=== PATIENT | male | born 1950 | race Caucasian/White ===

== ENCOUNTER → 2016-04-04 | Outpatient (REF) | payer MEDICARE ==
[~2016-04-04] MED LIST: ACTO15TA; GLUC1000; GLYB2.5T6; SIMV40TA2; TOPR50TA; VICO5TAB
[2016-04-04 17:15] LABS: ALBUMIN 3.9 GM/DL (3.2-5.2); ALBUMIN/GLOBULIN RATIO 1.34 (1.00-1.93); ALKALINE PHOSPHATASE 102 U/L (45-117); ALT/SGPT 28 U/L (12-78); ANION GAP 9 MEQ/L (8-16); AST/SGOT 16 U/L (15-37); BILIRUBIN,TOTAL 0.5 MG/DL (0.2-1.0); BLOOD UREA NITROGEN 23 MG/DL (7-18); CARBON DIOXIDE LEVEL 30 MEQ/L (21-32); CHLORIDE LEVEL 102 MEQ/L (98-107); CHOLESTEROL LEVEL 143 MG/DL (<200); GLOMERULAR FILTRATION RATE > 60.0 (>49); GLUCOSE, FASTING 141 MG/DL (80-110); POTASSIUM SERUM 4.4 MEQ/L (3.5-5.1); SODIUM LEVEL 141 MEQ/L (136-145); TOTAL PROTEIN 6.8 GM/DL (6.4-8.2); TRIGLYCERIDES LEVEL 109 MG/DL (<150)
== END ==
LOC: M SFHCCLAY 09:37
PROVIDERS: ATTEND Family Medicine
DX: I10 Essential (primary) hypertension (principal); E11.9 Type 2 diabetes mellitus without complications; E78.00 Pure hypercholesterolemia, unspecified

== ENCOUNTER → 2016-08-01 | Outpatient (REF) | payer MEDICARE ==
[2016-08-01 17:18] LABS: ALBUMIN 3.7 GM/DL (3.2-5.2); ALBUMIN/GLOBULIN RATIO 1.28 (1.00-1.93); ALKALINE PHOSPHATASE 86 U/L (45-117); ALT/SGPT 30 U/L (12-78); ANION GAP 7 MEQ/L (8-16); AST/SGOT 16 U/L (15-37); BILIRUBIN,TOTAL 0.7 MG/DL (0.2-1.0); BLOOD UREA NITROGEN 20 MG/DL (7-18); CARBON DIOXIDE LEVEL 30 MEQ/L (21-32); CHLORIDE LEVEL 100 MEQ/L (98-107); CHOLESTEROL LEVEL 145 MG/DL (<200); GLOMERULAR FILTRATION RATE > 60.0 (>49); GLUCOSE, FASTING 160 MG/DL (80-110); POTASSIUM SERUM 4.6 MEQ/L (3.5-5.1); SODIUM LEVEL 137 MEQ/L (136-145); TOTAL PROTEIN 6.6 GM/DL (6.4-8.2); TRIGLYCERIDES LEVEL 107 MG/DL (<150)
== END ==
LOC: M SFHCCLAY 10:07
PROVIDERS: ATTEND Family Medicine
DX: E78.00 Pure hypercholesterolemia, unspecified (principal); E11.9 Type 2 diabetes mellitus without complications

== ENCOUNTER → 2016-11-01 | Outpatient (REF) | payer MEDICARE ==
[2016-11-01 12:55] LABS: ANION GAP 10 MEQ/L (8-16); BLOOD UREA NITROGEN 21 MG/DL (7-18); CALCIUM LEVEL 9.2 MG/DL (8.8-10.2); CARBON DIOXIDE LEVEL 26 MEQ/L (21-32); CHLORIDE LEVEL 106 MEQ/L (98-107); CREATININE FOR GFR 0.95 MG/DL (0.70-1.30); GLOMERULAR FILTRATION RATE > 60.0 (>49); GLUCOSE, FASTING 152 MG/DL (80-110); POTASSIUM SERUM 4.7 MEQ/L (3.5-5.1); SODIUM LEVEL 142 MEQ/L (136-145)
== END ==
LOC: M SFHCCLAY 09:29
PROVIDERS: ATTEND Family Medicine
DX: E11.9 Type 2 diabetes mellitus without complications (principal)

== ENCOUNTER 2017-01-10 08:59 | Day surgery (SDC) | payer MEDICARE ==
[~2017-01-10] VITALS: Ht 175.3 cm; Wt 107.0 kg
[~2017-01-10 08:59] MED LIST changes: +ASPI1TAB PO; +ATOR40TA75 PO; +GLIP5TAB8 PO; +LISI-542 PO; +METF10004 PO; +METO100T5 PO; +MULTTAB23 PO; +PIOG30TA4 PO
[2017-01-10] MEDS ORDERED: NS 1,000 ML IV ONE (10:15)
[2017-01-10] MEDS ORDERED: PROPOFOL 200 MG/20 ML VIAL As Ordered ONE (10:57)
--- NOTE | 2017-01-10 11:04 | ROOR ---
Patient Name: Tae Gilbert Procedure Date: 01/10/2017 10:43 AM Date of : 1950 Age: 66 Room: [facility] Gender: Male Note Status: Finalized Procedure: Colonoscopy Indications: Screening for colorectal malignant neoplasm Providers: Juan Miguel Thomas Jr, MD Referring MD: Reyna Amador DO Requesting Provider: Medicines: Propofol per Anesthesia Complications: No immediate complications. Procedure: Pre-Anesthesia Assessment: - Prior to the procedure, a History and Physical was performed, and patient medications and allergies were reviewed. The patient is competent. The risks and benefits of the procedure and the sedation options and risks were discussed with the patient. All questions were answered and informed consent was obtained. Patient identification and proposed procedure were verified by the physician and the nurse in the pre-procedure area and in the procedure room. Mental Status Examination: alert and oriented. Airway Examination: normal oropharyngeal airway and neck mobility. Respiratory Examination: clear to auscultation. CV Examination: normal. ASA Grade Assessment: II - A patient with mild systemic disease. After reviewing the risks and benefits, the patient was deemed in satisfactory condition to undergo the procedure. The anesthesia plan was to use moderate sedation / analgesia (conscious sedation). Immediately prior to administration of medications, the patient was re-assessed for adequacy to receive sedatives. The heart rate, respiratory rate, oxygen saturations, blood pressure, adequacy of pulmonary ventilation, and response to care were monitored throughout the procedure. The physical status of the patient was re-assessed after the procedure. The Colonoscope was introduced through the anus and advanced to the cecum, identified by appendiceal orifice and ileocecal valve. The colonoscopy was performed without difficulty. The patient tolerated the procedure well. The quality of the bowel preparation was adequate and good. Findings: A few small and large-mouthed diverticula were found in the sigmoid colon. Two semi-pedunculated polyps were found in the recto-sigmoid colon and ascending colon. The polyps were medium in size. These polyps were removed with a hot snare. Resection and retrieval were complete. The rectum, descending colon, transverse colon, cecum, appendiceal orifice and ileocecal valve appeared normal. Impression: - Diverticulosis in the sigmoid colon. - Two medium polyps at the recto-sigmoid colon and in the ascending colon, removed with a hot snare. Resected and retrieved. - The rectum, descending colon, transverse colon, cecum, appendiceal orifice and ileocecal valve are normal. Recommendation: - Discharge patient to home (ambulatory). - Repeat colonoscopy in 5 years for surveillance. Juan Miguel Thomas MD Juan Miguel Thomas Jr, MD 01/10/2017 11:04:14 AM This report has been signed electronically. Number of Addenda: 0 Note Initiated On: 01/10/2017 10:43 AM Estimated Blood Loss: Estimated blood loss: none.
[2017-01-10 11:30] VITALS: BP 192/99
== END 2017-01-10 11:39 | disposition home or self-care (01) ==
LOC: M OPP 08:59
PROVIDERS: ATTEND Surgery
DX: Z12.11 Encounter for screening for malignant neoplasm of colon (principal); D12.7 Benign neoplasm of rectosigmoid junction; D12.2 Benign neoplasm of ascending colon; K57.30 Diverticulosis of large intestine without perforation or abscess without bleeding; I10 Essential (primary) hypertension; E78.00 Pure hypercholesterolemia, unspecified; E11.9 Type 2 diabetes mellitus without complications; K21.9 Gastro-esophageal reflux disease without esophagitis; Z79.82 Long term (current) use of aspirin; Z79.84 Long term (current) use of oral hypoglycemic drugs; Z79.899 Other long term (current) drug therapy; Z87.891 Personal history of nicotine dependence

== ENCOUNTER → 2017-02-27 | Outpatient (REF) | payer MEDICARE ==
[2017-02-27 18:43] LABS: ANION GAP 7 MEQ/L (8-16); BLOOD UREA NITROGEN 26 MG/DL (7-18); CALCIUM LEVEL 9.2 MG/DL (8.8-10.2); CARBON DIOXIDE LEVEL 29 MEQ/L (21-32); CHLORIDE LEVEL 101 MEQ/L (98-107); CREATININE FOR GFR 0.99 MG/DL (0.70-1.30); GLOMERULAR FILTRATION RATE > 60.0 (>49); GLUCOSE, FASTING 204 MG/DL (80-110); POTASSIUM SERUM 4.8 MEQ/L (3.5-5.1); SODIUM LEVEL 137 MEQ/L (136-145)
[2017-02-27 18:56] LABS: ESTIMATED AVERAGE GLUCOSE 163 MG/DL (60-110); HEMOGLOBIN A1c 7.3 %
== END ==
LOC: M SFHCCLAY 09:44
DX: E11.9 Type 2 diabetes mellitus without complications (principal)
CPT/HCPCS: 83036

== ENCOUNTER → 2017-06-27 | Outpatient (REF) | payer MEDICARE ==
[2017-06-27 11:30] LABS: ESTIMATED AVERAGE GLUCOSE 174 MG/DL (60-110); HEMOGLOBIN A1c 7.7 %
[2017-06-27 11:35] LABS: ALBUMIN 3.9 GM/DL (3.2-5.2); ALBUMIN/GLOBULIN RATIO 1.34 (1.00-1.93); ALKALINE PHOSPHATASE 94 U/L (45-117); ALT/SGPT 28 U/L (12-78); ANION GAP 8 MEQ/L (8-16); AST/SGOT 19 U/L (7-37); BILIRUBIN,TOTAL 0.5 MG/DL (0.2-1.0); BLOOD UREA NITROGEN 29 MG/DL (7-18); CALCIUM LEVEL 8.7 MG/DL (8.8-10.2); CARBON DIOXIDE LEVEL 25 MEQ/L (21-32); CHLORIDE LEVEL 106 MEQ/L (98-107); CHOLESTEROL LEVEL 127 MG/DL (<200); CHOLESTEROL RISK RATIO 3.432 (<5); CREATININE FOR GFR 1.04 MG/DL (0.70-1.30); GLOMERULAR FILTRATION RATE > 60.0 (>49); GLUCOSE, FASTING 187 MG/DL (70-100); HDL CHOLESTEROL 37 MG/DL (>40); LDL CHOLESTEROL 69.4 MG/DL (<100); NON-HDL-C 90 MG/DL; POTASSIUM SERUM 4.4 MEQ/L (3.5-5.1); SODIUM LEVEL 139 MEQ/L (136-145); TOTAL PROTEIN 6.8 GM/DL (6.4-8.2); TRIGLYCERIDES LEVEL 103 MG/DL (<150)
[2017-06-27 11:50] LABS: MALB URINE SIEMENS 52.2 MG/L; MAU/CREAT RATIO 17.6 MCG/MG (0.0-30.0)
== END ==
LOC: M SFHCCLAY 09:39
DX: E78.00 Pure hypercholesterolemia, unspecified (principal); E11.9 Type 2 diabetes mellitus without complications
CPT/HCPCS: 80053

== ENCOUNTER → 2017-10-29 | Outpatient (REF) | payer MEDICARE ==
[2017-10-29 18:02] LABS: ALBUMIN 3.9 GM/DL (3.2-5.2); ALKALINE PHOSPHATASE 93 U/L (45-117); ALT/SGPT 27 U/L (12-78); ANION GAP 10 MEQ/L (8-16); AST/SGOT 16 U/L (7-37); BILIRUBIN,TOTAL 0.4 MG/DL (0.2-1.0); BLOOD UREA NITROGEN 35 MG/DL (7-18); CALCIUM LEVEL 9.5 MG/DL (8.8-10.2); CARBON DIOXIDE LEVEL 26 MEQ/L (21-32); CHLORIDE LEVEL 103 MEQ/L (98-107); CREATININE FOR GFR 1.01 MG/DL (0.70-1.30); GLOMERULAR FILTRATION RATE > 60.0 (>49); GLUCOSE, FASTING 127 MG/DL (70-100); POTASSIUM SERUM 4.7 MEQ/L (3.5-5.1); SODIUM LEVEL 139 MEQ/L (136-145); TOTAL PROTEIN 6.9 GM/DL (6.4-8.2)
[2017-10-29 18:26] LABS: ESTIMATED AVERAGE GLUCOSE 154 MG/DL (60-110)
== END ==
LOC: M SFHCCLAY 09:53
DX: E11.9 Type 2 diabetes mellitus without complications (principal); I10 Essential (primary) hypertension
CPT/HCPCS: 80053

== ENCOUNTER → 2018-03-17 | Outpatient (REF) | payer MEDICARE ==
[~2018-03-17] MED LIST changes: +PIOG1TAB37 PO; -PIOG30TA4 PO
== END ==
LOC: M SFHCCLAY 09:48
PROVIDERS: ATTEND Family Medicine
DX: E11.9 Type 2 diabetes mellitus without complications (principal); E78.00 Pure hypercholesterolemia, unspecified; I10 Essential (primary) hypertension

== ENCOUNTER → 2018-03-18 | Outpatient (REF) | payer MEDICARE ==
[2018-03-18 12:05] LABS: ALT/SGPT 31 U/L (12-78); BILIRUBIN,TOTAL 0.7 MG/DL (0.2-1.0); BLOOD UREA NITROGEN 24 MG/DL (7-18); CALCIUM LEVEL 9.1 MG/DL (8.8-10.2); CARBON DIOXIDE LEVEL 28 MEQ/L (21-32); CHLORIDE LEVEL 100 MEQ/L (98-107); CHOLESTEROL LEVEL 138 MG/DL (<200); CHOLESTEROL RISK RATIO 3.285 (<5); CREATININE FOR GFR 1.08 MG/DL (0.70-1.30); GLOMERULAR FILTRATION RATE > 60.0 (>49); GLUCOSE, FASTING 175 MG/DL (70-100); HDL CHOLESTEROL 42 MG/DL (>40); LDL CHOLESTEROL 71 MG/DL (<100); NON-HDL-C 96 MG/DL; POTASSIUM SERUM 4.6 MEQ/L (3.5-5.1); SODIUM LEVEL 136 MEQ/L (136-145); TOTAL PROTEIN 6.8 GM/DL (6.4-8.2); TRIGLYCERIDES LEVEL 125 MG/DL (<150)
[2018-03-18 12:20] LABS: HEMOGLOBIN A1c 8.6 %
== END ==
LOC: M SFHCCLAY 09:06
PROVIDERS: ATTEND Family Medicine
DX: E11.9 Type 2 diabetes mellitus without complications (principal); E78.00 Pure hypercholesterolemia, unspecified

== ENCOUNTER 2018-04-01 17:32 | Inpatient (IN) | payer MEDICARE ==
[~2018-04-01] VITALS: Ht 177.8 cm; Wt 110.8 kg
[2018-04-01] MEDS: NS 1,000 ML IV SCH ×2 (18:07→22:40)
--- NOTE | 2018-04-01 18:08 | REP ---
CT of the brain without IV contrast: There are no comparisons. There is a large focal zone of edema posteriorly in the right upper lobe measuring 5.4 x 3.2 cm compatible with either ischemic stroke or tumor. Followup MRI is recommended. There is no hemorrhage. There is mild enlargement of the ventricles and sulci compatible with mild diffuse atrophy. The visualized paranasal sinuses and mastoid air cells are clear. Impression: Focal zone of low density in the low O stair right upper lobe compatible with congestive of edema. This could represent an ischemic stroke or a tumor. Followup MRI is recommended. Electronically Signed by Alejandro Hadley MD 04/01/2018 06:00 P
[2018-04-01 18:10] LABS: BASO % 0.3 % (0.0-1.0); EOS % 0.4 % (0.0-3.0); HEMATOCRIT 42.1 % (42.0-52.0); HEMOGLOBIN 14.1 g/dl (13.5-17.5); LYMPH # 1.3 10^3/uL (1.5-4.5); LYMPH % 18.6 % (24.0-44.0); MEAN CORPUSCULAR HEMOGLOBIN 30.8 pg (27.0-33.0); MEAN CORPUSCULAR HGB CONC 33.5 g/dl (32.0-36.5); MEAN CORPUSCULAR VOLUME 91.9 fl (80.0-96.0); MONO # 0.4 10^3/uL (0.0-0.8); NEUTROPHILS # 5.2 10^3/uL (1.8-7.7); NEUTROPHILS % 74.6 % (36.0-66.0); PLATELET COUNT, AUTOMATED 286 10^3/uL (150-450); RED BLOOD COUNT 4.58 10^6/uL (4.30-6.10)
--- NOTE | 2018-04-01 18:15 | REP ---
Portable chest, 05:54 p.m., single AP view, the patient upright: Comparison is 07/07/2008. The left costophrenic angle is mildly effaced suggestive of a left pleural effusion. The lung mondragon otherwise clear. There is a right lung azygos lobe, unchanged. Cardiac size appears enlarged, unchanged. Impression: Possible small left pleural effusion. Electronically Signed by Alejandro Hadley MD 04/01/2018 06:07 P
[2018-04-01 18:48] LABS: ACETAMINOPHEN LEVEL < 2.0 UG/ML (10.0-30.0); ALBUMIN 3.7 GM/DL (3.2-5.2); ALT/SGPT 24 U/L (12-78); BILIRUBIN,DIRECT 0.2 MG/DL (0.0-0.2); BILIRUBIN,TOTAL 0.5 MG/DL (0.2-1.0); BLOOD UREA NITROGEN 22 MG/DL (7-18); CALCIUM LEVEL 8.7 MG/DL (8.8-10.2); CARBON DIOXIDE LEVEL 26 MEQ/L (21-32); CHLORIDE LEVEL 103 MEQ/L (98-107); CPK CREATINE PHOSPHOKINASE 79 U/L (39-308); CREATININE FOR GFR 1.22 MG/DL (0.70-1.30); ETHYL ALCOHOL (ETHANOL) < 0.003 % (0.000-0.010); GLOMERULAR FILTRATION RATE > 60.0 (>49); GLUCOSE, FASTING 235 MG/DL (70-100); MB/CK RELATIVE INDEX 1.65 (< OR =4); POTASSIUM SERUM 4.2 MEQ/L (3.5-5.1); SALICYLATE LEVEL < 1.7 MG/DL (5.0-30.0); SODIUM LEVEL 137 MEQ/L (136-145); TOTAL PROTEIN 6.7 GM/DL (6.4-8.2); TROPONIN I < 0.02 NG/ML (< 0.10)
[2018-04-01] MEDS ORDERED: ISOVUE-370 76% 100ML VIAL (Q9967) As Ordered ONE (18:52)
--- NOTE | 2018-04-01 20:37 | REPVR ---
EXAM: CT Angiography Head With Contrast EXAM DATE/TIME: 04/01/2018 7:20 PM CLINICAL HISTORY: 67 years old, male; Abnormal findings; Abnormal CT of the head; Additional info: CVA vs mass TECHNIQUE: Axial computed tomographic angiography images of the head with intravenous contrast using CT angiography protocol. All CT scans at this facility use at least one of these dose optimization techniques: automated exposure control; mA and/or kV adjustment per patient size (includes targeted exams where dose is matched to clinical indication); or iterative reconstruction. Coronal and sagittal reformatted images were created and reviewed. MIP and 3D reconstructed images were created and reviewed. Technologist notes: Facility exam id and description: CT. [facility]io[facility] CT angio head CONTRAST: Contrast Material: 100 ml of ISOVUE 370; Contrast Route: IV COMPARISON: CT Head without contrast 04/01/2018 5:35 PM FINDINGS: Right internal carotid artery: Atherosclerotic changes demonstrated in the right intracranial carotid artery. There is a moderate to high-grade stenosis in the distal intracavernous segment. Right anterior cerebral artery: Unremarkable. No occlusion or significant stenosis. No aneurysm. Right middle cerebral artery: Reduced caliber and decreased flow in the M1 and M2 branches of the right middle cerebral artery. No tumor vascularity demonstrated. Right posterior cerebral artery: Unremarkable. No occlusion or significant stenosis. No aneurysm. Right vertebral artery: Right dominant vertebral artery. Atherosclerotic changes in the right V4 segment of the vertebral artery without significant stenosis. Left internal carotid artery: Atherosclerotic changes demonstrated in the left intracranial carotid artery. No high-grade stenoses. Left anterior cerebral artery: Unremarkable. No occlusion or significant stenosis. No aneurysm. Left middle cerebral artery: Unremarkable. No occlusion or significant stenosis. No aneurysm. Left posterior cerebral artery: Unremarkable. No occlusion or significant stenosis. No aneurysm. Left vertebral artery: Unremarkable. No occlusion or significant stenosis. No aneurysm. Basilar artery: Tortuous basilar artery. IMPRESSION: 1. Right dominant vertebral artery. Atherosclerotic changes in the right V4 segment of the vertebral artery without significant stenosis. 2. Atherosclerotic changes demonstrated in the right intracranial carotid artery. There is a moderate to high-grade stenosis in the distal intracavernous segment. 3. Atherosclerotic changes demonstrated in the left intracranial carotid artery. No high-grade stenoses. 4. Reduced caliber and decreased flow in the M1 and M2 branches of the right middle cerebral artery. Electronically signed by: Gabriel Chaney On 04/01/2018 20:36:55 PM
--- NOTE | 2018-04-01 20:43 | REPVR ---
EXAM: CT Angiography Neck With Contrast EXAM DATE/TIME: 04/01/2018 7:20 PM CLINICAL HISTORY: 67 years old, male; Abnormal findings; Abnormal CT of the head; Additional info: CVA TECHNIQUE: Axial computed tomographic angiography images of the neck with intravenous contrast using CT angiography protocol. All CT scans at this facility use at least one of these dose optimization techniques: automated exposure control; mA and/or kV adjustment per patient size (includes targeted exams where dose is matched to clinical indication); or iterative reconstruction. Coronal and sagittal reformatted images were created and reviewed. MIP and 3D reconstructed images were created and reviewed. Technologist notes: Facility exam id and description: CT. [employer] CT angio neck CONTRAST: Contrast Material: 100 ml of ISOVUE 370; Contrast Route: IV COMPARISON: No relevant prior studies available. FINDINGS: VASCULATURE: Right common carotid artery: Normal. No significant stenosis. No dissection or occlusion. Right internal carotid artery: There is an occlusion of the right internal carotid artery at its origin. Right external carotid artery: Normal. No occlusion or significant stenosis. Right vertebral artery: Mild atherosclerotic changes in V1 through V4 segments of the right vertebral artery without significant stenosis. Dominant right vertebral artery. Left common carotid artery: Atherosclerotic changes at the origin of the left common carotid artery without significant stenosis. Left internal carotid artery: There is moderate atherosclerotic changes in the proximal left ICA estimated at 50-60 % narrowing which is consistent with a moderate stenosis using NASCET criteria. Left external carotid artery: Normal. No occlusion or significant stenosis. Left vertebral artery: Hypoplastic left vertebral artery. Subclavian arteries: Atherosclerotic changes at the origin of the left subclavian artery without significant stenosis. Brachiocephalic artery: Atherosclerotic changes in the proximal brachiocephalic artery without significant stenosis. Aorta: The aorta demonstrates moderate atherosclerotic calcification. NECK: Bones/joints: No acute fracture. Soft tissues: Normal. No significant soft tissue swelling. Lungs: Prominent azygous arch right lung. IMPRESSION: 1. There is moderate atherosclerotic changes in the proximal left ICA estimated at 50-60 % narrowing which is consistent with a moderate stenosis using NASCET criteria. 2. 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 3. Right dominant vertebral artery with mild atherosclerotic changes demonstrated. COMMENT: Reference per NASCET criteria for degree of stenosis: Mild: <50% stenosis. Moderate: 50-69% stenosis. Severe: 70-94% stenosis. Near occlusion: 95-99% stenosis. Electronically signed by: Gabriel Chaney On 04/01/2018 20:43:21 PM
[2018-04-01] MEDS ORDERED: HumaLOG INSULIN (NovoLOG) PER UNIT SC SCH (21:00)
[2018-04-01] MEDS ORDERED: LISINOPRIL 5 MG TAB PO SCH (21:00)
[2018-04-01] MEDS ORDERED: ASPIRIN 325 MG TAB PO ONE (21:15)
[2018-04-01] MEDS ORDERED: ASPI81TAEC PO (21:25)
[2018-04-01] MEDS ORDERED: LISI-542 PO (21:25)
[2018-04-01] MEDS ORDERED: GLIP10TA6 PO (21:25)
[2018-04-01] MEDS ORDERED: VITMTA PO (21:25)
[2018-04-01] MEDS ORDERED: DEXTROSE 50% 50 ML SYRINGE IV PRN (23:00)
[2018-04-01] MEDS ORDERED: GLUCAGON FOR INJ 1 MG VIAL (J1610) SC PRN (23:00)
[2018-04-01] MEDS ORDERED: GLUCOSE 4 GM CHEW TABLET PO PRN (23:00)
--- NOTE | 2018-04-01 23:53 | HPE ---
DATE OF ADMISSION: 04/01/2018 PRIMARY CARE PROVIDER AND ATTENDING PHYSICIAN: Dr. Cuellar VOLLEYBALL REFEREE: Dr. Sosa, Neurologist CHIEF COMPLAINT: Fall twice at home with possible left-sided weakness. HISTORY OF THE PRESENT ILLNESS: The patient is a 67-year-old white male with several chronic medical conditions listed below, came to the emergency room (ER) for evaluation of above complaints. History is provided by himself, as well as by his son who is with him in the ER. The patient states in the last week he was sick, he got the flu. He had coughing runny nose, poor appetite, and with general weakness. Yesterday, he fell in the bathroom and got a contusion on his left arm. Today, he fell again at home, and the called 911 and brought him to the ER for further evaluation. Per the son, when emergency medical services (EMS) went to see him, his left side was very weak. In the ER, he had a CT of his brain done, which demonstrated possible stroke, so medicine called for admission. Dr. Sosa, who is radiosonde operator for neurology service, was also contacted by the ER, and he will come to see the patient tomorrow. REVIEW OF SYSTEMS: Denies fever. No chills. No headache. No blurred vision. No shortness of breath. No chest pain. No abdominal pain. No dysuria. No tingling, numbness in the arms or lower extremities. All other systems were reviewed but negative. PAST MEDICAL HISTORY: 1. Type 2 diabetes. 2. Hypertension. 3. Dyslipidemia. PAST SURGICAL HISTORY: Hiatal hernia repair. ALLERGIES: No known drug allergies. MEDICATIONS: Reviewed. SOCIAL HISTORY: Remote tobacco use but quit many years. No alcohol abuse. No illicit drug abuse. He is a [employer]. FAMILY HISTORY: Father had a history of diabetes and from a heart problem. Mother from old age. PHYSICAL EXAMINATION: VITAL SIGNS: Temperature 98, heart rate is 85, respiratory rate 18, blood pressure 148/65, oxygen saturation 97% on room air. GENERAL: He is awake, alert, oriented times three. He is not in acute distress. HEENT: Atraumatic. Pupils are equal, round, reactive to light. No jaundice. Extraocular muscles intact. Ears, nose and throat: Normal. Mouth: Mucosa a little dry. NECK: No jugular venous distention (JVD). No bruits. LUNGS: Clear. HEART; S1, S2, regular. No murmur. ABDOMEN: Soft. Bowel sounds positive, nontender. LOWER EXTREMITIES: No edema in bilateral lower extremities. NEUROLOGIC: Cranial nerves II-XII intact and sensation normal, and reflexes normal. The only positive finding is left lower extremity muscle tone seems a little bit weak; it is about 4 over 5. The arms as well as the right lower extremity strength is normal. SKIN: No rash. PSYCHOLOGIC: No acute psychosis. DIAGNOSTIC AND LAB STUDIES: CBC and differential showed WBC 7, hemoglobin and hematocrit 14 over 42 and platelets 286. Sodium 137, potassium 4.2, chloride 103, bicarbonate 26, BUN 22, creatinine 1.2, glucose 235. Head CT demonstrated large focal zone of edema posteriorly in the right upper lobe measuring 5.4 x 3.2 cm, compatible with either ischemic stroke or tumor. Neck CTA as well as brain CT reviewed. IMPRESSION: 1. Possible acute ischemic stroke in the right upper lobe. 2. Type 2 diabetes. 3. Hypertension. 4. Dyslipidemia. PLAN: The patient will be admitted to the progressive care unit (PCU) for close monitoring. Will continue his home medications. Will keep his blood pressure around 150/80, try to avoid lower blood pressure significantly since this is acute stroke. Will schedule brain MRI tomorrow morning. Will get physical therapy (PT) to come to evaluate him. It seems like he does not have any swallowing problem. Neurology, Dr. Sosa, will come and consult tomorrow. He is not in the thrombolytic treatment window because this could have happened yesterday since he fell the first time at home. [facility] HOSPITALJocelynn
[2018-04-02] VITALS (8 sets, daily range): BP systolic 131–173; BP diastolic 62–70
[2018-04-02] MEDS: ACETAMINOPHEN TAB 650MG DOSE (2X325MG) PO PRN ×2 (01:30→11:32)
--- NOTE | 2018-04-02 06:41 | ECGEPIP ---
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
[2018-04-02 08:19] LABS: HEMOGLOBIN 13.3 g/dl (13.5-17.5); MEAN CORPUSCULAR HEMOGLOBIN 30.6 pg (27.0-33.0); MEAN CORPUSCULAR HGB CONC 34.1 g/dl (32.0-36.5); MEAN CORPUSCULAR VOLUME 89.9 fl (80.0-96.0); PLATELET COUNT, AUTOMATED 275 10^3/uL (150-450); RED BLOOD COUNT 4.34 10^6/uL (4.30-6.10); WHITE BLOOD COUNT 6.8 10^3/uL (4.0-10.0)
[2018-04-02 08:33] LABS: BLOOD UREA NITROGEN 19 MG/DL (7-18); CALCIUM LEVEL 8.7 MG/DL (8.8-10.2); CARBON DIOXIDE LEVEL 25 MEQ/L (21-32); CHLORIDE LEVEL 103 MEQ/L (98-107); CREATININE FOR GFR 0.89 MG/DL (0.70-1.30); GLOMERULAR FILTRATION RATE > 60.0 (>49); GLUCOSE, FASTING 189 MG/DL (70-100); POTASSIUM SERUM 3.9 MEQ/L (3.5-5.1); SODIUM LEVEL 135 MEQ/L (136-145)
[2018-04-02] MEDS: HumaLOG INSULIN (NovoLOG) PER UNIT SC SCH ×2 (08:39→11:54)
[2018-04-02] MEDS ORDERED: ATORVASTATIN 20 MG TAB PO SCH (09:00)
[2018-04-02] MEDS ORDERED: METOPROLOL TARTRATE 100 MG TAB PO SCH (09:00)
[2018-04-02] MEDS ORDERED: MULTIVITAMINS/MINERALS THERAP 1 TAB PO SCH (09:00)
[2018-04-02] MEDS ORDERED: PANTOPRAZOLE 40MG TAB (PROTONIX) PO SCH (09:00)
[2018-04-02] MEDS ORDERED: ASPIRIN 81 MG ENTERIC TAB PO SCH (09:00)
[2018-04-02] MEDS ORDERED: ENOXAPARIN 40 MG/0.4 ML SYRINGE (J1650) SC SCH (09:00)
[2018-04-02] MEDS ORDERED: CLOPIDOGREL 75 MG TAB PO ONE (09:00)
[2018-04-02] MEDS ORDERED: DOCUSATE SODIUM 100 MG CAP PO SCH (09:00)
--- NOTE | 2018-04-02 10:27 | REP ---
MR BRAIN WITHOUT CONTRAST: HISTORY: Infarction. COMPARISON: CT 04/01/2018. Increased signal intensity on diffusion and T2-weighted images is present in the right temporal lobe, basal ganglia, posterior right frontal lobe, and anterior right parietal lobe. This is decreased in signal intensity on ADC images and is consistent with an acute infarction. A small hemorrhagic component is present. There is mass effect with effacement of the overlying cortical sulci and partial effacement of the body of the right lateral ventricle. There is no midline shift. Areas of increased signal intensity on T2-weighted images are present in the periventricular and subcortical white matter. This represents small vessel ischemic disease. The ventricular system and cortical sulci are dilated consistent with minimal volume loss. There is no extracerebral collection. There is loss of the normal hyperintense signal in the cavernous right internal carotid artery. This is secondary to severe stenosis of the proximal right internal carotid artery. The visualized sinuses are clear. IMPRESSION: 1. Acute infarction and distribution of the right middle cerebral artery. A small hemorrhagic component is present. There is mass effect without midline shift. 2. Small vessel ischemic disease. 3. Minimal volume loss. Electronically Signed by Tae Garcia MD 04/02/2018 10:30 A
[2018-04-02] MEDS ORDERED: PILL CRUSHER/CUTTER 1 EACH XX PRN (11:30)
--- NOTE | 2018-04-02 13:25 | IPNPDOC ---
Subjective Date Seen The patient was seen on 04/02/18. Subjective Chief Complaint/HPI Patient lying in bed as I entered the room. Patient is alert and oriented x 3. He reports left sided weakness. Started yesterday afternoon. Per nursing, symptoms have progressed since admission. Constitutional: Denies: Chills, Fever Eyes: Denies: Vision change ENT: Denies: Head Aches Pulmonary: Denies: Dyspnea, Cough Cardiovascular: Denies: Chest Pain, Orthopnea, Edema Gastrointestinal: Denies: Nausea, Vomiting, Abdominal Pain Neurological: Reports: Weakness, Other Symptoms (left side facial droop ); Denies: Change in speech, Confusion Objective Physical Examination General Exam: Positive: Alert, Cooperative, No Acute Distress Neck Exam: Negative: JVD Chest Exam: Positive: Clear to auscultation, Normal air movement; Negative: Rales, Rhonchi, Wheezing Heart Exam: Positive: Rate Normal Abdomen Exam: Positive: Normal bowel sounds, Soft; Negative: Tenderness Extremity Exam: Negative: Edema Skin Exam: Negative: Nl turgor and temperature Neuro Exam: Positive: Other (left sided lower extremity weakness); Negative: Normal Speech (speech with periods of aphasia ), Cranial Nerves 3- 12 NL (Patient somewhat un-cooperative when assessing EOM, stating he is tired. No loss in vision, Pupuillary constriction and eye lid movement appropriate. Left sided facial droop noted. ) Assessment /Plan Problems (1) Acute ischemic stroke Status: Acute Response to Treatment: Worse Problem Specific Plan: Consult Specialist Problem Text: 04/02/18: Patient with progressive left sided weakness. Dr. Sosa was consulted. He recommended starting Plavix and he will be in to see patient later this morning. Due to worsening of symptoms MRI order was changed to STAT. Per nursing, patient was coughing and gagging with medication administration this morning. Swallow eval ordered and patient was changed to NPO for now. PT/OT ordered as well. CT scan performed, Impression: Focal zone of low density in the low O stair right upper lobe compatible with congestive of edema. This could represent an ischemic stroke or a tumor. Followup MRI is recommended. Plan/VTE VTE Prophylaxis Ordered?: Yes (Lovenox ) VS, I&O, 24H, Fishbone Vital Signs/I&O Vital Signs Date Time Temp Pulse Resp B/P (MAP) Pulse Ox O2 Delivery O2 Flow Rate FiO2 04/02/18 04:00 98.6 93 20 152/70 (97) 95 04/01/18 23:30 Room Air I&O- Last 24 Hours up to 6 AM 04/02/18 05:59 Intake Total 60 ml Output Total 350 ml Balance -290 ml Laboratory Data 24H LABS Laboratory Tests 2 04/01/18 18:03: Immature Granulocyte % (Auto) 0.1, White Blood Count 7.0, Red Blood Count 4.58, Hemoglobin 14.1, Hematocrit 42.1, Mean Corpuscular Volume 91.9, Mean Corpuscular Hemoglobin 30.8, Mean Corpuscular Hemoglobin Concent 33.5, Red Cell Distribution Width 12.5, Platelet Count 286, Neutrophils (%) (Auto) 74.6H, Lymphocytes (%) (Auto) 18.6L, Monocytes (%) (Auto) 6.0H, Eosinophils (%) (Auto) 0.4, Basophils (%) (Auto) 0.3, Neutrophils # (Auto) 5.2, Lymphocytes # (Auto) 1.3L, Monocytes # (Auto) 0.4, Eosinophils # (Auto) 0.0, Basophils # (Auto) 0.0, Nucleated Red Blood Cells % (auto) 0.0, Anion Gap 8, Glomerular Filtration Rate > 60.0, Calcium Level 8.7L, Aspartate Amino Transf (AST/SGOT) 14, Alanine Aminotransferase (ALT/SGPT) 24, Alkaline Phosphatase 88, Total Bilirubin 0.5, Direct Bilirubin 0.2, Total Creatine Kinase 79, Creatine Kinase MB 1.0, Creatine Kinase MB Relative Index 1.65, Troponin I < 0.02, Total Protein 6.7, Albumin 3.7, Albumin/Globulin Ratio 1.23, Thyroid Stimulating Hormone (TSH) 1.380, Salicylates Level < 1.7L, Acetaminophen Level < 2.0L, Ethyl Alcohol Level < 0.003 04/01/18 23:22: Bedside Glucose (Misc Panel) 147H 04/02/18 07:52: CBC/BMP Laboratory Tests 04/01/18 18:03 Red Blood Count 4.58, Mean Corpuscular Volume 91.9, Mean Corpuscular Hemoglobin 30.8, Mean Corpuscular Hemoglobin Concent 33.5, Red Cell Distribution Width 12.5, Neutrophils (%) (Auto) 74.6 H, Lymphocytes (%) (Auto) 18.6 L, Monocytes (%) (Auto) 6.0 H, Eosinophils (%) (Auto) 0.4, Basophils (%) (Auto) 0.3, Neutrophils # (Auto) 5.2, Lymphocytes # (Auto) 1.3 L, Monocytes # (Auto) 0.4, Eosinophils # (Auto) 0.0, Basophils # (Auto) [address] [facility] Apr 02, 2018 09:05
[2018-04-02] MEDS ORDERED: NS 1,000 ML IV SCH (13:30)
--- NOTE | 2018-04-02 13:51 | NUR ---
Pt seen for bedside swallow evaluation d/t coughing and gagging with med administration. Pt provided nectar, honey and puree consistencies. Exceptionally poor bolus manipulation with nectar and honey. Reduced manipulation with puree. Improved manipulation if presented with slight tongue press. Decrease oral sensation and little to no manipulation of balancing machine set up worker consistencies. Pt delusional/delirious intermittently throughout the evaluation. Recommend: NPO. Necessary PO Meds crushed in cold applesauce. Provide repeat directives to swallow. Full upright positioning when passing meds. Keep bed elevated. Re-evaluate in am. Addendum: 04/02/18 at 1356 by ZAINAB NEGRETE [facility] Amended: Links added.
[2018-04-02] MEDS ORDERED: HumaLOG INSULIN (NovoLOG) PER UNIT SC SCH (18:00)
--- NOTE | 2018-04-02 18:26 | REPVR ---
EXAM: CT Head Without Contrast EXAM DATE/TIME: 04/02/2018 6:03 PM CLINICAL HISTORY: 67 years old, male; Condition or disease; Cerebrovascular disease; Cerebral infarction; Additional info: Right mca CVA, R/O ich TECHNIQUE: Axial computed tomography images of the head/brain without contrast. All CT scans at this facility use at least one of these dose optimization techniques: automated exposure control; mA and/or kV adjustment per patient size (includes targeted exams where dose is matched to clinical indication); or iterative reconstruction. COMPARISON: CT Head without contrast 04/01/2018 5:35 PM FINDINGS: Brain: Increased hypodensity in the right frontal, and anterior mid parietal lobes extending to the vertex and with mass effect on the right lateral ventricle in the region of previously demonstrated chronic infarction. The findings suggest extension of the previously demonstrated chronic infarct. Edema with mass effect is producing 5 mm of [id number] midline shift. Remaining parenchyma demonstrate senescent changes. Ventricles: Mass effect on the right lateral ventricle as described above. Moderate ventricular dilatation related atrophy. Bones/joints: Unremarkable. No acute fracture. Sinuses: Visualized sinuses are unremarkable. No acute sinusitis. Mastoid air cells: Visualized mastoid air cells are unremarkable. No mastoid effusion. Soft tissues: Unremarkable. IMPRESSION: Increased hypodensity in the right frontal, and anterior mid parietal lobes extending to the vertex and with mass effect on the right lateral ventricle in the region of previously demonstrated chronic infarction. The findings suggest extension of the previously demonstrated chronic infarct. Edema with mass effect is producing 5 mm of [id number] midline shift. Electronically signed by: Gabriel Chaney On 04/02/2018 18:26:31 PM
--- NOTE | 2018-04-03 00:42 | DS.PDOC ---
Discharge Summary General Date of Admission Apr 01, 2018 at 22:59 Date of Discharge Apr 02, 2018 Primary Care Physician: Archie Cuellar M.D. Attending Physician: KATINA MEI DO Specialist/Consultants Involve: MATTEO SOSA MD Discharge Summary PROCEDURES PERFORMED DURING STAY: [None]. ADMITTING DIAGNOSES: 1. Possible acute ischemic stroke in the right upper lobe. 2. Type 2 diabetes. 3. Hypertension. 4. Dyslipidemia. DISCHARGE DIAGNOSES: 1. Ischemic CVA with edema and midline shift 2. Type 2 diabetes. 3. Hypertension. 4. Dyslipidemia. COMPLICATIONS/CHIEF COMPLAINT: Acute Ischemic Stroke. HISTORY OF PRESENT ILLNESS: This is a 67 year old gentleman who came to the ED after falling twice at home. The patient states in the last week he was sick, he got the flu. He had coughing runny nose, poor appetite, and with general weakness. Yesterday, he fell in the bathroom and got a contusion on his left arm. Today, he fell again at home, and the called 911 and brought him to the ER for further evaluation. Per the son, when emergency medical services (EMS) went to see him, his left side was very weak. In the ER, he had a CT of his brain done, which demonstrated possible stroke, so medicine called for admission. Dr. Sosa, who is monotype operator for neurology service, was also contacted by the ER, and he will come to see the patient tomorrow. HOSPITAL COURSE: Patient was admitted to the ICU and monitored. He failed a swallow eval and was made NPO status. Worsening functional capacity and paralysis led to follow up MRI, and ultimately a follow up head CT. At that p oint, Dr. Sosa decided that the patient should be transferred to [place], and arrangements were made. DISCHARGE MEDICATIONS: Please see below. ALLERGIES: Please see below. PHYSICAL EXAMINATION ON DISCHARGE: VITAL SIGNS: Please see below. GENERAL: anxious; obese HEENT: mucous membranes moist NECK: supple CARDIOVASCULAR EXAMINATION: regular rate and rhythm RESPIRATORY EXAMINATION: clear to auscultation bilat ABDOMINAL EXAMINATION: bowel sounds positive; soft, nontender, nondistended SKIN: clean dry and intact NEUROLOGICAL EXAMINATION: flaccid paralysis L arm and leg PSYCHIATRIC EXAMINATION: alert and cooperative LABORATORY DATA: Please see below. IMAGING: head CT, brain MRI, and final head CT as follows: Increased hypodensity in the right frontal, and anterior mid parietal lobes extending to the vertex and with mass effect on the right lateral ventricle in the region of previously demonstrated chronic infarction. The findings suggest extension of the previously demonstrated chronic infarct. Edema with mass effect is producing 5 mm of [id number] midline shift. PROGNOSIS: fair ACTIVITY: [As tolerated]. DIET: NPO DISCHARGE PLAN: transfer to [place] under the care of Dr. Belle DISPOSITION: 14 Dcf. TIME SPENT ON DISCHARGE: Greater than 15 minutes. Vital Signs/I&Os Vital Signs Date Time Temp Pulse Resp B/P (MAP) Pulse Ox O2 Delivery O2 Flow Rate FiO2 04/02/18 20:00 98.5 66 24 161/70 (100) 96 04/01/18 23:30 Room Air I&O- Last 24 Hours up to 6 AM 04/03/18 06:00 Intake Total 520 ml Output Total 835 ml Balance -315 ml Laboratory Data Labs 24H Laboratory Tests 2 04/02/18 07:52: Nucleated Red Blood Cells % (auto) 0.0, Anion Gap 7L, Glomerular Filtration Rate > 60.0, Blood Urea Nitrogen 19H, Creatinine 0.89, Sodium Level 135L, Potassium Level 3.9, Chloride Level 103, Carbon Dioxide Level 25, Calcium Level 8.7L 04/02/18 11:36: Bedside Glucose (Misc Panel) 220H 04/02/18 17:48: Bedside Glucose (Misc Panel) 170H CBC/BMP Laboratory Tests 04/02/18 07:52 Red Blood Count 4.34, Mean Corpuscular Volume 89.9, Mean Corpuscular Hemoglobin 30.6, Mean Corpuscular Hemoglobin Concent 34.1, Red Cell Distribution Width 12.5, Calcium Level 8.7 L FSBS Laboratory Tests Test 04/02/18 11:36 04/02/18 17:48 Range/Units Bedside Glucose (Misc Panel) 220 170 80-115 MG/DL Discharge Medications Scheduled Aspirin (Aspirin EC) 81 Mg Tabec, 81 MG PO DAILY, (Reported) Atorvastatin Calcium (Atorvastatin Calcium) 40 Mg Tab, 40 MG PO DAILY, (Reported) Glipizide (Glipizide) 10 Mg Tab, 10 MG PO BID, (Reported) Lisinopril (Lisinopril) 5 Mg Tab, 5 MG PO QHS, (Reported) Metformin Hydrochloride (Metformin HCl) 1,000 Mg Tab, 1,000 MG PO BID, (Reported) Metoprolol Tartrate (Metoprolol Tartrate) 100 Mg Tab, 100 MG PO DAILY, (Reported) Multivitamins *[facility] STOCKED* (Thera M Plus *[facility] STOCKED*) 1 Tab Tab, 1 TAB PO DAILY, (Reported) Pioglitazone Hydrochloride (Pioglitazone HCl) 30 Mg Tab, 30 MG PO DAILY, (Reported) Allergies Coded Allergies: No Known Drug Allergy (Verified Allergy, Unknown, 04/01/18) KATINA MEI DO Apr 03, 2018 00:41
--- NOTE | 2018-04-03 06:34 | CR ---
DATE OF CONSULTATION: 04/02/2018 REFERRING PHYSICIAN: Dr. Mable Louie REFERRING PHYSICIAN Dr. Doc weinstein REASON FOR CONSULTATION: Left-sided weakness. HISTORY OF PRESENT ILLNESS: Tae Dunn is a 67-year-old man with history of type 2 diabetes, hypertension and dyslipidemia who presented to [facility] with his son after he fell several times at home. The patient had the flu and headaches last week. The day before yesterday he fell in the bathroom when he slipped in the bathroom. He had a contusion on his left arm at that time. In the morning of day of admission his noted that he was bouncing back and forth on the goncalves when he was coming downstairs. He could not go back upstairs as his legs felt too weak. His son brought him to [facility] and his left side was noted to be very weak. CT scan of the head at the time of arrival showed a large right middle cerebral artery stroke affecting the entire anterior division. CT angiography of the head and neck in the emergency department showed complete occlusion of his right internal carotid artery with severe stenosis of right internal carotid artery in cavernous portion with attenuation of right middle cerebral artery branches. He had 50 - 60% left internal carotid artery stenosis. This morning the patient had MRI scan of his brain. The patient had received as dose of aspirin yesterday and a dose of Plavix this morning before his MRI scan of brain. MRI scan of the brain showed a large right middle cerebral artery ischemic stroke with small petechial hemorrhage. When I saw the patient the patient appears to keep his eyes closed. He opens his eyes to oral commands and answers questions appropriately. He seems to have left hemiplegia and left rose neglect. He complains of chronic neck and back pain. He denies any seizures, diplopia, urinary incontinence or loss of consciousness. PAST MEDICAL HISTORY: 1. Diabetes. 2. Hypertension. 3. Dyslipidemia. 4. Hiatal hernia repair. ALLERGIES: No known drug allergies. SOCIAL HISTORY: He has a remote history of tobacco use but quit many years ago. He denies alcohol or illicit drugs. He is a [employer]. FAMILY HISTORY: Father with history of diabetes and had heart disease. REVIEW OF SYSTEMS: All systems were reviewed and found to be noncontributory except as mentioned in the history present illness. CURRENT MEDICATIONS: - aspirin 81 mg by mouth daily - Lipitor 40 mg by mouth daily - Plavix 75 mg by mouth daily, the patient did receive a dose earlier this morning - Lisinopril 5 mg by mouth daily - metoprolol 100 mg by mouth twice a day - Protonix PHYSICAL EXAMINATION: VITAL SIGNS: Blood pressure ranged between 133/60 - 158/97, temperature 98.4, pulse 65, respiratory 16. HEART: Regular rate and rhythm. LUNGS: Clear to auscultation. ABDOMEN: Soft, nontender, nondistended. EXTREMITIES: No pedal edema. MUSCULOSKELETAL: No musculoskeletal abnormalities. SKIN: No rash. NEUROLOGIC EXAM: No signs of meningeal irritation. No tremor. No nystagmus. The patient is drowsy but fully arousable and is able to follow commands. He is able to answer questions. He has left-sided rose neglect. He keeps his head turned towards the right side. His speech is normal with normal comprehension and repetition. Recent and distant memory is intact. Extraocular muscles are intact. He has left-sided upper motor neuron type facial weakness. Strength in his left arm and leg are 0/5. Left plantar is upgoing. Strength on right sided 05/05. He has decreased touch: Vibration sensation on left side of his body. He has left-sided cortical sensory loss. Gait could not be tested due to dense left hemiplegia. He has no dysmetria on right side. DIAGNOSTIC STUDIES: I have ordered a STAT CT scan of head which showed a large right middle cerebral artery stroke with a 5 mm midline shift with petechial hemorrhage. ASSESSMENT: 1. Large right middle cerebral artery ischemic stroke with petechial hemorrhage and 5 mm midline shift. 2. Hypertension. 3. Dyslipidemia. 4. 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 PLAN: 1. I have spoken to Dr. Belle at the [facility] [place] and he has accepted this patient for transfer to the [facility] and Neurological Intensive Care Unit. This patient may need an external ventricular drain (EVD) and hypertonic saline infusion to decrease the cerebral edema and prevent herniation. This can be life threatening if it occurs. 2. Continue aspirin 81 mg by mouth daily and Lipitor 40 mg by mouth daily. 3. Echocardiogram and other coagulopathy studies will be done at [facility] as the patient will be transferred to [facility] if they have a bed available. The station thank you very much
== END 2018-04-02 20:42 | disposition short-term general hospital (02) | DRG 64 ==
LOC: M ED 17:32 → EDBD 17:32 → M ED INP 22:59 → M ICU 04-02 00:10
PROVIDERS: ADMIT Hospitalist; ATTEND Family Medicine
DX: I63.511 Cerebral infarction due to unspecified occlusion or stenosis of right middle cerebral artery (principal); G93.6 Cerebral edema; G81.94 Hemiplegia, unspecified affecting left nondominant side; I62.9 Nontraumatic intracranial hemorrhage, unspecified; E11.9 Type 2 diabetes mellitus without complications; R29.810 Facial weakness; I10 Essential (primary) hypertension; I65.21 Occlusion and stenosis of right carotid artery; E78.5 Hyperlipidemia, unspecified; Z87.891 Personal history of nicotine dependence; Z79.82 Long term (current) use of aspirin; Z79.84 Long term (current) use of oral hypoglycemic drugs; Z79.899 Other long term (current) drug therapy

== ENCOUNTER 2018-04-08 11:53 | Inpatient (IN) | payer MEDICARE ==
[~2018-04-08] VITALS: Ht 177.8 cm; Wt 98.4 kg
[~2018-04-08 11:53] MED LIST changes: -ASPI1TAB PO; +ASPI81TA26 PO; +ASPI81TAEC PO; +GLIP10TA6 PO; +METO-743; -TOPR50TA; +VITMTA PO
[2018-04-08] MEDS ORDERED: GLUCOSE 4 GM CHEW TABLET PO PRN (17:00)
[2018-04-08] MEDS ORDERED: GLUCAGON FOR INJ 1 MG VIAL (J1610) SC PRN (17:00)
[2018-04-08] MEDS ORDERED: MOM 30ML SUSPENSION UDC PO PRN (17:00)
[2018-04-08] MEDS ORDERED: BISACODYL 10 MG SUPP PR PRN (17:00)
[2018-04-08] MEDS ORDERED: DEXTROSE 50% 50 ML SYRINGE IV PRN (17:00)
[2018-04-08] MEDS ORDERED: MAALOX 30 ML SUSP *UDC PO PRN (17:00)
[2018-04-08 17:25] VITALS: BP 139/67
[2018-04-08] MEDS: HumaLOG INSULIN (NovoLOG) PER UNIT SC SCH (17:30)
[2018-04-08] MEDS ORDERED: ASPI-1 PO (17:55)
[2018-04-08] MEDS ORDERED: DOCQ100C5 PO (17:55)
[2018-04-08] MEDS ORDERED: DOCU5LIQ PO (17:55)
[2018-04-08] MEDS ORDERED: BISA10SU4 PR (17:55)
[2018-04-08] MEDS ORDERED: ACET1TAB55 PO (17:55)
[2018-04-08] MEDS ORDERED: ENOX40IN3 SC (17:55)
[2018-04-08] MEDS ORDERED: GLUC1KIT IM (17:55)
[2018-04-08] MEDS ORDERED: INSUHUMDS SC (17:55)
[2018-04-08] MEDS ORDERED: MILKSUS5 PO (17:55)
[2018-04-08] MEDS ORDERED: FLUO20SO PO (17:55)
[2018-04-08] MEDS ORDERED: CLOP75TA2 PO (17:55)
[2018-04-08] MEDS ORDERED: SENN18TA PO (17:55)
[2018-04-08] MEDS: glipiZIDE (GLUCOTROL) 5 MG TAB PO SCH (18:18)
[2018-04-08] MEDS: metFORMIN (GLUCOPHAGE) 1000 MG TABLET PO SCH (18:18)
[2018-04-08 20:00] VITALS: BP 155/73
[2018-04-08] MEDS: DOCUSATE SODIUM 100 MG CAP PO SCH (20:15)
[2018-04-08] MEDS: SENNA 8.6 MG TAB (SENOKOT) PO SCH (20:15)
[2018-04-09] MEDS: ACETAMINOPHEN TAB 650MG DOSE (2X325MG) PO PRN ×2 (05:21→18:01)
[2018-04-09 06:00] VITALS: BP 154/72
[2018-04-09 06:34] LABS: BASO % 0.2 % (0.0-1.0); EOS # 0.2 10^3/uL (0.0-0.50); HEMATOCRIT 40.8 % (42.0-52.0); LYMPH # 1.5 10^3/uL (1.5-4.5); LYMPH % 18.5 % (24.0-44.0); MEAN CORPUSCULAR HEMOGLOBIN 30.8 pg (27.0-33.0); MEAN CORPUSCULAR HGB CONC 34.3 g/dl (32.0-36.5); MEAN CORPUSCULAR VOLUME 89.9 fl (80.0-96.0); MONO # 0.6 10^3/uL (0.0-0.8); MONO % 6.9 % (0.0-5.0); NEUTROPHILS # 5.9 10^3/uL (1.8-7.7); NEUTROPHILS % 71.8 % (36.0-66.0); PLATELET COUNT, AUTOMATED 307 10^3/uL (150-450); RED BLOOD COUNT 4.54 10^6/uL (4.30-6.10); WHITE BLOOD COUNT 8.2 10^3/uL (4.0-10.0)
[2018-04-09 06:58] LABS: ALBUMIN 3.5 GM/DL (3.2-5.2); ALT/SGPT 67 U/L (12-78); BILIRUBIN,TOTAL 0.7 MG/DL (0.2-1.0); BLOOD UREA NITROGEN 34 MG/DL (7-18); CALCIUM LEVEL 9.3 MG/DL (8.8-10.2); CARBON DIOXIDE LEVEL 28 MEQ/L (21-32); CHLORIDE LEVEL 101 MEQ/L (98-107); CREATININE FOR GFR 0.95 MG/DL (0.70-1.30); GLOMERULAR FILTRATION RATE > 60.0 (>49); GLUCOSE, FASTING 214 MG/DL (70-100); SODIUM LEVEL 135 MEQ/L (136-145); TOTAL PROTEIN 6.9 GM/DL (6.4-8.2)
[2018-04-09] MEDS: IPRATROPIUM 0.5MG/ALBUTEROL 2.5MG INH SOL UD 3ML (DUONEB)(J7620) NEB SCH ×2 (08:00→19:47)
[2018-04-09] MEDS: ENOXAPARIN 40 MG/0.4 ML SYRINGE (J1650) SC SCH (08:38)
[2018-04-09] MEDS: CLOPIDOGREL 75 MG TAB PO SCH (08:39)
[2018-04-09] MEDS: DOCUSATE SODIUM 100 MG CAP PO SCH ×2 (08:39→21:40)
[2018-04-09] MEDS: PANTOPRAZOLE 40MG TAB (PROTONIX) PO SCH (08:39)
[2018-04-09] MEDS: METOPROLOL SUCC *XL* 25MG TAB (TopROL *XL*) PO SCH (08:39)
[2018-04-09] MEDS: metFORMIN (GLUCOPHAGE) 1000 MG TABLET PO SCH ×2 (08:39→18:01)
[2018-04-09] MEDS: ATORVASTATIN 20 MG TAB PO SCH (08:39)
[2018-04-09] MEDS: FLUoxetine 20 MG CAP PO SCH (08:39)
[2018-04-09] MEDS: glipiZIDE (GLUCOTROL) 5 MG TAB PO SCH ×2 (08:39→18:01)
[2018-04-09] MEDS: ASPIRIN 81 MG CHEW TABLET PEG SCH (08:40)
[2018-04-09] MEDS: HumaLOG INSULIN (NovoLOG) PER UNIT SC SCH ×3 (08:40→18:02)
[2018-04-09] MEDS ORDERED: LISINOPRIL 5 MG TAB PO SCH (09:00)
--- NOTE | 2018-04-09 11:01 | NUR ---
Pt w/ moderate oropharyngeal phase dysphagia. Recommend continue level 2 mechanically altered (NDD) solids and honey thick liquids. Administer med's whole in applesauce & check for clear oral cavity. Assist w/ meal set-up w/ foods cut small for pt. OOB as tolerated. Addendum: 04/09/[address] [facility] SP Amended: Links added.
[2018-04-09] MEDS: FLUTICASONE PROP 0.05% NASAL SPRAY 16 GM (FLONASE) NARES SCH ×2 (12:01→21:43)
[2018-04-09] MEDS: SODIUM CHLORIDE NASAL 0.65% SPRAY BTL (OCEAN) SCH ×3 (12:01→21:43)
[2018-04-09] MEDS: guaiFENesin 200 MG TAB PO SCH ×2 (12:01→21:42)
--- NOTE | 2018-04-09 13:02 | HPEPDOC ---
Envelope Patternmaker Note DATE OF ADMISSION: Apr 08, 2018 at 17:15 SOURCE OF ADMISSION INFORMATION: [facility] and [facility] records, patient CHIEF COMPLAINT: stroke HISTORY OF PRESENT ILLNESS: 67M pmh DM2 and HTN who fell at home onto his left side and arrived to [facility] ED complaining of left arm and leg weakness on 04/01/18. CTH was performed which did not show acute hemorrhage, but MRI on 04/02/18 did show, Acute infarction and distribution of the right middle cerebral artery. A small hemorrhagic component is present. There is mass effect without midlineshift. Dual antiplatelet t herapy was held. CTA showed, Atherosclerotic changes demonstrated in the right intracranial carotid artery. There is a moderate to high-grade stenosis in the distal intracavernous segmentReduced caliber and decreased flow in the M1 and M2 branches of the right middle cerebral artery. On 04/02/18 patient neurological status declined and repeat CT revealed, Increased hypodensity in the right frontal, and anterior mid parietal lobes extending to the vertex and with mass effect on the right lateral ventricle in the region of previously demonstrated chronic infarction. The findings suggest extension of the previously demonstrated chronic infarct. Edema with mass effect is producing 5 mm of [id number]-[id number] midline shift. He was urgently transferred to [facility] where he was monitored on the neuro ICU and found to have 100% occlusion of his right ICA. He was seen by cardiology who placed a loop recorder on 04/08/17 out of concern for cardio embolic source of his right MCA territory stroke. He was placed on Asa and Plavix and placed on a dysphagia diet. He was noted to have significant gait and ADL impairments and deemed medically appropriate for discharge to ARU on 04/08/18. REVIEW OF SYSTEMS: The following is a completed review of systems and has been reviewed. Review of systems otherwise unremarkable. PAIN: Patient self reports no pain EYES: denies recent vision loss EARS, NOSE, & THROAT: +dysphagia, +sinus congestion CARDIOVASCULAR: denies chest pain or palpitations PULMONARY: Negative. Denies shortness of breath, +cough GASTROINTESTINAL: Negative for diarrhea or constipation GENITOURINARY: +incontinence NEUROLOGICAL: left hemiparesis and neglect SKIN: chest wall loop recorder incision PSYCHIATRIC: Unremarkable All other review of systems found to be negative. PAST MEDICAL HISTORY: DM2, HLD, HTN PAST SURGICAL HISTORY: hiatal hernia repair ALLERGIES: Please see below. MEDICATIONS: Please see below. 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 GENERAL: Pleasant and cooperative. No acute distress. HEENT: PERRL. Extraocular movements intact. Clear conjunctiva, left eye-brow sparing facial droop, visual mondragon intact, +glasses CARDIOVASCULAR: Regular rate and rhythm. No murmurs, rubs, or gallops LUNGS: Clear to auscultation bilaterally. No wheezes. No rhonchi ABDOMEN: Soft, nontender, mildly-distended. Positive bowel sounds. Normal active bowel sounds NEUROLOGICAL: Alert and oriented times three. Cranial nerves II through XII grossly intact. Sensation diminished left upper extremity througout and left lower extremity +moderate neglect of the left arm>leg EXTREMITIES: 5\5 strength upper extremities. flaccid paralysis LUE, 5\5 strength right lower extremity. 3+/5 strength in left ankle DF, 2/5 knee extensors, 2/5 hip flexors SKIN: chest wall LOOP recorder incision healing well IMAGING: Imaging documentation personally reviewed by record FUNCTIONAL STATUS: Premorbid: Independent with all activities of daily life as well as mobility On Admission: GOALS: Modified independent with Anjel-Walker/quad cane for ambulation, stairs, dressing, bathing, toileting, medical optimization, family training, assess for DME needs. ASSESSMENT:67-year-old M with past medical history of HTN, HLD, DM who presents status post right MCA stroke PLAN: 1. 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 Neuro: s/p right MCA territory stroke with neglect and dysphagia on ASA and Plavix to continue for 21 days, then just continue ASA -monitor BPs, avoid hypoperfusion given severe right ICA stenosis, continue statin therapy -Loop recorder placed -[facility] for motor recovery 3. Cardio: Pmh HTN, continue Metoprolol and lisinopril, Loop recorder in place for cryptogenic Afib- Family medicine consulted 4. Resp: pmh smoker-encourage incentive spirometry, will start Duonebs, Flonase, Guaifenesin and nasal saline for congestion 5. GI ppx: Protonix 6. Endo: pmh DM continue metformin and sliding scale coverage 7. DVT ppx: lovenox 8. Dispo: TBD POST ADMISSION PHYSICIAN EVALUATION: Medical and functional status: Description of medical status, medical assessment: As above. Rehabilitation diagnosis and current and prior cold morbid medical conditions as above. Risk of complications and plans to mitigate them as above. Description of functional status current status is as above. Prior status as above. Status compared to preadmission: There are no clinically significant differences between the patient's current status and the information described on the preadmission screening document. Treatment plan anticipated: Treatment plan is as described above. Required disciplines including physical therapy, occupational therapy, others as noted above Intensity of services: 3 hours a day,6 days a week. Special considerations: There are no specific special or safety considerations that would likely preclude immediate implementation of an intensive rehabilitation program or subsequently influence the plan of care ATTESTATION: Considering all the information above, it is my best judgment that this patient requires intensive rehabilitation therapy as described above and an inpatient hospital environment due to the complexity of nursing, medical, and rehabilitation needs required by the patient. Furthermore, this patient can reasonably be expected to participate in an benefit from an inpatient rehabilitation stay with an interdisciplinary team approach to the delivery of rehabilitation care under the direction and supervision of rehabilitation physician PROGNOSIS: Good ESTIMATED LENGTH OF STAY:21-28 days. PROJECTED DISCHARGE DESTINATION: Home with family support and any durable medical equipment required to increase functional safety and mobility TIME SPENT COUNSELING AND COORDINATING INITIAL CARE: Greater than 70 minutes. Vital Signs Vital Sign - Last 24 Hours 04/08/18 04/08/18 04/09/18 04/09/18 17:25 20:00 06:00 08:39 Temp 96.9 97.9 98.8 Pulse 59 68 68 72 Resp 20 18 18 B/P (MAP) 139/67 (91) 155/73 (100) 154/72 (99) 154/72 Pulse Ox 95 96 94 04/09/18 08:39 B/P (MAP) 154/72 Laboratory Data CBC/BMP Laboratory Tests 04/09/18 06:17 Red Blood Count 4.54, Mean Corpuscular Volume 89.9, Mean Corpuscular Hemoglobin 30.8, Mean Corpuscular Hemoglobin Concent 34.3, Red Cell Distribution Width 12.6, Neutrophils (%) (Auto) 71.8 H, Lymphocytes (%) (Auto) 18.5 L, Monocytes (%) (Auto) 6.9 H, Eosinophils (%) (Auto) 2.0, Basophils (%) (Auto) 0.2, Neutrophils # (Auto) 5.9, Lymphocytes # (Auto) 1.5, Monocytes # (Auto) 0.6, Eosinophils # (Auto) 0.2, Basophils # (Auto) 0.0, Calcium Level 9.3, Aspartate Amino Transf (AST/SGOT) 36, Alanine Aminotransferase (ALT/SGPT) 67, Alkaline Phosphatase 92, Total Bilirubin 0.7, Total Protein 6.9, Albumin 3.5 Labs 24H Laboratory Tests 2 04/08/18 19:44: Bedside Glucose (Misc Panel) 204H 04/09/18 06:17: Immature Granulocyte % (Auto) 0.6, White Blood Count 8.2, Red Blood Count 4.54, Hemoglobin 14.0, Hematocrit 40.8L, Mean Corpuscular Volume 89.9, Mean Corpuscular Hemoglobin 30.8, Mean Corpuscular Hemoglobin Concent 34.3, Red Cell Distribution Width 12.6, Platelet Count 307, Neutrophils (%) (Auto) 71.8H, Lymphocytes (%) (Auto) 18.5L, Monocytes (%) (Auto) 6.9H, Eosinophils (%) (Auto) 2.0, Basophils (%) (Auto) 0.2, Neutrophils # (Auto) 5.9, Lymphocytes # (Auto) 1.5, Monocytes # (Auto) 0.6, Eosinophils # (Auto) 0.2, Basophils # (Auto) 0.0, Nucleated Red Blood Cells % (auto) 0.0, Anion Gap 6L, Glomerular Filtration Rate > 60.0, Blood Urea Nitrogen 34H, Creatinine 0.95, Sodium Level 135L, Potassium Level 4.0, Chloride Level 101, Carbon Dioxide Level 28, Calcium Level 9.3, Aspartate Amino Transf (AST/SGOT) 36, Alanine Aminotransferase (ALT/SGPT) 67, Alkaline Phosphatase 92, Total Bilirubin 0.7, Total Protein 6.9, Albumin 3.5, Albumin/Globulin Ratio 1.03 04/09/18 06:22: Bedside Glucose (Misc Panel) 222H 04/09/18 11:50: Bedside Glucose (Misc Panel) 207H FSBS Laboratory Tests Test 04/08/18 19:44 04/09/18 06:22 04/09/18 11:50 Range/Units Bedside Glucose (Misc Panel) 204 222 207 80-115 MG/DL Home Medications Scheduled (Docqlace) 100 Mg Cap, 100 MG PO BID, (Reported) Aspirin (Aspirin) 325 Mg Tab, 325 MG PO DAILY, (Reported) Atorvastatin Calcium (Atorvastatin Calcium) 40 Mg Tab, 40 MG PO QHS, (Reported) Clopidogrel Bisulfate (Clopidogrel) 75 Mg Tab, 75 MG PO DAILY, (Reported) Enoxaparin Sodium (Enoxaparin Sodium) 40 Mg/0.4 Ml Inj, 40 MG SC DAILY, (Reported) Fluoxetine HCl (Fluoxetine HCl) 20 Mg/5 Ml Liqd, 20 MG PO DAILY, (Reported) Glipizide (Glipizide) 10 Mg Tab, 10 MG PO BID, (Reported) Insulin Human Lispro (Humalog) 1 Units/0.01 Ml Inj, 1 DOSE SC WM, (Reported) PER SLIDING SCALE Lisinopril (Lisinopril) 5 Mg Tab, 5 MG PO DAILY, (Reported) Magnesium Hydroxide (Milk of Magnesia 400 mg/5Ml) 1 Marilynn Marilynn, 45 ML PO QHS, (Reported) Metformin Hydrochloride (Metformin HCl) 1,000 Mg Tab, 1,000 MG PO BID, (Report ed) Metoprolol Tartrate (Metoprolol Tartrate) 100 Mg Tab, 100 MG PO DAILY, (Reported) Multivitamins *[facility] STOCKED* (Thera M Plus *[facility] STOCKED*) 1 Tab Tab, 1 TAB PO DAILY, (Reported) Pioglitazone Hydrochloride (Pioglitazone HCl) 30 Mg Tab, 30 MG PO DAILY, (Reported) Scheduled PRN Acetaminophen (Acetaminophen) 325 Mg Tab, 650 MG PO Q6H PRN for PAIN, (Reported) Bisacodyl (Bisacodyl) 10 Mg Sup, 10 MG IA for CONSTIPATION, (Reported) Glucagon Rdna (Glucagon Emergency Kit) 1 Mg Kit, 1 MG IM for LOW BLOOD SUGAR, (Reported) Senna (Senna-Lax) 8.6 Mg Tab, 2 TAB PO QHS PRN for CONSTIPATION, (Reported) Allergies Coded Allergies: No Known Drug Allergy (Verified Allergy, Unknown, 04/01/18) ALEXA PAUL MD Apr 09, 2018 13:02
[2018-04-09 14:00] VITALS: BP_SYST 118; BP_SYST 127; BP_DIAS 62; BP_DIAS 69
--- NOTE | 2018-04-09 14:41 | NUR ---
Pt w/ mild-moderate cognitive impairment. CLEANING ASSOCIATE tx targeting attention, memory, safety awareness, and visuospatial awareness. Addendum: 04/09/18 at [address] [facility] SP Amended: Links added.
[2018-04-09 20:00] VITALS: BP 152/72
[2018-04-09] MEDS: SENNA 8.6 MG TAB (SENOKOT) PO SCH (21:42)
[2018-04-09] MEDS: LEVEMIR (INSULIN DETEMIR) 1 UNITS/0.01ML SC SCH (21:42)
[2018-04-10 06:00] VITALS: BP 136/71
[2018-04-10] MEDS: HumaLOG INSULIN (NovoLOG) PER UNIT SC SCH ×3 (07:32→17:21)
[2018-04-10] MEDS: guaiFENesin 200 MG TAB PO SCH ×2 (07:33→20:56)
[2018-04-10] MEDS: METOPROLOL SUCC *XL* 25MG TAB (TopROL *XL*) PO SCH ×2 (07:33→07:37)
[2018-04-10] MEDS: metFORMIN (GLUCOPHAGE) 1000 MG TABLET PO SCH ×2 (07:33→17:21)
[2018-04-10] MEDS: ASPIRIN 81 MG CHEW TABLET PEG SCH (07:34)
[2018-04-10] MEDS: FLUoxetine 20 MG CAP PO SCH (07:34)
[2018-04-10] MEDS: glipiZIDE (GLUCOTROL) 5 MG TAB PO SCH ×2 (07:34→17:21)
[2018-04-10] MEDS: PANTOPRAZOLE 40MG TAB (PROTONIX) PO SCH (07:34)
[2018-04-10] MEDS: LISINOPRIL 10 MG TAB PO SCH (07:35)
[2018-04-10] MEDS: ATORVASTATIN 20 MG TAB PO SCH (07:35)
[2018-04-10] MEDS: DOCUSATE SODIUM 100 MG CAP PO SCH ×2 (07:35→20:56)
[2018-04-10] MEDS: CLOPIDOGREL 75 MG TAB PO SCH (07:35)
[2018-04-10] MEDS: ENOXAPARIN 40 MG/0.4 ML SYRINGE (J1650) SC SCH (07:36)
[2018-04-10] MEDS: FLUTICASONE PROP 0.05% NASAL SPRAY 16 GM (FLONASE) NARES SCH ×2 (07:37→20:57)
[2018-04-10] MEDS: SODIUM CHLORIDE NASAL 0.65% SPRAY BTL (OCEAN) SCH ×3 (07:37→20:57)
[2018-04-10] MEDS: IPRATROPIUM 0.5MG/ALBUTEROL 2.5MG INH SOL UD 3ML (DUONEB)(J7620) NEB SCH ×2 (08:12→19:41)
[2018-04-10 14:00] VITALS: BP 108/63
--- NOTE | 2018-04-10 16:09 | NUR ---
Recommend pt please be OOB and supervised for meals w/ cues to swallow 1 small bite at a time. Recommend upgrade to nectar thick liquids. Straw use OK. Addendum: 04/10/18 at [address] [facility] SP Amended: Links added.
[2018-04-10 20:00] VITALS: BP 142/63
[2018-04-10] MEDS: SENNA 8.6 MG TAB (SENOKOT) PO SCH (20:56)
[2018-04-10] MEDS: LEVEMIR (INSULIN DETEMIR) 1 UNITS/0.01ML SC SCH (20:57)
[2018-04-11 04:00] VITALS: BP 131/61
[2018-04-11 07:22] LABS: BASO % 0.2 % (0.0-1.0); EOS # 0.1 10^3/uL (0.0-0.50); EOS % 0.7 % (0.0-3.0); HEMATOCRIT 42.8 % (42.0-52.0); HEMOGLOBIN 14.3 g/dl (13.5-17.5); LYMPH # 1.4 10^3/uL (1.5-4.5); LYMPH % 16.1 % (24.0-44.0); MEAN CORPUSCULAR HEMOGLOBIN 30.4 pg (27.0-33.0); MEAN CORPUSCULAR HGB CONC 33.4 g/dl (32.0-36.5); MEAN CORPUSCULAR VOLUME 91.1 fl (80.0-96.0); MONO # 0.6 10^3/uL (0.0-0.8); MONO % 7.4 % (0.0-5.0); NEUTROPHILS # 6.4 10^3/uL (1.8-7.7); PLATELET COUNT, AUTOMATED 363 10^3/uL (150-450); WHITE BLOOD COUNT 8.6 10^3/uL (4.0-10.0)
[2018-04-11 07:46] LABS: CALCIUM LEVEL 9.3 MG/DL (8.8-10.2); CREATININE FOR GFR 1.44 MG/DL (0.70-1.30); GLOMERULAR FILTRATION RATE 51.8 (>49); POTASSIUM SERUM 4.3 MEQ/L (3.5-5.1)
[2018-04-11 08:14] VITALS: BP 141/78
[2018-04-11] MEDS: HumaLOG INSULIN (NovoLOG) PER UNIT SC SCH ×5 (08:16→17:56)
[2018-04-11] MEDS: ENOXAPARIN 40 MG/0.4 ML SYRINGE (J1650) SC SCH (08:16)
[2018-04-11] MEDS: guaiFENesin 200 MG TAB PO SCH ×2 (08:16→22:31)
[2018-04-11] MEDS: ATORVASTATIN 20 MG TAB PO SCH (08:17)
[2018-04-11] MEDS: glipiZIDE (GLUCOTROL) 5 MG TAB PO SCH ×2 (08:17→17:55)
[2018-04-11] MEDS: FLUoxetine 20 MG CAP PO SCH (08:17)
[2018-04-11] MEDS: ASPIRIN 81 MG CHEW TABLET PEG SCH (08:17)
[2018-04-11] MEDS: METOPROLOL SUCC *XL* 25MG TAB (TopROL *XL*) PO SCH (08:17)
[2018-04-11] MEDS: PANTOPRAZOLE 40MG TAB (PROTONIX) PO SCH (08:17)
[2018-04-11] MEDS: DOCUSATE SODIUM 100 MG CAP PO SCH ×2 (08:18→22:31)
[2018-04-11] MEDS: CLOPIDOGREL 75 MG TAB PO SCH (08:18)
[2018-04-11] MEDS: metFORMIN (GLUCOPHAGE) 1000 MG TABLET PO SCH (08:18)
[2018-04-11] MEDS: LISINOPRIL 10 MG TAB PO SCH (08:18)
[2018-04-11] MEDS: FLUTICASONE PROP 0.05% NASAL SPRAY 16 GM (FLONASE) NARES SCH ×2 (08:19→22:34)
[2018-04-11] MEDS: SODIUM CHLORIDE NASAL 0.65% SPRAY BTL (OCEAN) SCH ×3 (08:19→22:33)
[2018-04-11] MEDS ORDERED: NS 500 ML IV ONE (10:30)
[2018-04-11] MEDS: IPRATROPIUM 0.5MG/ALBUTEROL 2.5MG INH SOL UD 3ML (DUONEB)(J7620) NEB SCH ×2 (11:24→20:05)
--- NOTE | 2018-04-11 12:20 | IPNPDOC ---
PM&R Progress Note DATE OF SERVICE: Apr 10, 2018 Sat Instructor Progress Note Subjective: Patient reports no pain, states he is eager to begin playing [employer] again. REVIEW OF SYSTEMS: The following is a completed review of systems and has been r eviewed. Review of systems otherwise unremarkable. PAIN: Patient self reports no pain EYES: denies recent vision loss EARS, NOSE, & THROAT: +dysphagia, +sinus congestion CARDIOVASCULAR: denies chest pain or palpitations PULMONARY: Negative. Denies shortness of breath, +cough GASTROINTESTINAL: Negative for diarrhea or constipation GENITOURINARY: +incontinence NEUROLOGICAL: left hemiparesis and neglect SKIN: chest wall loop recorder incision PSYCHIATRIC: Unremarkable All other review of systems found to be negative. PHYSICAL EXAMINATION: VITAL SIGNS: Please see below. GENERAL: Pleasant and cooperative. No acute distress. HEENT: PERRL. Extraocular movements intact. Clear conjunctiva, left eye-brow sparing facial droop, visual mondragon intact, +glasses CARDIOVASCULAR: Regular rate and rhythm. No murmurs, rubs, or gallops LUNGS: Clear to auscultation bilaterally. No wheezes. No rhonchi ABDOMEN: Soft, nontender, mildly-distended. Positive bowel sounds. Normal active bowel sounds NEUROLOGICAL: Alert and oriented times three. Cranial nerves II through XII grossly intact. Sensation diminished left upper extremity througout and left lower extremity +moderate neglect of the left arm>leg EXTREMITIES: 5\5 strength upper extremities. flaccid paralysis LUE, 5\5 strength right lower extremity. 3+/5 strength in left ankle DF, 2/5 knee extensors, 2/5 hip flexors SKIN: chest wall LOOP recorder incision healing well ASSESSMENT:67-year-old M with past medical history of HTN, HLD, DM who presents status post right MCA stroke PLAN: 1. Rehab: PT/OT, [employer], assess for DME, upgraded to nectar thickened liquids 2. Neuro: s/p right MCA territory stroke with neglect and dysphagia on ASA and Plavix to continue for 21 days (start day for Plavix 04/07/18), then just continue ASA -monitor BPs, avoid hypoperfusion given severe right ICA stenosis, continue statin therapy -Loop recorder placed -Prozac for motor recovery 3. Cardio: Pmh HTN, continue Metoprolol and lisinopril, Loop recorder in place for cryptogenic Afib- Family medicine consulted 4. Resp: pmh smoker-encourage incentive spirometry, continue Duonebs, Flonase, Guaifenesin and nasal saline for congestion 5. GI ppx: Protonix 6. Endo: pmh DM continue metformin and sliding scale coverage 7. DVT ppx: lovenox 8. Dispo: TBD Allergies Coded Allergies: No Known Drug Allergy (Verified Allergy, Unknown, 04/01/18) Vital Signs Vital Signs Date Time Temp Pulse Resp B/P (MAP) Pulse Ox O2 Delivery O2 Flow Rate FiO2 04/11/18 08:18 141/78 04/11/18 08:17 100 04/11/18 04:00 97.5 20 93 Laboratory Data CBC/BMP Laboratory Tests 04/11/18 06:50 Red Blood Count 4.70, Mean Corpuscular Volume 91.1, Mean Corpuscular Hemoglobin 30.4, Mean Corpuscular Hemoglobin Concent 33.4, Red Cell Distribution Width 12.7, Neutrophils (%) (Auto) 75.0 H, Lymphocytes (%) (Auto) 16.1 L, Monocytes (%) (Auto) 7.4 H, Eosinophils (%) (Auto) 0.7, Basophils (%) (Auto) 0.2, Neutrophils # (Auto) 6.4, Lymphocytes # (Auto) 1.4 L, Monocytes # (Auto) 0.6, Eosinophils # (Auto) 0.1, Basophils # (Auto) 0.0, Calcium Level 9.3 Labs 24H Laboratory Tests 2 04/10/18 16:43: Bedside Glucose (Misc Panel) 102 04/10/18 20:02: Bedside Glucose (Misc Panel) 180H 04/11/18 03:07: Urine Color DONA, Urine Appearance HAZY, Urine pH 5.0, Urine Specific [place] 1.027, Urine Protein NEGATIVE, Urine Glucose (UA) NEGATIVE, Urine Ketones NEGATIVE, Urine Blood NEGATIVE, Urine Nitrite NEGATIVE, Urine Bilirubin NEGATIVE, Urine Urobilinogen 0.2, Urine Leukocyte Esterase NEGATIVE, Urine WBC (Auto) 3, Urine RBC (Auto) 1, Urine Hyaline Casts (Auto) 9, Urine Bacteria (Auto) NEGATIVE, Urine Squamous Epithelial Cells 0, Urine Mucus (Auto) LARGE, Urine Sperm (Auto) 04/11/18 06:50: Immature Granulocyte % (Auto) 0.6, White Blood Count 8.6, Red Blood Count 4.70, Hemoglobin 14.3, Hematocrit 42.8, Mean Corpuscular Volume 91.1, Mean Corpuscular Hemoglobin 30.4, Mean Corpuscular Hemoglobin Concent 33.4, Red Cell Distribution Width 12.7, Platelet Count 363, Neutrophils (%) (Auto) 75.0H, Lymphocytes (%) (Auto) 16.1L, Monocytes (%) (Auto) 7.4H, Eosinophils (%) (Auto) 0.7, Basophils (%) (Auto) 0.2, Neutrophils # (Auto) 6.4, Lymphocytes # (Auto) 1.4L, Monocytes # (Auto) 0.6, Eosinophils # (Auto) 0.1, Basophils # (Auto) 0.0, Nucleated Red Blood Cells % (auto) 0.0, Anion Gap 9, Glomerular Filtration Rate 51.8, Blood Urea Nitrogen 52#H, Creatinine 1.44#H, Sodium Level 137, Potassium Level 4.3, Chloride Level 101, Carbon Dioxide Level 27, Calcium Level 9.3 04/11/18 11:44: Bedside Glucose (Misc Panel) 247H Current Medications Current Medications Current Medications Acetaminophen (Tylenol Tab) 650 mg Q4HP PRN PO fever/MILD PAIN (PS 1-4) Last administered on 04/09/18at 18:01; Start 04/08/18 at 17:00 Al Hydrox/Mg Hydrox/Simethicone (Mylanta) 30 ml Q4HP PRN PO DYSPEPSIA; Start 04/08/18 at 17:00 Albuterol/ Ipratropium (Duoneb (Ipr 0.5mg/Alb 2.5mg)) 3 ml RBID NEB Last administered on 04/11/18at 11:24; Start 04/09/18 at 08:00 Artificial Tears ([place] Tears) 2 drop TID OU ; Start 04/11/18 at 09:00 Aspirin (Aspirin Chewable) 81 mg DAILY PEG Last administered on 04/11/18at 08:17; Start 04/09/18 at 09:00 Atorvastatin Calcium (Lipitor) 40 mg DAILY PO Last administered on 04/11/18at 0 8:17; Start 04/09/18 at 09:00 Bisacodyl (Dulcolax Suppository) 10 mg DAILYPRN PRN [place] CONSTIPATION; Start 04/08/18 at 17:00 Clopidogrel Bisulfate (PLAVix) 75 mg DAILY PO Last administered on 04/11/18at 08:18; Start 04/09/18 at 09:00 Dextrose (Dextrose 50%) 25 ml ASDIRECTED PRN IV SEE LABEL COMMENTS; Start 04/08/18 at 17:00 Docusate Sodium (Colace) 100 mg BID PO Last administered on 04/11/18at 08:18; Start 04/08/18 at 21:00 Enoxaparin Sodium (Lovenox) 40 mg DAILY SC Last administered on 04/11/18at 08:16; Start 04/09/18 at 09:00 Fluoxetine HCl (PROzac) 20 mg DAILY PO Last administered on 04/11/18at 08:17; Start 04/09/18 at 09:00 Fluticasone Propionate (Flonase 0.05% Nasal [place]) 1 spray BID NARES Last administered on 04/11/18at 08:19; Start 04/09/18 at 09:00 Glipizide (Glucotrol) 10 mg BID@0730,1730 PO Last administered on 04/11/18at 08:17; Start 04/08/18 at 17:30 Glucagon (Glucagon) 1 mg ASDIRECTED PRN SC SEE LABEL COMMENTS; Start 04/08/18 at 17:00 Glucose (Glucose) 16 GM ASDIRECTED PRN PO SEE LABEL COMMENTS; Start 04/08/18 at 17:00 Guaifenesin (Robitussin Tab) 400 mg BID PO Last administered on 04/11/18at 08:16; Start 04/09/18 at 09:00 Home Med (Med Rec Complete!) ASDIRECTED XX ; Start 04/08/18 at 18:00; Stop 04/08/18 at 18:00; Status DC Insulin Detemir (Levemir Insulin) 5 units QHS SC Last administered on 04/10/18at 20:57; Start 04/09/18 at 21:00 Insulin Detemir (Levemir Insulin) 5 units QHS SC ; Start 04/11/18 at 21:00 Insulin Human Lispro (HumaLOG INSULIN) SEE PROTOCOL TABLE AC SC Last administered on 04/11/18at 08:16; Start 04/08/18 at 17:30 Insulin Human Lispro (HumaLOG INSULIN) SEE PROTOCOL TABLE AC SC ; Start 04/11/18 at 12:00 Lisinopril (Prinivil) 5 mg DAILY PO Last administered on 04/09/18at 08:39; Start 04/09/18 at 09:00; Stop 04/09/18 at 09:13; Status DC Lisinopril (Prinivil) 10 mg DAILY PO Last administered on 04/11/18 08:18; Start 04/10/18 at 09:00; Stop 04/11/18 at 10:26; Status DC Magnesium Hydroxide (Milk Of Magnesia) 30 ml DAILYPRN PRN PO CONSTIPATION Last administered on 04/10/18 23:14; Start 04/08/18 at 17:00 Metformin HCl (Glucophage) 1,000 mg BID@,18 PO Last administered on 04/11/18 08:18; Start 04/08/18 at 18:00; Stop 04/11/18 at 10:26; Status DC Metoprolol Succinate (TopROL XL) 75 mg DAILY PO Last administered on 04/11/18 08:17; Start 04/09/18 at 09:00; Stop 04/11/18 at 10:26; Status DC Metoprolol Succinate (TopROL XL) 100 mg DAILY PO ; Start 04/12/18 at 09:00 Pantoprazole Sodium (Protonix) 40 mg DAILY PO Last administered on 04/11/18 08:17; Start 04/09/18 at 09:00 Senna (Senokot) 1 tab QHS PO Last administered on 04/10/18at 20:56; Start 04/08/18 at 21:00 Sodium Chloride ([place] Nasal [place]) 2 spray TID NA Last administered on 04/11/18 08:19; Start 04/09/18 at 09:00 ALEXA PAUL MD Apr 11, 2018 12:20
--- NOTE | 2018-04-11 12:34 | IPNPDOC ---
PM&R Progress Note DATE OF SERVICE: Apr 11, 2018 Invasive Cardiologist Progress Note Subjective: Patient's sister asking for a neurology consult and oncerned about his right ICA occlusion. He reports his right eye is itchy. REVIEW OF SYSTEMS: The following is a completed review of systems and has been reviewed. Review of systems otherwise unremarkable. PAIN: Patient self reports no pain EYES: denies recent vision loss EARS, NOSE, & THROAT: +dysphagia, +sinus congestion CARDIOVASCULAR: denies chest pain or palpitations PULMONARY: Negative. Denies shortness of breath, +cough GASTROINTESTINAL: Negative for diarrhea or constipation GENITOURINARY: +incontinence NEUROLOGICAL: left hemiparesis and neglect SKIN: chest wall loop recorder incision PSYCHIATRIC: Unremarkable All other review of systems found to be negative. PHYSICAL EXAMINATION: VITAL SIGNS: Please see below. GENERAL: Pleasant and cooperative. No acute distress. HEENT: PERRL. Extraocular movements intact. Clear conjunctiva, left eye-brow sparing facial droop, visual mondragon intact, +glasses CARDIOVASCULAR: Regular rate and rhythm. No murmurs, rubs, or gallops LUNGS: Clear to auscultation bilaterally. No wheezes. No rhonchi ABDOMEN: Soft, nontender, mildly-distended. Positive bowel sounds. Normal active bowel sounds NEUROLOGICAL: Alert and oriented times three. Cranial nerves II through XII grossly intact. Sensation diminished left upper extremity througout and left low er extremity +moderate neglect of the left arm>leg EXTREMITIES: 5\5 strength upper extremities. flaccid paralysis LUE, 5\5 strength right lower extremity. 3+/5 strength in left ankle DF, 2/5 knee extensors, 2/5 hip flexors SKIN: chest wall LOOP recorder incision healing well ASSESSMENT:67-year-old M with past medical history of HTN, HLD, DM who presents status post right MCA stroke PLAN: 1. Rehab: PT/OT, [employer], assess for DME, upgraded to nectar thickened liquids 2. Neuro: s/p right MCA territory stroke with neglect and dysphagia on ASA and Plavix to continue for 21 days (start day for Plavix 04/07/18), then just continue ASA -monitor BPs, avoid hypoperfusion given severe right ICA stenosis, continue statin therapy -Loop recorder placed -Prozac for motor recovery 3. Cardio: Pmh HTN, will icnrease Metoprolol and hold lisinopril, Loop recorder in place for cryptogenic Afib- Family medicine consulted 4. Resp: pmh smoker-encourage incentive spirometry, continue Duonebs, Flonase, Guaifenesin and nasal saline for congestion-stable 5. GI ppx: Protonix 6. Endo: pmh DM will hold metformin given HAZEL likely due to dehydration and start insulin coverage 7. 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 DVT ppx: lovenox 8. Dispo: TBD Allergies Coded Allergies: No Known Drug Allergy (Verified Allergy, Unknown, 04/01/18) Vital Signs Vital Signs Date Time Temp Pulse Resp B/P (MAP) Pulse Ox O2 Delivery O2 Flow Rate FiO2 04/11/18 08:18 141/78 04/11/18 08:17 100 04/11/18 04:00 97.5 20 93 Laboratory Data CBC/BMP Laboratory Tests 04/11/18 06:50 Red Blood Count 4.70, Mean Corpuscular Volume 91.1, Mean Corpuscular Hemoglobin 30.4, Mean Corpuscular Hemoglobin Concent 33.4, Red Cell Distribution Width 12.7, Neutrophils (%) (Auto) 75.0 H, Lymphocytes (%) (Auto) 16.1 L, Monocytes (%) (Auto) 7.4 H, Eosinophils (%) (Auto) 0.7, Basophils (%) (Auto) 0.2, Neutrophils # (Auto) 6.4, Lymphocytes # (Auto) 1.4 L, Monocytes # (Auto) 0.6, Eosinophils # (Auto) 0.1, Basophils # (Auto) 0.0, Calcium Level 9.3 Labs 24H Laboratory Tests 2 04/10/18 16:43: Bedside Glucose (Misc Panel) 102 04/10/18 20:02: Bedside Glucose (Misc Panel) 180H 04/11/18 03:07: Urine Color DONA, Urine Appearance HAZY, Urine pH 5.0, Urine Specific [place] 1.027, Urine Protein NEGATIVE, Urine Glucose (UA) NEGATIVE, Urine Ketones NEGATIVE, Urine Blood NEGATIVE, Urine Nitrite NEGATIVE, Urine Bilirubin NEG ATIVE, Urine Urobilinogen 0.2, Urine Leukocyte Esterase NEGATIVE, Urine WBC (Auto) 3, Urine RBC (Auto) 1, Urine Hyaline Casts (Auto) 9, Urine Bacteria (Auto) NEGATIVE, Urine Squamous Epithelial Cells 0, Urine Mucus (Auto) LARGE, Urine Sperm (Auto) 04/11/18 06:50: Immature Granulocyte % (Auto) 0.6, White Blood Count 8.6, Red Blood Count 4.70, Hemoglobin 14.3, Hematocrit 42.8, Mean Corpuscular Volume 91.1, Mean Corpuscular Hemoglobin 30.4, Mean Corpuscular Hemoglobin Concent 33.4, Red Cell Distribution Width 12.7, Platelet Count 363, Neutrophils (%) (Auto) 75.0H, Lymphocytes (%) (Auto) 16.1L, Monocytes (%) (Auto) 7.4H, Eosinophils (%) (Auto) 0.7, Basophils (%) (Auto) 0.2, Neutrophils # (Auto) 6.4, Lymphocytes # (Auto) 1.4L, Monocytes # (Auto) 0.6, Eosinophils # (Auto) 0.1, Basophils # (Auto) 0.0, Nucleated Red Blood Cells % (auto) 0.0, Anion Gap 9, Glomerular Filtration Rate 51.8, Blood Urea Nitrogen 52#H, Creatinine 1.44#H, Sodium Level 137, Potassium Level 4.3, Chloride Level 101, Carbon Dioxide Level 27, Calcium Level 9.3 04/11/18 11:44: Bedside Glucose (Misc Panel) 247H Current Medications Current Medications Current Medications Acetaminophen (Tylenol Tab) 650 mg Q4HP PRN PO fever/MILD PAIN (PS 1-4) Last administered on 04/09/18at 18:01; Start 04/08/18 at 17:00 Al Hydrox/Mg Hydrox/Simethicone (Mylanta) 30 ml Q4HP PRN PO DYSPEPSIA; Start 04/08/18 at 17:00 Albuterol/ Ipratropium (Duoneb (Ipr 0.5mg/Alb 2.5mg)) 3 ml RBID NEB Last administered on 04/11/18at 11:24; Start 04/09/18 at 08:00 Artificial Tears ([place] Tears) 2 drop TID OU ; Start 04/11/18 at 09:00 Aspirin (Aspirin Chewable) 81 mg DAILY PEG Last administered on 04/11/18at 08:17; Start 04/09/18 at 09:00 Atorvastatin Calcium (Lipitor) 40 mg DAILY PO Last administered on 04/11/18at 08:17; Start 04/09/18 at 09:00 Bisacodyl (Dulcolax Suppository) 10 mg DAILYPRN PRN [place] CONSTIPATION; Start 04/08/18 at 17:00 Clopidogrel Bisulfate (PLAVix) 75 mg DAILY PO Last administered on 04/11/18at 08:18; Start 04/09/18 at 09:00 Dextrose (Dextrose 50%) 25 ml ASDIRECTED PRN IV SEE LABEL COMMENTS; Start 04/08/18 at 17:00 Docusate Sodium (Colace) 100 mg BID PO Last administered on 04/11/18at 08:18; Start 04/08/18 at 21:00 Enoxaparin Sodium (Lovenox) 40 mg DAILY SC Last administered on 04/11/18at 08:16; Start 04/09/18 at 09:00 Fluoxetine HCl (PROzac) 20 mg DAILY PO Last administered on 04/11/18at 08:17; Start 04/09/18 at 09:00 Fluticasone Propionate (Flonase 0.05% Nasal [place]) 1 spray BID NARES Last administered on 04/11/18 08:19; Start 04/09/18 at 09:00 Glipizide (Glucotrol) 10 mg BID@0730,1730 PO Last administered on 04/11/18at 08:1 7; Start 04/08/18 at 17:30 Glucagon (Glucagon) 1 mg ASDIRECTED PRN SC SEE LABEL COMMENTS; Start 04/08/18 at 17:00 Glucose (Glucose) 16 GM ASDIRECTED PRN PO SEE LABEL COMMENTS; Start 04/08/18 at 17:00 Guaifenesin (Robitussin Tab) 400 mg BID PO Last administered on 04/11/18at 08:16; Start 04/09/18 at 09:00 Home Med (Med Rec Complete!) ASDIRECTED XX ; Start 04/08/18 at 18:00; Stop 04/08/18 at 18:00; Status DC Insulin Detemir (Levemir Insulin) 5 units QHS SC Last administered on 04/10/18at 20:57; Start 04/09/18 at 21:00 Insulin Detemir (Levemir Insulin) 5 units QHS SC ; Start 04/11/18 at 21:00; Stop 04/11/18 at 21:00; Status DC Insulin Human Lispro (HumaLOG INSULIN) SEE PROTOCOL TABLE AC SC Last administered on 04/11/18at 08:16; Start 04/08/18 at 17:30 Insulin Human Lispro (HumaLOG INSULIN) SEE PROTOCOL TABLE AC SC ; Start 04/11/18 at 12:00 Lisinopril (Prinivil) 5 mg DAILY PO Last administered on 04/09/18at 08:39; Start 04/09/18 at 09:00; Stop 04/09/18 at 09:13; Status DC Lisinopril (Prinivil) 10 mg DAILY PO Last administered on 04/11/18at 08:18; Start 04/10/18 at 09:00; Stop 04/11/18 at 10:26; Status DC Magnesium Hydroxide (Milk Of Magnesia) 30 ml DAILYPRN PRN PO CONSTIPATION Last administered on 04/10/18at 23:14; Start 04/08/18 at 17:00 Metformin HCl (Glucophage) 1,000 mg BID@,18 PO Last administered on 04/11/18 08:18; Start 04/08/18 at 18:00; Stop 04/11/18 at 10:26; Status DC Metoprolol Succinate (TopROL XL) 75 mg DAILY PO Last administered on 04/11/18 08:17; Start 04/09/18 at 09:00; Stop 04/11/18 at 10:26; Status DC Metoprolol Succinate (TopROL XL) 100 mg DAILY PO ; Start 04/12/18 at 09:00 Pantoprazole Sodium (Protonix) 40 mg DAILY PO Last administered on 04/11/18at 08: 17; Start 04/09/18 at 09:00 Senna (Senokot) 1 tab QHS PO Last administered on 04/10/18at 20:56; Start 04/08/18 at 21:00 Sodium Chloride ([place] Nasal [place]) 2 spray TID NA Last administered on 04/11/18 t 08:19; Start 04/09/18 at 09:00 ALEXA PAUL MD Apr 11, 2018 12:34
[2018-04-11] MEDS: POLYVINYL ALCOHOL OPHTH SOLN 15 ML(LIQUITEARS) OU SCH ×3 (13:13→22:32)
[2018-04-11 14:00] VITALS: BP 138/67
[2018-04-11 20:00] VITALS: BP 145/70
[2018-04-11] MEDS ORDERED: LEVEMIR (INSULIN DETEMIR) 1 UNITS/0.01ML SC SCH (21:00)
[2018-04-11] MEDS: LEVEMIR (INSULIN DETEMIR) 1 UNITS/0.01ML SC SCH (22:30)
[2018-04-11] MEDS: SENNA 8.6 MG TAB (SENOKOT) PO SCH (22:31)
[2018-04-12 06:00] VITALS: BP 148/78
[2018-04-12] MEDS: HumaLOG INSULIN (NovoLOG) PER UNIT SC SCH ×6 (07:30→17:23)
[2018-04-12 08:04] LABS: BLOOD UREA NITROGEN 48 MG/DL (7-18); CALCIUM LEVEL 9.5 MG/DL (8.8-10.2); CARBON DIOXIDE LEVEL 28 MEQ/L (21-32); CHLORIDE LEVEL 102 MEQ/L (98-107); CREATININE FOR GFR 0.97 MG/DL (0.70-1.30); GLOMERULAR FILTRATION RATE > 60.0 (>49); GLUCOSE, FASTING 167 MG/DL (70-100); POTASSIUM SERUM 4.1 MEQ/L (3.5-5.1); SODIUM LEVEL 139 MEQ/L (136-145)
[2018-04-12] MEDS: guaiFENesin 200 MG TAB PO SCH ×2 (08:11→19:59)
[2018-04-12] MEDS: ENOXAPARIN 40 MG/0.4 ML SYRINGE (J1650) SC SCH (08:11)
[2018-04-12] MEDS: METOPROLOL SUCC (TopROL XL) 100MG *XL* TAB PO SCH (08:11)
[2018-04-12] MEDS: glipiZIDE (GLUCOTROL) 5 MG TAB PO SCH ×2 (08:11→17:23)
[2018-04-12] MEDS: CLOPIDOGREL 75 MG TAB PO SCH (08:12)
[2018-04-12] MEDS: DOCUSATE SODIUM 100 MG CAP PO SCH ×2 (08:12→19:59)
[2018-04-12] MEDS: SODIUM CHLORIDE NASAL 0.65% SPRAY BTL (OCEAN) SCH ×3 (08:12→20:00)
[2018-04-12] MEDS: FLUTICASONE PROP 0.05% NASAL SPRAY 16 GM (FLONASE) NARES SCH ×2 (08:12→20:00)
[2018-04-12] MEDS: POLYVINYL ALCOHOL OPHTH SOLN 15 ML(LIQUITEARS) OU SCH ×3 (08:12→20:00)
[2018-04-12] MEDS: ASPIRIN 81 MG CHEW TABLET PEG SCH (08:12)
[2018-04-12] MEDS: FLUoxetine 20 MG CAP PO SCH (08:12)
[2018-04-12] MEDS: PANTOPRAZOLE 40MG TAB (PROTONIX) PO SCH (08:12)
[2018-04-12] MEDS: ATORVASTATIN 20 MG TAB PO SCH (08:12)
[2018-04-12] MEDS: IPRATROPIUM 0.5MG/ALBUTEROL 2.5MG INH SOL UD 3ML (DUONEB)(J7620) NEB SCH ×2 (09:46→19:56)
--- NOTE | 2018-04-12 10:16 | NOCOX ---
DATE OF PROCEDURE: 04/12/2018 Nocturnal oximetry testing was started on 04/11/2018, testing was on room air during the entire study. Oxygen saturation was 94% at the start of the study with a heart rate of 74. There was no significant desaturations. The longest continuous time with an oxygen saturation less than 88% was 18 seconds. Although there was not significant hypoxia. There was variable desaturation. RECOMMENDATION: Variable desaturation without significantly prolonged hypoxia. Recommend consideration of formal polysomnogram if there is concern for obstructive sleep apnea. MTDD
[2018-04-12 14:00] VITALS: BP 140/80
[2018-04-12] MEDS: LEVEMIR (INSULIN DETEMIR) 1 UNITS/0.01ML SC SCH (19:59)
[2018-04-12] MEDS: SENNA 8.6 MG TAB (SENOKOT) PO SCH (19:59)
[2018-04-12] MEDS: ACETAMINOPHEN TAB 650MG DOSE (2X325MG) PO PRN (19:59)
[2018-04-12 20:00] VITALS: BP 133/63
[2018-04-13 06:00] VITALS: BP 164/88
[2018-04-13] MEDS: HumaLOG INSULIN (NovoLOG) PER UNIT SC SCH ×6 (07:30→16:45)
[2018-04-13] MEDS: POLYVINYL ALCOHOL OPHTH SOLN 15 ML(LIQUITEARS) OU SCH ×3 (08:18→20:47)
[2018-04-13] MEDS: SODIUM CHLORIDE NASAL 0.65% SPRAY BTL (OCEAN) SCH ×3 (08:18→20:47)
[2018-04-13] MEDS: FLUTICASONE PROP 0.05% NASAL SPRAY 16 GM (FLONASE) NARES SCH ×2 (08:18→20:48)
[2018-04-13] MEDS: ENOXAPARIN 40 MG/0.4 ML SYRINGE (J1650) SC SCH (08:18)
[2018-04-13] MEDS: ATORVASTATIN 20 MG TAB PO SCH (08:19)
[2018-04-13] MEDS: METOPROLOL SUCC (TopROL XL) 100MG *XL* TAB PO SCH (08:19)
[2018-04-13] MEDS: glipiZIDE (GLUCOTROL) 5 MG TAB PO SCH ×2 (08:19→16:41)
[2018-04-13] MEDS: guaiFENesin 200 MG TAB PO SCH ×2 (08:19→20:47)
[2018-04-13] MEDS: CLOPIDOGREL 75 MG TAB PO SCH (08:19)
[2018-04-13] MEDS: ASPIRIN 81 MG CHEW TABLET PEG SCH (08:20)
[2018-04-13] MEDS: PANTOPRAZOLE 40MG TAB (PROTONIX) PO SCH (08:20)
[2018-04-13] MEDS: FLUoxetine 20 MG CAP PO SCH (08:20)
[2018-04-13] MEDS: DOCUSATE SODIUM 100 MG CAP PO SCH ×2 (08:20→20:48)
[2018-04-13] MEDS: IPRATROPIUM 0.5MG/ALBUTEROL 2.5MG INH SOL UD 3ML (DUONEB)(J7620) NEB SCH ×2 (12:23→20:09)
[2018-04-13 14:00] VITALS: BP 129/75
[2018-04-13] MEDS: ACETAMINOPHEN TAB 650MG DOSE (2X325MG) PO PRN (16:42)
[2018-04-13 20:00] VITALS: BP 161/86
[2018-04-13] MEDS: SENNA 8.6 MG TAB (SENOKOT) PO SCH (20:48)
[2018-04-13] MEDS: LEVEMIR (INSULIN DETEMIR) 1 UNITS/0.01ML SC SCH (20:50)
[2018-04-14 06:00] VITALS: BP 125/94
[2018-04-14] MEDS: IPRATROPIUM 0.5MG/ALBUTEROL 2.5MG INH SOL UD 3ML (DUONEB)(J7620) NEB SCH ×2 (07:09→19:37)
[2018-04-14] MEDS: HumaLOG INSULIN (NovoLOG) PER UNIT SC SCH ×6 (07:30→17:38)
[2018-04-14] MEDS: CLOPIDOGREL 75 MG TAB PO SCH (08:50)
[2018-04-14] MEDS: guaiFENesin 200 MG TAB PO SCH ×2 (08:50→20:36)
[2018-04-14] MEDS: ATORVASTATIN 20 MG TAB PO SCH (08:50)
[2018-04-14] MEDS: FLUoxetine 20 MG CAP PO SCH (08:50)
[2018-04-14] MEDS: ASPIRIN 81 MG CHEW TABLET PEG SCH (08:50)
[2018-04-14] MEDS: DOCUSATE SODIUM 100 MG CAP PO SCH ×2 (08:50→20:36)
[2018-04-14] MEDS: glipiZIDE (GLUCOTROL) 5 MG TAB PO SCH ×2 (08:51→17:39)
[2018-04-14] MEDS: PANTOPRAZOLE 40MG TAB (PROTONIX) PO SCH (08:52)
[2018-04-14] MEDS: SODIUM CHLORIDE NASAL 0.65% SPRAY BTL (OCEAN) SCH ×3 (08:52→20:37)
[2018-04-14] MEDS: FLUTICASONE PROP 0.05% NASAL SPRAY 16 GM (FLONASE) NARES SCH ×2 (08:52→20:37)
[2018-04-14] MEDS: ENOXAPARIN 40 MG/0.4 ML SYRINGE (J1650) SC SCH (08:52)
[2018-04-14] MEDS: METOPROLOL SUCC (TopROL XL) 100MG *XL* TAB PO SCH (08:52)
[2018-04-14] MEDS: POLYVINYL ALCOHOL OPHTH SOLN 15 ML(LIQUITEARS) OU SCH ×3 (08:53→20:37)
--- NOTE | 2018-04-14 11:44 | NUR ---
Recommending please upgrade to thin liquids Addendum: 04/14/[address] [facility] Amended: Links added.
[2018-04-14 14:00] VITALS: BP 130/82
[2018-04-14] MEDS: ACETAMINOPHEN TAB 650MG DOSE (2X325MG) PO PRN (16:37)
[2018-04-14 20:00] VITALS: BP 149/73
[2018-04-14] MEDS: SENNA 8.6 MG TAB (SENOKOT) PO SCH (20:36)
[2018-04-14] MEDS: LEVEMIR (INSULIN DETEMIR) 1 UNITS/0.01ML SC SCH (20:36)
[2018-04-15 05:30] VITALS: BP 143/88
[2018-04-15] MEDS: IPRATROPIUM 0.5MG/ALBUTEROL 2.5MG INH SOL UD 3ML (DUONEB)(J7620) NEB SCH ×2 (08:00→21:38)
[2018-04-15] MEDS: ATORVASTATIN 20 MG TAB PO SCH (08:36)
[2018-04-15] MEDS: DOCUSATE SODIUM 100 MG CAP PO SCH ×2 (08:36→20:35)
[2018-04-15] MEDS: CLOPIDOGREL 75 MG TAB PO SCH (08:36)
[2018-04-15] MEDS: METOPROLOL SUCC (TopROL XL) 100MG *XL* TAB PO SCH (08:36)
[2018-04-15] MEDS: guaiFENesin 200 MG TAB PO SCH ×2 (08:36→20:35)
[2018-04-15] MEDS: FLUoxetine 20 MG CAP PO SCH (08:36)
[2018-04-15] MEDS: glipiZIDE (GLUCOTROL) 5 MG TAB PO SCH ×2 (08:37→17:19)
[2018-04-15] MEDS: ASPIRIN 81 MG CHEW TABLET PEG SCH (08:37)
[2018-04-15] MEDS: HumaLOG INSULIN (NovoLOG) PER UNIT SC SCH ×3 (08:37→17:20)
[2018-04-15] MEDS: PANTOPRAZOLE 40MG TAB (PROTONIX) PO SCH (08:37)
[2018-04-15] MEDS: SODIUM CHLORIDE NASAL 0.65% SPRAY BTL (OCEAN) SCH ×3 (08:38→20:37)
[2018-04-15] MEDS: FLUTICASONE PROP 0.05% NASAL SPRAY 16 GM (FLONASE) NARES SCH ×2 (08:38→20:36)
[2018-04-15] MEDS: POLYVINYL ALCOHOL OPHTH SOLN 15 ML(LIQUITEARS) OU SCH ×3 (08:38→20:37)
[2018-04-15] MEDS: ENOXAPARIN 40 MG/0.4 ML SYRINGE (J1650) SC SCH (08:38)
[2018-04-15 12:14] LABS: BASO % 0.3 % (0.0-1.0); EOS # 0.1 10^3/uL (0.0-0.50); EOS % 0.3 % (0.0-3.0); HEMATOCRIT 44.5 % (42.0-52.0); HEMOGLOBIN 15.5 g/dl (13.5-17.5); LYMPH # 1.1 10^3/uL (1.5-4.5); LYMPH % 7.6 % (24.0-44.0); MEAN CORPUSCULAR HEMOGLOBIN 31.1 pg (27.0-33.0); MEAN CORPUSCULAR HGB CONC 34.8 g/dl (32.0-36.5); MEAN CORPUSCULAR VOLUME 89.4 fl (80.0-96.0); MONO % 6.6 % (0.0-5.0); NEUTROPHILS # 12.4 10^3/uL (1.8-7.7); NEUTROPHILS % 84.8 % (36.0-66.0); PLATELET COUNT, AUTOMATED 438 10^3/uL (150-450); RED BLOOD COUNT 4.98 10^6/uL (4.30-6.10); WHITE BLOOD COUNT 14.6 10^3/uL (4.0-10.0)
[2018-04-15 12:59] LABS: BLOOD UREA NITROGEN 42 MG/DL (7-18); CALCIUM LEVEL 9.7 MG/DL (8.8-10.2); CARBON DIOXIDE LEVEL 26 MEQ/L (21-32); CHLORIDE LEVEL 100 MEQ/L (98-107); CREATININE FOR GFR 1.26 MG/DL (0.70-1.30); GLOMERULAR FILTRATION RATE > 60.0 (>49); GLUCOSE, FASTING 257 MG/DL (70-100); POTASSIUM SERUM 4.6 MEQ/L (3.5-5.1); SODIUM LEVEL 136 MEQ/L (136-145)
[2018-04-15 14:00] VITALS: BP 128/86
[2018-04-15 20:00] VITALS: BP 149/72
[2018-04-15] MEDS: SENNA 8.6 MG TAB (SENOKOT) PO SCH (20:35)
[2018-04-15] MEDS: LEVEMIR (INSULIN DETEMIR) 1 UNITS/0.01ML SC SCH (20:36)
[2018-04-16 06:00] VITALS: BP 158/80
[2018-04-16] MEDS: IPRATROPIUM 0.5MG/ALBUTEROL 2.5MG INH SOL UD 3ML (DUONEB)(J7620) NEB SCH ×2 (07:59→22:13)
[2018-04-16] MEDS: HumaLOG INSULIN (NovoLOG) PER UNIT SC SCH ×3 (08:44→17:47)
[2018-04-16] MEDS: METOPROLOL SUCC (TopROL XL) 100MG *XL* TAB PO SCH (08:44)
[2018-04-16] MEDS: CLOPIDOGREL 75 MG TAB PO SCH (08:44)
[2018-04-16] MEDS: guaiFENesin 200 MG TAB PO SCH ×2 (08:44→20:19)
[2018-04-16] MEDS: PANTOPRAZOLE 40MG TAB (PROTONIX) PO SCH (08:45)
[2018-04-16] MEDS: FLUTICASONE PROP 0.05% NASAL SPRAY 16 GM (FLONASE) NARES SCH ×2 (08:45→20:20)
[2018-04-16] MEDS: ACETAMINOPHEN TAB 650MG DOSE (2X325MG) PO PRN ×2 (08:45→20:20)
[2018-04-16] MEDS: SODIUM CHLORIDE NASAL 0.65% SPRAY BTL (OCEAN) SCH ×3 (08:45→20:20)
[2018-04-16] MEDS: glipiZIDE (GLUCOTROL) 5 MG TAB PO SCH ×2 (08:46→17:46)
[2018-04-16] MEDS: FLUoxetine 20 MG CAP PO SCH (08:46)
[2018-04-16] MEDS: POLYVINYL ALCOHOL OPHTH SOLN 15 ML(LIQUITEARS) OU SCH ×3 (08:46→20:20)
[2018-04-16] MEDS: ATORVASTATIN 20 MG TAB PO SCH (08:47)
[2018-04-16] MEDS: DOCUSATE SODIUM 100 MG CAP PO SCH ×2 (08:47→20:19)
[2018-04-16] MEDS: ASPIRIN 81 MG CHEW TABLET PEG SCH (08:47)
[2018-04-16] MEDS: ENOXAPARIN 40 MG/0.4 ML SYRINGE (J1650) SC SCH (08:47)
--- NOTE | 2018-04-16 09:21 | NUR ---
D/c recommendations for supervision during meals. Pt passed self-feeding assessment and is able to eat alone. Please continue level 2 solids, thin liquids, and please have pt out of bed for all meals. Addendum: 04/16/18 at [address] [facility] Amended: Links added.
[2018-04-16 14:00] VITALS: BP 144/88
[2018-04-16] MEDS: MAGIC MOUTHWASH SUSPENSION BTL SSP SCH ×2 (15:23→17:47)
--- NOTE | 2018-04-16 19:47 | IPNPDOC ---
PM&R Progress Note DATE OF SERVICE: Apr 15, 2018 [employer] Progress Note Subjective: Patient seen in his room reporting he is very tired form therapy, but feels he is getting stronger. He moon chest pain or palpitations. REVIEW OF SYSTEMS: The following is a completed review of systems and has been reviewed. Review of systems otherwise unremarkable. PAIN: Patient self reports no pain EYES: denies recent vision loss EARS, NOSE, & THROAT: +dysphagia, +sinus congestion CARDIOVASCULAR: denies chest pain or palpitations PULMONARY: Negative. Denies shortness of breath, +cough GASTROINTESTINAL: Negative for diarrhea or constipation GENITOURINARY: +incontinence NEUROLOGICAL: left hemiparesis and neglect SKIN: chest wall loop recorder incision PSYCHIATRIC: Unremarkable All other review of systems found to be negative. PHYSICAL EXAMINATION: VITAL SIGNS: Please see below. GENERAL: Pleasant and cooperative. No acute distress. HEENT: PERRL. Extraocular movements intact. Clear conjunctiva, left eye-brow sparing facial droop, visual mondragon intact, +glasses CARDIOVASCULAR: Regular rate and rhythm. No murmurs, rubs, or gallops LUNGS: Clear to auscultation bilaterally. No wheezes. No rhonchi ABDOMEN: Soft, nontender, mildly-distended. Positive bowel sounds. Normal active bowel sounds NEUROLOGICAL: Alert and oriented times three. Cranial nerves II through XII grossly intact. Sensation diminished left upper extremity througout and left lower extremity +moderate neglect of the left arm>leg EXTREMITIES: 5\5 strength upper extremities. flaccid paralysis LUE, 5\5 strength right lower extremity. 3+/5 strength in left ankle DF, 2/5 knee extensors, 2/5 hip flexors SKIN: chest wall LOOP recorder incision healing well ASSESSMENT:67-year-old M with past medical history of HTN, HLD, DM who presents status post right MCA stroke PLAN: 1. 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 Neuro: s/p right MCA territory stroke with neglect and dysphagia on ASA and Plavix to continue for 21 days (start day for Plavix 04/07/18), then just continue ASA -monitor BPs, avoid hypoperfusion given severe right ICA stenosis, continue statin therapy -Loop recorder placed -continue Prozac for motor recovery -neurology consulted to discuss surgical intervention for stenosis in the future 3. Cardio: Pmh HTN, continue increased Metoprolol and hold lisinopril, Loop recorder in place for cryptogenic Afib- Family medicine consulted 4. Resp: pmh smoker-encourage incentive spirometry, continue Duonebs, Flonase, Guaifenesin and nasal saline for congestion-stable 5. GI ppx: Protonix 6. Endo: pmh DM holding metformin given HAZEL likely due to dehydration-improving, continue insulin coverage and home glipizide 7. renal:: improving pre-renal azotemia s/p gentle hydration, d/c'd metformin and lisinopril and encourage po liquid intake-likely due to poor po intake 7. DVT ppx: lovenox 8. Dispo: 05/07/18, progressing towards goals Allergies Coded Allergies: No Known Drug Allergy (Verified Allergy, Unknown, 04/01/18) Vital Signs Vital Signs Date Time Temp Pulse Resp B/P (MAP) Pulse Ox O2 Delivery O2 Flow Rate FiO2 04/16/18 14:00 96.9 73 20 144/88 (106) 96 Laboratory Data Labs 24H Laboratory Tests 2 04/15/18 20:20: Bedside Glucose (Misc Panel) 231H 04/16/18 06:28: Bedside Glucose (Misc Panel) 202H 04/16/18 11:09: Bedside Glucose (Misc Panel) 275H 04/16/18 16:49: Bedside Glucose (Misc Panel) 179H Current Medications Current Medications Current Medications Acetaminophen (Tylenol Tab) 650 mg Q4HP PRN PO fever/MILD PAIN (PS 1-4) Last administered on 04/16/18at 08:45; Start 04/08/18 at 17:00 Al Hydrox/Mg Hydrox/Simethicone (Mylanta) 30 ml Q4HP PRN PO DYSPEPSIA; Start 04/08/18 at 17:00 Albuterol/ Ipratropium (Duoneb (Ipr 0.5mg/Alb 2.5mg)) 3 ml RBID NEB Last admin istered on 04/16/18at 07:59; Start 04/09/18 at 08:00 Artificial Tears ([place] Tears) 2 drop TID OU Last administered on 04/16/18at 15 :23; Start 04/11/18 at 09:00 Aspirin (Aspirin Chewable) 81 mg DAILY PEG Last administered on 04/16/18 08:47; Start 04/09/18 at 09:00 Atorvastatin Calcium (Lipitor) 40 mg DAILY PO Last administered on 04/16/18 08:47; Start 04/09/18 at 09:00 Bisacodyl (Dulcolax Suppository) 10 mg DAILYPRN PRN [place] CONSTIPATION Last administered on 04/15/18 05:31; Start 04/08/18 at 17:00 Clopidogrel Bisulfate (PLAVix) 75 mg DAILY PO Last administered on 04/16/18 08:44; Start 04/09/18 at 09:00 Dextrose (Dextrose 50%) 25 ml ASDIRECTED PRN IV SEE LABEL COMMENTS; Start 04/08/18 at 17:00 Docusate Sodium (Colace) 100 mg BID PO Last administered on 04/16/18 08:47; Start 04/08/18 at 21:00 Enoxaparin Sodium (Lovenox) 40 mg DAILY SC Last administered on 04/16/18 08:47; Start 04/09/18 at 09:00 Fluoxetine HCl (PROzac) 20 mg DAILY PO Last administered on 04/16/18 08:46; Start 04/09/18 at 09:00 Fluticasone Propionate (Flonase 0.05% Nasal [place]) 1 spray BID NARES Last administered on 04/16/18 08:45; Start 04/09/18 at 09:00 Glipizide (Glucotrol) 10 mg BID@0730,1730 PO Last administered on 04/16/18 17:46; Start 04/08/18 at 17:30 Glucagon (Glucagon) 1 mg ASDIRECTED PRN SC SEE LABEL COMMENTS; Start 04/08/18 at 17:00 Glucose (Glucose) 16 GM ASDIRECTED PRN PO SEE LABEL COMMENTS; Start 04/08/18 at 17:00 Guaifenesin (Robitussin Tab) 400 mg BID PO Last administered on 04/16/18 08:44; Start 04/09/18 at 09:00 Home Med (Med Rec Complete!) ASDIRECTED XX ; Start 04/08/18 at 18:00; Stop 04/08/18 at 18:00; Status DC Insulin Detemir (Levemir Insulin) 5 units QHS SC Last administered on 3/5/19at 20:36; Start 04/09/18 at 21:00 Insulin Detemir (Levemir Insulin) 5 units QHS SC ; Start 04/11/18 at 21:00; Stop 04/11/18 at 21:00; Status DC Insulin Human Lispro (HumaLOG INSULIN) SEE PROTOCOL TABLE AC SC Last administered on 04/16/18at 17:47; Start 04/08/18 at 17:30 Insulin Human Lispro (HumaLOG INSULIN) SEE PROTOCOL TABLE AC SC ; Start 04/11/18 at 12:00; Stop 04/14/18 at 20:08; Status DC Lidocaine/ Diphenhydr/Alum/ Mg/Simeth (Magic Mouthwash) 5ml AC SSP Last ad ministered on 04/16/18at 17:47; Start 04/16/18 at 12:00 Lisinopril (Prinivil) 5 mg DAILY PO Last administered on 04/09/18at 08:39; Start 04/09/18 at 09:00; Stop 04/09/18 at 09:13; Status DC Lisinopril (Prinivil) 10 mg DAILY PO Last administered on 04/11/18at 08:18; Start 04/10/18 at 09:00; Stop 04/11/18 at 10:26; Status DC Magnesium Hydroxide (Milk Of Magnesia) 30 ml DAILYPRN PRN PO CONSTIPATION Last administered on 04/10/18at 23:14; Start 04/08/18 at 17:00 Metformin HCl (Glucophage) 1,000 mg BID@,18 PO Last administered on 04/11/18at 08:18; Start 04/08/18 at 18:00; Stop 04/11/18 at 10:26; Status DC Metoprolol Succinate (TopROL XL) 75 mg DAILY PO Last administered on 04/11/18at 08:17; Start 04/09/18 at 09:00; Stop 04/11/18 at 10:26; Status DC Metoprolol Succinate (TopROL XL) 100 mg DAILY PO Last administered on 04/16/18at 08:44; Start 04/12/18 at 09:00 Pantoprazole Sodium (Protonix) 40 mg DAILY PO Last administered on 04/16/18at 08:45; Start 04/09/18 at 09:00 Senna (Senokot) 1 tab QHS PO Last administered on 04/15/18at 20:35; Start 04/08/18 at 21:00 Sodium Chloride ([place] Nasal [place]) 2 spray TID NA Last administered on 04/16/18at 15:23; Start 04/09/18 at 09:00 ALEXA PAUL MD Apr 16, 2018 19:47
--- NOTE | 2018-04-16 19:56 | IPNPDOC ---
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 Patient denies any palpitations or chest pain. REVIEW OF SYSTEMS: The following is a completed review of systems and has been reviewed. Review of systems otherwise unremarkable. PAIN: Patient self reports no pain EYES: denies recent vision loss EARS, NOSE, & THROAT: +dysphagia, +sinus congestion CARDIOVASCULAR: denies chest pain or palpitations PULMONARY: Negative. Denies shortness of breath, +cough GASTROINTESTINAL: Negative for diarrhea or constipation GENITOURINARY: +incontinence NEUROLOGICAL: left hemiparesis and neglect SKIN: chest wall loop recorder incision PSYCHIATRIC: Unremarkable All other review of systems found to be negative. PHYSICAL EXAMINATION: VITAL SIGNS: Please see below. GENERAL: Pleasant and cooperative. No acute distress. HEENT: PERRL. Extraocular movements intact. Clear conjunctiva, left eye-brow sparing facial droop, visual mondragon intact, +glasses CARDIOVASCULAR: Regular rate and rhythm. No murmurs, rubs, or gallops LUNGS: Clear to auscultation bilaterally. No wheezes. No rhonchi ABDOMEN: Soft, nontender, mildly-distended. Positive bowel sounds. Normal active bowel sounds NEUROLOGICAL: Alert and oriented times three. Cranial nerves II through XII grossly intact. Sensation diminished left upper extremity througout and left low er extremity +moderate neglect of the left arm>leg EXTREMITIES: 5\5 strength upper extremities. flaccid paralysis LUE, 5\5 strength right lower extremity. 3+/5 strength in left ankle DF, 2/5 knee extensors, 2/5 hip flexors SKIN: chest wall LOOP recorder incision healing well ASSESSMENT:67-year-old M with past medical history of HTN, HLD, DM who presents status post right MCA stroke PLAN: 1. 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 Neuro: s/p right MCA territory stroke with neglect and dysphagia on ASA and Plavix to continue for 21 days (start day for Plavix 04/07/18), then just continue ASA -monitor BPs, avoid hypoperfusion given severe right ICA stenosis, continue statin therapy -Loop recorder placed-will keep diary during periods of e-stim, confirmed with [employer] not a contraindication, and alerted boatswains mate Dr. Patino's SENIOR QUALITY TECHNICIAN that he will be getting e-stim and to be aware of artifact, it appears recorded event on 04/15/18 likely did not coincide with e-stim, did not appear to be afib, and no change in treatment recommended to date -continue Prozac for motor recovery -neurology consulted to discuss surgical intervention for stenosis in the future 3. Cardio: Pmh HTN, continue increased Metoprolol and hold lisinopril, Loop recorder in place for cryptogenic Afib- Family medicine consulted 4. Resp: pmh smoker-encourage incentive spirometry, continue Duonebs, Flonase, Guaifenesin and nasal saline for congestion-stable -will start antifungal mouth rinse for thrush 5. GI ppx: Protonix 6. Endo: pmh DM holding metformin given HAZEL likely due to dehydration-improving, continue insulin coverage and home glipizide 7. renal:: improving pre-renal azotemia s/p gentle hydration, d/c'd metformin and lisinopril and encourage po liquid intake-likely due to poor po intake 7. DVT ppx: lovenox 8. Dispo: 05/07/18, progressing towards goals Allergies Coded Allergies: No Known Drug Allergy (Verified Allergy, Unknown, 04/01/18) Vital Signs Vital Signs Date Time Temp Pulse Resp B/P (MAP) Pulse Ox O2 Delivery O2 Flow Rate FiO2 04/16/18 14:00 96.9 73 20 144/88 (106) 96 Laboratory Data Labs 24H Laboratory Tests 2 04/15/18 20:20: Bedside Glucose (Misc Panel) 231H 04/16/18 06:28: Bedside Glucose (Misc Panel) 202H 04/16/18 11:09: Bedside Glucose (Misc Panel) 275H 04/16/18 16:49: Bedside Glucose (Misc Panel) 179H Current Medications Current Medications Current Medications Acetaminophen (Tylenol Tab) 650 mg Q4HP PRN PO fever/MILD PAIN (PS 1-4) Last administered on 04/16/18at 08:45; Start 04/08/18 at 17:00 Al Hydrox/Mg Hydrox/Simethicone (Mylanta) 30 ml Q4HP PRN PO DYSPEPSIA; Start 04/08/18 at 17:00 Albuterol/ Ipratropium (Duoneb (Ipr 0.5mg/Alb 2.5mg)) 3 ml RBID NEB Last administered on 04/16/18 07:59; Start 04/09/18 at 08:00 Artificial Tears ([place] Tears) 2 drop TID OU Last administered on 04/16/18 15:23; Start 04/11/18 at 09:00 Aspirin (Aspirin Chewable) 81 mg DAILY PEG Last administered on 04/16/18 08:47; Start 04/09/18 at 09:00 Atorvastatin Calcium (Lipitor) 40 mg DAILY PO Last administered on 04/16/18 08:47; Start 04/09/18 at 09:00 Bisacodyl (Dulcolax Suppository) 10 mg DAILYPRN PRN [place] CONSTIPATION Last administered on 04/15/18 05:31; Start 04/08/18 at 17:00 Clopidogrel Bisulfate (PLAVix) 75 mg DAILY PO Last administered on 04/16/18 08:44; Start 04/09/18 at 09:00 Dextrose (Dextrose 50%) 25 ml ASDIRECTED PRN IV SEE LABEL COMMENTS; Start 04/08/18 at 17:00 Docusate Sodium (Colace) 100 mg BID PO Last administered on 04/16/18 08:47; Start 04/08/18 at 21:00 Enoxaparin Sodium (Lovenox) 40 mg DAILY SC Last administered on 04/16/18 08:47; Start 04/09/18 at 09:00 Fluoxetine HCl (PROzac) 20 mg DAILY PO Last administered on 04/16/18 08:46; Start 04/09/18 at 09:00 Fluticasone Propionate (Flonase 0.05% Nasal [place]) 1 spray BID NARES Last administered on 04/16/18 08:45; Start 04/09/18 at 09:00 Glipizide (Glucotrol) 10 mg BID@0730,1730 PO Last administered on 04/16/18 17:46; Start 04/08/18 at 17:30 Glucagon (Glucagon) 1 mg ASDIRECTED PRN SC SEE LABEL COMMENTS; Start 04/08/18 at 17:00 Glucose (Glucose) 16 GM ASDIRECTED PRN PO SEE LABEL COMMENTS; Start 04/08/18 at 17:00 Guaifenesin (Robitussin Tab) 400 mg BID PO Last administered on 04/16/18at 08:44; Start 04/09/18 at 09:00 Home Med (Med Rec Complete!) ASDIRECTED XX ; Start 04/08/18 at 18:00; Stop 04/08/18 at 18:00; Status DC Insulin Detemir (Levemir Insulin) 5 units QHS SC Last administered on 04/15/18at 20:36; Start 04/09/18 at 21:00 Insulin Detemir (Levemir Insulin) 5 units QHS SC ; Start 04/11/18 at 21:00; Stop 04/11/18 at 21:00; Status DC Insulin Human Lispro (HumaLOG INSULIN) SEE PROTOCOL TABLE AC SC Last administered on 04/16/18at 17:47; Start 04/08/18 at 17:30 Insulin Human Lispro (HumaLOG INSULIN) SEE PROTOCOL TABLE AC SC ; Start 04/11/18 at 12:00; Stop 04/14/18 at 20:08; Status DC Lidocaine/ Diphenhydr/Alum/ Mg/Simeth (Magic Mouthwash) 5ml AC SSP Last administered on 04/16/18at 17:47; Start 04/16/18 at 12:00 Lisinopril (Prinivil) 5 mg DAILY PO Last administered on 04/09/18at 08:39; Start 04/09/18 at 09:00; Stop 04/09/18 at 09:13; Status DC Lisinopril (Prinivil) 10 mg DAILY PO Last administered on 04/11/18at 08:18; Start 04/10/18 at 09:00; Stop 04/11/18 at 10:26; Status DC Magnesium Hydroxide (Milk Of Magnesia) 30 ml DAILYPRN PRN PO CONSTIPATION Last administered on 04/10/18at 23:14; Start 04/08/18 at 17:00 Metformin HCl (Glucophage) 1,000 mg BID@08,18 PO Last administered on 04/11/18at 08:18; Start 04/08/18 at 18:00; Stop 04/11/18 at 10:26; Status DC Metoprolol Succinate (TopROL XL) 75 mg DAILY PO Last administered on 04/11/18at 08:17; Start 04/09/18 at 09:00; Stop 04/11/18 at 10:26; Status DC Metoprolol Succinate (TopROL XL) 100 mg DAILY PO Last administered on 04/16/18at 08:44; Start 04/12/18 at 09:00 Pantoprazole Sodium (Protonix) 40 mg DAILY PO Last administered on 04/16/18at 08:45; Start 04/09/18 at 09:00 Senna (Senokot) 1 tab QHS PO Last administered on 04/15/18at 20:35; Start 04/08/18 at 21:00 Sodium Chloride ([place] Nasal [place]) 2 spray TID NA Last administered on 04/16/18at 15:23; Start 04/09/18 at 09:00 ALEXA PAUL MD Apr 16, 2018 19:56
[2018-04-16 20:00] VITALS: BP 150/82
[2018-04-16] MEDS: SENNA 8.6 MG TAB (SENOKOT) PO SCH (20:19)
[2018-04-16] MEDS: LEVEMIR (INSULIN DETEMIR) 1 UNITS/0.01ML SC SCH (20:20)
[2018-04-17 06:00] VITALS: BP 169/81
[2018-04-17] MEDS: IPRATROPIUM 0.5MG/ALBUTEROL 2.5MG INH SOL UD 3ML (DUONEB)(J7620) NEB SCH ×2 (07:30→20:00)
[2018-04-17 08:14] LABS: BASO % 0.5 % (0.0-1.0); EOS # 0.1 10^3/uL (0.0-0.50); EOS % 2.1 % (0.0-3.0); HEMATOCRIT 41.4 % (42.0-52.0); LYMPH # 1.2 10^3/uL (1.5-4.5); LYMPH % 18.2 % (24.0-44.0); MEAN CORPUSCULAR HEMOGLOBIN 30.3 pg (27.0-33.0); MEAN CORPUSCULAR HGB CONC 33.8 g/dl (32.0-36.5); MEAN CORPUSCULAR VOLUME 89.6 fl (80.0-96.0); MONO # 0.5 10^3/uL (0.0-0.8); MONO % 7.7 % (0.0-5.0); NEUTROPHILS # 4.7 10^3/uL (1.8-7.7); NEUTROPHILS % 71.2 % (36.0-66.0); PLATELET COUNT, AUTOMATED 312 10^3/uL (150-450); RED BLOOD COUNT 4.62 10^6/uL (4.30-6.10); WHITE BLOOD COUNT 6.6 10^3/uL (4.0-10.0)
[2018-04-17 08:30] LABS: BLOOD UREA NITROGEN 34 MG/DL (7-18); CALCIUM LEVEL 9.3 MG/DL (8.8-10.2); CARBON DIOXIDE LEVEL 27 MEQ/L (21-32); CHLORIDE LEVEL 101 MEQ/L (98-107); CREATININE FOR GFR 0.88 MG/DL (0.70-1.30); GLOMERULAR FILTRATION RATE > 60.0 (>49); GLUCOSE, FASTING 206 MG/DL (70-100); POTASSIUM SERUM 3.8 MEQ/L (3.5-5.1); SODIUM LEVEL 136 MEQ/L (136-145)
[2018-04-17] MEDS: guaiFENesin 200 MG TAB PO SCH ×2 (10:16→22:25)
[2018-04-17] MEDS: ASPIRIN 81 MG CHEW TABLET PEG SCH (10:16)
[2018-04-17] MEDS: glipiZIDE (GLUCOTROL) 5 MG TAB PO SCH ×2 (10:17→18:27)
[2018-04-17] MEDS: DOCUSATE SODIUM 100 MG CAP PO SCH ×2 (10:17→22:24)
[2018-04-17] MEDS: ATORVASTATIN 20 MG TAB PO SCH (10:17)
[2018-04-17] MEDS: MAGIC MOUTHWASH SUSPENSION BTL SSP SCH ×3 (10:18→18:27)
[2018-04-17] MEDS: PANTOPRAZOLE 40MG TAB (PROTONIX) PO SCH (10:19)
[2018-04-17] MEDS: FLUoxetine 20 MG CAP PO SCH (10:19)
[2018-04-17] MEDS: CLOPIDOGREL 75 MG TAB PO SCH (10:19)
[2018-04-17] MEDS: METOPROLOL SUCC (TopROL XL) 100MG *XL* TAB PO SCH (10:19)
[2018-04-17] MEDS: SODIUM CHLORIDE NASAL 0.65% SPRAY BTL (OCEAN) SCH ×3 (10:20→22:26)
[2018-04-17] MEDS: ENOXAPARIN 40 MG/0.4 ML SYRINGE (J1650) SC SCH (10:20)
[2018-04-17] MEDS: POLYVINYL ALCOHOL OPHTH SOLN 15 ML(LIQUITEARS) OU SCH ×3 (10:21→22:26)
[2018-04-17] MEDS: FLUTICASONE PROP 0.05% NASAL SPRAY 16 GM (FLONASE) NARES SCH ×2 (10:21→22:26)
[2018-04-17] MEDS: HumaLOG INSULIN (NovoLOG) PER UNIT SC SCH ×3 (10:22→18:25)
--- NOTE | 2018-04-17 12:44 | NUR ---
Per RN, pt pocketing during breakfast this AM and was unaware. Recommend return to meals w/ supervision & continue OOB only. Addendum: 04/17/18 at 1245 by ANISH CHRISTENSEN [facility] Amended: Links added.
[2018-04-17] MEDS ORDERED: E-Z-PAQUE 96% w/w SUSP 176GM BTL As Ordered ONE (13:23)
[2018-04-17] MEDS ORDERED: VARIBAR PUDDING 40% w/v 230ML TUBE As Ordered ONE (13:23)
[2018-04-17] MEDS ORDERED: VARIBAR NECTAR 40% w/v 240ML SUSP BTL As Ordered ONE (13:23)
[2018-04-17 14:00] VITALS: BP 160/74
--- NOTE | 2018-04-17 15:02 | NUR ---
Pt seen for Modified Barium Swallow Study to r/o aspiration with thin liquids. Thin liquids, puree solids, soft mix solids and crunchy cookie barium sandwich were trialed. Thin liquids were presented with a straw and at cup side. Flash penetration noted when using a straw. Overall, swallow is adequate. Recommend: continue dysphagia therapy for compensatory strategies to clear the oral cavity and to continue with working toward resuming prior level. Level 2 solids and regular thin liquids via cup side using small sips. OOB and supervision during meals. Addendum: 04/17/18 at 1503 by ZAINAB SMITH STACEY Amended: Links added.
[2018-04-17] MEDS: LISINOPRIL 10 MG TAB PO SCH (16:03)
--- NOTE | 2018-04-17 17:05 | REP ---
COOKIE SWALLOW The procedure was performed under the direct supervision of Dr. reynoso. The procedure was performed with Kendra Busch from speech pathology present. 5 ml aliquots of pudding, thin, mixed fruit and solid consistency barium was administered. With thin consistency barium there is laryngeal penetration. The detailed report of this examination will be provided by speech pathology. 1.3 minutes of fluoroscopy time was utilized for this procedure. Reviewed by DEXTER Sorenson 04/17/2018 03:52 P Electronically Signed by Alejandro Reynoso MD 04/17/2018 04:57 P
[2018-04-17 20:00] VITALS: BP 126/63
[2018-04-17] MEDS: SENNA 8.6 MG TAB (SENOKOT) PO SCH (22:24)
[2018-04-17] MEDS: LEVEMIR (INSULIN DETEMIR) 1 UNITS/0.01ML SC SCH (22:25)
[2018-04-18] MEDS: ACETAMINOPHEN TAB 650MG DOSE (2X325MG) PO PRN (04:37)
[2018-04-18 06:00] VITALS: BP 128/59
[2018-04-18 07:15] LABS: BASO % 0.3 % (0.0-1.0); EOS # 0.2 10^3/uL (0.0-0.50); EOS % 2.7 % (0.0-3.0); HEMATOCRIT 40.4 % (42.0-52.0); LYMPH # 1.3 10^3/uL (1.5-4.5); LYMPH % 18.1 % (24.0-44.0); MEAN CORPUSCULAR HEMOGLOBIN 31.6 pg (27.0-33.0); MEAN CORPUSCULAR HGB CONC 34.7 g/dl (32.0-36.5); MEAN CORPUSCULAR VOLUME 91.2 fl (80.0-96.0); MONO # 0.6 10^3/uL (0.0-0.8); MONO % 8.4 % (0.0-5.0); NEUTROPHILS % 69.9 % (36.0-66.0); PLATELET COUNT, AUTOMATED 299 10^3/uL (150-450); RED BLOOD COUNT 4.43 10^6/uL (4.30-6.10); WHITE BLOOD COUNT 7.1 10^3/uL (4.0-10.0)
[2018-04-18] MEDS: IPRATROPIUM 0.5MG/ALBUTEROL 2.5MG INH SOL UD 3ML (DUONEB)(J7620) NEB SCH (07:28)
[2018-04-18 07:43] LABS: BLOOD UREA NITROGEN 38 MG/DL (7-18); CARBON DIOXIDE LEVEL 29 MEQ/L (21-32); CHLORIDE LEVEL 101 MEQ/L (98-107); CREATININE FOR GFR 1.15 MG/DL (0.70-1.30); GLOMERULAR FILTRATION RATE > 60.0 (>49); GLUCOSE, FASTING 191 MG/DL (70-100); POTASSIUM SERUM 3.7 MEQ/L (3.5-5.1); SODIUM LEVEL 136 MEQ/L (136-145)
[2018-04-18] MEDS: CLOPIDOGREL 75 MG TAB PO SCH (08:05)
[2018-04-18] MEDS: PANTOPRAZOLE 40MG TAB (PROTONIX) PO SCH (08:05)
[2018-04-18] MEDS: METOPROLOL SUCC (TopROL XL) 100MG *XL* TAB PO SCH (08:06)
[2018-04-18] MEDS: ATORVASTATIN 20 MG TAB PO SCH (08:06)
[2018-04-18] MEDS: LISINOPRIL 10 MG TAB PO SCH (08:06)
[2018-04-18] MEDS: glipiZIDE (GLUCOTROL) 5 MG TAB PO SCH ×2 (08:06→17:02)
[2018-04-18] MEDS: ASPIRIN 81 MG CHEW TABLET PEG SCH (08:06)
[2018-04-18] MEDS: guaiFENesin 200 MG TAB PO SCH ×2 (08:06→21:32)
[2018-04-18] MEDS: FLUoxetine 20 MG CAP PO SCH (08:06)
[2018-04-18] MEDS: HumaLOG INSULIN (NovoLOG) PER UNIT SC SCH ×3 (08:07→17:03)
[2018-04-18] MEDS: SODIUM CHLORIDE NASAL 0.65% SPRAY BTL (OCEAN) SCH ×3 (08:07→21:33)
[2018-04-18] MEDS: POLYVINYL ALCOHOL OPHTH SOLN 15 ML(LIQUITEARS) OU SCH ×3 (08:07→21:33)
[2018-04-18] MEDS: ENOXAPARIN 40 MG/0.4 ML SYRINGE (J1650) SC SCH (08:07)
[2018-04-18] MEDS: FLUTICASONE PROP 0.05% NASAL SPRAY 16 GM (FLONASE) NARES SCH ×2 (08:07→21:33)
[2018-04-18] MEDS: MAGIC MOUTHWASH SUSPENSION BTL SSP SCH ×3 (08:08→17:03)
[2018-04-18] MEDS: DOCUSATE SODIUM 100 MG CAP PO SCH ×2 (08:08→21:32)
[2018-04-18 14:00] VITALS: BP 99/58
--- NOTE | 2018-04-18 14:21 | IPNPDOC ---
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 REVIEW OF SYSTEMS: The following is a completed review of systems and has been reviewed. Review of systems otherwise unremarkable. PAIN: Patient self reports no pain EYES: denies recent vision loss EARS, NOSE, & THROAT: +dysphagia, +sinus congestion CARDIOVASCULAR: denies chest pain or palpitations PULMONARY: Negative. Denies shortness of breath, +cough GASTROINTESTINAL: Negative for diarrhea or constipation GENITOURINARY: +incontinence NEUROLOGICAL: left hemiparesis and neglect SKIN: chest wall loop recorder incision PSYCHIATRIC: Unremarkable All other review of systems found to be negative. PHYSICAL EXAMINATION: VITAL SIGNS: Please see below. GENERAL: Pleasant and cooperative. No acute distress. HEENT: PERRL. Extraocular movements intact. Clear conjunctiva, left eye-brow sparing facial droop, visual mondragon intact, +glasses CARDIOVASCULAR: Regular rate and rhythm. No murmurs, rubs, or gallops LUNGS: Clear to auscultation bilaterally. No wheezes. No rhonchi ABDOMEN: Soft, nontender, mildly-distended. Positive bowel sounds. Normal active bowel sounds NEUROLOGICAL: Alert and oriented times three. Cranial nerves II through XII g rossly intact. Sensation diminished left upper extremity througout and left lower extremity +moderate neglect of the left arm>leg EXTREMITIES: 5\5 strength upper extremities. flaccid paralysis LUE, 5\5 strength right lower extremity. 3+/5 strength in left ankle DF, 2/5 knee extensors, 2/5 hip flexors SKIN: chest wall LOOP recorder incision healing well ASSESSMENT:67-year-old M with past medical history of HTN, HLD, DM who presents status post right MCA stroke PLAN: 1. Rehab: PT/OT, RINK RAT, assess for DME, upgraded to thin liquids, modified barium swallow today- c/u level 2 with thins and supervision at all times with meals 2. Neuro: s/p right MCA territory stroke with neglect and dysphagia on ASA and Plavix to continue for 21 days (start day for Plavix 04/07/18), then just continue ASA -monitor BPs, avoid hypoperfusion given severe right ICA stenosis, continue statin therapy -Loop recorder placed-will keep diary during periods of e-stim, confirmed with [employer] not a contraindication, and alerted [facility] Dr. Patino's INDUSTRIAL X RAY OPERATOR that he will be getting e-stim and to be aware of artifact, it appears recorded event on 04/15/18 likely did not coincide with e-stim, did not appear to be afib, and no change in treatment recommended to date- will hold e-stim at this time as not making significant functional gains -continue Prozac for motor recovery -neurology consulted to discuss surgical intervention for stenosis in the future 3. Cardio: Pmh HTN, continue increased Metoprolol and hold lisinopril, Loop recorder in place for cryptogenic Afib- Family medicine consulted 4. Resp: pmh smoker-encourage incentive spirometry, continue Duonebs, Flonase, Guaifenesin and nasal saline for congestion-stable -will start antifungal mouth rinse for thrush 5. GI ppx: Protonix 6. Endo: pmh DM holding metformin given HAZEL likely due to dehydration-improving, continue insulin coverage and home glipizide 7. renal:: improving pre-renal azotemia s/p gentle hydration, d/c'd metformin and lisinopril and encourage po liquid intake-improving 7. DVT ppx: lovenox 8. Dispo: 05/07/18, progressing towards goals Allergies Coded Allergies: No Known Drug Allergy (Verified Allergy, Unknown, 04/01/18) Vital Signs Vital Signs Date Time Temp Pulse Resp B/P (MAP) Pulse Ox O2 Delivery O2 Flow Rate FiO2 04/18/18 08:06 72 128/59 04/18/18 06:00 98.2 20 93 Laboratory Data CBC/BMP Laboratory Tests 04/18/18 06:42 Red Blood Count 4.43, Mean Corpuscular Volume 91.2, Mean Corpuscular Hemoglobin 31.6, Mean Corpuscular Hemoglobin Concent 34.7, Red Cell Distribution Width 12.4, Neutrophils (%) (Auto) 69.9 H, Lymphocytes (%) (Auto) 18.1 L, Monocytes (%) (Auto) 8.4 H, Eosinophils (%) (Auto) 2.7, Basophils (%) (Auto) 0.3, Neutrophils # (Auto) 5.0, Lymphocytes # (Auto) 1.3 L, Monocytes # (Auto) 0.6, Eosinophils # (Auto) 0.2, Basophils # (Auto) 0.0, Calcium Level 9.0 Labs 24H Laboratory Tests 2 04/17/18 16:49: Bedside Glucose (Misc Panel) 136H 04/17/18 19:48: Bedside Glucose (Misc Panel) 200H 04/18/18 06:42: Immature Granulocyte % (Auto) 0.6, White Blood Count 7.1, Red Blood Count 4.43, Hemoglobin 14.0, Hematocrit 40.4L, Mean Corpuscular Volume 91.2, Mean Corpuscular Hemoglobin 31.6, Mean Corpuscular Hemoglobin Concent 34.7, Red Cell Distribution Width 12.4, Platelet Count 299, Neutrophils (%) (Auto) 69.9H, Lymphocytes (%) (Auto) 18.1L, Monocytes (%) (Auto) 8.4H, Eosinophils (%) (Auto) 2.7, Basophils (%) (Auto) 0.3, Neutrophils # (Auto) 5.0, Lymphocytes # (Auto) 1.3L, Monocytes # (Auto) 0.6, Eosinophils # (Auto) 0.2, Basophils # (Auto) 0.0, Nucleated Red Blood Cells % (auto) 0.0, Anion Gap 6L, Glomerular Filtration Rate > 60.0, Blood Urea Nitrogen 38H, Creatinine 1.15, Sodium Level 136, Potassium Level 3.7, Chloride Level 101, Carbon Dioxide Level 29, Calcium Level 9.0 04/18/18 11:36: Bedside Glucose (Misc Panel) 191H Current Medications Current Medications Current Medications Acetaminophen (Tylenol Tab) 650 mg Q4HP PRN PO fever/MILD PAIN (PS 1-4) Last administered on 04/18/18at 04:37; Start 04/08/18 at 17:00 Al Hydrox/Mg Hydrox/Simethicone (Mylanta) 30 ml Q4HP PRN PO DYSPEPSIA; Start 04/08/18 at 17:00 Albuterol/ Ipratropium (Duoneb (Ipr 0.5mg/Alb 2.5mg)) 3 ml RBID NEB Last administered on 04/16/18at 07:59; Start 04/09/18 at 08:00 Artificial Tears (Akwa Tears) 2 drop TID OU Last administered on 04/18/18at 0 8:07; Start 04/11/18 at 09:00 Aspirin (Aspirin Chewable) 81 mg DAILY PEG Last administered on 04/18/18 08:06; Start 04/09/18 at 09:00 Atorvastatin Calcium (Lipitor) 40 mg DAILY PO Last administered on 04/18/18 08:06; Start 04/09/18 at 09:00 Bisacodyl (Dulcolax Suppository) 10 mg DAILYPRN PRN [place] CONSTIPATION Last administered on 04/15/18at 05:31; Start 04/08/18 at 17:00 Clopidogrel Bisulfate (PLAVix) 75 mg DAILY PO Last administered on 04/18/18 08:05; Start 04/09/18 at 09:00 Dextrose (Dextrose 50%) 25 ml ASDIRECTED PRN IV SEE LABEL COMMENTS; Start 04/08/18 at 17:00 Docusate Sodium (Colace) 100 mg BID PO Last administered on 04/17/18 22:24; Start 04/08/18 at 21:00 Enoxaparin Sodium (Lovenox) 40 mg DAILY SC Last administered on 04/18/18 08:07; Start 04/09/18 at 09:00 Fluoxetine HCl (PROzac) 20 mg DAILY PO Last administered on 04/18/18 08:06; Start 04/09/18 at 09:00 Fluticasone Propionate (Flonase 0.05% Nasal [place]) 1 spray BID NARES Last administered on 04/18/18 08:07; Start 04/09/18 at 09:00 Glipizide (Glucotrol) 10 mg BID@0730,1730 PO Last administered on 04/18/18 08:06; Start 04/08/18 at 17:30 Glucagon (Glucagon) 1 mg ASDIRECTED PRN SC SEE LABEL COMMENTS; Start 04/08/18 at 17:00 Glucose (Glucose) 16 GM ASDIRECTED PRN PO SEE LABEL COMMENTS; Start 04/08/18 at 17:00 Guaifenesin (Robitussin Tab) 400 mg BID PO Last administered on 04/18/18 08:06; Start 04/09/18 at 09:00 Home Med (Med Rec Complete!) ASDIRECTED XX ; Start 04/08/18 at 18:00; Stop 04/08/18 at 18:00; Status DC Insulin Detemir (Levemir Insulin) 5 units QHS SC Last administered on 04/16/18at 20:20; Start 04/09/18 at 21:00; Stop 04/17/18 at 12:53; Status DC Insulin Detemir (Levemir Insulin) 5 units QHS SC ; Start 04/11/18 at 21:00; Stop 04/11/18 at 21:00; Status DC Insulin Detemir (Levemir Insulin) 10 units QHS SC Last administered on 04/17/18at 22:25; Start 04/17/18 at 21:00 Insulin Human Lispro (HumaLOG INSULIN) SEE PROTOCOL TABLE AC SC Last administered on 04/18/18at 12:26; Start 04/08/18 at 17:30 Insulin Human Lispro (HumaLOG INSULIN) SEE PROTOCOL TABLE AC SC ; Start 04/11/18 at 12:00; Stop 04/14/18 at 20:08; Status DC Lidocaine/ Diphenhydr/Alum/ Mg/Simeth (Magic Mouthwash) 5ml AC SSP Last adminis tered on 04/18/18at 12:26; Start 04/16/18 at 12:00 Lisinopril (Prinivil) 5 mg DAILY PO Last administered on 04/09/18at 08:39; Start 04/09/18 at 09:00; Stop 04/09/18 at 09:13; Status DC Lisinopril (Prinivil) 10 mg DAILY PO Last administered on 04/11/18 08:18; Start 04/10/18 at 09:00; Stop 04/11/18 at 10:26; Status DC Lisinopril (Prinivil) 10 mg DAILY PO Last administered on 04/18/18at 08:06; Start 04/17/18 at 09:00 Magnesium Hydroxide (Milk Of Magnesia) 30 ml DAILYPRN PRN PO CONSTIPATION Last administered on 04/10/18at 23:14; Start 04/08/18 at 17:00 Metformin HCl (Glucophage) 1,000 mg BID@08,18 PO Last administered on 04/11/18 08:18; Start 04/08/18 at 18:00; Stop 04/11/18 at 10:26; Status DC Metoprolol Succinate (TopROL XL) 75 mg DAILY PO Last administered on 04/11/18 08:17; Start 04/09/18 at 09:00; Stop 04/11/18 at 10:26; Status DC Metoprolol Succinate (TopROL XL) 100 mg DAILY PO Last administered on 04/18/18 08:06; Start 04/12/18 at 09:00 Pantoprazole Sodium (Protonix) 40 mg DAILY PO Last administered on 04/18/18 08:05; Start 04/09/18 at 09:00 Senna (Senokot) 1 tab QHS PO Last administered on 04/17/18 22:24; Start 04/08/18 at 21:00 Sodium Chloride ([place] Nasal [place]) 2 spray TID NA Last administered on 04/18/18 08:07; Start 04/09/18 at 09:00 ALEXA PAUL MD Apr 18, 2018 14:21
--- NOTE | 2018-04-18 14:24 | IPNPDOC ---
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 REVIEW OF SYSTEMS: The following is a completed review of systems and has been reviewed. Review of systems otherwise unremarkable. PAIN: Patient self reports no pain EYES: denies recent vision loss EARS, NOSE, & THROAT: +dysphagia, +sinus congestion CARDIOVASCULAR: denies chest pain or palpitations PULMONARY: Negative. Denies shortness of breath, +cough GASTROINTESTINAL: Negative for diarrhea or constipation GENITOURINARY: +incontinence NEUROLOGICAL: left hemiparesis and neglect SKIN: chest wall loop recorder incision PSYCHIATRIC: Unremarkable All other review of systems found to be negative. PHYSICAL EXAMINATION: VITAL SIGNS: Please see below. GENERAL: Pleasant and cooperative. No acute distress. HEENT: PERRL. Extraocular movements intact. Clear conjunctiva, left eye-brow sparing facial droop, visual mondragon intact, +glasses CARDIOVASCULAR: Regular rate and rhythm. No murmurs, rubs, or gallops LUNGS: Clear to auscultation bilaterally. No wheezes. No rhonchi ABDOMEN: Soft, nontender, mildly-distended. Positive bowel sounds. Normal active bowel sounds NEUROLOGICAL: Alert and oriented times three. Cranial nerves II through XII grossly intact. Sensation diminished left upper extremity througout and left lower extremity +moderate neglect of the left arm>leg EXTREMITIES: 5\5 strength upper extremities. flaccid paralysis LUE, 5\5 strength right lower extremity. 3+/5 strength in left ankle DF, 2/5 knee extensors, 2/5 hip flexors SKIN: chest wall LOOP recorder incision healing well ASSESSMENT:67-year-old M with past medical history of HTN, HLD, DM who presents status post right MCA stroke PLAN: 1. Rehab: PT/OT, COMPUGRAPH OPERATOR, assess for DME, upgraded to thin liquids, modified barium swallow today- c/u level 2 with thins and supervision at all times with meals 2. Neuro: s/p right MCA territory stroke with neglect and dysphagia on ASA and Plavix to continue for 21 days (start day for Plavix 04/07/18), then just continue ASA -monitor BPs, avoid hypoperfusion given severe right ICA stenosis, continue statin therapy -Loop recorder placed-will keep diary during periods of e-stim, confirmed with [employer] not a contraindication, and alerted sole scraper Dr. Patino's DIRECTOR INSTRUMENTATION that he will be getting e-stim and to be aware of artifact, it appears recorded event on 04/15/18 likely did not coincide with e-stim, did not appear to be afib, and no change in treatment recommended to date- will hold e-stim at this time as not making significant functional gains -continue Prozac for motor recovery -neurology consulted to discuss surgical intervention for stenosis in the future 3. Cardio: Pmh HTN, continue increased Metoprolol and hold lisinopril, Loop recorder in place for cryptogenic Afib- Family medicine consulted 4. Resp: pmh smoker-encourage incentive spirometry, continue Duonebs, Flonase, Guaifenesin and nasal saline for congestion-stable -will start antifungal mouth rinse for thrush 5. GI ppx: Protonix 6. Endo: pmh DM holding metformin given HAZEL likely due to dehydration-improving, continue insulin coverage and home glipizide 7. renal:: improving pre-renal azotemia s/p gentle hydration, d/c'd metformin and lisinopril and encourage po liquid intake-improving 8. DVT ppx: lovenox 9. ID: oral thrush improved with mouth rinse 10. Dispo: 05/07/18, progressing towards goals Allergies Coded Allergies: No Known Drug Allergy (Verified Allergy, Unknown, 04/01/18) Vital Signs Vital Signs Date Time Temp Pulse Resp B/P (MAP) Pulse Ox O2 Delivery O2 Flow Rate FiO2 04/18/18 08:06 72 128/59 04/18/18 06:00 98.2 20 93 Laboratory Data CBC/BMP Laboratory Tests 04/18/18 06:42 Red Blood Count 4.43, Mean Corpuscular Volume 91.2, Mean Corpuscular Hemoglobin 31.6, Mean Corpuscular Hemoglobin Concent 34.7, Red Cell Distribution Width 12.4, Neutrophils (%) (Auto) 69.9 H, Lymphocytes (%) (Auto) 18.1 L, Monocytes (%) (Auto) 8.4 H, Eosinophils (%) (Auto) 2.7, Basophils (%) (Auto) 0.3, Neutrophils # (Auto) 5.0, Lymphocytes # (Auto) 1.3 L, Monocytes # (Auto) 0.6, Eosinophils # (Auto) 0.2, Basophils # (Auto) 0.0, Calcium Level 9.0 Labs 24H Laboratory Tests 2 04/17/18 16:49: Bedside Glucose (Misc Panel) 136H 04/17/18 19:48: Bedside Glucose (Misc Panel) 200H 04/18/18 06:42: Immature Granulocyte % (Auto) 0.6, White Blood Count 7.1, Red Blood Count 4.43, Hemoglobin 14.0, Hematocrit 40.4L, Mean Corpuscular Volume 91.2, Mean Cor puscular Hemoglobin 31.6, Mean Corpuscular Hemoglobin Concent 34.7, Red Cell Distribution Width 12.4, Platelet Count 299, Neutrophils (%) (Auto) 69.9H, Lymphocytes (%) (Auto) 18.1L, Monocytes (%) (Auto) 8.4H, Eosinophils (%) (Auto) 2.7, Basophils (%) (Auto) 0.3, Neutrophils # (Auto) 5.0, Lymphocytes # (Auto) 1.3L, Monocytes # (Auto) 0.6, Eosinophils # (Auto) 0.2, Basophils # (Auto) 0.0, Nucleated Red Blood Cells % (auto) 0.0, Anion Gap 6L, Glomerular Filtration Rate > 60.0, Blood Urea Nitrogen 38H, Creatinine 1.15, Sodium Level 136, Potassium Level 3.7, Chloride Level 101, Carbon Dioxide Level 29, Calcium Level 9.0 04/18/18 11:36: Bedside Glucose (Misc Panel) 191H Current Medications Current Medications Current Medications Acetaminophen (Tylenol Tab) 650 mg Q4HP PRN PO fever/MILD PAIN (PS 1-4) Last administered on 04/18/18at 04:37; Start 04/08/18 at 17:00 Al Hydrox/Mg Hydrox/Simethicone (Mylanta) 30 ml Q4HP PRN PO DYSPEPSIA; Start 04/08/18 at 17:00 Albuterol/ Ipratropium (Duoneb (Ipr 0.5mg/Alb 2.5mg)) 3 ml RBID NEB Last administered on 04/16/18at 07:59; Start 04/09/18 at 08:00 Artificial Tears ([place]wa Tears) 2 drop TID OU Last administered on 04/18/18at 08:07; Start 04/11/18 at 09:00 Aspirin (Aspirin Chewable) 81 mg DAILY PEG Last administered on 04/18/18 08:06; Start 04/09/18 at 09:00 Atorvastatin Calcium (Lipitor) 40 mg DAILY PO Last administered on 04/18/18 08:06; Start 04/09/18 at 09:00 Bisacodyl (Dulcolax Suppository) 10 mg DAILYPRN PRN [place] CONSTIPATION Last administered on 04/15/18at 05:31; Start 04/08/18 at 17:00 Clopidogrel Bisulfate (PLAVix) 75 mg DAILY PO Last administered on 04/18/18 08:05; Start 04/09/18 at 09:00 Dextrose (Dextrose 50%) 25 ml ASDIRECTED PRN IV SEE LABEL COMMENTS; Start at 17:00 Docusate Sodium (Colace) 100 mg BID PO Last administered on 04/17/18 22:24; Start 04/08/18 at 21:00 Enoxaparin Sodium (Lovenox) 40 mg DAILY SC Last administered on 04/18/18 08:07; Start 04/09/18 at 09:00 Fluoxetine HCl (PROzac) 20 mg DAILY PO Last administered on 04/18/18 08:06; Start 04/09/18 at 09:00 Fluticasone Propionate (Flonase 0.05% Nasal [place]) 1 spray BID NARES Last ad ministered on 04/18/18 08:07; Start 04/09/18 at 09:00 Glipizide (Glucotrol) 10 mg BID@0730,1730 PO Last administered on 04/18/18 08:06; Start 04/08/18 at 17:30 Glucagon (Glucagon) 1 mg ASDIRECTED PRN SC SEE LABEL COMMENTS; Start 04/08/18 at 17:00 Glucose (Glucose) 16 GM ASDIRECTED PRN PO SEE LABEL COMMENTS; Start 04/08/18 at 17:00 Guaifenesin (Robitussin Tab) 400 mg BID PO Last administered on 04/18/18 08:06; Start 04/09/18 at 09:00 Home Med (Med Rec Complete!) ASDIRECTED XX ; Start 04/08/18 at 18:00; Stop 04/08/18 at 18:00; Status DC Insulin Detemir (Levemir Insulin) 5 units QHS SC Last administered on 04/16/18at 20:20; Start 04/09/18 at 21:00; Stop 04/17/18 at 12:53; Status DC Insulin Detemir (Levemir Insulin) 5 units QHS SC ; Start 04/11/18 at 21:00; Stop 04/11/18 at 21:00; Status DC Insulin Detemir (Levemir Insulin) 10 units QHS SC Last administered on 04/17/18at 22:25; Start 04/17/18 at 21:00 Insulin Human Lispro (HumaLOG INSULIN) SEE PROTOCOL TABLE AC SC Last administered on 04/18/18at 12:26; Start 04/08/18 at 17:30 Insulin Human Lispro (HumaLOG INSULIN) SEE PROTOCOL TABLE AC SC ; Start 04/11/18 at 12:00; Stop 04/14/18 at 20:08; Status DC Lidocaine/ Diphenhydr/Alum/ Mg/Simeth (Magic Mouthwash) 5ml AC SSP Last administered on 04/18/18at 12:26; Start 04/16/18 at 12:00 Lisinopril (Prinivil) 5 mg DAILY PO Last administered on 04/09/18at 08:39; Start 04/09/18 at 09:00; Stop 04/09/18 at 09:13; Status DC Lisinopril (Prinivil) 10 mg DAILY PO Last administered on 04/11/18 08:18; Start 04/10/18 at 09:00; Stop 04/11/18 at 10:26; Status DC Lisinopril (Prinivil) 10 mg DAILY PO Last administered on 04/18/18 08:06; Start 04/17/18 at 09:00 Magnesium Hydroxide (Milk Of Magnesia) 30 ml DAILYPRN PRN PO CONSTIPATION Last administered on 04/10/18at 23:14; Start 04/08/18 at 17:00 Metformin HCl (Glucophage) 1,000 mg BID@,18 PO Last administered on 04/11/18 08:18; Start 04/08/18 at 18:00; Stop 04/11/18 at 10:26; Status DC Metoprolol Succinate (TopROL XL) 75 mg DAILY PO Last administered on 04/11/18 08:17; Start 04/09/18 at 09:00; Stop 04/11/18 at 10:26; Status DC Metoprolol Succinate (TopROL XL) 100 mg DAILY PO Last administered on 04/18/18 08:06; Start 04/12/18 at 09:00 Pantoprazole Sodium (Protonix) 40 mg DAILY PO Last administered on 04/18/18 08:05; Start 04/09/18 at 09:00 Senna (Senokot) 1 tab QHS PO Last administered on 04/17/18 22:24; Start 04/08/18 at 21:00 Sodium Chloride ([place] Nasal [place]) 2 spray TID NA Last administered on 04/18/18 08:07; Start 04/09/18 at 09:00 ALEXA PAUL MD Apr 18, 2018 14:24
[2018-04-18 20:39] VITALS: BP 122/54
[2018-04-18] MEDS: LEVEMIR (INSULIN DETEMIR) 1 UNITS/0.01ML SC SCH (21:32)
[2018-04-18] MEDS: SENNA 8.6 MG TAB (SENOKOT) PO SCH (21:32)
[2018-04-19 07:00] VITALS: BP 149/69
[2018-04-19] MEDS: METOPROLOL SUCC *XL* 25MG TAB (TopROL *XL*) PO SCH (08:52)
[2018-04-19] MEDS: FLUTICASONE PROP 0.05% NASAL SPRAY 16 GM (FLONASE) NARES SCH ×2 (09:00→21:03)
[2018-04-19] MEDS: SODIUM CHLORIDE NASAL 0.65% SPRAY BTL (OCEAN) SCH ×3 (09:00→21:03)
[2018-04-19] MEDS: POLYVINYL ALCOHOL OPHTH SOLN 15 ML(LIQUITEARS) OU SCH ×3 (09:00→21:03)
[2018-04-19] MEDS: ATORVASTATIN 20 MG TAB PO SCH (09:14)
[2018-04-19] MEDS: guaiFENesin 200 MG TAB PO SCH ×2 (09:14→21:03)
[2018-04-19] MEDS: APIXABAN 5 MG TAB (ELIQUIS) PO SCH ×2 (09:14→21:02)
[2018-04-19] MEDS: DOCUSATE SODIUM 100 MG CAP PO SCH ×2 (09:14→21:02)
[2018-04-19] MEDS: PANTOPRAZOLE 40MG TAB (PROTONIX) PO SCH (09:15)
[2018-04-19] MEDS: FLUoxetine 20 MG CAP PO SCH (09:15)
[2018-04-19] MEDS: glipiZIDE (GLUCOTROL) 5 MG TAB PO SCH ×2 (09:15→17:46)
[2018-04-19] MEDS: MAGIC MOUTHWASH SUSPENSION BTL SSP SCH ×3 (09:16→17:47)
[2018-04-19] MEDS: LISINOPRIL 10 MG TAB PO SCH (09:16)
[2018-04-19] MEDS: HumaLOG INSULIN (NovoLOG) PER UNIT SC SCH ×3 (09:16→17:27)
[2018-04-19 14:00] VITALS: BP 142/69
[2018-04-19 20:00] VITALS: BP 144/76
[2018-04-19] MEDS: LEVEMIR (INSULIN DETEMIR) 1 UNITS/0.01ML SC SCH (21:03)
[2018-04-19] MEDS: SENNA 8.6 MG TAB (SENOKOT) PO SCH (21:03)
[2018-04-20 06:00] VITALS: BP 141/62
[2018-04-20] MEDS: FLUTICASONE PROP 0.05% NASAL SPRAY 16 GM (FLONASE) NARES SCH ×2 (09:00→21:00)
[2018-04-20] MEDS: SODIUM CHLORIDE NASAL 0.65% SPRAY BTL (OCEAN) SCH ×3 (09:00→21:00)
[2018-04-20] MEDS: LISINOPRIL 10 MG TAB PO SCH (09:58)
[2018-04-20] MEDS: HumaLOG INSULIN (NovoLOG) PER UNIT SC SCH ×3 (09:59→17:43)
[2018-04-20] MEDS: METOPROLOL SUCC *XL* 25MG TAB (TopROL *XL*) PO SCH (09:59)
[2018-04-20] MEDS: FLUoxetine 20 MG CAP PO SCH (09:59)
[2018-04-20] MEDS: PANTOPRAZOLE 40MG TAB (PROTONIX) PO SCH (09:59)
[2018-04-20] MEDS: APIXABAN 5 MG TAB (ELIQUIS) PO SCH ×2 (09:59→21:25)
[2018-04-20] MEDS: guaiFENesin 200 MG TAB PO SCH ×2 (10:00→21:25)
[2018-04-20] MEDS: glipiZIDE (GLUCOTROL) 5 MG TAB PO SCH ×2 (10:00→17:42)
[2018-04-20] MEDS: ATORVASTATIN 20 MG TAB PO SCH (10:00)
[2018-04-20] MEDS: DOCUSATE SODIUM 100 MG CAP PO SCH ×2 (10:00→21:25)
[2018-04-20] MEDS: POLYVINYL ALCOHOL OPHTH SOLN 15 ML(LIQUITEARS) OU SCH ×3 (10:01→21:00)
[2018-04-20] MEDS: MAGIC MOUTHWASH SUSPENSION BTL SSP SCH ×3 (10:01→17:43)
[2018-04-20 14:00] VITALS: BP 129/69
[2018-04-20 20:00] VITALS: BP 170/84
[2018-04-20] MEDS: SENNA 8.6 MG TAB (SENOKOT) PO SCH (21:25)
[2018-04-20] MEDS: LEVEMIR (INSULIN DETEMIR) 1 UNITS/0.01ML SC SCH (21:25)
[2018-04-20] MEDS: ACETAMINOPHEN TAB 650MG DOSE (2X325MG) PO PRN (21:25)
[2018-04-21 06:26] VITALS: BP 140/80
[2018-04-21] MEDS: MAGIC MOUTHWASH SUSPENSION BTL SSP SCH ×3 (07:30→17:32)
[2018-04-21] MEDS: DOCUSATE SODIUM 100 MG CAP PO SCH ×2 (08:56→20:41)
[2018-04-21] MEDS: FLUoxetine 20 MG CAP PO SCH (08:57)
[2018-04-21] MEDS: ATORVASTATIN 20 MG TAB PO SCH (08:57)
[2018-04-21] MEDS: APIXABAN 5 MG TAB (ELIQUIS) PO SCH ×2 (08:57→20:41)
[2018-04-21] MEDS: PANTOPRAZOLE 40MG TAB (PROTONIX) PO SCH (08:57)
[2018-04-21] MEDS: guaiFENesin 200 MG TAB PO SCH ×2 (08:57→20:41)
[2018-04-21] MEDS: glipiZIDE (GLUCOTROL) 5 MG TAB PO SCH ×2 (08:57→17:31)
[2018-04-21] MEDS: METOPROLOL SUCC *XL* 25MG TAB (TopROL *XL*) PO SCH (08:59)
[2018-04-21] MEDS: LISINOPRIL 10 MG TAB PO SCH (08:59)
[2018-04-21] MEDS: SODIUM CHLORIDE NASAL 0.65% SPRAY BTL (OCEAN) SCH ×3 (09:00→20:42)
[2018-04-21] MEDS: POLYVINYL ALCOHOL OPHTH SOLN 15 ML(LIQUITEARS) OU SCH ×3 (09:00→20:41)
[2018-04-21] MEDS: FLUTICASONE PROP 0.05% NASAL SPRAY 16 GM (FLONASE) NARES SCH ×2 (09:00→20:42)
[2018-04-21] MEDS: HumaLOG INSULIN (NovoLOG) PER UNIT SC SCH ×3 (09:05→17:31)
--- NOTE | 2018-04-21 12:04 | IPN ---
DATE OF VISIT: 04/20/2018 Patient is seen today on the physical medicine rehabilitation unit where he has been undergoing acute rehabilitation after an occlusion of the right internal carotid artery resulting in left hemiparesis. He has had a little bit of runny nose and his eyes run, although he attributes this more to the stroke than the dry air. He does not think he has a cold. He did have a swallowing evaluation earlier in the week that did evidence some mild penetration with thin liquids. He is permitted thin liquids at this time however, but it is not permitted to use straws. Appetite is fair. Denies any shortness of breath. He has occasional cough. No chest pains or palpitations. No nausea, vomiting or abdominal pain. He denies any paresthesias on his left side. He feels his sensation is normal on the left side even if his strength is not. Current medications include Toprol XL 75 mg daily, Eliquis 5 mg twice a day, Levemir 10 units at bedtime, lisinopril 10 mg daily, Protonix 40 mg daily, Aqua Tears 2 drops both eyes three times a day, Lipitor 40 mg daily, Prozac 20 mg daily, Flonase 1 spray twice a day in both nares. He also has saline nasal spray. He is getting guaifenesin elixir twice a day, Colace 100 mg twice a day, Senna 8.6 mg at bedtime, glipizide 10 mg twice a day. He is getting Humalog coverage. He has as-needed medications for indigestion, for bowel care, for pain, for hypoglycemia. On examination, temperature is 97.4, blood pressure 129/69, pulse 73 and regular, respirations 18. He is alert, oriented, cooperative, not in any distress. He has left facial weakness and dysarthria. Tongue seems midline. There are no neck masses, tenderness or adenopathy. No carotid bruits. Lungs are clear. Heart has a regular rhythm without any murmur, click or gallop. Abdomen is soft and nontender without any masses or organomegaly. Bowel sounds are active. There is no edema. Pedal pulses are good. Babinski sign is positive on the left. He is pretty much 0/5 on the left side. His blood sugars during the last 24 hours have been ranging from 131-247, was 175 this evening. 2 days ago, his BUN was 38, creatinine 1.15 which is better than earlier in the week. Potassium was 3.7. Blood sugar was 191. 2 days ago, his hemoglobin was 14.0, WBC 7100, platelet count 299. ASSESSMENT: 1. 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 2. Type 2 diabetes. 3. Hypertension. 4. hyperlipidemia. 5. Dysphagia secondary to stroke. 6. Paroxysmal atrial fibrillation, on anticoagulant therapy. PLAN: Patient will continue on above medications. We are going to bump up his insulin just a little bit to improve his diabetic control. He is not on insulin at home. He took triple therapy with pioglitazone, glipizide, and metformin. He remains a candidate for acute rehabilitation. I should note that he had a loop recorder inserted when he was in [place] and apparently, there was an episode of atrial fibrillation noted on 04/15/2018 and he was started on Eliquis. There are some notes in the chart about him seeing vascular surgeon about having carotid endarterectomy. It does not appear that it would benefit his current symptoms and I do not recall seeing a carotid ultrasound indicating that he had issues with the opposite carotid. DARYL
[2018-04-21 14:00] VITALS: BP 136/69
[2018-04-21 14:16] LABS: BASO % 0.3 % (0.0-1.0); EOS # 0.1 10^3/uL (0.0-0.50); EOS % 1.6 % (0.0-3.0); HEMATOCRIT 43.6 % (42.0-52.0); HEMOGLOBIN 14.9 g/dl (13.5-17.5); LYMPH # 1.4 10^3/uL (1.5-4.5); MEAN CORPUSCULAR HEMOGLOBIN 31.2 pg (27.0-33.0); MEAN CORPUSCULAR HGB CONC 34.2 g/dl (32.0-36.5); MEAN CORPUSCULAR VOLUME 91.4 fl (80.0-96.0); MONO # 0.5 10^3/uL (0.0-0.8); MONO % 7.9 % (0.0-5.0); NEUTROPHILS # 4.6 10^3/uL (1.8-7.7); NEUTROPHILS % 68.8 % (36.0-66.0); PLATELET COUNT, AUTOMATED 359 10^3/uL (150-450); RED BLOOD COUNT 4.77 10^6/uL (4.30-6.10); WHITE BLOOD COUNT 6.7 10^3/uL (4.0-10.0)
[2018-04-21 14:39] LABS: BLOOD UREA NITROGEN 32 MG/DL (7-18); CALCIUM LEVEL 9.6 MG/DL (8.8-10.2); CARBON DIOXIDE LEVEL 27 MEQ/L (21-32); CHLORIDE LEVEL 99 MEQ/L (98-107); CREATININE FOR GFR 1.09 MG/DL (0.70-1.30); GLOMERULAR FILTRATION RATE > 60.0 (>49); GLUCOSE, FASTING 269 MG/DL (70-100); SODIUM LEVEL 134 MEQ/L (136-145)
[2018-04-21] MEDS: metFORMIN (GLUCOPHAGE) 1000 MG TABLET PO SCH (17:31)
[2018-04-21] MEDS: ACETAMINOPHEN TAB 650MG DOSE (2X325MG) PO PRN (18:08)
[2018-04-21 20:00] VITALS: BP 153/66
[2018-04-21] MEDS: SENNA 8.6 MG TAB (SENOKOT) PO SCH (20:41)
[2018-04-21] MEDS: LEVEMIR (INSULIN DETEMIR) 1 UNITS/0.01ML SC SCH (20:41)
[2018-04-22 06:00] VITALS: BP 120/59
[2018-04-22] MEDS: APIXABAN 5 MG TAB (ELIQUIS) PO SCH ×2 (08:12→21:44)
[2018-04-22] MEDS: ATORVASTATIN 20 MG TAB PO SCH (08:12)
[2018-04-22] MEDS: FLUoxetine 20 MG CAP PO SCH (08:12)
[2018-04-22] MEDS: glipiZIDE (GLUCOTROL) 5 MG TAB PO SCH ×2 (08:12→17:28)
[2018-04-22] MEDS: guaiFENesin 200 MG TAB PO SCH ×2 (08:12→21:44)
[2018-04-22] MEDS: DOCUSATE SODIUM 100 MG CAP PO SCH ×2 (08:13→21:44)
[2018-04-22] MEDS: HumaLOG INSULIN (NovoLOG) PER UNIT SC SCH ×3 (08:13→16:29)
[2018-04-22] MEDS: METOPROLOL SUCC *XL* 25MG TAB (TopROL *XL*) PO SCH (08:13)
[2018-04-22] MEDS: LISINOPRIL 10 MG TAB PO SCH (08:13)
[2018-04-22] MEDS: metFORMIN (GLUCOPHAGE) 1000 MG TABLET PO SCH ×2 (08:13→17:28)
[2018-04-22] MEDS: PANTOPRAZOLE 40MG TAB (PROTONIX) PO SCH (08:13)
[2018-04-22] MEDS: MAGIC MOUTHWASH SUSPENSION BTL SSP SCH ×3 (08:14→16:33)
[2018-04-22] MEDS: SODIUM CHLORIDE NASAL 0.65% SPRAY BTL (OCEAN) SCH ×3 (08:14→21:45)
[2018-04-22] MEDS: FLUTICASONE PROP 0.05% NASAL SPRAY 16 GM (FLONASE) NARES SCH ×2 (08:14→21:44)
[2018-04-22] MEDS: POLYVINYL ALCOHOL OPHTH SOLN 15 ML(LIQUITEARS) OU SCH ×3 (08:14→21:45)
[2018-04-22 14:00] VITALS: BP 143/67
[2018-04-22 20:00] VITALS: BP 121/58
--- NOTE | 2018-04-22 21:22 | IPNPDOC ---
PM&R Progress Note DATE OF SERVICE: Apr 21, 2018 Director [employer] Progress Note Subjective: Patient seen sitting up in chair, states he slid out of his chair over the weekend and did not hurt himself, but was wearing slipper pants. 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 REVIEW OF SYSTEMS: The following is a completed review of systems and has been reviewed. Review of systems otherwise unremarkable. PAIN: Patient self reports no pain EYES: denies recent vision loss EARS, NOSE, & THROAT: +dysphagia, +sinus congestion CARDIOVASCULAR: denies chest pain or palpitations PULMONARY: Negative. Denies shortness of breath, +cough GASTROINTESTINAL: Negative for diarrhea or constipation GENITOURINARY: +incontinence NEUROLOGICAL: left hemiparesis and neglect SKIN: chest wall loop recorder incision PSYCHIATRIC: Unremarkable All other review of systems found to be negative. PHYSICAL EXAMINATION: VITAL SIGNS: Please see below. GENERAL: Pleasant and cooperative. No acute distress. HEENT: PERRL. Extraocular movements intact. Clear conjunctiva, left eye-brow sparing facial droop, visual mondragon intact, +glasses CARDIOVASCULAR: Regular rate and rhythm. No murmurs, rubs, or gallops LUNGS: Clear to auscultation bilaterally. No wheezes. No rhonchi ABDOMEN: Soft, nontender, mildly-distended. Positive bowel sounds. Normal active bowel sounds NEUROLOGICAL: Alert and oriented times three. Cranial nerves II through XII grossly intact. Sensation diminished left upper extremity througout and left lower extremity +moderate neglect of the left arm>leg EXTREMITIES: 5\5 strength upper extremities. 1/5 left bicep and tricep, 5\5 strength right lower extremity. 3+/5 strength in left ankle DF, 2/5 knee extensors, 2/5 hip flexors SKIN: chest wall LOOP recorder incision healing well ASSESSMENT:67-year-old M with past medical history of HTN, HLD, DM who presents status post right MCA stroke PLAN: 1. 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 Neuro: s/p right MCA territory stroke with neglect and dysphagia was on ASA and Plavix however now found to have Afib will d/c all antiplatelet and start Eliquis -monitor BPs, avoid hypoperfusion given severe right ICA stenosis, continue statin therapy -Loop recorder placed -was getting E-stim to LUE and confirmed with [employer] not a contraindication- alerted manager demand Dr. Patino's RN CLINICAL RESOURCE to this on 04/16/18 after mentioned she had been called by manager demand for tracing on 04/15 which at the time did not appear to be Afib, however was called back by cardiology office on 04/18/18 and told he did in fact have Afib on 04/15/18 and to start Eliquis -will hold e-stim at this time as not making significant functional gains -continue Prozac for motor recovery 3. Cardio: Pmh HTN, continue increased Metoprolol and hold lisinopril, Loop recorder in place for cryptogenic Afib- Family medicine consulted -patient noted to Afib on 04/15/[address] Patino's recs start Eliquis 5mg BID and hold antiplatelet therapy -will schedule o/p f/u with [facility] neurosurgeon Dr. Sales to discuss right ICA stenosis management 4. Resp: pmh smoker-encourage incentive spirometry, continue Duonebs, Flonase, Guaifenesin and nasal saline for congestion-stable -will d/c antifungal mouth rinse for thrush as improved 5. GI ppx: Protonix 6. Endo: pmh DM holding metformin given HAZEL likely due to dehydration-improving, continue insulin coverage and home glipizide 7. renal:: improving pre-renal azotemia s/p gentle hydration, d/c'd metformin and lisinopril and encourage po liquid intake-improving 8. DVT ppx: lovenox 10. Dispo: 05/07/18, progressing towards goals Allergies Coded Allergies: No Known Drug Allergy (Verified Allergy, Unknown, 04/01/18) Vital Signs Vital Signs Date Time Temp Pulse Resp B/P (MAP) Pulse Ox O2 Delivery O2 Flow Rate FiO2 04/22/18 14:00 97.5 72 16 143/67 (92) 95 Laboratory Data Labs 24H Laboratory Tests 2 04/22/18 06:22: Bedside Glucose (Misc Panel) 165H 04/22/18 11:26: Bedside Glucose (Misc Panel) 185H 04/22/18 16:19: Bedside Glucose (Misc Panel) 79L 04/22/18 20:43: Bedside Glucose (Misc Panel) 153H Current Medications Current Medications Current Medications Acetaminophen (Tylenol Tab) 650 mg Q4HP PRN PO fever/MILD PAIN (PS 1-4) Last administered on 04/21/18at 18:08; Start 04/08/18 at 17:00 Al Hydrox/Mg Hydrox/Simethicone (Mylanta) 30 ml Q4HP PRN PO DYSPEPSIA; Start 04/08/18 at 17:00 Albuterol/ Ipratropium (Duoneb (Ipr 0.5mg/Alb 2.5mg)) 3 ml RBID NEB Last administered on 04/16/18at 07:59; Start 04/09/18 at 08:00; Stop 04/18/18 at 14:25; Status DC Apixaban (Eliquis) 5 mg BID PO Last administered on 04/22/18at 08:12; Start 04/19/18 at 09:00 Artificial Tears ([place] Tears) 2 drop TID OU Last administered on 04/22/18 16:31; Start 04/11/18 at 09:00 Aspirin (Aspirin Chewable) 81 mg DAILY PEG Last administered on 04/18/18 08:06; Start 04/09/18 at 09:00; Stop 04/18/18 at 16:30; Status DC Atorvastatin Calcium (Lipitor) 40 mg DAILY PO Last administered on 04/22/18at 08:12; Start 04/09/18 at 09:00 Bisacodyl (Dulcolax Suppository) 10 mg DAILYPRN PRN [place] CONSTIPATION Last administered on 04/15/18at 05:31; Start 04/08/18 at 17:00 Clopidogrel Bisulfate (PLAVix) 75 mg DAILY PO Last administered on 04/18/18at 08:05; Start 04/09/18 at 09:00; Stop 04/18/18 at 16:30; Status DC Dextrose (Dextrose 50%) 25 ml ASDIRECTED PRN IV SEE LABEL COMMENTS; Start 04/08/18 at 17:00 Docusate Sodium (Colace) 100 mg BID PO Last administered on 04/22/18at 08:13; Start 04/08/18 at 21:00 Enoxaparin Sodium (Lovenox) 40 mg DAILY SC Last administered on 04/18/18 08:07; Start 04/09/18 at 09:00; Stop 04/18/18 at 16:32; Status DC Fluoxetine HCl (PROzac) 20 mg DAILY PO Last administered on 04/22/18 08:12; Start 04/09/18 at 09:00 Fluticasone Propionate (Flonase 0.05% Nasal [place]) 1 spray BID NARES Last administered on 04/22/18at 08:14; Start 04/09/18 at 09:00 Glipizide (Glucotrol) 10 mg BID@8730,9480 PO Last administered on 04/22/18 17:28; Start 04/08/18 at 17:30 Glucagon (Glucagon) 1 mg ASDIRECTED PRN SC SEE LABEL COMMENTS; Start 04/08/18 at 17:00 Glucose (Glucose) 16 GM ASDIRECTED PRN PO SEE LABEL COMMENTS; Start 04/08/18 at 17:00 Guaifenesin (Robitussin Tab) 400 mg BID PO Last administered on 04/22/18at 08:12; Start 04/09/18 at 09:00 Home Med (Med Rec Complete!) ASDIRECTED XX ; Start 04/08/18 at 18:00; Stop 04/08/18 at 18:00; Status DC Insulin Detemir (Levemir Insulin) 5 units QHS SC Last administered on 04/16/18 20:20; Start 04/09/18 at 21:00; Stop 04/17/18 at 12:53; Status DC Insulin Detemir (Levemir Insulin) 5 units QHS SC ; Start 04/11/18 at 21:00; Stop 04/11/18 at 21:00; Status DC Insulin Detemir (Levemir Insulin) 10 units QHS SC Last administered on 04/20/18at 21:25; Start 04/17/18 at 21:00; Stop 04/21/18 at 13:50; Status DC Insulin Detemir (Levemir Insulin) 14 units QHS SC Last administered on 04/21/18at 20:41; Start 04/21/18 at 21:00 Insulin Human Lispro (HumaLOG INSULIN) SEE PROTOCOL TABLE AC SC Last administered on 04/22/18at 11:52; Start 04/08/18 at 17:30 Insulin Human Lispro (HumaLOG INSULIN) SEE PROTOCOL TABLE AC SC ; Start 04/11/18 at 12:00; Stop 04/14/18 at 20:08; Status DC Lidocaine/ Diphenhydr/Alum/ Mg/Simeth (Magic Mouthwash) 5ml AC SSP Last administered on 04/22/18at 16:33; Start 04/16/18 at 12:00 Lisinopril (Prinivil) 5 mg DAILY PO Last administered on 04/09/18at 08:39; Start 04/09/18 at 09:00; Stop 04/09/18 at 09:13; Status DC Lisinopril (Prinivil) 10 mg DAILY PO Last administered on 04/11/18at 08:18; Start 04/10/18 at 09:00; Stop 04/11/18 at 10:26; Status DC Lisinopril (Prinivil) 10 mg DAILY PO Last administered on 04/22/18at 08:13; Start 04/17/18 at 09:00 Magnesium Hydroxide (Milk Of Magnesia) 30 ml DAILYPRN PRN PO CONSTIPATION Last administered on 04/10/18at 23:14; Start 04/08/18 at 17:00 Metformin HCl (Glucophage) 1,000 mg BID@08,18 PO Last administered on 04/11/18at 08:18; Start 04/08/18 at 18:00; Stop 04/11/18 at 10:26; Status DC Metformin HCl (Glucophage) 1,000 mg BID@0800,1800 PO Last administered on 04/22/18at 17:28; Start 04/21/18 at 18:00 Metoprolol Succinate (TopROL XL) 75 mg DAILY PO Last administered on 04/11/18 08:17; Start 04/09/18 at 09:00; Stop 04/11/18 at 10:26; Status DC Metoprolol Succinate (TopROL XL) 75 mg DAILY PO Last administered on 04/22/18 08:13; Start 04/19/18 at 09:00 Metoprolol Succinate (TopROL XL) 100 mg DAILY PO Last administered on 04/18/18at 08:06; Start 04/12/18 at 09:00; Stop 04/18/18 at 16:30; Status DC Pantoprazole Sodium (Protonix) 40 mg DAILY PO Last administered on 04/22/18 08:13; Start 04/09/18 at 09:00 Senna (Senokot) 1 tab QHS PO Last administered on 04/21/18at 20:41; Start 04/08/18 at 21:00 Sodium Chloride ([place] Nasal [place]) 2 spray TID NA Last administered on 04/22/18 16:31; Start 04/09/18 at 09:00 ALEXA PALU MD Apr 22, 2018 21:22
--- NOTE | 2018-04-22 21:25 | IPNPDOC ---
PM&R Progress Note DATE OF SERVICE: Apr 22, 2018 Tool Lathe Operator Progress Note Subjective: Patient seen in bed states he feels ok, still coughs with water intake, but says he is able to clear his throat. Denies fever or chills and sinus congestion slightly better. REVIEW OF SYSTEMS: The following is a completed review of systems and has been reviewed. Review of systems otherwise unremarkable. PAIN: Patient self reports no pain EYES: denies recent vision loss EARS, NOSE, & THROAT: +dysphagia, +sinus congestion CARDIOVASCULAR: denies chest pain or palpitations PULMONARY: Negative. Denies shortness of breath, +cough GASTROINTESTINAL: Negative for diarrhea or constipation GENITOURINARY: +incontinence NEUROLOGICAL: left hemiparesis and neglect SKIN: chest wall loop recorder incision PSYCHIATRIC: Unremarkable All other review of systems found to be negative. PHYSICAL EXAMINATION: VITAL SIGNS: Please see below. GENERAL: Pleasant and cooperative. No acute distress. HEENT: PERRL. Extraocular movements intact. Clear conjunctiva, left eye-brow sparing facial droop, visual mondragon intact, +glasses CARDIOVASCULAR: Regular rate and rhythm. No murmurs, rubs, or gallops LUNGS: Clear to auscultation bilaterally. No wheezes. No rhonchi ABDOMEN: Soft, nontender, mildly-distended. Positive bowel sounds. Normal active bowel sounds NEUROLOGICAL: Alert and oriented times three. Cranial nerves II through XII grossly intact. Sensation diminished left upper extremity througout and left lower extremity +moderate neglect of the left arm>leg EXTREMITIES: 5\5 strength upper extremities. 1/5 left bicep and tricep, 5\5 strength right lower extremity. 3+/5 strength in left ankle DF, 2/5 knee extensors, 2/5 hip flexors SKIN: chest wall LOOP recorder incision healing well ASSESSMENT:67-year-old M with past medical history of HTN, HLD, DM who presents status post right MCA stroke PLAN: 1. 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 Neuro: s/p right MCA territory stroke with neglect and dysphagia was on ASA and Plavix however now found to have Afib will d/c all antiplatelet and start Eliquis -monitor BPs, avoid hypoperfusion given severe right ICA stenosis, continue statin therapy -Loop recorder placed -was getting E-stim to LUE and confirmed with [employer] not a contraindication- alerted automatic glove turner and former Dr. Patino's TRAY SERVICE WORKER to this on 04/16/18 after mentioned she had been called by automatic glove turner and former for tracing on 04/15 which at the time did not appear to be Afib, however was called back by cardiology office on 04/18/18 and told he did in fact have Afib on 04/15/18 and to start Eliquis -will hold e-stim at this time as not making significant functional gains -continue Prozac for motor recovery 3. Cardio: Pmh HTN, continue increased Metoprolol and hold lisinopril, Loop recorder in place for cryptogenic Afib- Family medicine consulted -patient noted to Afib on 04/15/[address] Patino's recs start Eliquis 5mg BID and hold antiplatelet therapy -will schedule o/p f/u with [facility] neurosurgeon Dr. Sales to discuss right ICA st enosis management 4. Resp: pmh smoker-encourage incentive spirometry, continue Duonebs, Flonase, Guaifenesin and nasal saline for congestion-stable -s/p antifungal mouth rinse for thrush-improved -will order CXR for possible aspiration on thins, however no leukocytosis, will monitor 5. GI ppx: Protonix 6. Endo: pmh DM holding metformin given HAZEL likely due to dehydration-improving, continue insulin coverage and home glipizide 7. renal:: improving pre-renal azotemia s/p gentle hydration, d/c'd metformin an d lisinopril and encourage po liquid intake-improving 8. DVT ppx: lovenox 10. Dispo: 05/07/18, progressing towards goals Allergies Coded Allergies: No Known Drug Allergy (Verified Allergy, Unknown, 04/01/18) Vital Signs Vital Signs Date Time Temp Pulse Resp B/P (MAP) Pulse Ox O2 Delivery O2 Flow Rate FiO2 04/22/18 14:00 97.5 72 16 143/67 (92) 95 Laboratory Data Labs 24H Laboratory Tests 2 04/22/18 06:22: Bedside Glucose (Misc Panel) 165H 04/22/18 11:26: Bedside Glucose (Misc Panel) 185H 04/22/18 16:19: Bedside Glucose (Misc Panel) 79L 04/22/18 20:43: Bedside Glucose (Misc Panel) 153H Current Medications Current Medications Current Medications Acetaminophen (Tylenol Tab) 650 mg Q4HP PRN PO fever/MILD PAIN (PS 1-4) Last administered on 04/21/18 18:08; Start 04/08/18 at 17:00 Al Hydrox/Mg Hydrox/Simethicone (Mylanta) 30 ml Q4HP PRN PO DYSPEPSIA; Start 04/08/18 at 17:00 Albuterol/ Ipratropium (Duoneb (Ipr 0.5mg/Alb 2.5mg)) 3 ml RBID NEB Last administered on 04/16/18at 07:59; Start 04/09/18 at 08:00; Stop 04/18/18 at 14:25; Status DC Apixaban (Eliquis) 5 mg BID PO Last administered on 04/22/18at 08:12; Start 04/19/18 at 09:00 Artificial Tears ([place] Tears) 2 drop TID OU Last administered on 04/22/18 16:31; Start 04/11/18 at 09:00 Aspirin (Aspirin Chewable) 81 mg DAILY PEG Last administered on 04/18/18 08:06; Start 04/09/18 at 09:00; Stop 04/18/18 at 16:30; Status DC Atorvastatin Calcium (Lipitor) 40 mg DAILY PO Last administered on 04/22/18 08:12; Start 04/09/18 at 09:00 Bisacodyl (Dulcolax Suppository) 10 mg DAILYPRN PRN [place] CONSTIPATION Last administered on 04/15/18at 05:31; Start 04/08/18 at 17:00 Clopidogrel Bisulfate (PLAVix) 75 mg DAILY PO Last administered on 04/18/18at 08:05; Start 04/09/18 at 09:00; Stop 04/18/18 at 16:30; Status DC Dextrose (Dextrose 50%) 25 ml ASDIRECTED PRN IV SEE LABEL COMMENTS; Start 04/08/18 at 17:00 Docusate Sodium (Colace) 100 mg BID PO Last administered on 04/22/18at 08:13; Start 04/08/18 at 21:00 Enoxaparin Sodium (Lovenox) 40 mg DAILY SC Last administered on 04/18/18 08:07; Start 04/09/18 at 09:00; Stop 04/18/18 at 16:32; Status DC Fluoxetine HCl (PROzac) 20 mg DAILY PO Last administered on 04/22/18at 08:12; Start 04/09/18 at 09:00 Fluticasone Propionate (Flonase 0.05% Nasal [place]) 1 spray BID NARES Last administered on 04/22/18at 08:14; Start 04/09/18 at 09:00 Glipizide (Glucotrol) 10 mg BID@0730,1730 PO Last administered on 04/22/18at 17:28; Start 04/08/18 at 17:30 Glucagon (Glucagon) 1 mg ASDIRECTED PRN SC SEE LABEL COMMENTS; Start 04/08/18 at 17:00 Glucose (Glucose) 16 GM ASDIRECTED PRN PO SEE LABEL COMMENTS; Start 04/08/18 at 17:00 Guaifenesin (Robitussin Tab) 400 mg BID PO Last administered on 04/22/18at 08:12; Start 04/09/18 at 09:00 Home Med (Med Rec Complete!) ASDIRECTED XX ; Start 04/08/18 at 18:00; Stop 04/08/18 at 18:00; Status DC Insulin Detemir (Levemir Insulin) 5 units QHS SC Last administered on 04/16/18 20:20; Start 04/09/18 at 21:00; Stop 04/17/18 at 12:53; Status DC Insulin Detemir (Levemir Insulin) 5 units QHS SC ; Start 04/11/18 at 21:00; Stop 04/11/18 at 21:00; Status DC Insulin Detemir (Levemir Insulin) 10 units QHS SC Last administered on 04/20/18 21:25; Start 04/17/18 at 21:00; Stop 04/21/18 at 13:50; Status DC Insulin Detemir (Levemir Insulin) 14 units QHS SC Last administered on 04/21/18at 20:41; Start 04/21/18 at 21:00 Insulin Human Lispro (HumaLOG INSULIN) SEE PROTOCOL TABLE AC SC Last administered on 04/22/18at 11:52; Start 04/08/18 at 17:30 Insulin Human Lispro (HumaLOG INSULIN) SEE PROTOCOL TABLE AC SC ; Start 04/11/18 at 12:00; Stop 04/14/18 at 20:08; Status DC Lidocaine/ Diphenhydr/Alum/ Mg/Simeth (Magic Mouthwash) 5ml AC SSP Last administered on 04/22/18at 16:33; Start 04/16/18 at 12:00 Lisinopril (Prinivil) 5 mg DAILY PO Last administered on 04/09/18at 08:39; Start 04/09/18 at 09:00; Stop 04/09/18 at 09:13; Status DC Lisinopril (Prinivil) 10 mg DAILY PO Last administered on 04/11/18at 08:18; Start 04/10/18 at 09:00; Stop 04/11/18 at 10:26; Status DC Lisinopril (Prinivil) 10 mg DAILY PO Last administered on 04/22/18at 08:13; Start 04/17/18 at 09:00 Magnesium Hydroxide (Milk Of Magnesia) 30 ml DAILYPRN PRN PO CONSTIPATION Last administered on 04/10/18at 23:14; Start 04/08/18 at 17:00 Metformin HCl (Glucophage) 1,000 mg BID@08,18 PO Last administered on 04/11/18at 08:18; Start 04/08/18 at 18:00; Stop 04/11/18 at 10:26; Status DC Metformin HCl (Glucophage) 1,000 mg BID@0800,1800 PO Last administered on 04/22/18at 17:28; Start 04/21/18 at 18:00 Metoprolol Succinate (TopROL XL) 75 mg DAILY PO Last administered on 04/11/18at 08:17; Start 04/09/18 at 09:00; Stop 04/11/18 at 10:26; Status DC Metoprolol Succinate (TopROL XL) 75 mg DAILY PO Last administered on 04/22/18at 08:13; Start 04/19/18 at 09:00 Metoprolol Succinate (TopROL XL) 100 mg DAILY PO Last administered on 04/18/18at 08:06; Start 04/12/18 at 09:00; Stop 04/18/18 at 16:30; Status DC Pantoprazole Sodium (Protonix) 40 mg DAILY PO Last administered on 04/22/18 08:13; Start 04/09/18 at 09:00 Senna (Senokot) 1 tab QHS PO Last administered on 04/21/18at 20:41; Start 04/08/18 at 21:00 Sodium Chloride ([place] Nasal [place]) 2 spray TID NA Last administered on 04/22/18at 16:31; Start 04/09/18 at 09:00 ALEXA PAUL MD Apr 22, 2018 21:25
[2018-04-22] MEDS: LEVEMIR (INSULIN DETEMIR) 1 UNITS/0.01ML SC SCH (21:44)
[2018-04-22] MEDS: SENNA 8.6 MG TAB (SENOKOT) PO SCH (21:44)
[2018-04-23 06:00] VITALS: BP 137/63
[2018-04-23] MEDS: HumaLOG INSULIN (NovoLOG) PER UNIT SC SCH ×3 (07:30→17:39)
[2018-04-23 07:47] LABS: BASO % 0.3 % (0.0-1.0); EOS # 0.1 10^3/uL (0.0-0.50); EOS % 1.7 % (0.0-3.0); HEMATOCRIT 42.7 % (42.0-52.0); LYMPH # 1.7 10^3/uL (1.5-4.5); LYMPH % 24.3 % (24.0-44.0); MEAN CORPUSCULAR HEMOGLOBIN 30.2 pg (27.0-33.0); MEAN CORPUSCULAR HGB CONC 32.8 g/dl (32.0-36.5); MEAN CORPUSCULAR VOLUME 92.2 fl (80.0-96.0); MONO # 0.6 10^3/uL (0.0-0.8); MONO % 7.7 % (0.0-5.0); NEUTROPHILS # 4.7 10^3/uL (1.8-7.7); NEUTROPHILS % 65.7 % (36.0-66.0); PLATELET COUNT, AUTOMATED 353 10^3/uL (150-450); RED BLOOD COUNT 4.63 10^6/uL (4.30-6.10); WHITE BLOOD COUNT 7.1 10^3/uL (4.0-10.0)
[2018-04-23 08:10] LABS: BLOOD UREA NITROGEN 37 MG/DL (7-18); CALCIUM LEVEL 9.1 MG/DL (8.8-10.2); CARBON DIOXIDE LEVEL 27 MEQ/L (21-32); CHLORIDE LEVEL 102 MEQ/L (98-107); CREATININE FOR GFR 1.12 MG/DL (0.70-1.30); GLOMERULAR FILTRATION RATE > 60.0 (>49); GLUCOSE, FASTING 99 MG/DL (70-100); POTASSIUM SERUM 3.9 MEQ/L (3.5-5.1); SODIUM LEVEL 136 MEQ/L (136-145)
[2018-04-23] MEDS: METOPROLOL SUCC *XL* 25MG TAB (TopROL *XL*) PO SCH (08:47)
[2018-04-23] MEDS: guaiFENesin 200 MG TAB PO SCH ×2 (08:48→22:16)
[2018-04-23] MEDS: FLUoxetine 20 MG CAP PO SCH (08:48)
[2018-04-23] MEDS: glipiZIDE (GLUCOTROL) 5 MG TAB PO SCH ×2 (08:48→17:39)
[2018-04-23] MEDS: ATORVASTATIN 20 MG TAB PO SCH (08:48)
[2018-04-23] MEDS: APIXABAN 5 MG TAB (ELIQUIS) PO SCH ×2 (08:48→22:16)
[2018-04-23] MEDS: PANTOPRAZOLE 40MG TAB (PROTONIX) PO SCH (08:48)
[2018-04-23] MEDS: SODIUM CHLORIDE NASAL 0.65% SPRAY BTL (OCEAN) SCH ×3 (08:49→22:17)
[2018-04-23] MEDS: FLUTICASONE PROP 0.05% NASAL SPRAY 16 GM (FLONASE) NARES SCH ×2 (08:49→22:18)
[2018-04-23] MEDS: POLYVINYL ALCOHOL OPHTH SOLN 15 ML(LIQUITEARS) OU SCH ×3 (08:49→22:18)
[2018-04-23] MEDS: DOCUSATE SODIUM 100 MG CAP PO SCH (08:49)
[2018-04-23] MEDS: LISINOPRIL 10 MG TAB PO SCH (08:49)
[2018-04-23] MEDS: metFORMIN (GLUCOPHAGE) 1000 MG TABLET PO SCH ×2 (08:49→17:39)
--- NOTE | 2018-04-23 09:20 | REP ---
Chest two views HISTORY: Cough Comparison: 04/01/2018 The lungs are clear. There is blunting of the left costophrenic angle due to pleural thickening or small pleural effusion unchanged compared to the previous study. The cardiac silhouette is enlarged. The pulmonary vasculature is normal in appearance. The bony structure is intact. IMPRESSION: 1. There is blunting of the left costophrenic angle due to pleural thickening or a small pleural effusion unchanged compared to the previous study. 2. Cardiomegaly. Electronically Signed by Tae Garcia MD 04/23/2018 09:11 A
--- NOTE | 2018-04-23 11:58 | IPNPDOC ---
PM&R Progress Note DATE OF SERVICE: Apr 23, 2018 Drug Abuse Resistance Education Officer Progress Note Subjective: Patient seen in gym working on sliding side to side in preparation for slide- board transfers, reports he feels well overall. REVIEW OF SYSTEMS: The following is a completed review of systems and has been reviewed. Review of systems otherwise unremarkable. PAIN: Patient self reports no pain EYES: denies recent vision loss EARS, NOSE, & THROAT: +dysphagia, +sinus congestion (improving) CARDIOVASCULAR: denies chest pain or palpitations PULMONARY: Negative. Denies shortness of breath, cough improving GASTROINTESTINAL: Negative for diarrhea or constipation GENITOURINARY: +incontinence NEUROLOGICAL: left hemiparesis and neglect SKIN: chest wall loop recorder incision PSYCHIATRIC: Unremarkable All other review of systems found to be negative. PHYSICAL EXAMINATION: VITAL SIGNS: Please see below. GENERAL: Pleasant and cooperative. No acute distress. HEENT: PERRL. Extraocular movements intact. Clear conjunctiva, left eye-brow sparing facial droop, visual mondragon intact, +glasses CARDIOVASCULAR: Regular rate and rhythm. No murmurs, rubs, or gallops LUNGS: Clear to auscultation bilaterally. No wheezes. No rhonchi ABDOMEN: Soft, nontender, mildly-distended. Positive bowel sounds. Normal active bowel sounds NEUROLOGICAL: Alert and oriented times three. Cranial nerves II through XII grossly intact. Sensation diminished left upper extremity througout and left lower extremity +moderate neglect of the left arm>leg EXTREMITIES: 5\\5 strength upper extremities. 1/5 left bicep and tricep, 5\\5 strength right lower extremity. 3+/5 strength in left ankle DF, 2/5 knee extensors, 2/5 hip flexors SKIN: chest wall LOOP recorder incision healing well ASSESSMENT:67-year-old M with past medical history of HTN, HLD, DM who presents status post right MCA stroke PLAN: 1. Rehab: PT/OT, METAL FURNITURE PANEL COVERER, assess for DME, upgraded to thin liquids, modified barium swallow 04/18/18- c/u level 2 with thins and supervision at all times with meals 2. Neuro: s/p right MCA territory stroke with neglect and dysphagia was on ASA and Plavix however now found to have Afib will d/c all antiplatelet and start Eliquis -monitor BPs, avoid hypoperfusion given severe right ICA stenosis, continue statin therapy -Loop recorder placed -was getting E-stim to LUE and confirmed with [employer] not a contraindication- alerted microsystems engineer Dr. Patino's PHOTO OPTICS TECHNICIAN to this on 04/16/18 after mentioned she had been called by microsystems engineer for tracing on 04/15 which at the time did not appear to be Afib, however was called back by cardiology office on 04/18/18 and told he did in fact have Afib on 04/15/18 and to start Eliquis -will hold e-stim at this time as not making significant functional gains -continue Prozac for motor recovery 3. Cardio: Pmh HTN, continue increased Metoprolol and hold lisinopril, Loop recorder in place for cryptogenic Afib- Family medicine consulted -patient noted to Afib on 04/15/[address] Patino's recs start Eliquis 5mg BID and hold antiplatelet therapy -will schedule o/p f/u with [facility] neurosurgeon Dr. Sales to discuss right ICA stenosis management 4. Resp: pmh smoker-encourage incentive spirometry, continue Duonebs, Flonase, Guaifenesin and nasal saline for congestion-stable -s/p antifungal mouth rinse for thrush-improved -CXR 04/22/18, There is blunting of the left costophrenic angle due to pleural thickening or a small pleural effusion unchanged compared to the previous study...Cardiomegaly."f -not concerned at this time for aspiration on thins, no leukocytosis, will monitor 5. GI ppx: Protonix 6. Endo: pmh DM holding metformin given HAZEL likely due to dehydration-improving, continue insulin coverage and home glipizide 7. renal:: improving pre-renal azotemia s/p gentle hydration, d/c'd metformin and lisinopril and encourage po liquid intake-improving 8. DVT ppx: lovenox 10. Dispo: 05/07/18, progressing towards goals Allergies Coded Allergies: No Known Drug Allergy (Verified Allergy, Unknown, 04/01/18) Vital Signs Vital Signs Date Time Temp Pulse Resp B/P (MAP) Pulse Ox O2 Delivery O2 Flow Rate FiO2 04/23/18 08:49 137/63 04/23/18 08:47 71 04/23/18 06:00 97.1 18 92 Laboratory Data CBC/BMP Laboratory Tests 04/23/18 07:13 Red Blood Count 4.63, Mean Corpuscular Volume 92.2, Mean Corpuscular Hemoglobin 30.2, Mean Corpuscular Hemoglobin Concent 32.8, Red Cell Distribution Width 12.7, Neutrophils (%) (Auto) 65.7, Lymphocytes (%) (Auto) 24.3, Monocytes (%) (Auto) 7.7 H, Eosinophils (%) (Auto) 1.7, Basophils (%) (Auto) 0.3, Neutrophils # (Auto) 4.7, Lymphocytes # (Auto) 1.7, Monocytes # (Auto) 0.6, Eosinophils # (Auto) 0.1, Basophils # (Auto) 0.0, Calcium Level 9.1 Labs 24H Laboratory Tests 2 04/22/18 16:19: Bedside Glucose (Misc Panel) 79L 04/22/18 20:43: Bedside Glucose (Misc Panel) 153H 04/23/18 07:13: Immature Granulocyte % (Auto) 0.3, White Blood Count 7.1, Red Blood Count 4.63, Hemoglobin 14.0, Hematocrit 42.7, Mean Corpuscular Volume 92.2, Mean Corpuscular Hemoglobin 30.2, Mean Corpuscular Hemoglobin Concent 32.8, Red Cell Distribution Width 12.7, Platelet Count 353, Neutrophils (%) (Auto) 65.7, Lymphocytes (%) (Auto) 24.3, Monocytes (%) (Auto) 7.7H, Eosinophils (%) (Auto) 1.7, Basophils (%) (Auto) 0.3, Neutrophils # (Auto) 4.7, Lymphocytes # (Auto) 1.7, Monocytes # (Auto) 0.6, Eosinophils # (Auto) 0.1, Basophils # (Auto) 0.0, Nucleated Red Blood Cells % (auto) 0.0, Anion Gap 7L, Glomerular Filtration Rate > 60.0, Blood Urea Nitrogen 37H, Creatinine 1.12, Sodium Level 136, Potassium Level 3.9, Chloride Level 102, Carbon Dioxide Level 27, Calcium Level 9.1 Microbiology Microbiology 04/23/18 Stool Occult Blood (JOSEPH) - Final, Complete Current Medications Current Medications Current Medications Acetaminophen (Tylenol Tab) 650 mg Q4HP PRN PO fever/MILD PAIN (PS 1-4) Last administered on 04/21/18 18:08; Start 04/08/18 at 17:00 Al Hydrox/Mg Hydrox/Simethicone (Mylanta) 30 ml Q4HP PRN PO DYSPEPSIA; Start 04/08/18 at 17:00 Albuterol/ Ipratropium (Duoneb (Ipr 0.5mg/Alb 2.5mg)) 3 ml RBID NEB Last administered on 04/16/18 07:59; Start 04/09/18 at 08:00; Stop 04/18/18 at 14:25; Status DC Apixaban (Eliquis) 5 mg BID PO Last administered on 04/23/18 08:48; Start 04/19/18 at 09:00 Artificial Tears ([place] Tears) 2 drop TID OU Last administered on 04/23/18 08:49; Start 04/11/18 at 09:00 Aspirin (Aspirin Chewable) 81 mg DAILY PEG Last administered on 04/18/18 08:06; Start 04/09/18 at 09:00; Stop 04/18/18 at 16:30; Status DC Atorvastatin Calcium (Lipitor) 40 mg DAILY PO Last administered on 04/23/18 08:48; Start 04/09/18 at 09:00 Bisacodyl (Dulcolax Suppository) 10 mg DAILYPRN PRN [place] CONSTIPATION Last administered on 04/15/18 05:31; Start 04/08/18 at 17:00 Clopidogrel Bisulfate (PLAVix) 75 mg DAILY PO Last administered on 04/18/18 08:05; Start 04/09/18 at 09:00; Stop 04/18/18 at 16:30; Status DC Dextrose (Dextrose 50%) 25 ml ASDIRECTED PRN IV SEE LABEL COMMENTS; Start 04/08/18 at 17:00 Docusate Sodium (Colace) 100 mg BID PO Last administered on 04/22/18 21:44; Start 04/08/18 at 21:00 Enoxaparin Sodium (Lovenox) 40 mg DAILY SC Last administered on 04/18/18 08:07; Start 04/09/18 at 09:00; Stop 04/18/18 at 16:32; Status DC Fluoxetine HCl (PROzac) 20 mg DAILY PO Last administered on 3/13/19at 08:48; Start 04/09/18 at 09:00 Fluticasone Propionate (Flonase 0.05% Nasal [place]) 1 spray BID NARES Last administered on 04/23/18at 08:49; Start 04/09/18 at 09:00 Glipizide (Glucotrol) 10 mg BID@1130,2320 PO Last administered on 04/23/18at 08:48; Start 04/08/18 at 17:30 Glucagon (Glucagon) 1 mg ASDIRECTED PRN SC SEE LABEL COMMENTS; Start 04/08/18 at 17:00 Glucose (Glucose) 16 GM ASDIRECTED PRN PO SEE LABEL COMMENTS; Start 04/08/18 at 17:00 Guaifenesin (Robitussin Tab) 400 mg BID PO Last administered on 04/23/18at 08:48; Start 04/09/18 at 09:00 Home Med (Med Rec Complete!) ASDIRECTED XX ; Start 04/08/18 at 18:00; Stop 04/08/18 at 18:00; Status DC Insulin Detemir (Levemir Insulin) 5 units QHS SC Last administered on 04/16/18at 20:20; Start 04/09/18 at 21:00; Stop 04/17/18 at 12:53; Status DC Insulin Detemir (Levemir Insulin) 5 units QHS SC ; Start 04/11/18 at 21:00; Stop 04/11/18 at 21:00; Status DC Insulin Detemir (Levemir Insulin) 10 units QHS SC Last administered on 04/20/18at 21:25; Start 04/17/18 at 21:00; Stop 04/21/18 at 13:50; Status DC Insulin Detemir (Levemir Insulin) 14 units QHS SC Last administered on 01/29at 21:44; Start 04/21/18 at 21:00 Insulin Human Lispro (HumaLOG INSULIN) SEE PROTOCOL TABLE AC SC Last administered on 04/22/18at 11:52; Start 04/08/18 at 17:30 Insulin Human Lispro (HumaLOG INSULIN) SEE PROTOCOL TABLE AC SC ; Start 04/11/18 at 12:00; Stop 04/14/18 at 20:08; Status DC Lidocaine/ Diphenhydr/Alum/ Mg/Simeth (Magic Mouthwash) 5ml AC SSP Last administered on 04/22/18at 16:33; Start 04/16/18 at 12:00; Stop 04/22/18 at 21:27; Status DC Lisinopril (Prinivil) 5 mg DAILY PO Last administered on 04/09/18at 08:39; Start 04/09/18 at 09:00; Stop 04/09/18 at 09:13; Status DC Lisinopril (Prinivil) 10 mg DAILY PO Last administered on 04/11/18at 08:18; Start 04/10/18 at 09:00; Stop 04/11/18 at 10:26; Status DC Lisinopril (Prinivil) 10 mg DAILY PO Last administered on 04/23/18 08:49; Start 04/17/18 at 09:00 Magnesium Hydroxide (Milk Of Magnesia) 30 ml DAILYPRN PRN [place] CONSTIPATION Last administered on 04/10/18at 23:14; Start 04/08/18 at 17:00 Metformin HCl (Glucophage) 1,000 mg BID@08,18 PO Last administered on 04/11/18 08:18; Start 04/08/18 at 18:00; Stop 04/11/18 at 10:26; Status DC Metformin HCl (Glucophage) 1,000 mg BID@0800,1800 PO Last administered on 04/23/18 08:49; Start 04/21/18 at 18:00 Metoprolol Succinate (TopROL XL) 75 mg DAILY PO Last administered on 04/11/18at 08:17; Start 04/09/18 at 09:00; Stop 04/11/18 at 10:26; Status DC Metoprolol Succinate (TopROL XL) 75 mg DAILY PO Last administered on 04/23/18at 08:47; Start 04/19/18 at 09:00 Metoprolol Succinate (TopROL XL) 100 mg DAILY PO Last administered on 04/18/18at 08:06; Start 04/12/18 at 09:00; Stop 04/18/18 at 16:30; Status DC Pantoprazole Sodium (Protonix) 40 mg DAILY PO Last administered on 04/23/18at 08:48; Start 04/09/18 at 09:00 Senna (Senokot) 1 tab QHS PO Last administered on 04/22/18at 21:44; Start 04/08/18 at 21:00 Sodium Chloride ([place] Nasal [place]) 2 spray TID NA Last administered on 04/23at 08:49; Start 04/09/18 at 09:00 ALEXA PAUL MD Apr 23, 2018 11:58
[2018-04-23 14:00] VITALS: BP 114/62
[2018-04-23 20:00] VITALS: BP 131/60
[2018-04-23 20:26] LABS: CLOSTRIDIUM DIFFICILE PCR NEGATIVE (NEGATIVE)
[2018-04-23] MEDS: LEVEMIR (INSULIN DETEMIR) 1 UNITS/0.01ML SC SCH (22:17)
[2018-04-24] MEDS: ACETAMINOPHEN TAB 650MG DOSE (2X325MG) PO PRN (02:37)
[2018-04-24 06:00] VITALS: BP 129/60
[2018-04-24] MEDS: HumaLOG INSULIN (NovoLOG) PER UNIT SC SCH ×3 (07:30→17:04)
[2018-04-24] MEDS: metFORMIN (GLUCOPHAGE) 1000 MG TABLET PO SCH ×2 (09:39→17:51)
[2018-04-24] MEDS: ATORVASTATIN 20 MG TAB PO SCH (09:39)
[2018-04-24] MEDS: FLUoxetine 20 MG CAP PO SCH (09:40)
[2018-04-24] MEDS: PANTOPRAZOLE 40MG TAB (PROTONIX) PO SCH (09:41)
[2018-04-24] MEDS: METOPROLOL SUCC *XL* 25MG TAB (TopROL *XL*) PO SCH (09:41)
[2018-04-24] MEDS: LISINOPRIL 10 MG TAB PO SCH (09:41)
[2018-04-24] MEDS: APIXABAN 5 MG TAB (ELIQUIS) PO SCH ×2 (09:41→22:08)
[2018-04-24] MEDS: guaiFENesin 200 MG TAB PO SCH ×2 (09:42→22:09)
[2018-04-24] MEDS: glipiZIDE (GLUCOTROL) 5 MG TAB PO SCH ×2 (09:43→17:51)
[2018-04-24] MEDS: SODIUM CHLORIDE NASAL 0.65% SPRAY BTL (OCEAN) SCH ×3 (09:44→22:09)
[2018-04-24] MEDS: FLUTICASONE PROP 0.05% NASAL SPRAY 16 GM (FLONASE) NARES SCH ×2 (09:44→22:09)
[2018-04-24] MEDS: POLYVINYL ALCOHOL OPHTH SOLN 15 ML(LIQUITEARS) OU SCH ×3 (09:44→22:10)
[2018-04-24 14:00] VITALS: BP 113/64
[2018-04-24 20:00] VITALS: BP 134/93
[2018-04-24] MEDS: LEVEMIR (INSULIN DETEMIR) 1 UNITS/0.01ML SC SCH (22:08)
[2018-04-25 05:17] VITALS: BP 141/67
[2018-04-25 07:18] LABS: HEMATOCRIT 38.9 % (42.0-52.0); HEMOGLOBIN 13.1 g/dl (13.5-17.5); MEAN CORPUSCULAR HEMOGLOBIN 30.3 pg (27.0-33.0); MEAN CORPUSCULAR HGB CONC 33.7 g/dl (32.0-36.5); MEAN CORPUSCULAR VOLUME 89.8 fl (80.0-96.0); PLATELET COUNT, AUTOMATED 309 10^3/uL (150-450); RED BLOOD COUNT 4.33 10^6/uL (4.30-6.10); WHITE BLOOD COUNT 7.7 10^3/uL (4.0-10.0)
[2018-04-25] MEDS: HumaLOG INSULIN (NovoLOG) PER UNIT SC SCH ×3 (07:30→16:58)
[2018-04-25 07:41] LABS: CALCIUM LEVEL 8.8 MG/DL (8.8-10.2); CREATININE FOR GFR 1.29 MG/DL (0.70-1.30); GLOMERULAR FILTRATION RATE 58.8 (>49); MAGNESIUM LEVEL 1.5 MG/DL (1.8-2.4); POTASSIUM SERUM 3.9 MEQ/L (3.5-5.1)
[2018-04-25] MEDS: LIDOCAINE 5% (LIDODERM) PATCH TD SCH (09:00)
[2018-04-25] MEDS: guaiFENesin 200 MG TAB PO SCH ×2 (09:40→20:20)
[2018-04-25] MEDS: PANTOPRAZOLE 40MG TAB (PROTONIX) PO SCH (09:41)
[2018-04-25] MEDS: glipiZIDE (GLUCOTROL) 5 MG TAB PO SCH ×2 (09:41→17:52)
[2018-04-25] MEDS: metFORMIN (GLUCOPHAGE) 1000 MG TABLET PO SCH ×2 (09:41→17:52)
[2018-04-25] MEDS: LISINOPRIL 10 MG TAB PO SCH (09:41)
[2018-04-25] MEDS: ATORVASTATIN 20 MG TAB PO SCH (09:41)
[2018-04-25] MEDS: APIXABAN 5 MG TAB (ELIQUIS) PO SCH ×2 (09:41→20:20)
[2018-04-25] MEDS: FLUoxetine 20 MG CAP PO SCH (09:41)
[2018-04-25] MEDS: METOPROLOL SUCC *XL* 25MG TAB (TopROL *XL*) PO SCH (09:41)
[2018-04-25] MEDS: SODIUM CHLORIDE NASAL 0.65% SPRAY BTL (OCEAN) SCH ×3 (09:43→20:24)
[2018-04-25] MEDS: POLYVINYL ALCOHOL OPHTH SOLN 15 ML(LIQUITEARS) OU SCH ×3 (09:43→20:23)
[2018-04-25] MEDS: FLUTICASONE PROP 0.05% NASAL SPRAY 16 GM (FLONASE) NARES SCH ×2 (09:43→20:24)
[2018-04-25 14:00] VITALS: BP 138/66
[2018-04-25 20:00] VITALS: BP 139/65
[2018-04-25] MEDS: MAGNESIUM OXIDE 400 MG TAB (MAG-OX) PO SCH (20:20)
[2018-04-25] MEDS: ACETAMINOPHEN TAB 650MG DOSE (2X325MG) PO PRN (20:21)
[2018-04-25] MEDS: LEVEMIR (INSULIN DETEMIR) 1 UNITS/0.01ML SC SCH (20:29)
[2018-04-25] MEDS: **NOTE PATIENT COMMENT** MISC XX SCH (21:00)
[2018-04-26 06:00] VITALS: BP 136/66
[2018-04-26] MEDS: HumaLOG INSULIN (NovoLOG) PER UNIT SC SCH ×3 (07:30→17:30)
[2018-04-26] MEDS: POLYVINYL ALCOHOL OPHTH SOLN 15 ML(LIQUITEARS) OU SCH ×3 (09:00→21:25)
[2018-04-26] MEDS: SODIUM CHLORIDE NASAL 0.65% SPRAY BTL (OCEAN) SCH ×3 (09:00→21:25)
[2018-04-26] MEDS: FLUTICASONE PROP 0.05% NASAL SPRAY 16 GM (FLONASE) NARES SCH ×2 (09:00→21:25)
[2018-04-26] MEDS: LIDOCAINE 5% (LIDODERM) PATCH TD SCH (10:05)
[2018-04-26] MEDS: MAGNESIUM OXIDE 400 MG TAB (MAG-OX) PO SCH ×2 (10:06→21:24)
[2018-04-26] MEDS: FLUoxetine 20 MG CAP PO SCH (10:06)
[2018-04-26] MEDS: METOPROLOL SUCC *XL* 25MG TAB (TopROL *XL*) PO SCH (10:06)
[2018-04-26] MEDS: APIXABAN 5 MG TAB (ELIQUIS) PO SCH ×2 (10:07→21:24)
[2018-04-26] MEDS: glipiZIDE (GLUCOTROL) 5 MG TAB PO SCH ×2 (10:07→18:22)
[2018-04-26] MEDS: guaiFENesin 200 MG TAB PO SCH ×2 (10:07→21:24)
[2018-04-26] MEDS: PANTOPRAZOLE 40MG TAB (PROTONIX) PO SCH (10:08)
[2018-04-26] MEDS: metFORMIN (GLUCOPHAGE) 1000 MG TABLET PO SCH ×2 (10:08→18:21)
[2018-04-26] MEDS: LISINOPRIL 10 MG TAB PO SCH (10:08)
[2018-04-26] MEDS: ATORVASTATIN 20 MG TAB PO SCH (10:08)
[2018-04-26 14:00] VITALS: BP 141/74
[2018-04-26 20:00] VITALS: BP 125/58
[2018-04-26] MEDS: LEVEMIR (INSULIN DETEMIR) 1 UNITS/0.01ML SC SCH (21:00)
[2018-04-26] MEDS: **NOTE PATIENT COMMENT** MISC XX SCH (21:00)
[2018-04-27 06:00] VITALS: BP 127/64
[2018-04-27] MEDS: HumaLOG INSULIN (NovoLOG) PER UNIT SC SCH ×3 (07:30→17:07)
[2018-04-27] MEDS: SODIUM CHLORIDE NASAL 0.65% SPRAY BTL (OCEAN) SCH ×3 (09:00→21:19)
[2018-04-27] MEDS: guaiFENesin 200 MG TAB PO SCH ×2 (09:19→21:17)
[2018-04-27] MEDS: APIXABAN 5 MG TAB (ELIQUIS) PO SCH ×2 (09:19→21:17)
[2018-04-27] MEDS: LIDOCAINE 5% (LIDODERM) PATCH TD SCH (09:20)
[2018-04-27] MEDS: glipiZIDE (GLUCOTROL) 5 MG TAB PO SCH ×2 (09:20→17:08)
[2018-04-27] MEDS: metFORMIN (GLUCOPHAGE) 1000 MG TABLET PO SCH ×2 (09:20→17:08)
[2018-04-27] MEDS: ATORVASTATIN 20 MG TAB PO SCH (09:20)
[2018-04-27] MEDS: FLUoxetine 20 MG CAP PO SCH (09:20)
[2018-04-27] MEDS: MAGNESIUM OXIDE 400 MG TAB (MAG-OX) PO SCH ×2 (09:21→21:17)
[2018-04-27] MEDS: PANTOPRAZOLE 40MG TAB (PROTONIX) PO SCH (09:21)
[2018-04-27] MEDS: LISINOPRIL 10 MG TAB PO SCH (09:24)
[2018-04-27] MEDS: POLYVINYL ALCOHOL OPHTH SOLN 15 ML(LIQUITEARS) OU SCH ×3 (09:27→21:20)
[2018-04-27] MEDS: FLUTICASONE PROP 0.05% NASAL SPRAY 16 GM (FLONASE) NARES SCH ×2 (09:27→21:19)
[2018-04-27] MEDS: METOPROLOL SUCC *XL* 25MG TAB (TopROL *XL*) PO SCH (09:29)
[2018-04-27 14:00] VITALS: BP 136/68
--- NOTE | 2018-04-27 19:10 | IPNPDOC ---
PM&R Progress Note DATE OF SERVICE: Apr 24, 2018 Color Maker Progress Note Subjective: Patient reporting loose stools today, denies fevers or chills. REVIEW OF SYSTEMS: The following is a completed review of systems and has been reviewed. Review of systems otherwise unremarkable. PAIN: Patient self reports no pain EYES: denies recent vision loss EARS, NOSE, & THROAT: +dysphagia, +sinus congestion (improving) CARDIOVASCULAR: denies chest pain or palpitations PULMONARY: Negative. Denies shortness of breath, cough improving GASTROINTESTINAL: Negative for diarrhea or constipation GENITOURINARY: +incontinence (improving) NEUROLOGICAL: left hemiparesis and neglect SKIN: chest wall loop recorder incision PSYCHIATRIC: Unremarkable All other review of systems found to be negative. PHYSICAL EXAMINATION: VITAL SIGNS: Please see below. GENERAL: Pleasant and cooperative. No acute distress. HEENT: PERRL. Extraocular movements intact. Clear conjunctiva, left eye-brow sparing facial droop, visual mondragon intact, +glasses CARDIOVASCULAR: Regular rate and rhythm. No murmurs, rubs, or gallops LUNGS: Clear to auscultation bilaterally. No wheezes. No rhonchi ABDOMEN: Soft, nontender, mildly-distended. Positive bowel sounds. Normal active bowel sounds NEUROLOGICAL: Alert and oriented times three. Cranial nerves II through XII grossly intact. Sensation diminished left upper extremity througout and left lower extremity +moderate neglect of the left arm>leg EXTREMITIES: 5\\5 strength upper extremities. 1/5 left bicep and tricep, 5\\5 strength right lower extremity. 3+/5 strength in left ankle DF, 2/5 knee extensors, 2/5 hip flexors SKIN: chest wall LOOP recorder incision healing well ASSESSMENT:67-year-old M with past medical history of HTN, HLD, DM who presents status post right MCA stroke PLAN: 1. Rehab: PT/OT, DIGITAL STRATEGIST, assess for DME, upgraded to thin liquids, modified barium swallow 04/18/18- c/u level 2 with thins and supervision at all times with meals 2. Neuro: s/p right MCA territory stroke with neglect and dysphagia was on ASA and Plavix however now found to have Afib will d/c all antiplatelet and start Eliquis -monitor BPs, avoid hypoperfusion given severe right ICA stenosis, continue statin therapy -Loop recorder placed -was getting E-stim to LUE and confirmed with [employer] not a contraindication- alerted slip laster Dr. Patino's COMMERCIAL MORTGAGE BROKER to this on 04/16/18 after mentioned she had been called by slip laster for tracing on 04/15 which at the time did not appear to be Afib, however was called back by cardiology office on 04/18/18 and told he did in fact have Afib on 04/15/18 and to start Eliquis -will hold e-stim at this time as not making significant functional gains -continue Prozac for motor recovery 3. Cardio: Pmh HTN, continue increased Metoprolol and hold lisinopril, Loop recorder in place for cryptogenic Afib- Family medicine consulted -patient noted to Afib on 04/15/[address] Patino's recs start Eliquis 5mg BID and hold antiplatelet therapy -will schedule o/p f/u with [facility] neurosurgeon Dr. Sales to discuss right ICA stenosis management 4. Resp: pmh smoker-encourage incentive spirometry, continue Duonebs, Flonase, Guaifenesin and nasal saline for congestion-stable -s/p antifungal mouth rinse for thrush-improved -CXR 04/22/18, There is blunting of the left costophrenic angle due to pleural thickening or a small pleural effusion unchanged compared to the previous study...Cardiomegaly." -not concerned at this time for aspiration on thins, no leukocytosis, will continue monitor 5. GI ppx: Protonix- will order c diff assay for loose stools and d/c bowel meds 6. Endo: pmh DM holding metformin- continue insulin coverage and home glipizide 7. renal:: pre-renal azotemia, encourage po liquid intake 8. DVT ppx: lovenox 10. Dispo: 05/07/18, progressing towards goals Allergies Coded Allergies: No Known Drug Allergy (Verified Allergy, Unknown, 04/01/18) Vital Signs Vital Signs Date Time Temp Pulse Resp B/P (MAP) Pulse Ox O2 Delivery O2 Flow Rate FiO2 04/27/18 14:00 97.4 78 16 136/68 (90) 96 Laboratory Data Labs 24H Laboratory Tests 2 04/26/18 20:20: Bedside Glucose (Misc Panel) 109 04/27/18 06:00: Bedside Glucose (Misc Panel) 95 04/27/18 11:23: Bedside Glucose (Misc Panel) 180H 04/27/18 17:01: Bedside Glucose (Misc Panel) 108 Microbiology Microbiology 04/23/18 Stool Occult Blood (JOSEPH) - Final, Complete 04/25/18 Respiratory Virus Panel (PCR) (JOSEPH) - Final, Complete Current Medications Current Medications Current Medications Acetaminophen (Tylenol Tab) 650 mg Q4HP PRN PO fever/MILD PAIN (PS 1-4) Last administered on 04/25/18at 20:21; Start 04/08/18 at 17:00 Al Hydrox/Mg Hydrox/Simethicone (Mylanta) 30 ml Q4HP PRN PO DYSPEPSIA; Start 04/08/18 at 17:00 Albuterol/ Ipratropium (Duoneb (Ipr 0.5mg/Alb 2.5mg)) 3 ml RBID NEB Last administered on 04/16/18at 07:59; Start 04/09/18 at 08:00; Stop 04/18/18 at 14:25; Status DC Apixaban (Eliquis) 5 mg BID PO Last administered on 04/27/18 09:19; Start 04/19/18 at 09:00 Artificial Tears ([place] Tears) 2 drop TID OU Last administered on 04/27/18at 15:13; Start 04/11/18 at 09:00 Aspirin (Aspirin Chewable) 81 mg DAILY PEG Last administered on 04/18/18at 08:06; Start 04/09/18 at 09:00; Stop 04/18/18 at 16:30; Status DC Atorvastatin Calcium (Lipitor) 40 mg DAILY PO Last administered on 04/27/18at 09:20; Start 04/09/18 at 09:00 Bisacodyl (Dulcolax Suppository) 10 mg DAILYPRN PRN [place] CONSTIPATION Last administered on 04/15/18at 05:31; Start 04/08/18 at 17:00 Clopidogrel Bisulfate (PLAVix) 75 mg DAILY PO Last administered on 04/18/18at 08:05; Start 04/09/18 at 09:00; Stop 04/18/18 at 16:30; Status DC Dextrose (Dextrose 50%) 25 ml ASDIRECTED PRN IV SEE LABEL COMMENTS; Start 04/08/18 at 17:00 Docusate Sodium (Colace) 100 mg BID PO Last administered on 04/22/18at 21:44; Start 04/08/18 at 21:00; Stop 04/23/18 at 13:39; Status DC Enoxaparin Sodium (Lovenox) 40 mg DAILY SC Last administered on 04/18/18at 08:07; Start 04/09/18 at 09:00; Stop 04/18/18 at 16:32; Status DC Fluoxetine HCl (PROzac) 20 mg DAILY PO Last administered on 04/27/18at 09:20; Start 04/09/18 at 09:00 Fluticasone Propionate (Flonase 0.05% Nasal [place]) 1 spray BID NARES Last administered on 04/27/18at 09:27; Start 04/09/18 at 09:00 Glipizide (Glucotrol) 10 mg BID@1230,6470 PO Last administered on 04/27/18at 17:08; Start 04/08/18 at 17:30 Glucagon (Glucagon) 1 mg ASDIRECTED PRN SC SEE LABEL COMMENTS; Start 04/08/18 at 17:00 Glucose (Glucose) 16 GM ASDIRECTED PRN PO SEE LABEL COMMENTS; Start 04/08/18 at 17:00 Guaifenesin (Robitussin Tab) 400 mg BID PO Last administered on 04/27/18at 09:19; Start 04/09/18 at 09:00 Home Med (Med Rec Complete!) ASDIRECTED XX ; Start 04/08/18 at 18:00; Stop 04/08/18 at 18:00; Status DC Insulin Detemir (Levemir Insulin) 5 units QHS SC Last administered on 04/16/18at 20:20; Start 04/09/18 at 21:00; Stop 04/17/18 at 12:53; Status DC Insulin Detemir (Levemir Insulin) 5 units QHS SC ; Start 04/11/18 at 21:00; Stop 04/11/18 at 21:00; Status DC Insulin Detemir (Levemir Insulin) 10 units QHS SC Last administered on 04/20/18 at 21:25; Start 04/17/18 at 21:00; Stop 04/21/18 at 13:50; Status DC Insulin Detemir (Levemir Insulin) 14 units QHS SC Last administered on 04/24/18at 22:08; Start 04/21/18 at 21:00 Insulin Human Lispro (HumaLOG INSULIN) SEE PROTOCOL TABLE AC SC Last admi nistered on 04/27/18at 17:07; Start 04/08/18 at 17:30 Insulin Human Lispro (HumaLOG INSULIN) SEE PROTOCOL TABLE AC SC ; Start 04/11/18 at 12:00; Stop 04/14/18 at 20:08; Status DC Lidocaine (Lidoderm Patch) 1 patch DAILY TD Last administered on 04/27/18at 09: 20; Start 04/25/18 at 09:00 Lidocaine/ Diphenhydr/Alum/ Mg/Simeth (Magic Mouthwash) 5ml AC SSP Last administered on 04/22/18at 16:33; Start 04/16/18 at 12:00; Stop 04/22/18 at 21:27; Status DC Lisinopril (Prinivil) 5 mg DAILY PO Last administered on 04/09/18at 08:39; Start 04/09/18 at 09:00; Stop 04/09/18 at 09:13; Status DC Lisinopril (Prinivil) 10 mg DAILY PO Last administered on 04/11/18 08:18; Start 04/10/18 at 09:00; Stop 04/11/18 at 10:26; Status DC Lisinopril (Prinivil) 10 mg DAILY PO Last administered on 04/27/18at 09:24; Start 04/17/18 at 09:00 Magnesium Hydroxide (Milk Of Magnesia) 30 ml DAILYPRN PRN [place] CONSTIPATION Last administered on 04/10/18at 23:14; Start 04/08/18 at 17:00 Magnesium Oxide (Mag-Ox) 400 mg BID PO Last administered on 04/27/18at 09:21; Start 04/25/18 at 21:00 Metformin HCl (Glucophage) 1,000 mg BID@08,18 PO Last administered on 04/11/18at 08:18; Start 04/08/18 at 18:00; Stop 04/11/18 at 10:26; Status DC Metformin HCl (Glucophage) 1,000 mg BID@0800,1800 PO Last administered on 04/11 08/29at 17:08; Start 04/21/18 at 18:00 Metoprolol Succinate (TopROL XL) 75 mg DAILY PO Last administered on 04/11/18 08:17; Start 04/09/18 at 09:00; Stop 04/11/18 at 10:26; Status DC Metoprolol Succinate (TopROL XL) 75 mg DAILY PO Last administered on 04/27/18at 09:29; Start 04/19/18 at 09:00 Metoprolol Succinate (TopROL XL) 100 mg DAILY PO Last administered on 04/18/18at 08:06; Start 04/12/18 at 09:00; Stop 04/18/18 at 16:30; Status DC Miscellaneous (Unresolved Clarification Entry) SEE LABEL COMMENTS DAILY XX ; Start 04/25/18 at 09:00; Stop 04/25/18 at 14:50; Status DC Non-Formulary Medication ( See Comment Field Below ) REMOVE LIDODERM PATCH DAILY@21 XX Last administered on 04/26/18 21:00; Start 04/25/18 at 21:00 Pantoprazole Sodium (Protonix) 40 mg DAILY PO Last administered on 04/27/18at 09:21; Start 04/09/18 at 09:00 Senna (Senokot) 1 tab QHS PO Last administered on 04/22/18at 21:44; Start 04/08/18 at 21:00; Stop 04/23/18 at 13:39; Status DC Sodium Chloride ([place] Nasal [place]) 2 spray TID NA Last administered on 04/27/18at 15:13; Start 04/09/18 at 09:00 ALEXA PAUL MD Apr 27, 2018 19:10
--- NOTE | 2018-04-27 19:13 | IPNPDOC ---
PM&R Progress Note DATE OF SERVICE: Apr 25, 2018 Pharmacy General Manager Progress Note Subjective: Patient and seen, both in agreement to go to [facility] in order to get patient to a contact guard/supervision level. He reports low grade headache that responds to Tylenol. REVIEW OF SYSTEMS: The following is a completed review of systems and has been reviewed. Review of systems otherwise unremarkable. PAIN: Patient self reports no pain EYES: denies recent vision loss EARS, NOSE, & THROAT: +dysphagia, +sinus congestion (improving) CARDIOVASCULAR: denies chest pain or palpitations PULMONARY: Negative. Denies shortness of breath, cough improving GASTROINTESTINAL: Negative for diarrhea or constipation GENITOURINARY: +incontinence (improving) NEUROLOGICAL: left hemiparesis and neglect SKIN: chest wall loop recorder incision PSYCHIATRIC: Unremarkable All other review of systems found to be negative. PHYSICAL EXAMINATION: VITAL SIGNS: Please see below. GENERAL: Pleasant and cooperative. No acute distress. HEENT: PERRL. Extraocular movements intact. Clear conjunctiva, left eye-brow sparing facial droop, visual mondragon intact, +glasses CARDIOVASCULAR: Regular rate and rhythm. No murmurs, rubs, or gallops LUNGS: Clear to auscultation bilaterally. No wheezes. No rhonchi ABDOMEN: Soft, nontender, mildly-distended. Positive bowel sounds. Normal active bowel sounds NEUROLOGICAL: Alert and oriented times three. Cranial nerves II through XII grossly intact. Sensation diminished left upper extremity througout and left lower extremity +moderate neglect of the left arm>leg EXTREMITIES: 5\\5 strength upper extremities. 1/5 left bicep and tricep, 5\\5 strength right lower extremity. 3+/5 strength in left ankle DF, 2/5 knee extensors, 2/5 hip flexors SKIN: chest wall LOOP recorder incision healing well ASSESSMENT:67-year-old M with past medical history of HTN, HLD, DM who presents status post right MCA stroke PLAN: 1. Rehab: PT/OT, SLEEVE SETTER SAFETY STITCH, assess for DME, upgraded to thin liquids, modified barium swallow 04/18/18- c/u level 2 with thins and supervision at all times with meals 2. Neuro: s/p right MCA territory stroke with neglect and dysphagia was on ASA and Plavix however now found to have Afib will d/c all antiplatelet and start Eliquis -monitor BPs, avoid hypoperfusion given severe right ICA stenosis, continue statin therapy -Loop recorder placed -was getting E-stim to LUE and confirmed with [employer] not a contraindication- alerted mattress specialist Dr. Patino's BENCH PRECISION ASSEMBLER to this on 04/16/18 after mentioned she had been called by mattress specialist for tracing on 04/15 which at the time did not appear to be Afib, however was called back by cardiology office on 04/18/18 and told he did in fact have Afib on 04/15/18 and to start Eliquis -will hold e-stim at this time as not making significant functional gains -continue Prozac for motor recovery 3. Cardio: Pmh HTN, continue increased Metoprolol and hold lisinopril, Loop recorder in place for cryptogenic Afib- Family medicine consulted -patient noted to Afib on 04/15/[address] Patino's recs start Eliquis 5mg BID and hold antiplatelet therapy -will schedule o/p f/u with [facility] neurosurgeon Dr. Sales to discuss right ICA stenosis management 4. Resp: pmh smoker-encourage incentive spirometry, continue Duonebs, Flonase, Guaifenesin and nasal saline for congestion-stable -s/p antifungal mouth rinse for thrush-improved -CXR 04/22/18, There is blunting of the left costophrenic angle due to pleural thickening or a small pleural effusion unchanged compared to the previous study...Cardiomegaly." -not concerned at this time for aspiration on thins, no leukocytosis, will continue monitor 5. GI ppx: Protonix- d/c bowel meds, C diff negative 6. Endo: pmh DM holding metformin- continue insulin coverage and home glipizide 7. renal:: pre-renal azotemia, encourage po liquid intake 8. DVT ppx: lovenox 10. Dispo: 05/07/18, progressing towards goals, patient and family would like to go to [facility] to give more time for therapy and house alterations Allergies Coded Allergies: No Known Drug Allergy (Verified Allergy, Unknown, 04/01/18) Vital Signs Vital Signs Date Time Temp Pulse Resp B/P (MAP) Pulse Ox O2 Delivery O2 Flow Rate FiO2 04/27/18 14:00 97.4 78 16 136/68 (90) 96 Laboratory Data Labs 24H Laboratory Tests 2 04/26/18 20:20: Bedside Glucose (Misc Panel) 109 04/27/18 06:00: Bedside Glucose (Misc Panel) 95 04/27/18 11:23: Bedside Glucose (Misc Panel) 180H 04/27/18 17:01: Bedside Glucose (Misc Panel) 108 Microbiology Microbiology 04/23/18 Stool Occult Blood (JOSEPH) - Final, Complete 04/25/18 Respiratory Virus Panel (PCR) (JOSEPH) - Final, Complete Current Medications Current Medications Current Medications Acetaminophen (Tylenol Tab) 650 mg Q4HP PRN PO fever/MILD PAIN (PS 1-4) Last administered on 04/25/18at 20:21; Start 04/08/18 at 17:00 Al Hydrox/Mg Hydrox/Simethicone (Mylanta) 30 ml Q4HP PRN PO DYSPEPSIA; Start 04/08/18 at 17:00 Albuterol/ Ipratropium (Duoneb (Ipr 0.5mg/Alb 2.5mg)) 3 ml RBID NEB Last administered on 04/16/18at 07:59; Start 04/09/18 at 08:00; Stop 04/18/18 at 14:25; Status DC Apixaban (Eliquis) 5 mg BID PO Last administered on 04/27/18at 09:19; Start 04/19/18 at 09:00 Artificial Tears (Akwa Tears) 2 drop TID OU Last administered on 04/27/18at 15:13; Start 04/11/18 at 09:00 Aspirin (Aspirin Chewable) 81 mg DAILY PEG Last administered on 04/18/18at 08:06; Start 04/09/18 at 09:00; Stop 04/18/18 at 16:30; Status DC Atorvastatin Calcium (Lipitor) 40 mg DAILY PO Last administered on 04/27/18at 09:20; Start 04/09/18 at 09:00 Bisacodyl (Dulcolax Suppository) 10 mg DAILYPRN PRN MD CONSTIPATION Last administered on 04/15/18at 05:31; Start 04/08/18 at 17:00 Clopidogrel Bisulfate (PLAVix) 75 mg DAILY PO Last administered on 04/18/18at 08:05; Start 04/09/18 at 09:00; Stop 04/18/18 at 16:30; Status DC Dextrose (Dextrose 50%) 25 ml ASDIRECTED PRN IV SEE LABEL COMMENTS; Start 04/08/18 at 17:00 Docusate Sodium (Colace) 100 mg BID PO Last administered on 04/22/18at 21:44; Start 04/08/18 at 21:00; Stop 04/23/18 at 13:39; Status DC Enoxaparin Sodium (Lovenox) 40 mg DAILY SC Last administered on 04/18/18at 08:07; Start 04/09/18 at 09:00; Stop 04/18/18 at 16:32; Status DC Fluoxetine HCl (PROzac) 20 mg DAILY PO Last administered on 04/27/18at 09:20; Start 04/09/18 at 09:00 Fluticasone Propionate (Flonase 0.05% Nasal [place]) 1 spray BID NARES Last administered on 04/27/18at 09:27; Start 04/09/18 at 09:00 Glipizide (Glucotrol) 10 mg BID@0730,1730 PO Last administered on 04/27/18at 17:08; Start 04/08/18 at 17:30 Glucagon (Glucagon) 1 mg ASDIRECTED PRN SC SEE LABEL COMMENTS; Start 04/08/18 at 17:00 Glucose (Glucose) 16 GM ASDIRECTED PRN PO SEE LABEL COMMENTS; Start 04/08/18 at 17:00 Guaifenesin (Robitussin Tab) 400 mg BID PO Last administered on 04/27/18at 09:19; Start 04/09/18 at 09:00 Home Med (Med Rec Complete!) ASDIRECTED XX ; Start 04/08/18 at 18:00; Stop 04/08/18 at 18:00; Status DC Insulin Detemir (Levemir Insulin) 5 units QHS SC Last administered on 04/16/18at 20:20; Start 04/09/18 at 21:00; Stop 04/17/18 at 12:53; Status DC Insulin Detemir (Levemir Insulin) 5 units QHS SC ; Start 04/11/18 at 21:00; Stop 04/11/18 at 21:00; Status DC Insulin Detemir (Levemir Insulin) 10 units QHS SC Last administered on 04/20/18at 21:25; Start 04/17/18 at 21:00; Stop 04/21/18 at 13:50; Status DC Insulin Detemir (Levemir Insulin) 14 units QHS SC Last administered on 04/24/18at 22:08; Start 04/21/18 at 21:00 Insulin Human Lispro (HumaLOG INSULIN) SEE PROTOCOL TABLE AC SC Last administered on 04/27/18at 17:07; Start 04/08/18 at 17:30 Insulin Human Lispro (HumaLOG INSULIN) SEE PROTOCOL TABLE AC SC ; Start 04/11/18 at 12:00; Stop 04/14/18 at 20:08; Status DC Lidocaine (Lidoderm Patch) 1 patch DAILY TD Last administered on 04/27/18at 09:20; Start 04/25/18 at 09:00 Lidocaine/ Diphenhydr/Alum/ Mg/Simeth (Magic Mouthwash) 5ml AC SSP Last administered on 04/22/18at 16:33; Start 04/16/18 at 12:00; Stop 04/22/18 at 21:27; Status DC Lisinopril (Prinivil) 5 mg DAILY PO Last administered on 04/09/18at 08:39; Start 04/09/18 at 09:00; Stop 04/09/18 at 09:13; Status DC Lisinopril (Prinivil) 10 mg DAILY PO Last administered on 04/11/18at 08:18; Start 04/10/18 at 09:00; Stop 04/11/18 at 10:26; Status DC Lisinopril (Prinivil) 10 mg DAILY PO Last administered on 04/27/18at 09:24; Start 04/17/18 at 09:00 Magnesium Hydroxide (Milk Of Magnesia) 30 ml DAILYPRN PRN PO CONSTIPATION Last administered on 04/10/18at 23:14; Start 04/08/18 at 17:00 Magnesium Oxide (Mag-Ox) 400 mg BID PO Last administered on 04/27/18at 09:21; Start 04/25/18 at 21:00 Metformin HCl (Glucophage) 1,000 mg BID@,18 PO Last administered on 04/11/18at 08:18; Start 04/08/18 at 18:00; Stop 04/11/18 at 10:26; Status DC Metformin HCl (Glucophage) 1,000 mg BID@0800,1800 PO Last administered on 04/27/18 17:08; Start 04/21/18 at 18:00 Metoprolol Succinate (TopROL XL) 75 mg DAILY PO Last administered on 04/11/18 08:17; Start 04/09/18 at 09:00; Stop 04/11/18 at 10:26; Status DC Metoprolol Succinate (TopROL XL) 75 mg DAILY PO Last administered on 04/27/18at 09:29; Start 04/19/18 at 09:00 Metoprolol Succinate (TopROL XL) 100 mg DAILY PO Last administered on 04/18/18 08:06; Start 04/12/18 at 09:00; Stop 04/18/18 at 16:30; Status DC Miscellaneous (Unresolved Clarification Entry) SEE LABEL COMMENTS DAILY XX ; Start 04/25/18 at 09:00; Stop 04/25/18 at 14:50; Status DC Non-Formulary Medication ( See Comment Field Below ) REMOVE LIDODERM PATCH DAILY@21 XX Last administered on 04/26/18at 21:00; Start 04/25/18 at 21:00 Pantoprazole Sodium (Protonix) 40 mg DAILY PO Last administered on 04/27/18 09:21; Start 04/09/18 at 09:00 Senna (Senokot) 1 tab QHS PO Last administered on 04/22/18at 21:44; Start 04/08/18 at 21:00; Stop 04/23/18 at 13:39; Status DC Sodium Chloride ([place] Nasal [place]) 2 spray TID NA Last administered on 04/27/18 15:13; Start 04/09/18 at 09:00 ALEXA PAUL MD Apr 27, 2018 19:13
[2018-04-27 20:00] VITALS: BP 126/54
[2018-04-27] MEDS: LEVEMIR (INSULIN DETEMIR) 1 UNITS/0.01ML SC SCH (21:00)
[2018-04-27] MEDS: **NOTE PATIENT COMMENT** MISC XX SCH (21:00)
[2018-04-27] MEDS: ACETAMINOPHEN TAB 650MG DOSE (2X325MG) PO PRN (23:10)
[2018-04-28 06:00] VITALS: BP 140/87
[2018-04-28] MEDS: HumaLOG INSULIN (NovoLOG) PER UNIT SC SCH ×3 (09:46→17:30)
[2018-04-28] MEDS: ATORVASTATIN 20 MG TAB PO SCH (09:46)
[2018-04-28] MEDS: guaiFENesin 200 MG TAB PO SCH ×2 (09:46→20:50)
[2018-04-28] MEDS: METOPROLOL SUCC *XL* 25MG TAB (TopROL *XL*) PO SCH (09:53)
[2018-04-28] MEDS: APIXABAN 5 MG TAB (ELIQUIS) PO SCH ×2 (09:54→20:51)
[2018-04-28] MEDS: glipiZIDE (GLUCOTROL) 5 MG TAB PO SCH ×2 (09:54→18:07)
[2018-04-28] MEDS: MAGNESIUM OXIDE 400 MG TAB (MAG-OX) PO SCH ×2 (09:54→20:51)
[2018-04-28] MEDS: LISINOPRIL 10 MG TAB PO SCH (09:54)
[2018-04-28] MEDS: FLUoxetine 20 MG CAP PO SCH (09:54)
[2018-04-28] MEDS: FLUTICASONE PROP 0.05% NASAL SPRAY 16 GM (FLONASE) NARES SCH ×2 (09:55→20:52)
[2018-04-28] MEDS: metFORMIN (GLUCOPHAGE) 1000 MG TABLET PO SCH ×2 (09:55→18:07)
[2018-04-28] MEDS: LIDOCAINE 5% (LIDODERM) PATCH TD SCH (09:55)
[2018-04-28] MEDS: PANTOPRAZOLE 40MG TAB (PROTONIX) PO SCH (09:55)
[2018-04-28] MEDS: SODIUM CHLORIDE NASAL 0.65% SPRAY BTL (OCEAN) SCH ×3 (09:56→20:51)
[2018-04-28] MEDS: POLYVINYL ALCOHOL OPHTH SOLN 15 ML(LIQUITEARS) OU SCH ×3 (09:56→20:52)
[2018-04-28 10:49] LABS: BASO % 0.2 % (0.0-1.0); EOS # 0.1 10^3/uL (0.0-0.50); EOS % 0.8 % (0.0-3.0); HEMATOCRIT 41.9 % (42.0-52.0); HEMOGLOBIN 14.3 g/dl (13.5-17.5); LYMPH # 1.4 10^3/uL (1.5-4.5); LYMPH % 17.2 % (24.0-44.0); MEAN CORPUSCULAR HGB CONC 34.1 g/dl (32.0-36.5); MEAN CORPUSCULAR VOLUME 90.9 fl (80.0-96.0); MONO # 0.6 10^3/uL (0.0-0.8); MONO % 7.1 % (0.0-5.0); NEUTROPHILS # 6.1 10^3/uL (1.8-7.7); NEUTROPHILS % 74.3 % (36.0-66.0); PLATELET COUNT, AUTOMATED 317 10^3/uL (150-450); RED BLOOD COUNT 4.61 10^6/uL (4.30-6.10); WHITE BLOOD COUNT 8.3 10^3/uL (4.0-10.0)
[2018-04-28 11:04] LABS: BLOOD UREA NITROGEN 38 MG/DL (7-18); CALCIUM LEVEL 9.2 MG/DL (8.8-10.2); CARBON DIOXIDE LEVEL 27 MEQ/L (21-32); CHLORIDE LEVEL 99 MEQ/L (98-107); CREATININE FOR GFR 1.13 MG/DL (0.70-1.30); GLOMERULAR FILTRATION RATE > 60.0 (>49); GLUCOSE, FASTING 298 MG/DL (70-100); POTASSIUM SERUM 4.4 MEQ/L (3.5-5.1); SODIUM LEVEL 132 MEQ/L (136-145)
[2018-04-28 14:00] VITALS: BP 118/60
--- NOTE | 2018-04-28 14:28 | IPNPDOC ---
PM&R Progress Note DATE OF SERVICE: Apr 28, 2018 Vp Integration Progress Note Subjective: Patient seen in his room, stating he worked extra hard in therapy on his left shoulder and feels he is getting stronger. He keeps biting on his left lower lip with eating and was instructed to practice facial muscle exercises. REVIEW OF SYSTEMS: The following is a completed review of systems and has been reviewed. Review of systems otherwise unremarkable. PAIN: Patient self reports no pain EYES: denies recent vision loss EARS, NOSE, & THROAT: +dysphagia, +sinus congestion (improving) CARDIOVASCULAR: denies chest pain or palpitations PULMONARY: Negative. Denies shortness of breath, cough improving GASTROINTESTINAL: Negative for diarrhea or constipation GENITOURINARY: +incontinence (improving) NEUROLOGICAL: left hemiparesis and neglect SKIN: chest wall loop recorder incision PSYCHIATRIC: Unremarkable All other review of systems found to be negative. PHYSICAL EXAMINATION: VITAL SIGNS: Please see below. GENERAL: Pleasant and cooperative. No acute distress. HEENT: PERRL. Extraocular movements intact. Clear conjunctiva, left eye-brow sparing facial droop, visual mondragon intact, +glasses CARDIOVASCULAR: Regular rate and rhythm. No murmurs, rubs, or gallops LUNGS: Clear to auscultation bilaterally. No wheezes. No rhonchi ABDOMEN: Soft, nontender, mildly-distended. Positive bowel sounds. Normal active bowel sounds NEUROLOGICAL: Alert and oriented times three. Cranial nerves II through XII grossly intact. Sensation diminished left upper extremity throughout and left lower extremity +moderate neglect of the left arm>leg (improving) EXTREMITIES: 5\\5 strength upper extremities. 1/5 left bicep and tricep, 5\\5 strength right lower extremity. 3+/5 strength in left ankle DF, 2/5 knee extensors, 2/5 hip flexors SKIN: chest wall LOOP recorder incision healing well ASSESSMENT:67-year-old M with past medical history of HTN, HLD, DM who presents status post right MCA stroke PLAN: 1. Rehab: PT/OT, OPERATIONS EXECUTIVE, assess for DME, upgraded to thin liquids, modified barium swallow 04/18/18- c/u level 2 with thins and supervision at all times with meals -able to ambulate 6 feet with platform walker and assistance progressing left leg 2. Neuro: s/p right MCA territory stroke with neglect and dysphagia was on ASA and Plavix however now found to have Afib will d/c all antiplatelet and start Eliquis -monitor BPs, avoid hypoperfusion given severe right ICA stenosis, continue statin therapy -Loop recorder placed -was getting E-stim to LUE and confirmed with [employer] not a contraindication- alerted special education curriculum specialist Dr. Patino's STARTING GATE DRIVER to this on 04/16/18 after mentioned she had been called by special education curriculum specialist for tracing on 04/15 which at the time did not appear to be Afib, however was called back by cardiology office on 04/18/18 and told he did in fact have Afib on 04/15/18 and to start Eliquis -will hold e-stim at this time as not making significant functional gains -continue Prozac for motor recovery 3. Cardio: Pmh HTN, continue increased Metoprolol and hold lisinopril, Loop recorder in place for cryptogenic Afib- Family medicine consulted -patient noted to Afib on 04/15/[address] Patino's recs start Eliquis 5mg BID and hold antiplatelet therapy -will schedule o/p f/u with [facility] neurosurgeon Dr. Sales to discuss right ICA stenosis management 4. Resp: pmh smoker-encourage incentive spirometry, continue Duonebs, Flonase, Guaifenesin and nasal saline for congestion-stable -s/p antifungal mouth rinse for thrush-improved -CXR 04/22/18, There is blunting of the left costophrenic angle due to pleural thickening or a small pleural effusion unchanged compared to the previous study...Cardiomegaly." -not concerned at this time for aspiration on thins, no leukocytosis, will continue monitor 5. GI ppx: Protonix- d/c bowel meds, C diff negative 6. Endo: pmh DM holding metformin- continue insulin coverage and home glipizide 7. renal:: pre-renal azotemia, encourage po liquid intake-improving 8. DVT ppx: lovenox 10. Dispo: 05/02/18 to [facility] Allergies Coded Allergies: No Known Drug Allergy (Verified Allergy, Unknown, 04/01/18) Vital Signs Vital Signs Date Time Temp Pulse Resp B/P (MAP) Pulse Ox O2 Delivery O2 Flow Rate FiO2 04/28/18 14:00 97.6 79 18 118/60 (79) 94 Laboratory Data CBC/BMP Laboratory Tests 04/28/18 10:22 Red Blood Count 4.61, Mean Corpuscular Volume 90.9, Mean Corpuscular Hemoglobin 31.0, Mean Corpuscular Hemoglobin Concent 34.1, Red Cell Distribution Width 12.6, Neutrophils (%) (Auto) 74.3 H, Lymphocytes (%) (Auto) 17.2 L, Monocytes (%) (Auto) 7.1 H, Eosinophils (%) (Auto) 0.8, Basophils (%) (Auto) 0.2, Neutrophils # (Auto) 6.1, Lymphocytes # (Auto) 1.4 L, Monocytes # (Auto) 0.6, Eosinophils # (Auto) 0.1, Basophils # (Auto) 0.0, Calcium Level 9.2 Labs 24H Laboratory Tests 2 04/27/18 17:01: Bedside Glucose (Misc Panel) 108 04/27/18 20:23: Bedside Glucose (Misc Panel) 71L 04/27/18 23:29: Bedside Glucose (Misc Panel) 60L 04/28/18 00:27: Bedside Glucose (Misc Panel) 67L 04/28/18 01:08: Bedside Glucose (Misc Panel) 86 04/28/18 06:33: Bedside Glucose (Misc Panel) 163H 04/28/18 10:22: Immature Granulocyte % (Auto) 0.4, White Blood Count 8.3, Red Blood Count 4.61, Hemoglobin 14.3, Hematocrit 41.9L, Mean Corpuscular Volume 90.9, Mean Corpuscular Hemoglobin 31.0, Mean Corpuscular Hemoglobin Concent 34.1, Red Cell Distribution Width 12.6, Platelet Count 317, Neutrophils (%) (Auto) 74.3H, Lymphocytes (%) (Auto) 17.2L, Monocytes (%) (Auto) 7.1H, Eosinophils (%) (Auto) 0.8, Basophils (%) (Auto) 0.2, Neutrophils # (Auto) 6.1, Lymphocytes # (Auto) 1.4L, Monocytes # (Auto) 0.6, Eosinophils # (Auto) 0.1, Basophils # (Auto) 0.0, Nucleated Red Blood Cells % (auto) 0.0, Anion Gap 6L, Glomerular Filtration Rate > 60.0, Blood Urea Nitrogen 38H, Creatinine 1.13, Sodium Level 132L, Potassium Level 4.4, Chloride Level 99, Carbon Dioxide Level 27, Calcium Level 9.2 04/28/18 11:53: Bedside Glucose (Misc Panel) 234H Microbiology Microbiology 04/23/18 Stool Occult Blood (JOSEPH) - Final, Complete 04/25/18 Respiratory Virus Panel (PCR) (JOSEPH) - Final, Complete Current Medications Current Medications Current Medications Acetaminophen (Tylenol Tab) 650 mg Q4HP PRN PO fever/MILD PAIN (PS 1-4) Last administered on 04/27/18 23:10; Start 04/08/18 at 17:00 Al Hydrox/Mg Hydrox/Simethicone (Mylanta) 30 ml Q4HP PRN PO DYSPEPSIA Last administered on 04/27/18 23:18; Start 04/08/18 at 17:00 Albuterol/ Ipratropium (Duoneb (Ipr 0.5mg/Alb 2.5mg)) 3 ml RBID NEB Last administered on 04/16/18 07:59; Start 04/09/18 at 08:00; Stop 04/18/18 at 14:25; Status DC Apixaban (Eliquis) 5 mg BID PO Last administered on 04/28/18 09:54; Start 04/19/18 at 09:00 Artificial Tears ([place] Tears) 2 drop TID OU Last administered on 04/28/18 09:56; Start 04/11/18 at 09:00 Aspirin (Aspirin Chewable) 81 mg DAILY PEG Last administered on 04/18/18 08:06; Start 04/09/18 at 09:00; Stop 04/18/18 at 16:30; Status DC Atorvastatin Calcium (Lipitor) 40 mg DAILY PO Last administered on 04/28/18 09:46; Start 04/09/18 at 09:00 Bisacodyl (Dulcolax Suppository) 10 mg DAILYPRN PRN SC CONSTIPATION Last administered on 04/15/18 05:31; Start 04/08/18 at 17:00 Clopidogrel Bisulfate (PLAVix) 75 mg DAILY PO Last administered on 04/18/18 08:05; Start 04/09/18 at 09:00; Stop 04/18/18 at 16:30; Status DC Dextrose (Dextrose 50%) 25 ml ASDIRECTED PRN IV SEE LABEL COMMENTS; Start 04/08/18 at 17:00 Docusate Sodium (Colace) 100 mg BID PO Last administered on 04/22/18at 21:44; Start 04/08/18 at 21:00; Stop 04/23/18 at 13:39; Status DC Enoxaparin Sodium (Lovenox) 40 mg DAILY SC Last administered on 04/18/18at 08:07; Start 04/09/18 at 09:00; Stop 04/18/18 at 16:32; Status DC Fluoxetine HCl (PROzac) 20 mg DAILY PO Last administered on 04/28/18at 09:54; Start 04/09/18 at 09:00 Fluticasone Propionate (Flonase 0.05% Nasal [place]) 1 spray BID NARES Last administered on 04/28/18at 09:55; Start 04/09/18 at 09:00 Glipizide (Glucotrol) 10 mg BID@0730,1730 PO Last administered on 04/28/18at 09:54; Start 04/08/18 at 17:30 Glucagon (Glucagon) 1 mg ASDIRECTED PRN SC SEE LABEL COMMENTS; Start 04/08/18 at 17:00 Glucose (Glucose) 16 GM ASDIRECTED PRN PO SEE LABEL COMMENTS; Start 04/08/18 at 17:00 Guaifenesin (Robitussin Tab) 400 mg BID PO Last administered on 04/28/18at 09:46; Start 04/09/18 at 09:00 Home Med (Med Rec Complete!) ASDIRECTED XX ; Start 04/08/18 at 18:00; Stop 04/08/18 at 18:00; Status DC Insulin Detemir (Levemir Insulin) 5 units QHS SC Last administered on 04/16/18at 20:20; Start 04/09/18 at 21:00; Stop 04/17/18 at 12:53; Status DC Insulin Detemir (Levemir Insulin) 5 units QHS SC ; Start 04/11/18 at 21:00; Stop 04/11/18 at 21:00; Status DC Insulin Detemir (Levemir Insulin) 10 units QHS SC Last administered on 04/20/18at 21:25; Start 04/17/18 at 21:00; Stop 04/21/18 at 13:50; Status DC Insulin Detemir (Levemir Insulin) 14 units QHS SC Last administered on 04/24/18at 22:08; Start 04/21/18 at 21:00 Insulin Human Lispro (HumaLOG INSULIN) SEE PROTOCOL TABLE AC SC Last administered on 04/28/18at 12:57; Start 04/08/18 at 17:30 Insulin Human Lispro (HumaLOG INSULIN) SEE PROTOCOL TABLE AC SC ; Start 04/11/18 at 12:00; Stop 04/14/18 at 20:08; Status DC Lidocaine (Lidoderm Patch) 1 patch DAILY TD Last administered on 04/28/18at 09:55; Start 04/25/18 at 09:00 Lidocaine/ Diphenhydr/Alum/ Mg/Simeth (Magic Mouthwash) 5ml AC SSP Last administered on 04/22/18at 16:33; Start 04/16/18 at 12:00; Stop 04/22/18 at 21:27; Status DC Lisinopril (Prinivil) 5 mg DAILY PO Last administered on 04/09/18at 08:39; St art 04/09/18 at 09:00; Stop 04/09/18 at 09:13; Status DC Lisinopril (Prinivil) 10 mg DAILY PO Last administered on 04/11/18at 08:18; Start 04/10/18 at 09:00; Stop 04/11/18 at 10:26; Status DC Lisinopril (Prinivil) 10 mg DAILY PO Last administered on 04/28/18at 09:54; Start 04/17/18 at 09:00 Magnesium Hydroxide (Milk Of Magnesia) 30 ml DAILYPRN PRN PO CONSTIPATION Last administered on 04/10/18at 23:14; Start 04/08/18 at 17:00 Magnesium Oxide (Mag-Ox) 400 mg BID PO Last administered on 04/28/18at 09:54; Start 04/25/18 at 21:00 Metformin HCl (Glucophage) 1,000 mg BID@08,18 PO Last administered on 04/11/18at 08:18; Start 04/08/18 at 18:00; Stop 04/11/18 at 10:26; Status DC Metformin HCl (Glucophage) 1,000 mg BID@0800,1800 PO Last administered on 04/28/18 09:55; Start 04/21/18 at 18:00 Metoprolol Succinate (TopROL XL) 75 mg DAILY PO Last administered on 04/11/18 08:17; Start 04/09/18 at 09:00; Stop 04/11/18 at 10:26; Status DC Metoprolol Succinate (TopROL XL) 75 mg DAILY PO Last administered on 04/28/18 09:53; Start 04/19/18 at 09:00 Metoprolol Succinate (TopROL XL) 100 mg DAILY PO Last administered on 04/18/18 08:06; Start 04/12/18 at 09:00; Stop 04/18/18 at 16:30; Status DC Miscellaneous (Unresolved Clarification Entry) SEE LABEL COMMENTS DAILY XX ; Start 04/25/18 at 09:00; Stop 04/25/18 at 14:50; Status DC Non-Formulary Medication ( See Comment Field Below ) REMOVE LIDODERM PATCH DAILY@21 XX Last administered on 04/27/18 21:00; Start 04/25/18 at 21:00 Pantoprazole Sodium (Protonix) 40 mg DAILY PO Last administered on 04/28/18 09:55; Start 04/09/18 at 09:00 Senna (Senokot) 1 tab QHS PO Last administered on 04/22/18 21:44; Start 04/08/18 at 21:00; Stop 04/23/18 at 13:39; Status DC Sodium Chloride ([place] Nasal [place]) 2 spray TID NA Last administered on 04/28/18 09:56; Start 04/09/18 at 09:00 ALEXA PAUL MD Apr 28, 2018 14:28
[2018-04-28 20:00] VITALS: BP 139/62
[2018-04-28] MEDS: **NOTE PATIENT COMMENT** MISC XX SCH (20:53)
[2018-04-28] MEDS ORDERED: LEVEMIR (INSULIN DETEMIR) 1 UNITS/0.01ML SC SCH (21:00)
[2018-04-29 06:00] VITALS: BP 141/65
[2018-04-29] MEDS: HumaLOG INSULIN (NovoLOG) PER UNIT SC SCH ×3 (07:30→17:30)
[2018-04-29] MEDS: LIDOCAINE 5% (LIDODERM) PATCH TD SCH (08:26)
[2018-04-29] MEDS: guaiFENesin 200 MG TAB PO SCH ×2 (08:27→21:28)
[2018-04-29] MEDS: METOPROLOL SUCC *XL* 25MG TAB (TopROL *XL*) PO SCH (08:28)
[2018-04-29] MEDS: ATORVASTATIN 20 MG TAB PO SCH (08:28)
[2018-04-29] MEDS: LISINOPRIL 10 MG TAB PO SCH (08:28)
[2018-04-29] MEDS: metFORMIN (GLUCOPHAGE) 1000 MG TABLET PO SCH (08:29)
[2018-04-29] MEDS: glipiZIDE (GLUCOTROL) 5 MG TAB PO SCH (08:29)
[2018-04-29] MEDS: PANTOPRAZOLE 40MG TAB (PROTONIX) PO SCH (08:29)
[2018-04-29] MEDS: APIXABAN 5 MG TAB (ELIQUIS) PO SCH ×2 (08:29→21:28)
[2018-04-29] MEDS: FLUoxetine 20 MG CAP PO SCH (08:29)
[2018-04-29] MEDS: MAGNESIUM OXIDE 400 MG TAB (MAG-OX) PO SCH ×2 (08:29→21:28)
[2018-04-29] MEDS: SODIUM CHLORIDE NASAL 0.65% SPRAY BTL (OCEAN) SCH ×3 (08:30→21:29)
[2018-04-29] MEDS: FLUTICASONE PROP 0.05% NASAL SPRAY 16 GM (FLONASE) NARES SCH ×2 (08:31→21:29)
[2018-04-29] MEDS: POLYVINYL ALCOHOL OPHTH SOLN 15 ML(LIQUITEARS) OU SCH ×3 (08:31→21:29)
[2018-04-29 14:00] VITALS: BP 159/72
[2018-04-29 20:00] VITALS: BP 142/67
[2018-04-29] MEDS: LEVEMIR (INSULIN DETEMIR) 1 UNITS/0.01ML SC SCH (21:29)
[2018-04-29] MEDS: **NOTE PATIENT COMMENT** MISC XX SCH (21:30)
[2018-04-30 06:00] VITALS: BP 170/78
[2018-04-30] MEDS: guaiFENesin 200 MG TAB PO SCH ×2 (09:02→22:08)
[2018-04-30] MEDS: HumaLOG INSULIN (NovoLOG) PER UNIT SC SCH ×3 (09:02→17:19)
[2018-04-30] MEDS: METOPROLOL SUCC *XL* 25MG TAB (TopROL *XL*) PO SCH (09:03)
[2018-04-30] MEDS: MAGNESIUM OXIDE 400 MG TAB (MAG-OX) PO SCH ×2 (09:03→22:08)
[2018-04-30] MEDS: LISINOPRIL 10 MG TAB PO SCH (09:03)
[2018-04-30] MEDS: ATORVASTATIN 20 MG TAB PO SCH (09:03)
[2018-04-30] MEDS: PANTOPRAZOLE 40MG TAB (PROTONIX) PO SCH (09:04)
[2018-04-30] MEDS: FLUoxetine 20 MG CAP PO SCH (09:04)
[2018-04-30] MEDS: SODIUM CHLORIDE NASAL 0.65% SPRAY BTL (OCEAN) SCH ×3 (09:04→22:09)
[2018-04-30] MEDS: LIDOCAINE 5% (LIDODERM) PATCH TD SCH (09:04)
[2018-04-30] MEDS: APIXABAN 5 MG TAB (ELIQUIS) PO SCH ×2 (09:04→22:08)
[2018-04-30] MEDS: POLYVINYL ALCOHOL OPHTH SOLN 15 ML(LIQUITEARS) OU SCH ×3 (09:04→22:09)
[2018-04-30] MEDS: FLUTICASONE PROP 0.05% NASAL SPRAY 16 GM (FLONASE) NARES SCH ×2 (09:04→22:09)
[2018-04-30 12:03] LABS: BASO % 0.1 % (0.0-1.0); EOS # 0.1 10^3/uL (0.0-0.50); EOS % 0.7 % (0.0-3.0); HEMATOCRIT 42.7 % (42.0-52.0); HEMOGLOBIN 14.6 g/dl (13.5-17.5); LYMPH # 1.4 10^3/uL (1.5-4.5); LYMPH % 17.5 % (24.0-44.0); MEAN CORPUSCULAR HGB CONC 34.2 g/dl (32.0-36.5); MEAN CORPUSCULAR VOLUME 90.7 fl (80.0-96.0); MONO # 0.7 10^3/uL (0.0-0.8); MONO % 8.3 % (0.0-5.0); NEUTROPHILS # 5.9 10^3/uL (1.8-7.7); NEUTROPHILS % 73.2 % (36.0-66.0); PLATELET COUNT, AUTOMATED 317 10^3/uL (150-450); RED BLOOD COUNT 4.71 10^6/uL (4.30-6.10); WHITE BLOOD COUNT 8.1 10^3/uL (4.0-10.0)
[2018-04-30 12:39] LABS: BLOOD UREA NITROGEN 30 MG/DL (7-18); CALCIUM LEVEL 9.6 MG/DL (8.8-10.2); CARBON DIOXIDE LEVEL 28 MEQ/L (21-32); CHLORIDE LEVEL 99 MEQ/L (98-107); CREATININE FOR GFR 1.05 MG/DL (0.70-1.30); GLOMERULAR FILTRATION RATE > 60.0 (>49); GLUCOSE, FASTING 212 MG/DL (70-100); POTASSIUM SERUM 4.5 MEQ/L (3.5-5.1); SODIUM LEVEL 134 MEQ/L (136-145)
[2018-04-30 14:00] VITALS: BP 111/56
[2018-04-30] MEDS: ACETAMINOPHEN TAB 650MG DOSE (2X325MG) PO PRN (14:55)
[2018-04-30 20:00] VITALS: BP 108/60
[2018-04-30] MEDS: **NOTE PATIENT COMMENT** MISC XX SCH (21:00)
[2018-04-30] MEDS: LEVEMIR (INSULIN DETEMIR) 1 UNITS/0.01ML SC SCH (22:08)
[2018-05-01 06:00] VITALS: BP 140/70
[2018-05-01] MEDS: HumaLOG INSULIN (NovoLOG) PER UNIT SC SCH ×2 (08:15→12:33)
[2018-05-01 08:16] VITALS: BP 140/70
[2018-05-01] MEDS: LISINOPRIL 10 MG TAB PO SCH (08:16)
[2018-05-01] MEDS: PANTOPRAZOLE 40MG TAB (PROTONIX) PO SCH (08:16)
[2018-05-01] MEDS: guaiFENesin 200 MG TAB PO SCH (08:16)
[2018-05-01] MEDS: APIXABAN 5 MG TAB (ELIQUIS) PO SCH (08:16)
[2018-05-01] MEDS: FLUoxetine 20 MG CAP PO SCH (08:17)
[2018-05-01] MEDS: ATORVASTATIN 20 MG TAB PO SCH (08:17)
[2018-05-01] MEDS: MAGNESIUM OXIDE 400 MG TAB (MAG-OX) PO SCH (08:17)
[2018-05-01] MEDS: SODIUM CHLORIDE NASAL 0.65% SPRAY BTL (OCEAN) SCH (08:17)
[2018-05-01] MEDS: FLUTICASONE PROP 0.05% NASAL SPRAY 16 GM (FLONASE) NARES SCH (08:17)
[2018-05-01] MEDS: METOPROLOL SUCC *XL* 25MG TAB (TopROL *XL*) PO SCH (08:17)
[2018-05-01] MEDS: LIDOCAINE 5% (LIDODERM) PATCH TD SCH (08:18)
[2018-05-01] MEDS: POLYVINYL ALCOHOL OPHTH SOLN 15 ML(LIQUITEARS) OU SCH (08:23)
--- NOTE | 2018-05-01 11:33 | IPNPDOC ---
PM&R Progress Note DATE OF SERVICE: Apr 30, 2018 Customer Experience Analyst Progress Note Subjective: Patient seen in his room, states he is biting his lip more and open to trying to eat more soup. REVIEW OF SYSTEMS: The following is a completed review of systems and has been reviewed. Review of systems otherwise unremarkable. PAIN: Patient self reports no pain EYES: denies recent vision loss EARS, NOSE, & THROAT: +dysphagia, +sinus congestion (improving) CARDIOVASCULAR: denies chest pain or palpitations PULMONARY: Negative. Denies shortness of breath, cough improving GASTROINTESTINAL: Negative for diarrhea or constipation GENITOURINARY: +incontinence (improving) NEUROLOGICAL: left hemiparesis and neglect SKIN: chest wall loop recorder incision PSYCHIATRIC: Unremarkable All other review of systems found to be negative. PHYSICAL EXAMINATION: VITAL SIGNS: Please see below. GENERAL: Pleasant and cooperative. No acute distress. HEENT: PERRL. Extraocular movements intact. Clear conjunctiva, left eye-brow sparing facial droop, visual mondragon intact, +glasses CARDIOVASCULAR: Regular rate and rhythm. No murmurs, rubs, or gallops LUNGS: Clear to auscultation bilaterally. No wheezes. No rhonchi ABDOMEN: Soft, nontender, mildly-distended. Positive bowel sounds. Normal active bowel sounds NEUROLOGICAL: Alert and oriented times three. Cranial nerves II through XII grossly intact. Sensation diminished left upper extremity throughout and left lower extremity +moderate neglect of the left arm>leg (improving) EXTREMITIES: 5\\5 strength upper extremities. 1/5 left bicep and tricep, 5\\5 strength right lower extremity. 3+/5 strength in left ankle DF, 2/5 knee extensors, 2/5 hip flexors SKIN: chest wall LOOP recorder incision healing well ASSESSMENT:67-year-old M with past medical history of HTN, HLD, DM who presents status post right MCA stroke PLAN: 1. Rehab: PT/OT, [place], assess for DME, upgraded to thin liquids, modified barium swallow 04/18/18- c/u level 2 with thins and supervision at all times with meals -able to ambulate further with platform walker and assistance progressing left leg 2. Neuro: s/p right MCA territory stroke with neglect and dysphagia was on ASA and Plavix however now found to have Afib will d/c all antiplatelet and start Eliquis -monitor BPs, avoid hypoperfusion given severe right ICA stenosis, continue sta tin therapy -Loop recorder placed -was getting E-stim to LUE and confirmed with [employer] not a contraindication- alerted software development intern Dr. Patino's INSPECTOR INSULATION to this on 04/16/18 after mentioned she had been called by software development intern for tracing on 04/15 which at the time did not appear to be Afib, however was called back by cardiology office on 04/18/18 and told he did in fact have Afib on 04/15/18 and to start Eliquis -will hold e-stim at this time as not making significant functional gains -continue Prozac for motor recovery 3. Cardio: Pmh HTN, continue increased Metoprolol and hold lisinopril, Loop recorder in place for cryptogenic Afib- Family medicine consulted -patient noted to Afib on 04/15/[address] Patino's recs start Eliquis 5mg BID and hold antiplatelet therapy -will schedule o/p f/u with [facility] neurosurgeon Dr. Sales to discuss right ICA stenosis management 4. Resp: pmh smoker-encourage incentive spirometry, continue Duonebs, Flonase, Guaifenesin and nasal saline for congestion-stable -s/p antifungal mouth rinse for thrush-improved -CXR 04/22/18, There is blunting of the left costophrenic angle due to pleural thickening or a small pleural effusion unchanged compared to the previous study...Cardiomegaly." -not concerned at this time for aspiration on thins, no leukocytosis, will continue monitor 5. GI ppx: Protonix- d/c bowel meds, C diff negative 6. Endo: pmh DM holding metformin- continue insulin coverage and d/c glipizide for drops in blood sugar 7. renal:: pre-renal azotemia, encourage po liquid intake-improving 8. DVT ppx: lovenox 10. Dispo: 05/02/18 to [facility] Allergies Coded Allergies: No Known Drug Allergy (Verified Allergy, Unknown, 04/01/18) Vital Signs Vital Signs Date Time Temp Pulse Resp B/P (MAP) Pulse Ox O2 Delivery O2 Flow Rate FiO2 05/01/18 08:16 140/70 05/01/18 06:00 98.0 64 20 96 Laboratory Data CBC/BMP Laboratory Tests 04/30/18 11:47 Red Blood Count 4.71, Mean Corpuscular Volume 90.7, Mean Corpuscular Hemoglobin 31.0, Mean Corpuscular Hemoglobin Concent 34.2, Red Cell Distribution Width 12.3, Neutrophils (%) (Auto) 73.2 H, Lymphocytes (%) (Auto) 17.5 L, Monocytes (%) (Auto) 8.3 H, Eosinophils (%) (Auto) 0.7, Basophils (%) (Auto) 0.1, Neutrophils # (Auto) 5.9, Lymphocytes # (Auto) 1.4 L, Monocytes # (Auto) 0.7, Eosinophils # (Auto) 0.1, Basophils # (Auto) 0.0, Calcium Level 9.6 Labs 24H Laboratory Tests 2 04/30/18 11:47: Immature Granulocyte % (Auto) 0.2, White Blood Count 8.1, Red Blood Count 4.71, Hemoglobin 14.6, Hematocrit 42.7, Mean Corpuscular Volume 90.7, Mean Corpuscular Hemoglobin 31.0, Mean Corpuscular Hemoglobin Concent 34.2, Red Cell Distribution Width 12.3, Platelet Count 317, Neutrophils (%) (Auto) 73.2H, Lymphocytes (%) (Auto) 17.5L, Monocytes (%) (Auto) 8.3H, Eosinophils (%) (Auto) 0.7, Basophils (%) (Auto) 0.1, Neutrophils # (Auto) 5.9, Lymphocytes # (Auto) 1.4L, Monocytes # (Auto) 0.7, Eosinophils # (Auto) 0.1, Basophils # (Auto) 0.0, Nucleated Red Blood Cells % (auto) 0.0, Anion Gap 7L, Glomerular Filtration Rate > 60.0, Blood Urea Nitrogen 30H, Creatinine 1.05, Sodium Level 134L, Potassium Level 4.5, Chloride Level 99, Carbon Dioxide Level 28, Calcium Level 9.6 04/30/18 11:49: Bedside Glucose (Misc Panel) 204H 04/30/18 16:39: Bedside Glucose (Misc Panel) 206H 04/30/18 20:13: Bedside Glucose (Misc Panel) 200H 05/01/18 06:09: Bedside Glucose (Misc Panel) 188H Microbiology Microbiology 04/23/18 Stool Occult Blood (JOSPEH) - Final, Complete 04/25/18 Respiratory Virus Panel (PCR) (JOSEPH) - Final, Complete Current Medications Current Medications Current Medications Acetaminophen (Tylenol Tab) 650 mg Q4HP PRN PO fever/MILD PAIN (PS 1-4) Last administered on 04/30/18at 14:55; Start 04/08/18 at 17:00 Al Hydrox/Mg Hydrox/Simethicone (Mylanta) 30 ml Q4HP PRN PO DYSPEPSIA Last administered on 04/27/18at 23:18; Start 04/08/18 at 17:00 Albuterol/ Ipratropium (Duoneb (Ipr 0.5mg/Alb 2.5mg)) 3 ml RBID NEB Last administered on 04/16/18at 07:59; Start 04/09/18 at 08:00; Stop 04/18/18 at 14:25; Status DC Apixaban (Eliquis) 5 mg BID PO Last administered on 05/01/18at 08:16; Start 04/19/18 at 09:00 Artificial Tears (Akwa Tears) 2 drop TID OU Last administered on 05/01/18 08:23; Start 04/11/18 at 09:00 Aspirin (Aspirin Chewable) 81 mg DAILY PEG Last administered on 04/18/18at 08:06; Start 04/09/18 at 09:00; Stop 04/18/18 at 16:30; Status DC Atorvastatin Calcium (Lipitor) 40 mg DAILY PO Last administered on 05/01/18at 08:17; Start 04/09/18 at 09:00 Bisacodyl (Dulcolax Suppository) 10 mg DAILYPRN PRN DC CONSTIPATION Last administered on 04/15/18at 05:31; Start 04/08/18 at 17:00 Clopidogrel Bisulfate (PLAVix) 75 mg DAILY PO Last administered on 04/18/18at 08:05; Start 04/09/18 at 09:00; Stop 04/18/18 at 16:30; Status DC Dextrose (Dextrose 50%) 25 ml ASDIRECTED PRN IV SEE LABEL COMMENTS; Start 04/08/18 at 17:00 Docusate Sodium (Colace) 100 mg BID PO Last administered on 04/22/18at 21:44; Start 04/08/18 at 21:00; Stop 04/23/18 at 13:39; Status DC Enoxaparin Sodium (Lovenox) 40 mg DAILY SC Last administered on 04/18/18at 08:07; Start 04/09/18 at 09:00; Stop 04/18/18 at 16:32; Status DC Fluoxetine HCl (PROzac) 20 mg DAILY PO Last administered on 05/01/18at 08:17; Start 04/09/18 at 09:00 Fluticasone Propionate (Flonase 0.05% Nasal [place]) 1 spray BID NARES Last administered on 05/01/18at 08:17; Start 04/09/18 at 09:00 Glipizide (Glucotrol) 10 mg BID@0730,1730 PO Last administered on 04/29/18at 08:29; Start 04/08/18 at 17:30; Stop 04/29/18 at 18:18; Status DC Glucagon (Glucagon) 1 mg ASDIRECTED PRN SC SEE LABEL COMMENTS; Start 04/08/18 at 17:00 Glucose (Glucose) 16 GM ASDIRECTED PRN PO SEE LABEL COMMENTS; Start 04/08/18 at 17:00 Guaifenesin (Robitussin Tab) 400 mg BID PO Last administered on 05/01/18at 08:16; Start 04/09/18 at 09:00 Home Med (Med Rec Complete!) ASDIRECTED XX ; Start 04/08/18 at 18:00; Stop 03/15 07/30 at 18:00; Status DC Insulin Detemir (Levemir Insulin) 5 units QHS SC Last administered on 04/16/18at 20:20; Start 04/09/18 at 21:00; Stop 04/17/18 at 12:53; Status DC Insulin Detemir (Levemir Insulin) 5 units QHS SC ; Start 04/11/18 at 21:00; Stop 04/11/18 at 21:00; Status DC Insulin Detemir (Levemir Insulin) 5 units QHS SC Last administered on 04/30/18at 22:08; Start 04/29/18 at 21:00 Insulin Detemir (Levemir Insulin) 10 units QHS SC Last administered on 04/28/18at 20:51; Start 04/28/18 at 21:00; Stop 04/29/18 at 18:18; Status DC Insulin Detemir (Levemir Insulin) 10 units QHS SC Last administered on 04/20/18at 21:25; Start 04/17/18 at 21:00; Stop 04/21/18 at 13:50; Status DC Insulin Detemir (Levemir Insulin) 14 units QHS SC Last administered on 04/24/18at 22:08; Start 04/21/18 at 21:00; Stop 04/28/18 at 14:25; Status DC Insulin Human Lispro (HumaLOG INSULIN) SEE PROTOCOL TABLE AC SC Last administered on 05/01/18at 08:15; Start 04/08/18 at 17:30 Insulin Human Lispro (HumaLOG INSULIN) SEE PROTOCOL TABLE AC SC ; Start 04/11/18 at 12:00; Stop 04/14/18 at 20:08; Status DC Lidocaine (Lidoderm Patch) 1 patch DAILY TD Last administered on 05/01/18at 08:18; Start 04/25/18 at 09:00 Lidocaine/ Diphenhydr/Alum/ Mg/Simeth (Magic Mouthwash) 5ml AC SSP Last administered on 04/22/18at 16:33; Start 04/16/18 at 12:00; Stop 04/22/18 at 21:27; Status DC Lisinopril (Prinivil) 5 mg DAILY PO Last administered on 04/09/18at 08:39; Start 04/09/18 at 09:00; Stop 04/09/18 at 09:13; Status DC Lisinopril (Prinivil) 10 mg DAILY PO Last administered on 04/11/18at 08:18; Start 04/10/18 at 09:00; Stop 04/11/18 at 10:26; Status DC Lisinopril (Prinivil) 10 mg DAILY PO Last administered on 05/01/18at 08:16; Start 04/17/18 at 09:00 Magnesium Hydroxide (Milk Of Magnesia) 30 ml DAILYPRN PRN PO CONSTIPATION Last administered on 04/10/18at 23:14; Start 04/08/18 at 17:00 Magnesium Oxide (Mag-Ox) 400 mg BID PO Last administered on 05/01/18at 08:17; Start 04/25/18 at 21:00 Metformin HCl (Glucophage) 1,000 mg BID@08,18 PO Last administered on 04/11/18 08:18; Start 04/08/18 at 18:00; Stop 04/11/18 at 10:26; Status DC Metformin HCl (Glucophage) 1,000 mg BID@0800,1800 PO Last administered on 04/29/18 08:29; Start 04/21/18 at 18:00; Stop 04/29/18 at 18:18; Status DC Metoprolol Succinate (TopROL XL) 75 mg DAILY PO Last administered on 04/11/18 08:17; Start 04/09/18 at 09:00; Stop 04/11/18 at 10:26; Status DC Metoprolol Succinate (TopROL XL) 75 mg DAILY PO Last administered on 05/01/18 08:17; Start 04/19/18 at 09:00 Metoprolol Succinate (TopROL XL) 100 mg DAILY PO Last administered on 04/18/18 08:06; Start 04/12/18 at 09:00; Stop 04/18/18 at 16:30; Status DC Miscellaneous (Unresolved Clarification Entry) SEE LABEL COMMENTS DAILY XX ; Start 04/25/18 at 09:00; Stop 04/25/18 at 14:50; Status DC Non-Formulary Medication ( See Comment Field Below ) REMOVE LIDODERM PATCH DAILY@21 XX Last administered on 04/30/18at 21:00; Start 04/25/18 at 21:00 Pantoprazole Sodium (Protonix) 40 mg DAILY PO Last administered on 05/01/18at 08:16; Start 04/09/18 at 09:00 Senna (Senokot) 1 tab QHS PO Last administered on 04/22/18at 21:44; Start 04/08/18 at 21:00; Stop 04/23/18 at 13:39; Status DC Sodium Chloride (Sage Nasal [place]) 2 spray TID NA Last administered on 05/01/18 08:17; Start 04/09/18 at 09:00 ALEXA PAUL MD May 01, 2018 11:33
[2018-05-01] MEDS ORDERED: FLUO20CA19 PO (12:20)
[2018-05-01] MEDS ORDERED: GUAI20TA PO (12:20)
[2018-05-01] MEDS ORDERED: FLUTISP NARES (12:20)
[2018-05-01] MEDS ORDERED: Acetaminophen Tab PO (12:20)
[2018-05-01] MEDS ORDERED: BISA10SU PR (12:20)
[2018-05-01] MEDS ORDERED: ELIQ5TAB PO (12:20)
[2018-05-01] MEDS ORDERED: OCEA0.654 (12:20)
[2018-05-01] MEDS ORDERED: METO1TAB32 PO (12:20)
[2018-05-01] MEDS ORDERED: INSUHUMDS SC (12:20)
[2018-05-01] MEDS ORDERED: MAG400TA PO (12:20)
[2018-05-01] MEDS ORDERED: MYLASSUD PO (12:20)
[2018-05-01] MEDS ORDERED: ATOR1TAB21 PO (12:20)
[2018-05-01] MEDS ORDERED: Artificial Tears Op Drops OU (12:20)
[2018-05-01] MEDS ORDERED: LISI10TA4 PO (12:20)
[2018-05-01] MEDS ORDERED: PANT40TA3 PO (12:20)
[2018-05-01] MEDS ORDERED: INSUDET SC (12:20)
--- NOTE | 2018-05-20 21:47 | PMRDS ---
DATE OF ADMISSION: 04/08/2018 DATE OF DISCHARGE: 05/01/2018 CHIEF COMPLAINT/DISCHARGE DIAGNOSIS: Stroke. HISTORY OF PRESENT ILLNESS: This is a 67-year-old male with a past medical history of diabetes, type 2 and hypertension who fell at home onto his left side, arrived to [facility] Emergency Department (ED) complaining of left arm and leg weakness on 04/01/2018. CT head was performed which did not show acute hemorrhage but MRI on 04/02/2018 did show "acute infarction in distribution of the right middle cerebral artery, a small hemorrhagic component is present, there is mass effect without midline shift." Dual-antiplatelet therapy was held. CT angiogram showed "atherosclerotic change in the right intracranial carotid artery, there is a moderate to high-grade stenosis in the distal intercavernous segment.... reduced caliber and decreased flow in the M1 and M2 branches of the right middle cerebral artery." On 04/02/2018, the patient's neurological status declined and repeat CT revealed "increased hypodensity in the right frontal and anterior mid parietal lobes extending to the vertex and with mass effect on the right lower ventricle in the region of previously demonstrated chronic infarction, the findings suggest extension of the previously demonstrated chronic infarct, edema with mass effect is producing 5 mm of right to left midline shift." He was originally transferred to [facility] where was monitored on the intensive care unit (ICU) and 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 He was seen by cardiology who placed a loop recorder on 04/08/2018 as concern for cardioembolic course of his right middle cerebral artery (MCA) territory stroke. He was placed on aspirin and Plavix and put on a dysphagia diet. He was noted to have significant gait and activities of daily living (ADLs) impairments and deemed medically appropriate for discharge to acute rehabilitation unit (ARU) on 04/08/2018. PAST MEDICAL HISTORY: As per history of present illness (HPI). HOSPITAL COURSE: The patient was admitted and enrolled in a comprehensive physical therapy (PT), occupational therapy (OT), speech and language pathology program. He received 24-hour nursing supervision and weekly team meetings were held to discuss his progress. The patient was upgraded to thin liquids and level 2 diet while in therapy. His left-sided neglect gradually improved. He was found to have episodes of atrial fibrillation recorded by his loop recorder and he was started on Eliquis. He was put on Prozac for motor recovery and his metoprolol was increased for his blood pressures and he continued off antiplatelet therapy. The patient initially had a cough with some congestion which responded well to Flonase, guaifenesin, and nasal saline. He had episodes of diarrhea for which Clostridium (C) difficile was negative and he was maintained on insulin coverage for his diabetes. The patient had periodic prerenal azotemia and was encouraged to increase his oral liquid intake and was stable. He was deemed functionally and medically stable to be discharged to subacute for further rehabilitation before returning home. DISCHARGE MEDICATIONS: Tylenol, Eliquis, atorvastatin, bisacodyl, fluoxetine, fluticasone, guaifenesin, insulin, lisinopril, magnesium oxide, metoprolol 75 daily, Protonix 40 daily, sodium chloride nasal spray. FUNCTIONAL HISTORY: Upon discharge, the patient was contact guard assist for [id number] and [id number], minimum assist for [id number] transfers, minimum assist for [id number] transfers, total assist for toileting. The patient was modified assist for bathing and upper body dressing and he was maximum assist for lower body dressing. He was able to do grooming at a standby assist level. Thank you for this referral.
== END 2018-05-01 14:30 | DRG 57 ==
LOC: M PM&R 17:15
PROVIDERS: ADMIT Physical Medicine & Rehabilitation; ATTEND Physical Medicine & Rehabilitation
DX: I69.351 Hemiplegia and hemiparesis following cerebral infarction affecting right dominant side (principal); E11.9 Type 2 diabetes mellitus without complications; I10 Essential (primary) hypertension; Z87.891 Personal history of nicotine dependence; Z79.4 Long term (current) use of insulin; Z79.82 Long term (current) use of aspirin; Z79.899 Other long term (current) drug therapy; I69.321 Dysphasia following cerebral infarction; I48.0 Paroxysmal atrial fibrillation; Z79.01 Long term (current) use of anticoagulants

== ENCOUNTER → 2018-05-12 | Outpatient (REF) ==
[~2018-05-12] MED LIST changes: +ACET1TAB55 PO; +ASPI1TAB PO; +ASPI325T PO; -ASPI81TA26 PO; +ATOR1TAB21 PO; +Acetaminophen Tab PO; +Artificial Tears Op Drops OU; +BISA10SU PR; +BISA10SU4 PR; +CLOP75TA2 PO; +DOCQ100C5 PO; +DOCU5LIQ PO; +ELIQ5TAB PO; +ENOX40IN3 SC; +FLUO20CA19 PO; +FLUO20SO PO; +FLUTISP NARES; +GLUC1KIT IM; +GUAI20TA PO; +INSUDET SC; +INSUHUMDS SC; +LISI10TA4 PO; +MAG400TA PO; -METO-743; +METO1TAB32 PO; +MILKSUS5 PO; +MYLASSUD PO; +OCEA0.654; +PANT40TA3 PO; +SENN18TA PO; +TOPR50TA
[2018-05-12 08:11] LABS: BASO % 0.3 % (0.0-1.0); EOS # 0.1 10^3/uL (0.0-0.50); EOS % 1.6 % (0.0-3.0); HEMATOCRIT 40.3 % (42.0-52.0); HEMOGLOBIN 13.7 g/dl (13.5-17.5); LYMPH # 1.2 10^3/uL (1.5-4.5); LYMPH % 18.5 % (24.0-44.0); MEAN CORPUSCULAR HEMOGLOBIN 30.6 pg (27.0-33.0); MEAN CORPUSCULAR VOLUME 90.2 fl (80.0-96.0); MONO # 0.5 10^3/uL (0.0-0.8); MONO % 7.9 % (0.0-5.0); NEUTROPHILS # 4.4 10^3/uL (1.8-7.7); NEUTROPHILS % 71.1 % (36.0-66.0); PLATELET COUNT, AUTOMATED 240 10^3/uL (150-450); RED BLOOD COUNT 4.47 10^6/uL (4.30-6.10); WHITE BLOOD COUNT 6.2 10^3/uL (4.0-10.0)
[2018-05-12 11:21] LABS: ALBUMIN 3.5 GM/DL (3.2-5.2); ALT/SGPT 47 U/L (12-78); BILIRUBIN,TOTAL 0.7 MG/DL (0.2-1.0); BLOOD UREA NITROGEN 34 MG/DL (7-18); CALCIUM LEVEL 9.1 MG/DL (8.8-10.2); CARBON DIOXIDE LEVEL 29 MEQ/L (21-32); CHLORIDE LEVEL 102 MEQ/L (98-107); CHOLESTEROL LEVEL 128 MG/DL (<200); CHOLESTEROL RISK RATIO 3.459 (<5); CREATININE FOR GFR 1.21 MG/DL (0.70-1.30); GLOMERULAR FILTRATION RATE > 60.0 (>49); GLUCOSE, FASTING 233 MG/DL (70-100); HDL CHOLESTEROL 37 MG/DL (>40); LDL CHOLESTEROL 67 MG/DL (<100); MAGNESIUM LEVEL 1.7 MG/DL (1.8-2.4); NON-HDL-C 91 MG/DL; POTASSIUM SERUM 4.5 MEQ/L (3.5-5.1); SODIUM LEVEL 138 MEQ/L (136-145); THYROID STIMULATING HORMONE 0.999 uIU/ML (0.358-3.740); TRIGLYCERIDES LEVEL 121 MG/DL (<150)
== END ==
LOC: SKLAB3 06:55
PROVIDERS: ATTEND Family Medicine
DX: I48.91 Unspecified atrial fibrillation (principal); I10 Essential (primary) hypertension; E11.9 Type 2 diabetes mellitus without complications; E83.42 Hypomagnesemia; I67.9 Cerebrovascular disease, unspecified

== ENCOUNTER → 2018-06-12 | Outpatient (REF) ==
[~2018-06-12] MED LIST changes: +ASPI-1 PO; -ASPI1TAB PO; -ASPI325T PO; +ASPI81TA26 PO; +METO-743; -TOPR50TA
[2018-06-12 15:13] LABS: HEMATOCRIT 42.5 % (42.0-52.0); HEMOGLOBIN 14.1 g/dl (13.5-17.5); MEAN CORPUSCULAR HEMOGLOBIN 30.6 pg (27.0-33.0); MEAN CORPUSCULAR HGB CONC 33.2 g/dl (32.0-36.5); MEAN CORPUSCULAR VOLUME 92.2 fl (80.0-96.0); PLATELET COUNT, AUTOMATED 353 10^3/uL (150-450); RED BLOOD COUNT 4.61 10^6/uL (4.30-6.10); WHITE BLOOD COUNT 8.6 10^3/uL (4.0-10.0)
[2018-06-12 15:47] LABS: ALBUMIN 3.8 GM/DL (3.2-5.2); BILIRUBIN,TOTAL 0.6 MG/DL (0.2-1.0); CALCIUM LEVEL 9.3 MG/DL (8.8-10.2); CREATININE FOR GFR 1.43 MG/DL (0.70-1.30); GLOMERULAR FILTRATION RATE 52.2 (>49); POTASSIUM SERUM 4.6 MEQ/L (3.5-5.1); THYROID STIMULATING HORMONE 1.12 uIU/ML (0.358-3.740)
== END ==
LOC: SKLAB3 14:26
PROVIDERS: ATTEND Family Medicine
DX: R63.4 Abnormal weight loss (principal); R63.0 Anorexia

== ENCOUNTER → 2018-06-30 | Outpatient (REF) ==
[2018-06-30 08:09] LABS: HEMATOCRIT 37.2 % (42.0-52.0); HEMOGLOBIN 12.4 g/dl (13.5-17.5); MEAN CORPUSCULAR HEMOGLOBIN 30.4 pg (27.0-33.0); MEAN CORPUSCULAR HGB CONC 33.3 g/dl (32.0-36.5); MEAN CORPUSCULAR VOLUME 91.2 fl (80.0-96.0); PLATELET COUNT, AUTOMATED 288 10^3/uL (150-450); RED BLOOD COUNT 4.08 10^6/uL (4.30-6.10); WHITE BLOOD COUNT 5.4 10^3/uL (4.0-10.0)
[2018-06-30 08:43] LABS: ALBUMIN 3.7 GM/DL (3.2-5.2); ALT/SGPT 35 U/L (12-78); BILIRUBIN,TOTAL 0.6 MG/DL (0.2-1.0); BLOOD UREA NITROGEN 33 MG/DL (7-18); CALCIUM LEVEL 9.1 MG/DL (8.8-10.2); CARBON DIOXIDE LEVEL 27 MEQ/L (21-32); CHLORIDE LEVEL 104 MEQ/L (98-107); CREATININE FOR GFR 1.11 MG/DL (0.70-1.30); GLOMERULAR FILTRATION RATE > 60.0 (>42); GLUCOSE, FASTING 166 MG/DL (70-100); MAGNESIUM LEVEL 1.3 MG/DL (1.8-2.4); POTASSIUM SERUM 4.2 MEQ/L (3.5-5.1); SODIUM LEVEL 139 MEQ/L (136-145); TOTAL PROTEIN 6.2 GM/DL (6.4-8.2)
== END ==
LOC: SKLAB3 07:00
PROVIDERS: ATTEND Family Medicine
DX: I10 Essential (primary) hypertension (principal); E11.9 Type 2 diabetes mellitus without complications

== ENCOUNTER → 2018-07-08 | Outpatient (REF) | LOC: SKLAB3 07:00 | PROVIDERS: ATTEND Family Medicine | DX: E83.41 Hypermagnesemia (principal) ==

== ENCOUNTER → 2018-07-28 | Outpatient (REF) | payer MEDICARE ==
[2018-07-28 08:17] LABS: HEMATOCRIT 39.9 % (42.0-52.0); HEMOGLOBIN 13.1 g/dl (13.5-17.5); MEAN CORPUSCULAR HGB CONC 32.8 g/dl (32.0-36.5); MEAN CORPUSCULAR VOLUME 94.3 fl (80.0-96.0); PLATELET COUNT, AUTOMATED 302 10^3/uL (150-450); RED BLOOD COUNT 4.23 10^6/uL (4.30-6.10); WHITE BLOOD COUNT 5.9 10^3/uL (4.0-10.0)
[2018-07-28 08:42] LABS: ALBUMIN 3.7 GM/DL (3.2-5.2); BILIRUBIN,TOTAL 0.5 MG/DL (0.2-1.0); CALCIUM LEVEL 9.1 MG/DL (8.8-10.2); CREATININE FOR GFR 1.31 MG/DL (0.70-1.30); GLOMERULAR FILTRATION RATE 57.6 (>42); MAGNESIUM LEVEL 1.5 MG/DL (1.8-2.4); POTASSIUM SERUM 4.3 MEQ/L (3.5-5.1); TOTAL PROTEIN 6.6 GM/DL (6.4-8.2)
== END ==
LOC: SKLAB3 07:00
PROVIDERS: ATTEND Family Medicine
DX: E11.9 Type 2 diabetes mellitus without complications (principal); I10 Essential (primary) hypertension

== ENCOUNTER → 2018-08-11 | Outpatient (REF) | payer MEDICARE | LOC: SKLAB3 08:44 | PROVIDERS: ATTEND Family Medicine | DX: E83.42 Hypomagnesemia (principal) ==

== ENCOUNTER → 2018-08-25 | Outpatient (REF) | payer MEDICARE ==
[2018-08-25 09:17] LABS: HEMATOCRIT 37.5 % (42.0-52.0); MEAN CORPUSCULAR HEMOGLOBIN 30.8 pg (27.0-33.0); MEAN CORPUSCULAR VOLUME 96.4 fl (80.0-96.0); PLATELET COUNT, AUTOMATED 300 10^3/uL (150-450); RED BLOOD COUNT 3.89 10^6/uL (4.30-6.10)
[2018-08-25 09:40] LABS: ALBUMIN 3.5 GM/DL (3.2-5.2); ALT/SGPT 26 U/L (12-78); BILIRUBIN,TOTAL 0.3 MG/DL (0.2-1.0); BLOOD UREA NITROGEN 27 MG/DL (7-18); CALCIUM LEVEL 9.3 MG/DL (8.8-10.2); CARBON DIOXIDE LEVEL 27 MEQ/L (21-32); CHLORIDE LEVEL 105 MEQ/L (98-107); CREATININE FOR GFR 1.14 MG/DL (0.70-1.30); GLOMERULAR FILTRATION RATE > 60.0 (>42); GLUCOSE, FASTING 144 MG/DL (70-100); MAGNESIUM LEVEL 1.5 MG/DL (1.8-2.4); POTASSIUM SERUM 4.4 MEQ/L (3.5-5.1); SODIUM LEVEL 140 MEQ/L (136-145); TOTAL PROTEIN 6.4 GM/DL (6.4-8.2)
== END ==
LOC: SKLAB3 12:48
PROVIDERS: ATTEND Family Medicine
DX: I63.9 Cerebral infarction, unspecified (principal)

== ENCOUNTER → 2018-09-01 | Outpatient (REF) | payer MEDICARE | LOC: SKLAB3 07:00 | PROVIDERS: ATTEND Family Medicine | DX: E83.42 Hypomagnesemia (principal) ==

== ENCOUNTER → 2018-10-27 | Outpatient (REF) | payer MEDICARE ==
[2018-10-27 10:28] LABS: HEMATOCRIT 38.3 % (42.0-52.0); HEMOGLOBIN 12.5 g/dl (13.5-17.5); MEAN CORPUSCULAR HGB CONC 32.6 g/dl (32.0-36.5); PLATELET COUNT, AUTOMATED 308 10^3/uL (150-450); RED BLOOD COUNT 3.91 10^6/uL (4.30-6.10); WHITE BLOOD COUNT 5.8 10^3/uL (4.0-10.0)
[2018-10-27 10:48] LABS: ALBUMIN 3.7 GM/DL (3.2-5.2); BILIRUBIN,TOTAL 0.4 MG/DL (0.2-1.0); CALCIUM LEVEL 10.1 MG/DL (8.8-10.2); CREATININE FOR GFR 1.55 MG/DL (0.70-1.30); GLOMERULAR FILTRATION RATE 47.4 (>42); MAGNESIUM LEVEL 1.6 MG/DL (1.8-2.4); POTASSIUM SERUM 4.5 MEQ/L (3.5-5.1); TOTAL PROTEIN 6.4 GM/DL (6.4-8.2)
== END ==
LOC: SKLAB3 07:00
PROVIDERS: ATTEND Family Medicine
DX: I10 Essential (primary) hypertension (principal); E11.9 Type 2 diabetes mellitus without complications

== ENCOUNTER → 2019-01-19 | Outpatient (REF) | payer MEDICARE ==
[2019-01-19 14:16] LABS: BASO % 0.3 % (0.0-1.0); EOS # 0.1 10^3/uL (0.0-0.5); EOS % 0.8 % (0.0-3.0); LYMPH # 1.7 10^3/uL (1.5-5.0); LYMPH % 26.1 % (24.0-44.0); MEAN CORPUSCULAR HEMOGLOBIN 30.5 pg (27.0-33.0); MEAN CORPUSCULAR HGB CONC 31.7 g/dl (32.0-36.5); MEAN CORPUSCULAR VOLUME 96.2 fl (80.0-96.0); MONO # 0.4 10^3/uL (0.0-0.8); MONO % 6.1 % (0.0-5.0); NEUTROPHILS # 4.4 10^3/uL (1.5-8.5); NEUTROPHILS % 66.5 % (36.0-66.0); PLATELET COUNT, AUTOMATED 357 10^3/uL (150-450); RED BLOOD COUNT 4.26 10^6/uL (4.30-6.10); WHITE BLOOD COUNT 6.6 10^3/uL (4.0-10.0)
[2019-01-19 14:35] LABS: HEMOGLOBIN A1c 5.9 %
[2019-01-19 15:01] LABS: ALBUMIN 3.3 GM/DL (3.2-5.2); BILIRUBIN,TOTAL 0.4 MG/DL (0.2-1.0); CALCIUM LEVEL 10.1 MG/DL (8.8-10.2); CHOLESTEROL RISK RATIO 3.869 (<5); CREATININE FOR GFR 3.83 MG/DL (0.70-1.30); GLOMERULAR FILTRATION RATE 16.7 (>42); POTASSIUM SERUM 5.9 MEQ/L (3.5-5.1); THYROID STIMULATING HORMONE 1.94 uIU/ML (0.358-3.740); TOTAL PROTEIN 6.3 GM/DL (6.4-8.2)
== END ==
LOC: SKLAB7 07:00
PROVIDERS: ATTEND Family Medicine
DX: R63.4 Abnormal weight loss (principal); F33.9 Major depressive disorder, recurrent, unspecified; Z79.899 Other long term (current) drug therapy

== ENCOUNTER → 2019-01-22 | Outpatient (REF) | payer MEDICARE ==
[2019-01-22 10:27] LABS: ALBUMIN 3.4 GM/DL (3.2-5.2); CREATININE FOR GFR 3.74 MG/DL (0.70-1.30); GLOMERULAR FILTRATION RATE 17.2 (>42); PHOSPHORUS LEVEL 3.1 MG/DL (2.5-4.9); POTASSIUM SERUM 5.4 MEQ/L (3.5-5.1)
== END ==
LOC: SKLAB3 07:00
PROVIDERS: ATTEND Family Medicine
DX: E87.5 Hyperkalemia (principal)

== ENCOUNTER → 2019-01-24 | Outpatient (REF) | payer MEDICARE ==
[2019-01-24 08:28] LABS: ALBUMIN 2.7 GM/DL (3.2-5.2); CREATININE FOR GFR 2.62 MG/DL (0.70-1.30); GLOMERULAR FILTRATION RATE 25.9 (>42); PHOSPHORUS LEVEL 2.8 MG/DL (2.5-4.9); POTASSIUM SERUM 4.6 MEQ/L (3.5-5.1)
== END ==
LOC: SKLAB3 07:00
PROVIDERS: ATTEND Family Medicine
DX: I10 Essential (primary) hypertension (principal)

== ENCOUNTER → 2019-01-26 | Outpatient (REF) | payer MEDICARE ==
[2019-01-26 09:41] LABS: CALCIUM LEVEL 9.4 MG/DL (8.8-10.2); CREATININE FOR GFR 2.23 MG/DL (0.70-1.30); GLOMERULAR FILTRATION RATE 31.2 (>42); MAGNESIUM LEVEL 2.2 MG/DL (1.8-2.4); PHOSPHORUS LEVEL 4.2 MG/DL (2.5-4.9); POTASSIUM SERUM 4.1 MEQ/L (3.5-5.1)
== END ==
LOC: SKLAB3 07:00
PROVIDERS: ATTEND Family Medicine
DX: I10 Essential (primary) hypertension (principal)

== ENCOUNTER → 2019-01-29 | Outpatient (REF) | payer MEDICARE ==
[2019-01-29 09:45] LABS: ALBUMIN 3.1 GM/DL (3.2-5.2); CALCIUM LEVEL 9.1 MG/DL (8.8-10.2); CREATININE FOR GFR 2.02 MG/DL (0.70-1.30); GLOMERULAR FILTRATION RATE 34.9 (>42); PHOSPHORUS LEVEL 5.2 MG/DL (2.5-4.9); POTASSIUM SERUM 3.9 MEQ/L (3.5-5.1)
== END ==
LOC: SKLAB3 07:00
PROVIDERS: ATTEND Family Medicine
DX: N18.9 Chronic kidney disease, unspecified (principal)

== ENCOUNTER → 2019-01-30 | Outpatient (CLI) | payer MEDICARE ==
--- NOTE | 2019-01-30 14:24 | REP ---
Urinary tract sonography: History: Renal insufficiency. Findings: Scanning at the level of the urinary bladder shows no abnormality. Renal cortical echogenicity pattern is normal. There is no evidence of hydronephrosis on either side. Right renal dimensions are 11.3 x 5.6 x 6.5 cm. The left kidney measures 11.5 x 4.9 x 4.7 cm. There is a cyst in the right kidney lower pole measuring 3.9 x 2.6 x 4.1 cm. There is an upper pole cyst measuring 3.1 x 2.3 x 2.1 cm on the right kidney as well. Impression: No evidence of obstructive uropathy. Two small cysts right kidney. Electronically Signed by Panchito Garrido MD 01/30/2019 03:16 P
== END ==
LOC: M RAD 11:51
PROVIDERS: ATTEND Family Medicine
DX: N28.1 Cyst of kidney, acquired (principal)

== ENCOUNTER → 2019-02-02 | Outpatient (REF) | payer MEDICARE ==
[2019-02-02 09:07] LABS: ALBUMIN 2.4 GM/DL (3.2-5.2); CALCIUM LEVEL 8.5 MG/DL (8.8-10.2); CREATININE FOR GFR 2.08 MG/DL (0.70-1.30); GLOMERULAR FILTRATION RATE 33.8 (>42); PHOSPHORUS LEVEL 3.6 MG/DL (2.5-4.9); POTASSIUM SERUM 4.3 MEQ/L (3.5-5.1)
== END ==
LOC: SKLAB3 09:15
PROVIDERS: ATTEND Family Medicine
DX: N18.9 Chronic kidney disease, unspecified (principal)

== ENCOUNTER → 2019-02-09 | Outpatient (REF) | payer MEDICARE ==
[2019-02-09 08:31] LABS: ALBUMIN 2.2 GM/DL (3.2-5.2); CALCIUM LEVEL 8.4 MG/DL (8.8-10.2); CREATININE FOR GFR 1.85 MG/DL (0.70-1.30); GLOMERULAR FILTRATION RATE 38.7 (>42); PHOSPHORUS LEVEL 4.2 MG/DL (2.5-4.9); POTASSIUM SERUM 4.9 MEQ/L (3.5-5.1)
== END ==
LOC: SKLAB3 08:51
PROVIDERS: ATTEND Family Medicine
DX: N19 Unspecified kidney failure (principal)

== ENCOUNTER → 2019-02-17 | Outpatient (REF) | payer MEDICARE ==
[2019-02-17 11:04] LABS: HEMATOCRIT 32.4 % (42.0-52.0); HEMOGLOBIN 10.1 g/dl (13.5-17.5); MEAN CORPUSCULAR HEMOGLOBIN 31.2 pg (27.0-33.0); MEAN CORPUSCULAR HGB CONC 31.2 g/dl (32.0-36.5); PLATELET COUNT, AUTOMATED 369 10^3/uL (150-450); RED BLOOD COUNT 3.24 10^6/uL (4.30-6.10); WHITE BLOOD COUNT 6.4 10^3/uL (4.0-10.0)
[2019-02-17 11:30] LABS: APPEARANCE, URINE CLEAR (CLEAR); BACTERIA, URINE AUTO 1+ (NEGATIVE); BILIRUBIN, URINE AUTO NEGATIVE (NEGATIVE); BLOOD, URINE BLOOD NEGATIVE (NEGATIVE); COLOR, URINE YELLOW (YELLOW); GLUCOSE, URINE (UA) AUTO 1+ mg/dL (NEGATIVE); KETONE, URINE AUTO NEGATIVE (NEGATIVE); LEUKOCYTE ESTERASE, URINE AUTO NEGATIVE (NEGATIVE); NITRITE, URINE AUTO NEGATIVE (NEGATIVE); PROTEIN, URINE AUTO NEGATIVE (NEGATIVE); RBC, URINE AUTO 2 /HPF (0-3); SPECIFIC GRAVITY URINE AUTO 1.011 (1.002-1.035); SQUAMOUS EPITHELIAL CELL UR AU 0 /HPF (0-6); UROBILINOGEN, URINE AUTO 0.2 mg/dL (0.0-2.0); WBC, URINE AUTO 0 /HPF (0-3)
[2019-02-17 11:31] LABS: ALBUMIN 2.5 GM/DL (3.2-5.2); CALCIUM LEVEL 8.7 MG/DL (8.8-10.2); CREATININE FOR GFR 1.88 MG/DL (0.70-1.30); MAGNESIUM LEVEL 1.7 MG/DL (1.8-2.4); PHOSPHORUS LEVEL 4.2 MG/DL (2.5-4.9); POTASSIUM SERUM 4.7 MEQ/L (3.5-5.1); URIC ACID 5.2 MG/DL (3.5-7.2)
[2019-02-17 11:42] LABS: PTH INTACT 68.1 PG/ML (18.5-88.0)
== END ==
LOC: SKLAB3 08:14
PROVIDERS: ATTEND Family Medicine
DX: N18.9 Chronic kidney disease, unspecified (principal)

== ENCOUNTER → 2019-04-27 | Outpatient (REF) | payer MEDICARE ==
[~2019-04-27] MED LIST changes: -FLUO20CA19 PO; +FLUO20CA22 PO
[2019-04-27 09:03] LABS: HEMATOCRIT 33.1 % (42.0-52.0); HEMOGLOBIN 11.3 g/dl (13.5-17.5); MEAN CORPUSCULAR HEMOGLOBIN 32.5 pg (27.0-33.0); MEAN CORPUSCULAR HGB CONC 34.1 g/dl (32.0-36.5); MEAN CORPUSCULAR VOLUME 95.1 fl (80.0-96.0); PLATELET COUNT, AUTOMATED 239 10^3/uL (150-450); RED BLOOD COUNT 3.48 10^6/uL (4.30-6.10); WHITE BLOOD COUNT 5.5 10^3/uL (4.0-10.0)
[2019-04-27 09:23] LABS: ALBUMIN 3.1 GM/DL (3.2-5.2); BILIRUBIN,TOTAL 0.3 MG/DL (0.2-1.0); CALCIUM LEVEL 9.2 MG/DL (8.8-10.2); CREATININE FOR GFR 1.67 MG/DL (0.70-1.30); GLOMERULAR FILTRATION RATE 43.5 (>42); POTASSIUM SERUM 4.6 MEQ/L (3.5-5.1)
[2019-04-27 09:24] LABS: HEMOGLOBIN A1c 8.5 %
== END ==
LOC: SKLAB3 09:04
PROVIDERS: ATTEND Family Medicine
DX: I63.9 Cerebral infarction, unspecified (principal); E11.9 Type 2 diabetes mellitus without complications; I10 Essential (primary) hypertension

== ENCOUNTER → 2019-04-28 | Outpatient (CLI) | payer MEDICARE ==
--- NOTE | 2019-04-28 11:30 | REP ---
CAROTID ULTRASOUND: Real-time sonographic ultrasound evaluation and duplex Doppler interrogation of the extracranial carotid vasculature is performed and compared to prior CT angiogram 04/01/2018. Once again there is occlusion of the right internal carotid artery. The left carotid bulb and internal carotid artery demonstrate moderate plaquing. There is elevated peak systolic velocity in the left internal carotid artery consistent with stenosis 50-69%. There is normal direction of flow in both vertebral arteries. PEAK SYSTOLIC VELOCITY RIGHT LEFT ICA Occluded 164.0 cm/s End diastolic velocity ICA Occluded 42.5 Peak systolic velocity CCA 70.2 cm/s 104.0 Peak systolic velocity ECA 93.4 103.0 ICA/CCA ratio 1.5 IMPRESSION: Findings similar to the prior CT angiogram of the neck 04/01/2018. There is again occlusion of the internal carotid artery. There is again stenosis of the left internal carotid artery 50-69%. Electronically Signed by Alejandro Reynoso MD 04/28/2019 12:01 P
== END ==
LOC: M RAD 09:33
PROVIDERS: ATTEND Nurse Practitioner Family
DX: I65.23 Occlusion and stenosis of bilateral carotid arteries (principal)

== ENCOUNTER → 2019-05-19 | Outpatient (REF) | payer MEDICARE ==
[2019-05-19 07:51] LABS: BASO % 0.3 % (0.0-1.0); EOS # 0.1 10^3/uL (0.0-0.5); EOS % 2.4 % (0.0-3.0); HEMATOCRIT 36.7 % (42.0-52.0); HEMOGLOBIN 12.2 g/dl (13.5-17.5); LYMPH # 1.8 10^3/uL (1.5-5.0); LYMPH % 30.4 % (24.0-44.0); MEAN CORPUSCULAR HEMOGLOBIN 31.1 pg (27.0-33.0); MEAN CORPUSCULAR HGB CONC 33.2 g/dl (32.0-36.5); MEAN CORPUSCULAR VOLUME 93.6 fl (80.0-96.0); MONO # 0.5 10^3/uL (0.0-0.8); MONO % 8.8 % (0.0-5.0); NEUTROPHILS # 3.3 10^3/uL (1.5-8.5); NEUTROPHILS % 57.6 % (36.0-66.0); PLATELET COUNT, AUTOMATED 271 10^3/uL (150-450); RED BLOOD COUNT 3.92 10^6/uL (4.30-6.10); WHITE BLOOD COUNT 5.8 10^3/uL (4.0-10.0)
[2019-05-19 08:09] LABS: ALBUMIN 3.6 GM/DL (3.2-5.2); CREATININE FOR GFR 1.77 MG/DL (0.70-1.30); GLOMERULAR FILTRATION RATE 40.7 (>42); PHOSPHORUS LEVEL 3.9 MG/DL (2.5-4.9); POTASSIUM SERUM 4.5 MEQ/L (3.5-5.1)
== END ==
LOC: SKLAB3 07:00
PROVIDERS: ATTEND Family Medicine
DX: E11.9 Type 2 diabetes mellitus without complications (principal)

== ENCOUNTER → 2019-05-20 | Outpatient (REF) | payer MEDICARE ==
[2019-05-20 14:11] LABS: APPEARANCE, URINE CLEAR (CLEAR); BACTERIA, URINE AUTO NEGATIVE (NEGATIVE); BILIRUBIN, URINE AUTO NEGATIVE (NEGATIVE); BLOOD, URINE BLOOD NEGATIVE (NEGATIVE); COLOR, URINE YELLOW (YELLOW); GLUCOSE, URINE (UA) AUTO 3+ mg/dL (NEGATIVE); KETONE, URINE AUTO NEGATIVE (NEGATIVE); LEUKOCYTE ESTERASE, URINE AUTO NEGATIVE (NEGATIVE); NITRITE, URINE AUTO NEGATIVE (NEGATIVE); PROTEIN, URINE AUTO NEGATIVE (NEGATIVE); RBC, URINE AUTO 0 /HPF (0-3); SPECIFIC GRAVITY URINE AUTO 1.021 (1.002-1.035); SQUAMOUS EPITHELIAL CELL UR AU 0 /HPF (0-6); UROBILINOGEN, URINE AUTO 0.2 mg/dL (0.0-2.0); WBC, URINE AUTO 1 /HPF (0-3)
== END ==
LOC: SKLAB3 13:18
PROVIDERS: ATTEND Family Medicine
DX: N18.9 Chronic kidney disease, unspecified (principal)

== ENCOUNTER → 2019-07-28 | Outpatient (REF) | payer MEDICARE ==
[2019-07-28 09:06] LABS: HEMATOCRIT 37.4 % (42.0-52.0); HEMOGLOBIN 12.4 g/dl (13.5-17.5); MEAN CORPUSCULAR HEMOGLOBIN 30.8 pg (27.0-33.0); MEAN CORPUSCULAR HGB CONC 33.2 g/dl (32.0-36.5); PLATELET COUNT, AUTOMATED 241 10^3/uL (150-450); RED BLOOD COUNT 4.02 10^6/uL (4.30-6.10); WHITE BLOOD COUNT 5.5 10^3/uL (4.0-10.0)
[2019-07-28 09:24] LABS: HEMOGLOBIN A1c 9.6 %
[2019-07-28 09:49] LABS: ALBUMIN 3.5 GM/DL (3.2-5.2); BILIRUBIN,TOTAL 0.6 MG/DL (0.2-1.0); CREATININE FOR GFR 1.92 MG/DL (0.70-1.30); GLOMERULAR FILTRATION RATE 36.9 (>42); POTASSIUM SERUM 4.4 MEQ/L (3.5-5.1); TOTAL PROTEIN 6.9 GM/DL (6.4-8.2)
== END ==
LOC: SKLAB3 08:12
PROVIDERS: ATTEND Family Medicine
DX: E11.9 Type 2 diabetes mellitus without complications (principal)

== ENCOUNTER → 2019-09-14 | Outpatient (REF) | payer MEDICARE ==
[~2019-09-14] MED LIST changes: +ACET-907 PO; +AMLO1TAB24 PO; +BISA10SU20 PR; +EFFE37.5 PO; +ELIQ2.5T PO; +FAMO40TA3 PO; +FLEEENE12 PR; +INSULANT SC; +MOM30SS PO; +MYLA1SUS PO; +PANT40TA29 PO; -PANT40TA3 PO; +REFR0.5D8 OU; +TRUL10IN SC
[2019-12-08 09:31] LABS: CREATININE,RANDOM URINE 55.2 MG/DL; TOTAL PROTEIN,RANDOM URINE 20.5 MG/DL (0.0-12.0)
== END ==
LOC: SKLAB3 11:30
DX: E11.9 Type 2 diabetes mellitus without complications (principal); Z79.4 Long term (current) use of insulin

== ENCOUNTER → 2019-11-03 | Outpatient (REF) | payer MEDICARE ==
[2019-11-03 07:36] LABS: HEMATOCRIT 36.8 % (42.0-52.0); HEMOGLOBIN 12.4 g/dl (13.5-17.5); MEAN CORPUSCULAR HEMOGLOBIN 30.9 pg (27.0-33.0); MEAN CORPUSCULAR HGB CONC 33.7 g/dl (32.0-36.5); MEAN CORPUSCULAR VOLUME 91.8 fl (80.0-96.0); PLATELET COUNT, AUTOMATED 247 10^3/uL (150-450); RED BLOOD COUNT 4.01 10^6/uL (4.30-6.10)
[2019-11-03 07:52] LABS: ALBUMIN 3.2 GM/DL (3.2-5.2); BILIRUBIN,TOTAL 0.4 MG/DL (0.2-1.0); CALCIUM LEVEL 8.7 MG/DL (8.8-10.2); CREATININE FOR GFR 1.6 MG/DL (0.70-1.30); GLOMERULAR FILTRATION RATE 45.6 (>42); MAGNESIUM LEVEL 1.7 MG/DL (1.8-2.4); TOTAL PROTEIN 5.9 GM/DL (6.4-8.2)
[2019-11-03 14:13] LABS: HEMOGLOBIN A1c 8.2 %
== END ==
LOC: SKLAB3 07:00
PROVIDERS: ATTEND Family Medicine
DX: E11.9 Type 2 diabetes mellitus without complications (principal); I10 Essential (primary) hypertension

== ENCOUNTER → 2019-11-25 | Outpatient (CLI) | payer MEDICARE ==
--- NOTE | 2019-11-25 14:35 | REPVR ---
PROCEDURE INFORMATION: Exam: CT Head Without Contrast Exam date and time: 11/25/2019 2:21 PM Age: 69 years old Clinical indication: Pain; Headache; Additional info: Hit head on floor TECHNIQUE: Imaging protocol: Computed tomography of the head without contrast. Radiation optimization: All CT scans at this facility use at least one of these dose optimization techniques: automated exposure control; mA and/or kV adjustment per patient size (includes targeted exams where dose is matched to clinical indication); or iterative reconstruction. COMPARISON: CT Head without contrast 04/02/2018 5:56 PM FINDINGS: Brain: There is a chronic right middle cerebral artery distribution infarct. There is involvement of basal ganglia. There is probable Wallerian degeneration. No acute loss bahena-white differentiation to suggest acute territorial infarct. There is no acute intracranial hemorrhage. There is lucency in the cerebral white matter, likely microvascular disease although non-specific. There are no extra-axial fluid collections. No evidence of mass. There is no mass effect or midline shift. Cerebral ventricles: The ventricles and sulci are enlarged, consistent with volume loss / atrophy. No hydrocephalus. Bones/joints: There is no acute skull fracture. Again seen is deviation of nasal septum to right. Paranasal sinuses: Visualized sinuses are unremarkable. No fluid levels. Mastoid air cells: Mastoid air cells and middle ear cavities are well developed and well aerated. Vasculature: There is vascular calcification. Soft tissues: Unremarkable as visualized. IMPRESSION: 1. No evidence of acute intracranial abnormality. No evidence of acute infarction, hemorrhage, or mass. 2. Atrophy and microvascular disease. Chronic right MCA infarct. Electronically signed by: Marisabel Forrets On 11/25/2019 14:35:33 PM
== END ==
LOC: M RAD 14:15
PROVIDERS: ATTEND Nurse Practitioner Family
DX: S01.91XA Laceration without foreign body of unspecified part of head, initial encounter (principal); W18.09XA Striking against other object with subsequent fall, initial encounter; Y92.9 Unspecified place or not applicable; G31.9 Degenerative disease of nervous system, unspecified; I63.511 Cerebral infarction due to unspecified occlusion or stenosis of right middle cerebral artery

== ENCOUNTER 2019-12-16 20:29 | Emergency (ER) | payer MEDICARE ==
[~2019-12-16] VITALS: Ht 175.3 cm; Wt 97.7 kg
[~2019-12-16 20:29] MED LIST changes: -ACET-907 PO; -AMLO1TAB24 PO; -BISA10SU20 PR; -EFFE37.5 PO; -ELIQ2.5T PO; -FAMO40TA3 PO; -FLEEENE12 PR; -INSULANT SC; -MOM30SS PO; -MYLA1SUS PO; -REFR0.5D8 OU; -TRUL10IN SC
[2019-12-16] MEDS ORDERED: EFFE37.5 PO (21:33)
[2019-12-16] MEDS ORDERED: ATOR40TA75 PO (21:33)
[2019-12-16] MEDS ORDERED: TRUL10IN SC (21:33)
[2019-12-16] MEDS ORDERED: GLIP5TAB8 PO (21:33)
[2019-12-16] MEDS ORDERED: METO1TAB32 PO (21:33)
[2019-12-16] MEDS ORDERED: MYLA1SUS PO (21:33)
[2019-12-16] MEDS ORDERED: ELIQ2.5T PO (21:33)
[2019-12-16] MEDS ORDERED: FAMO40TA3 PO (21:33)
[2019-12-16] MEDS ORDERED: FLEEENE12 PR (21:33)
[2019-12-16] MEDS ORDERED: MOM30SS PO (21:33)
[2019-12-16] MEDS ORDERED: ACET-907 PO ×2 (21:33)
[2019-12-16] MEDS ORDERED: BISA10SU20 PR (21:33)
[2019-12-16] MEDS ORDERED: AMLO1TAB24 PO (21:33)
[2019-12-16] MEDS ORDERED: REFR0.5D8 OU (21:33)
[2019-12-16] MEDS ORDERED: INSULANT SC (21:33)
[2019-12-16] MEDS ORDERED: VITMTA PO (21:33)
[2019-12-16] MEDS ORDERED: GLUC1KIT IM (21:33)
--- NOTE | 2019-12-16 22:24 | REPVR ---
PROCEDURE INFORMATION: Exam: XR Left Knee Exam date and time: 12/16/2019 9:52 PM Age: 69 years old Clinical indication: Other: Fall; Additional info: Fall, pain TECHNIQUE: Imaging protocol: XR Left knee. Views: 4 or more views. COMPARISON: No relevant prior studies available. FINDINGS: Bones/joints: Mild moderate medial compartment degenerative joint disease. Soft tissues: Normal. Vasculature: Arterial calcifications. IMPRESSION: No acute findings. Electronically signed by: Troy Zepeda On 12/16/2019 22:24:35 PM
--- NOTE | 2019-12-16 22:25 | REPVR ---
PROCEDURE INFORMATION: Exam: CT Head Without Contrast Exam date and time: 12/16/2019 9:52 PM Age: 69 years old Clinical indication: Injury or trauma; Fall; Blunt trauma (contusions or hematomas); Additional info: Fall, eliquis TECHNIQUE: Imaging protocol: Computed tomography of the head without contrast. Radiation optimization: All CT scans at this facility use at least one of these dose optimization techniques: automated exposure control; mA and/or kV adjustment per patient size (includes targeted exams where dose is matched to clinical indication); or iterative reconstruction. COMPARISON: CT Head without contrast 2019-11-25 14:32 FINDINGS: Brain: Right frontal and perisylvian chronic infarct. No midline shift, mass, fluid collection, or evidence of acute hemorrhage. Cerebral ventricles: Right lateral ventricle ex vacuo dilatation from volume loss. Bones/joints: Unremarkable. No acute fracture. Paranasal sinuses: Visualized sinuses are unremarkable. No fluid levels. Mastoid air cells: Visualized mastoid air cells are well aerated. Soft tissues: Unremarkable. IMPRESSION: No acute intracranial abnormality. Electronically signed by: Troy Zepeda On 12/16/2019 22:25:14 PM
[2019-12-16 22:45] VITALS: BP 145/69
== END 2019-12-16 23:04 | disposition home or self-care (01) ==
LOC: M ED 20:29
DX: S89.92XA Unspecified injury of left lower leg, initial encounter (principal); W19.XXXA Unspecified fall, initial encounter; Y92.129 Unspecified place in nursing home as the place of occurrence of the external cause; Y93.89 Activity, other specified; Y99.9 Unspecified external cause status; I48.91 Unspecified atrial fibrillation; I25.10 Atherosclerotic heart disease of native coronary artery without angina pectoris; E11.9 Type 2 diabetes mellitus without complications; Z86.73 Personal history of transient ischemic attack (TIA), and cerebral infarction without residual deficits; Z79.4 Long term (current) use of insulin; Z79.899 Other long term (current) drug therapy; Z79.01 Long term (current) use of anticoagulants; Z88.8 Allergy status to other drugs, medicaments and biological substances

== ENCOUNTER → 2019-12-24 | Outpatient (REF) ==
[~2019-12-24] MED LIST changes: +ACET-907 PO; +AMLO1TAB24 PO; +BISA10SU20 PR; +EFFE37.5 PO; +ELIQ2.5T PO; +FAMO40TA3 PO; +FLEEENE12 PR; +INSULANT SC; +MOM30SS PO; +MYLA1SUS PO; +REFR0.5D8 OU; +TRUL10IN SC
== END ==
LOC: SKLAB3 11:19
DX: Z20.828 Contact with and (suspected) exposure to other viral communicable diseases (principal)

== ENCOUNTER → 2019-12-30 | Outpatient (REF) | payer MEDICARE ==
[~2019-12-30] MED LIST changes: -LISI-542 PO; +LISI-898 PO; +LISI10TA22 PO; -LISI10TA4 PO; -MAG400TA PO; +MAGN400T35 PO
== END ==
LOC: SKLAB3 12-29 13:25 → EDSTATUS 01-21 14:29
PROVIDERS: ATTEND Internal Medicine
DX: Z20.828 Contact with and (suspected) exposure to other viral communicable diseases (principal)

== ENCOUNTER → 2020-01-06 | Outpatient (REF) | payer MEDICARE | LOC: SKLAB3 08:00 | PROVIDERS: ATTEND Internal Medicine | DX: Z20.828 Contact with and (suspected) exposure to other viral communicable diseases (principal) ==

== ENCOUNTER → 2020-01-12 | Outpatient (REF) | payer MEDICARE ==
[~2020-01-12] MED LIST changes: +LISI-542 PO; -LISI-898 PO; -LISI10TA22 PO; +LISI10TA4 PO; +MAG400TA PO; -MAGN400T35 PO
[2020-01-12 09:13] LABS: CALCIUM LEVEL 8.7 MG/DL (8.8-10.2); CREATININE FOR GFR 1.89 MG/DL (0.70-1.30); GLOMERULAR FILTRATION RATE 37.6 (>42); POTASSIUM SERUM 4.2 MEQ/L (3.5-5.1)
== END ==
LOC: SKLAB3 07:00
DX: N18.4 Chronic kidney disease, stage 4 (severe) (principal)

== ENCOUNTER → 2020-01-13 | Outpatient (REF) | payer MEDICARE ==
[~2020-01-13] MED LIST changes: -LISI-542 PO; +LISI-898 PO; +LISI10TA22 PO; -LISI10TA4 PO; -MAG400TA PO; +MAGN400T35 PO
== END ==
LOC: SKLAB3 08:00
PROVIDERS: ATTEND Internal Medicine
DX: Z20.828 Contact with and (suspected) exposure to other viral communicable diseases (principal)

== ENCOUNTER → 2020-01-20 | Outpatient (REF) | payer MEDICARE ==
[~2020-01-20] MED LIST changes: +LISI-542 PO; -LISI-898 PO; -LISI10TA22 PO; +LISI10TA4 PO; +MAG400TA PO; -MAGN400T35 PO
== END ==
LOC: SKLAB3 07:08
DX: Z20.828 Contact with and (suspected) exposure to other viral communicable diseases (principal)

== ENCOUNTER → 2020-01-27 | Outpatient (REF) | payer MEDICARE | LOC: SKLAB3 10:15 | DX: Z20.828 Contact with and (suspected) exposure to other viral communicable diseases (principal) ==

== ENCOUNTER → 2020-01-28 | Outpatient (REF) | payer MEDICARE | LOC: SKLAB3 14:39 | DX: Z20.828 Contact with and (suspected) exposure to other viral communicable diseases (principal) ==

== ENCOUNTER → 2020-02-03 | Outpatient (REF) | payer MEDICARE | LOC: SKLAB3 07:00 | DX: Z20.828 Contact with and (suspected) exposure to other viral communicable diseases (principal) ==

== ENCOUNTER → 2020-02-10 | Outpatient (REF) | payer MEDICARE | LOC: SKLAB3 07:09 | DX: Z20.828 Contact with and (suspected) exposure to other viral communicable diseases (principal) ==

== ENCOUNTER → 2020-02-17 | Outpatient (REF) | payer MEDICARE | LOC: SKLAB3 09:45 | PROVIDERS: ATTEND Internal Medicine | DX: Z11.52 Encounter for screening for COVID-19 (principal) ==

== ENCOUNTER → 2020-02-24 | Outpatient (REF) | payer MEDICARE | LOC: SKLAB3 10:18 | PROVIDERS: ATTEND Internal Medicine | DX: Z11.52 Encounter for screening for COVID-19 (principal) ==

== ENCOUNTER → 2020-02-25 | Outpatient (REF) | payer MEDICARE ==
[~2020-02-25] MED LIST changes: -LISI-542 PO; +LISI-898 PO; +LISI10TA22 PO; -LISI10TA4 PO; -MAG400TA PO; +MAGN400T35 PO
[2020-02-25 08:06] LABS: HEMATOCRIT 40.4 % (42.0-52.0); HEMOGLOBIN 12.6 g/dl (13.5-17.5); MEAN CORPUSCULAR HEMOGLOBIN 29.8 pg (27.0-33.0); MEAN CORPUSCULAR HGB CONC 31.2 g/dl (32.0-36.5); MEAN CORPUSCULAR VOLUME 95.5 fl (80.0-96.0); PLATELET COUNT, AUTOMATED 303 10^3/uL (150-450); RED BLOOD COUNT 4.23 10^6/uL (4.30-6.10)
[2020-02-25 08:36] LABS: ALBUMIN 3.6 GM/DL (3.2-5.2); BILIRUBIN,TOTAL 0.4 MG/DL (0.2-1.0); CREATININE FOR GFR 1.76 MG/DL (0.70-1.30); GLOMERULAR FILTRATION RATE 40.8 (>42); MAGNESIUM LEVEL 2.2 MG/DL (1.8-2.4); POTASSIUM SERUM 4.6 MEQ/L (3.5-5.1); TOTAL PROTEIN 6.7 GM/DL (6.4-8.2)
[2020-02-25 09:49] LABS: HEMOGLOBIN A1c 7.6 %
== END ==
LOC: SKLAB3 07:00
DX: E11.9 Type 2 diabetes mellitus without complications (principal); I10 Essential (primary) hypertension

== ENCOUNTER → 2020-03-02 | Outpatient (REF) | payer MEDICARE | LOC: SKLAB3 14:32 | PROVIDERS: ATTEND Internal Medicine | DX: Z20.822 Contact with and (suspected) exposure to COVID-19 (principal) ==

== ENCOUNTER → 2020-03-09 | Outpatient (REF) | payer MEDICARE | LOC: SKLAB3 14:53 | PROVIDERS: ATTEND Internal Medicine | DX: Z20.822 Contact with and (suspected) exposure to COVID-19 (principal) ==

== ENCOUNTER → 2020-03-16 | Outpatient (REF) | payer MEDICARE | LOC: SKLAB3 07:00 | PROVIDERS: ATTEND Internal Medicine | DX: Z11.52 Encounter for screening for COVID-19 (principal) ==

== ENCOUNTER → 2020-03-23 | Outpatient (REF) | payer MEDICARE | LOC: SKLAB3 11:22 | PROVIDERS: ATTEND Internal Medicine | DX: Z20.822 Contact with and (suspected) exposure to COVID-19 (principal) ==

== ENCOUNTER → 2020-03-30 | Outpatient (REF) | payer MEDICARE | LOC: SKLAB3 07:00 | PROVIDERS: ATTEND Internal Medicine | DX: Z20.822 Contact with and (suspected) exposure to COVID-19 (principal) ==

== ENCOUNTER → 2020-04-06 | Outpatient (REF) | payer MEDICARE | LOC: SKLAB3 15:04 | PROVIDERS: ATTEND Internal Medicine | DX: Z20.822 Contact with and (suspected) exposure to COVID-19 (principal) ==

== ENCOUNTER → 2020-04-20 | Outpatient (REF) | payer MEDICARE ==
[~2020-04-20] MED LIST changes: +ASPI-569 PO; -ASPI81TAEC PO
== END ==
LOC: SKLAB3 14:46
PROVIDERS: ATTEND Internal Medicine
DX: Z20.822 Contact with and (suspected) exposure to COVID-19 (principal)

== ENCOUNTER → 2020-04-26 | Outpatient (REF) | payer MEDICARE | LOC: SKLAB3 07:00 | PROVIDERS: ATTEND Internal Medicine | DX: Z20.822 Contact with and (suspected) exposure to COVID-19 (principal) ==

== ENCOUNTER → 2020-04-27 | Outpatient (REF) | payer MEDICARE | LOC: SKLAB3 14:54 | PROVIDERS: ATTEND Internal Medicine | DX: Z20.822 Contact with and (suspected) exposure to COVID-19 (principal) ==

== ENCOUNTER → 2020-05-13 | Outpatient (REF) | payer MEDICARE | LOC: SKLAB3 08:50 | PROVIDERS: ATTEND Internal Medicine | DX: Z20.822 Contact with and (suspected) exposure to COVID-19 (principal) ==

== ENCOUNTER → 2020-05-26 | Outpatient (REF) | payer MEDICARE ==
[2020-05-26 09:43] LABS: CALCIUM LEVEL 9.5 MG/DL (8.8-10.2); CREATININE FOR GFR 1.71 MG/DL (0.70-1.30); GLOMERULAR FILTRATION RATE 42.2 (>42); POTASSIUM SERUM 3.9 MEQ/L (3.5-5.1)
[2020-05-26 17:43] LABS: HEMOGLOBIN A1c 7.2 %
== END ==
LOC: SKLAB3 07:00
DX: E11.9 Type 2 diabetes mellitus without complications (principal); Z79.899 Other long term (current) drug therapy

== ENCOUNTER → 2020-05-31 | Outpatient (REF) | payer MEDICARE ==
[2020-05-31 09:35] LABS: HEMATOCRIT 40.1 % (42.0-52.0); HEMOGLOBIN 12.7 g/dl (13.5-17.5); MEAN CORPUSCULAR HEMOGLOBIN 29.8 pg (27.0-33.0); MEAN CORPUSCULAR HGB CONC 31.7 g/dl (32.0-36.5); MEAN CORPUSCULAR VOLUME 94.1 fl (80.0-96.0); PLATELET COUNT, AUTOMATED 303 10^3/uL (150-450); RED BLOOD COUNT 4.26 10^6/uL (4.30-6.10); WHITE BLOOD COUNT 6.8 10^3/uL (4.0-10.0)
[2020-05-31 10:05] LABS: CREATININE FOR GFR 1.7 MG/DL (0.70-1.30); GLOMERULAR FILTRATION RATE 42.5 (>42)
[2020-05-31 10:06] LABS: ALBUMIN 3.5 GM/DL (3.2-5.2); BILIRUBIN,TOTAL 0.4 MG/DL (0.2-1.0); CALCIUM LEVEL 8.7 MG/DL (8.8-10.2); CHOLESTEROL RISK RATIO 4.076 (<5); POTASSIUM SERUM 4.3 MEQ/L (3.5-5.1); TOTAL PROTEIN 6.4 GM/DL (6.4-8.2)
== END ==
LOC: SKLAB3 11:56
DX: E11.9 Type 2 diabetes mellitus without complications (principal); I10 Essential (primary) hypertension

== ENCOUNTER → 2020-08-30 | Outpatient (REF) | payer MEDICARE ==
[2020-08-30 10:32] LABS: HEMATOCRIT 38.5 % (42.0-52.0); HEMOGLOBIN 12.4 g/dl (13.5-17.5); MEAN CORPUSCULAR HGB CONC 32.2 g/dl (32.0-36.5); PLATELET COUNT, AUTOMATED 286 10^3/uL (150-450); RED BLOOD COUNT 4.14 10^6/uL (4.30-6.10)
[2020-08-30 10:55] LABS: HEMOGLOBIN A1c 7.3 %
[2020-08-30 11:01] LABS: ALBUMIN 3.5 GM/DL (3.2-5.2); BILIRUBIN,TOTAL 0.4 MG/DL (0.2-1.0); CALCIUM LEVEL 8.5 MG/DL (8.8-10.2); CREATININE FOR GFR 1.83 MG/DL (0.70-1.30); GLOMERULAR FILTRATION RATE 38.9 (>42); MAGNESIUM LEVEL 1.8 MG/DL (1.8-2.4); POTASSIUM SERUM 4.3 MEQ/L (3.5-5.1); TOTAL PROTEIN 6.5 GM/DL (6.4-8.2)
== END ==
LOC: SKLAB3 08:27
DX: E11.9 Type 2 diabetes mellitus without complications (principal); I10 Essential (primary) hypertension

== ENCOUNTER → 2020-11-02 | Outpatient (REF) | payer MEDICARE ==
--- NOTE | 2020-11-02 15:07 | REP ---
INDICATION: PAIN S/P FALL. COMPARISON: None. TECHNIQUE: AP view of the pelvis and AP and frogleg views of the left hip are acquired. FINDINGS: Bony pelvic ring is intact. No pelvic or hip fracture is seen on either side. Vascular calcification is observed. The visualized bowel gas pattern is normal. Sacrum and SI joints appear intact. AP and frogleg views of the left hip show vascular calcification. Femoral head is smooth and rounded hip joint space is preserved. IMPRESSION: No traumatic abnormality noted. Vascular calcification. <Electronically signed by Eric Garrido > 11/02/20 [id number]
--- NOTE | 2020-11-02 15:08 | REP ---
INDICATION: PAIN S/P FALL. COMPARISON: Comparison left knee radiographs are from December 16, 2019. TECHNIQUE: Four views. FINDINGS: Four views of the left knee demonstrate vascular calcification. There is mild medial compartment joint space narrowing. There is diffuse osteopenia mild in degree. No evidence of joint effusion. No fracture or subluxation is seen. No opaque foreign body noted. IMPRESSION: No traumatic abnormality noted. <Electronically signed by Eric Garrido > 11/02/20 [id number]
== END ==
LOC: SKLAB3 13:00
PROVIDERS: ATTEND Neuromusculoskeletal Medicine & OMM
DX: R22.9 Localized swelling, mass and lump, unspecified (principal); Z91.81 History of falling; M85.862 Other specified disorders of bone density and structure, left lower leg

== ENCOUNTER → 2020-11-22 | Outpatient (REF) | payer MEDICARE ==
[2020-11-22 15:14] LABS: CHOLESTEROL RISK RATIO 4.205 (<5)
== END ==
LOC: SKLAB3 07:00
PROVIDERS: ATTEND Neuromusculoskeletal Medicine & OMM
DX: E78.5 Hyperlipidemia, unspecified (principal)

== ENCOUNTER → 2020-11-29 | Outpatient (REF) | payer MEDICARE ==
[2020-11-29 10:23] LABS: HEMATOCRIT 39.2 % (42.0-52.0); HEMOGLOBIN 12.7 g/dl (13.5-17.5); MEAN CORPUSCULAR HEMOGLOBIN 30.2 pg (27.0-33.0); MEAN CORPUSCULAR HGB CONC 32.4 g/dl (32.0-36.5); MEAN CORPUSCULAR VOLUME 93.3 fl (80.0-96.0); PLATELET COUNT, AUTOMATED 314 10^3/uL (150-450); WHITE BLOOD COUNT 8.1 10^3/uL (4.0-10.0)
[2020-11-29 11:15] LABS: ALBUMIN 3.3 GM/DL (3.2-5.2); BILIRUBIN,TOTAL 0.3 MG/DL (0.2-1.0); CALCIUM LEVEL 8.7 MG/DL (8.8-10.2); CREATININE FOR GFR 1.8 MG/DL (0.70-1.30); GLOMERULAR FILTRATION RATE 39.7 (>42); MAGNESIUM LEVEL 1.7 MG/DL (1.8-2.4); POTASSIUM SERUM 4.1 MEQ/L (3.5-5.1); TOTAL PROTEIN 7.1 GM/DL (6.4-8.2)
[2020-11-29 12:13] LABS: HEMOGLOBIN A1c 7.5 %
== END ==
LOC: SKLAB3 06:36
PROVIDERS: ATTEND Neuromusculoskeletal Medicine & OMM
DX: I10 Essential (primary) hypertension (principal); E11.9 Type 2 diabetes mellitus without complications

== ENCOUNTER → 2020-12-01 | Outpatient (REF) | payer MEDICARE | LOC: SKLAB3 07:51 | PROVIDERS: ATTEND Neuromusculoskeletal Medicine & OMM | DX: Z20.822 Contact with and (suspected) exposure to COVID-19 (principal) ==

== ENCOUNTER → 2020-12-05 | Outpatient (REF) | payer MEDICARE | LOC: SKLAB3 06:54 | PROVIDERS: ATTEND Internal Medicine | DX: Z20.822 Contact with and (suspected) exposure to COVID-19 (principal) ==

== ENCOUNTER → 2020-12-08 | Outpatient (REF) | payer MEDICARE | LOC: SKLAB3 05:31 | PROVIDERS: ATTEND Internal Medicine | DX: Z20.822 Contact with and (suspected) exposure to COVID-19 (principal) ==

== ENCOUNTER → 2020-12-12 | Outpatient (REF) | payer MEDICARE ==
[2020-12-12 19:34] LABS: HEMATOCRIT 40.7 % (42.0-52.0); HEMOGLOBIN 12.8 g/dl (13.5-17.5); MEAN CORPUSCULAR HEMOGLOBIN 29.4 pg (27.0-33.0); MEAN CORPUSCULAR HGB CONC 31.4 g/dl (32.0-36.5); MEAN CORPUSCULAR VOLUME 93.6 fl (80.0-96.0); PLATELET COUNT, AUTOMATED 346 10^3/uL (150-450); RED BLOOD COUNT 4.35 10^6/uL (4.30-6.10); WHITE BLOOD COUNT 8.4 10^3/uL (4.0-10.0)
[2020-12-12 20:12] LABS: ALBUMIN 3.6 GM/DL (3.2-5.2); BILIRUBIN,TOTAL 0.4 MG/DL (0.2-1.0); C REACTIVE PROTEIN QUANTITATIV 0.52 MG/DL (0.00-0.30); CALCIUM LEVEL 9.3 MG/DL (8.8-10.2); CREATININE FOR GFR 1.88 MG/DL (0.70-1.30); GLOMERULAR FILTRATION RATE 37.7 (>42); POTASSIUM SERUM 4.3 MEQ/L (3.5-5.1); TOTAL PROTEIN 6.9 GM/DL (6.4-8.2)
== END ==
LOC: SKLAB3 06:14
PROVIDERS: ATTEND Internal Medicine
DX: U07.1 COVID-19 (principal); Z79.899 Other long term (current) drug therapy
CPT/HCPCS: 36415; 80053; 84145; 85027; 85379; 86140; U0002

== ENCOUNTER → 2020-12-14 | Outpatient (REF) | payer MEDICARE ==
[2020-12-14 16:13] LABS: HEMOGLOBIN 12.5 g/dl (13.5-17.5); MEAN CORPUSCULAR HGB CONC 32.1 g/dl (32.0-36.5); MEAN CORPUSCULAR VOLUME 93.5 fl (80.0-96.0); PLATELET COUNT, AUTOMATED 285 10^3/uL (150-450); RED BLOOD COUNT 4.17 10^6/uL (4.30-6.10)
[2020-12-14 16:40] LABS: ALBUMIN 3.4 GM/DL (3.2-5.2); BILIRUBIN,TOTAL 0.4 MG/DL (0.2-1.0); C REACTIVE PROTEIN QUANTITATIV 0.97 MG/DL (0.00-0.30); CALCIUM LEVEL 8.9 MG/DL (8.8-10.2); CREATININE FOR GFR 1.8 MG/DL (0.70-1.30); GLOMERULAR FILTRATION RATE 39.7 (>42); POTASSIUM SERUM 4.4 MEQ/L (3.5-5.1); TOTAL PROTEIN 6.7 GM/DL (6.4-8.2)
== END ==
LOC: SKLAB3 07:53
PROVIDERS: ATTEND Neuromusculoskeletal Medicine & OMM
DX: U07.1 COVID-19 (principal); Z79.899 Other long term (current) drug therapy

== ENCOUNTER → 2020-12-16 | Outpatient (REF) | payer MEDICARE ==
[2020-12-16 11:35] LABS: HEMATOCRIT 40.6 % (42.0-52.0); HEMOGLOBIN 12.9 g/dl (13.5-17.5); MEAN CORPUSCULAR HEMOGLOBIN 29.5 pg (27.0-33.0); MEAN CORPUSCULAR HGB CONC 31.8 g/dl (32.0-36.5); MEAN CORPUSCULAR VOLUME 92.9 fl (80.0-96.0); PLATELET COUNT, AUTOMATED 319 10^3/uL (150-450); RED BLOOD COUNT 4.37 10^6/uL (4.30-6.10); WHITE BLOOD COUNT 8.2 10^3/uL (4.0-10.0)
[2020-12-16 12:12] LABS: CREATININE FOR GFR 1.74 MG/DL (0.70-1.30)
[2020-12-16 12:13] LABS: C REACTIVE PROTEIN QUANTITATIV 0.6 MG/DL (0.00-0.30); CALCIUM LEVEL 9.4 MG/DL (8.8-10.2); GLOMERULAR FILTRATION RATE 41.3 (>42); POTASSIUM SERUM 4.4 MEQ/L (3.5-5.1)
== END ==
LOC: SKLAB3 06:00
PROVIDERS: ATTEND Nurse Practitioner
DX: U07.1 COVID-19 (principal); Z79.899 Other long term (current) drug therapy

== ENCOUNTER → 2020-12-19 | Outpatient (REF) | payer MEDICARE ==
[2020-12-19 09:31] LABS: HEMATOCRIT 38.3 % (42.0-52.0); HEMOGLOBIN 12.2 g/dl (13.5-17.5); MEAN CORPUSCULAR HEMOGLOBIN 29.6 pg (27.0-33.0); MEAN CORPUSCULAR HGB CONC 31.9 g/dl (32.0-36.5); PLATELET COUNT, AUTOMATED 284 10^3/uL (150-450); RED BLOOD COUNT 4.12 10^6/uL (4.30-6.10); WHITE BLOOD COUNT 8.1 10^3/uL (4.0-10.0)
[2020-12-19 10:02] LABS: ALBUMIN 3.4 GM/DL (3.2-5.2); BILIRUBIN,TOTAL 0.4 MG/DL (0.2-1.0); C REACTIVE PROTEIN QUANTITATIV 0.46 MG/DL (0.00-0.30); CALCIUM LEVEL 8.8 MG/DL (8.8-10.2); CREATININE FOR GFR 2.2 MG/DL (0.70-1.30); GLOMERULAR FILTRATION RATE 31.5 (>42); POTASSIUM SERUM 4.5 MEQ/L (3.5-5.1); TOTAL PROTEIN 6.4 GM/DL (6.4-8.2)
== END ==
LOC: SKLAB3 08:00
PROVIDERS: ATTEND Neuromusculoskeletal Medicine & OMM
DX: U07.1 COVID-19 (principal); Z79.899 Other long term (current) drug therapy

== ENCOUNTER → 2020-12-21 | Outpatient (REF) | payer MEDICARE ==
[2020-12-21 09:18] LABS: HEMATOCRIT 40.8 % (42.0-52.0); MEAN CORPUSCULAR HEMOGLOBIN 29.5 pg (27.0-33.0); MEAN CORPUSCULAR HGB CONC 31.9 g/dl (32.0-36.5); MEAN CORPUSCULAR VOLUME 92.7 fl (80.0-96.0); PLATELET COUNT, AUTOMATED 339 10^3/uL (150-450); WHITE BLOOD COUNT 7.3 10^3/uL (4.0-10.0)
[2020-12-21 09:41] LABS: CALCIUM LEVEL 9.5 MG/DL (8.8-10.2); CREATININE FOR GFR 1.77 MG/DL (0.70-1.30); GLOMERULAR FILTRATION RATE 40.5 (>42); POTASSIUM SERUM 4.4 MEQ/L (3.5-5.1)
== END ==
LOC: SKLAB3 10:46
PROVIDERS: ATTEND Neuromusculoskeletal Medicine & OMM
DX: U07.1 COVID-19 (principal); Z79.899 Other long term (current) drug therapy

== ENCOUNTER → 2020-12-23 | Outpatient (REF) | payer MEDICARE ==
[2020-12-23 12:20] LABS: HEMATOCRIT 39.1 % (42.0-52.0); HEMOGLOBIN 12.6 g/dl (13.5-17.5); MEAN CORPUSCULAR HEMOGLOBIN 29.6 pg (27.0-33.0); MEAN CORPUSCULAR HGB CONC 32.2 g/dl (32.0-36.5); PLATELET COUNT, AUTOMATED 303 10^3/uL (150-450); RED BLOOD COUNT 4.25 10^6/uL (4.30-6.10); WHITE BLOOD COUNT 7.6 10^3/uL (4.0-10.0)
[2020-12-23 12:51] LABS: CALCIUM LEVEL 9.3 MG/DL (8.8-10.2); CREATININE FOR GFR 1.96 MG/DL (0.70-1.30); POTASSIUM SERUM 4.4 MEQ/L (3.5-5.1)
== END ==
LOC: SKLAB3 12:10
PROVIDERS: ATTEND Neuromusculoskeletal Medicine & OMM
DX: U07.1 COVID-19 (principal); Z79.899 Other long term (current) drug therapy

== ENCOUNTER → 2021-02-28 | Outpatient (REF) | payer MEDICARE ==
[~2021-02-28] MED LIST changes: -LISI-898 PO; +LISI5TAB11 PO
[2021-02-28 08:52] LABS: HEMOGLOBIN A1c 7.2 %
== END ==
LOC: SKLAB3 13:56
PROVIDERS: ATTEND Neuromusculoskeletal Medicine & OMM
DX: E11.9 Type 2 diabetes mellitus without complications (principal); I10 Essential (primary) hypertension

== ENCOUNTER → 2021-03-28 | Outpatient (REF) | payer MEDICARE, MEDICAID ==
[2021-03-28 14:29] LABS: HEMATOCRIT 41.3 % (42.0-52.0); MEAN CORPUSCULAR HEMOGLOBIN 29.1 pg (27.0-33.0); MEAN CORPUSCULAR HGB CONC 31.5 g/dl (32.0-36.5); MEAN CORPUSCULAR VOLUME 92.6 fl (80.0-96.0); PLATELET COUNT, AUTOMATED 308 10^3/uL (150-450); RED BLOOD COUNT 4.46 10^6/uL (4.30-6.10)
[2021-03-28 14:58] LABS: ALBUMIN 3.5 GM/DL (3.2-5.2); BILIRUBIN,TOTAL 0.3 MG/DL (0.2-1.0); CALCIUM LEVEL 8.8 MG/DL (8.8-10.2); CREATININE FOR GFR 2.14 MG/DL (0.70-1.30); GLOMERULAR FILTRATION RATE 32.5 (>42); TOTAL PROTEIN 6.7 GM/DL (6.4-8.2)
== END ==
LOC: SKLAB7 11:09
PROVIDERS: ATTEND Neuromusculoskeletal Medicine & OMM
DX: E11.9 Type 2 diabetes mellitus without complications (principal); I10 Essential (primary) hypertension

== ENCOUNTER → 2021-04-10 | Outpatient (REF) | payer MEDICARE, MEDICAID | LOC: SKLAB3 07:00 | PROVIDERS: ATTEND Neuromusculoskeletal Medicine & OMM | DX: R10.9 Unspecified abdominal pain (principal); Z87.19 Personal history of other diseases of the digestive system ==

== ENCOUNTER → 2021-04-11 | Outpatient (CLI) | payer MEDICARE, MEDICAID | LOC: M RAD 14:17 | PROVIDERS: ATTEND Nurse Practitioner Family | DX: R10.12 Left upper quadrant pain (principal); J98.11 Atelectasis; K57.30 Diverticulosis of large intestine without perforation or abscess without bleeding ==

== ENCOUNTER → 2021-04-11 | Outpatient (REF) | payer MEDICARE, MEDICAID ==
[2021-04-11 13:18] LABS: HEMATOCRIT 38.8 % (42.0-52.0); HEMOGLOBIN 12.5 g/dl (13.5-17.5); MEAN CORPUSCULAR HEMOGLOBIN 28.9 pg (27.0-33.0); MEAN CORPUSCULAR HGB CONC 32.2 g/dl (32.0-36.5); MEAN CORPUSCULAR VOLUME 89.6 fl (80.0-96.0); PLATELET COUNT, AUTOMATED 326 10^3/uL (150-450); RED BLOOD COUNT 4.33 10^6/uL (4.30-6.10)
[2021-04-11 13:48] LABS: ALBUMIN 2.9 GM/DL (3.2-5.2); BILIRUBIN,TOTAL 0.9 MG/DL (0.2-1.0); CALCIUM LEVEL 8.9 MG/DL (8.8-10.2); CREATININE FOR GFR 2.07 MG/DL (0.70-1.30); GLOMERULAR FILTRATION RATE 33.8 (>42); POTASSIUM SERUM 3.4 MEQ/L (3.5-5.1); TOTAL PROTEIN 6.4 GM/DL (6.4-8.2)
== END ==
LOC: SKLAB3 11:56
PROVIDERS: ATTEND Neuromusculoskeletal Medicine & OMM
DX: R10.9 Unspecified abdominal pain (principal); N18.9 Chronic kidney disease, unspecified

== ENCOUNTER → 2021-04-12 | Outpatient (REF) | payer MEDICARE, MEDICAID ==
[2021-04-12 07:09] LABS: HEMATOCRIT 36.2 % (42.0-52.0); MEAN CORPUSCULAR HEMOGLOBIN 29.1 pg (27.0-33.0); MEAN CORPUSCULAR HGB CONC 33.1 g/dl (32.0-36.5); MEAN CORPUSCULAR VOLUME 87.7 fl (80.0-96.0); PLATELET COUNT, AUTOMATED 292 10^3/uL (150-450); RED BLOOD COUNT 4.13 10^6/uL (4.30-6.10); WHITE BLOOD COUNT 21.1 10^3/uL (4.0-10.0)
[2021-04-12 07:44] LABS: ALBUMIN 2.7 GM/DL (3.2-5.2); BILIRUBIN,TOTAL 0.9 MG/DL (0.2-1.0); CALCIUM LEVEL 8.1 MG/DL (8.8-10.2); CREATININE FOR GFR 1.83 MG/DL (0.70-1.30); GLOMERULAR FILTRATION RATE 38.9 (>42); POTASSIUM SERUM 3.3 MEQ/L (3.5-5.1); TOTAL PROTEIN 6.2 GM/DL (6.4-8.2)
== END ==
LOC: SKLAB3 07:00
PROVIDERS: ATTEND Neuromusculoskeletal Medicine & OMM
DX: D72.829 Elevated white blood cell count, unspecified (principal)

== ENCOUNTER → 2021-04-13 | Outpatient (REF) | payer MEDICARE, MEDICAID ==
[2021-04-13 10:55] LABS: HEMATOCRIT 36.6 % (42.0-52.0); HEMOGLOBIN 11.9 g/dl (13.5-17.5); MEAN CORPUSCULAR HEMOGLOBIN 28.9 pg (27.0-33.0); MEAN CORPUSCULAR HGB CONC 32.5 g/dl (32.0-36.5); MEAN CORPUSCULAR VOLUME 88.8 fl (80.0-96.0); PLATELET COUNT, AUTOMATED 322 10^3/uL (150-450); RED BLOOD COUNT 4.12 10^6/uL (4.30-6.10); WHITE BLOOD COUNT 17.8 10^3/uL (4.0-10.0)
[2021-04-13 11:10] LABS: CREATININE FOR GFR 1.72 MG/DL (0.70-1.30); GLOMERULAR FILTRATION RATE 41.8 (>42); POTASSIUM SERUM 3.3 MEQ/L (3.5-5.1)
[2021-04-13 11:11] LABS: CALCIUM LEVEL 8.9 MG/DL (8.8-10.2)
== END ==
LOC: SKLAB3 09:06
PROVIDERS: ATTEND Neuromusculoskeletal Medicine & OMM
DX: K81.9 Cholecystitis, unspecified (principal)

== ENCOUNTER → 2021-04-14 | Outpatient (REF) | payer MEDICARE, MEDICAID ==
[2021-04-14 08:14] LABS: HEMATOCRIT 37.9 % (42.0-52.0); HEMOGLOBIN 12.1 g/dl (13.5-17.5); MEAN CORPUSCULAR HEMOGLOBIN 28.5 pg (27.0-33.0); MEAN CORPUSCULAR HGB CONC 31.9 g/dl (32.0-36.5); MEAN CORPUSCULAR VOLUME 89.2 fl (80.0-96.0); PLATELET COUNT, AUTOMATED 377 10^3/uL (150-450); RED BLOOD COUNT 4.25 10^6/uL (4.30-6.10); WHITE BLOOD COUNT 17.6 10^3/uL (4.0-10.0)
[2021-04-14 08:33] LABS: CALCIUM LEVEL 8.5 MG/DL (8.8-10.2); CREATININE FOR GFR 1.71 MG/DL (0.70-1.30); GLOMERULAR FILTRATION RATE 42.1 (>42); POTASSIUM SERUM 3.5 MEQ/L (3.5-5.1)
== END ==
LOC: SKLAB3 07:10
PROVIDERS: ATTEND Neuromusculoskeletal Medicine & OMM
DX: K81.9 Cholecystitis, unspecified (principal)

== ENCOUNTER → 2021-04-17 | Outpatient (REF) | payer MEDICARE, MEDICAID ==
[2021-04-17 07:28] LABS: CALCIUM LEVEL 8.8 MG/DL (8.8-10.2); CREATININE FOR GFR 1.57 MG/DL (0.70-1.30); GLOMERULAR FILTRATION RATE 46.5 (>42); POTASSIUM SERUM 3.7 MEQ/L (3.5-5.1)
== END ==
LOC: SKLAB3 07:00
PROVIDERS: ATTEND Neuromusculoskeletal Medicine & OMM
DX: E87.6 Hypokalemia (principal)

== ENCOUNTER → 2021-04-18 | Outpatient (CLI) | payer MEDICARE, MEDICAID | LOC: M RAD 06:54 | PROVIDERS: ATTEND Nurse Practitioner Family | DX: K80.20 Calculus of gallbladder without cholecystitis without obstruction (principal); N28.1 Cyst of kidney, acquired; E87.6 Hypokalemia ==

== ENCOUNTER → 2021-05-25 | Outpatient (REF) | payer MEDICARE, MEDICAID ==
[~2021-05-25] MED LIST changes: +ECOT81TA5 PO
== END ==
LOC: SKLAB3 14:50
PROVIDERS: ATTEND Neuromusculoskeletal Medicine & OMM
DX: Z20.822 Contact with and (suspected) exposure to COVID-19 (principal)

== ENCOUNTER → 2021-05-30 | Outpatient (REF) | payer MEDICARE, MEDICAID ==
[~2021-05-30] MED LIST changes: +AMOX500T2 PO; +APAP325T4 PO; +SENO8.6T5 PO; +VENL25TA28 PO
[2021-05-30 14:22] LABS: HEMOGLOBIN A1c 6.5 %
[2021-05-30 14:49] LABS: CHOLESTEROL RISK RATIO 3.375 (<5)
== END ==
LOC: SKLAB3 07:00
PROVIDERS: ATTEND Neuromusculoskeletal Medicine & OMM
DX: E78.5 Hyperlipidemia, unspecified (principal); E11.9 Type 2 diabetes mellitus without complications

== ENCOUNTER → 2021-06-14 | Outpatient (REF) | payer MEDICARE, MEDICAID ==
[2021-06-14 10:02] LABS: CALCIUM LEVEL 8.9 MG/DL (8.8-10.2); CREATININE FOR GFR 1.34 MG/DL (0.70-1.30); GLOMERULAR FILTRATION RATE 55.6 (>42); POTASSIUM SERUM 3.6 MEQ/L (3.5-5.1)
== END ==
LOC: SKLAB3 07:00
PROVIDERS: ATTEND Neuromusculoskeletal Medicine & OMM
DX: E86.0 Dehydration (principal)

== ENCOUNTER → 2021-06-15 | Outpatient (REF) | payer MEDICAID, MEDICARE ==
[2021-06-15 13:02] LABS: HEMOGLOBIN 11.6 g/dl (13.5-17.5); MEAN CORPUSCULAR HEMOGLOBIN 28.6 pg (27.0-33.0); MEAN CORPUSCULAR HGB CONC 31.4 g/dl (32.0-36.5); MEAN CORPUSCULAR VOLUME 91.1 fl (80.0-96.0); PLATELET COUNT, AUTOMATED 527 10^3/uL (150-450); RED BLOOD COUNT 4.06 10^6/uL (4.30-6.10); WHITE BLOOD COUNT 7.3 10^3/uL (4.0-10.0)
== END ==
LOC: SKLAB3 07:09
PROVIDERS: ATTEND Neuromusculoskeletal Medicine & OMM
DX: D64.9 Anemia, unspecified (principal)

== ENCOUNTER → 2021-08-29 | Outpatient (REF) | payer MEDICARE, MEDICAID ==
[2021-08-29 09:59] LABS: HEMOGLOBIN A1c 6.6 %
== END ==
LOC: SKLAB3 09:44
PROVIDERS: ATTEND Neuromusculoskeletal Medicine & OMM
DX: E11.9 Type 2 diabetes mellitus without complications (principal); I10 Essential (primary) hypertension

== ENCOUNTER → 2021-09-08 | Outpatient (REF) | payer MEDICARE, MEDICAID | LOC: SKLAB3 12:07 | PROVIDERS: ATTEND Neuromusculoskeletal Medicine & OMM | DX: Z20.822 Contact with and (suspected) exposure to COVID-19 (principal) ==

== ENCOUNTER → 2021-09-25 | Outpatient (REF) | payer MEDICARE, MEDICAID ==
[~2021-09-25] MED LIST changes: +BETA1OI TOP; +FLOM0.4C39 PO
== END ==
LOC: SKLAB3 10:51
PROVIDERS: ATTEND Nurse Practitioner Family
DX: Z20.822 Contact with and (suspected) exposure to COVID-19 (principal)

== ENCOUNTER → 2021-09-26 | Outpatient (REF) | payer MEDICARE, MEDICAID ==
[2021-09-26 09:53] LABS: HEMATOCRIT 40.6 % (42.0-52.0); HEMOGLOBIN 12.7 g/dl (13.5-17.5); MEAN CORPUSCULAR HEMOGLOBIN 28.1 pg (27.0-33.0); MEAN CORPUSCULAR HGB CONC 31.3 g/dl (32.0-36.5); MEAN CORPUSCULAR VOLUME 89.8 fl (80.0-96.0); PLATELET COUNT, AUTOMATED 310 10^3/uL (150-450); RED BLOOD COUNT 4.52 10^6/uL (4.30-6.10); WHITE BLOOD COUNT 6.4 10^3/uL (4.0-10.0)
[2021-09-26 10:41] LABS: ALBUMIN 3.3 GM/DL (3.2-5.2); BILIRUBIN,TOTAL 0.3 MG/DL (0.2-1.0); CALCIUM LEVEL 8.9 MG/DL (8.8-10.2); CREATININE FOR GFR 1.84 MG/DL (0.70-1.30); GLOMERULAR FILTRATION RATE 38.6 (>42); POTASSIUM SERUM 4.3 MEQ/L (3.5-5.1)
== END ==
LOC: SKLAB3 09:37
PROVIDERS: ATTEND Nurse Practitioner Family
DX: E11.9 Type 2 diabetes mellitus without complications (principal); I10 Essential (primary) hypertension

== ENCOUNTER 2021-09-28 10:24 | Day surgery (SDC) | payer MEDICARE, MEDICAID ==
[~2021-09-28] VITALS: Ht 175.3 cm; Wt 88.5 kg
[~2021-09-28 10:24] MED LIST changes: +NS 1,000 ML IV ONE
[2021-09-28] MEDS ORDERED: ONDANSETRON 4MG 2ML VIAL As Ordered ONE (10:46)
[2021-09-28] MEDS ORDERED: ROCURONIUM BROMIDE 50 MG/5 ML VIAL As Ordered ONE (10:46)
[2021-09-28] MEDS ORDERED: dexameTHASONE 4 MG/ML 1ML VIAL (J1100 PER 1MG) As Ordered ONE (10:46)
[2021-09-28] MEDS ORDERED: KETOROLAC 60MG 2ML VIAL As Ordered ONE (10:46)
[2021-09-28] MEDS ORDERED: propofoL 200 MG/20 ML VIAL As Ordered ONE (10:46)
[2021-09-28] MEDS ORDERED: MIDAZOLAM INJ 2MG/2ML VIAL (J2250 PER 1MG) As Ordered ONE (10:46)
[2021-09-28] MEDS ORDERED: LIDOCAINE 2% 100MG/5ML SDV (FOR ANES.) As Ordered ONE (10:46)
[2021-09-28] MEDS ORDERED: SUGAMMADEX SODIUM 500 MG/5 ML VIAL (BRIDION) As Ordered ONE (10:46)
[2021-09-28] MEDS ORDERED: fentaNYL 100 MCG/2 ML INJECTION As Ordered ONE (10:47)
[2021-09-28] MEDS ORDERED: LR 1,000 ML IV SCH ×2 (11:10→14:05)
[2021-09-28] MEDS ORDERED: ISOVUE-300 61% 50ML VIAL As Ordered ONE (11:11)
[2021-09-28] MEDS ORDERED: oxyCODONE 5MG TAB PO PRN (14:05)
[2021-09-28] MEDS ORDERED: ONDANSETRON 4MG 2ML VIAL IV PRN (14:05)
[2021-09-28] MEDS ORDERED: fentaNYL 100 MCG/2 ML INJECTION IV PRN (14:05)
[2021-09-28 15:11] VITALS: BP 126/57
== END 2021-09-28 16:30 | disposition home or self-care (01) ==
LOC: M SDC 10:24
PROVIDERS: ATTEND Internal Medicine Gastroenterology
DX: Z96.89 Presence of other specified functional implants (principal); Z46.59 Encounter for fitting and adjustment of other gastrointestinal appliance and device; K83.1 Obstruction of bile duct; K83.8 Other specified diseases of biliary tract; R94.31 Abnormal electrocardiogram [ECG] [EKG]; I10 Essential (primary) hypertension; I48.91 Unspecified atrial fibrillation; E78.5 Hyperlipidemia, unspecified; E11.9 Type 2 diabetes mellitus without complications; K21.9 Gastro-esophageal reflux disease without esophagitis; F32.A Depression, unspecified; N18.30 Chronic kidney disease, stage 3 unspecified; Z79.84 Long term (current) use of oral hypoglycemic drugs; Z86.73 Personal history of transient ischemic attack (TIA), and cerebral infarction without residual deficits; Z79.01 Long term (current) use of anticoagulants; Z79.899 Other long term (current) drug therapy; Z88.8 Allergy status to other drugs, medicaments and biological substances; N40.0 Benign prostatic hyperplasia without lower urinary tract symptoms
CPT/HCPCS: 43262; 43264; 43275; 74330; A4649; J1100; J1885; J2250; J2405; J3010; Q9967

== ENCOUNTER → 2021-10-10 | Outpatient (REF) | payer MEDICARE, MEDICAID ==
[~2021-10-10] MED LIST changes: -NS 1,000 ML IV ONE
== END ==
LOC: SKLAB3 09:18
PROVIDERS: ATTEND Nurse Practitioner Family
DX: Z85.46 Personal history of malignant neoplasm of prostate (principal)
CPT/HCPCS: 36415; G0103

== ENCOUNTER → 2021-11-28 | Outpatient (REF) | payer MEDICARE, MEDICAID ==
[2021-11-28 09:42] LABS: PHOSPHORUS LEVEL 3.5 MG/DL (2.5-4.9)
[2021-11-28 09:53] LABS: HEMOGLOBIN A1c 7.2 %
[2021-11-28 10:15] LABS: PTH INTACT 117.9 PG/ML (18.5-88.0); TOTAL 25(OH) VITAMIN D 19.1 NG/ML (30.0-100.0)
== END ==
LOC: SKLAB3 07:00
PROVIDERS: ATTEND Nurse Practitioner
DX: E11.22 Type 2 diabetes mellitus with diabetic chronic kidney disease (principal); Z79.899 Other long term (current) drug therapy

== ENCOUNTER → 2021-12-26 | Outpatient (REF) | payer MEDICARE, MEDICAID ==
[2021-12-26 10:10] LABS: HEMATOCRIT 41.6 % (42.0-52.0); HEMOGLOBIN 12.9 g/dl (13.5-17.5); MEAN CORPUSCULAR HEMOGLOBIN 28.2 pg (27.0-33.0); PLATELET COUNT, AUTOMATED 243 10^3/uL (150-450); RED BLOOD COUNT 4.57 10^6/uL (4.30-6.10); WHITE BLOOD COUNT 5.8 10^3/uL (4.0-10.0)
[2021-12-26 15:45] LABS: ALBUMIN 3.4 G/DL (3.2-5.2); BILIRUBIN,TOTAL 0.3 MG/DL (0.3-1.2); CALCIUM LEVEL 8.7 MG/DL (8.3-10.6); CREATININE FOR GFR 1.63 MG/DL (0.70-1.30); GLOMERULAR FILTRATION RATE 44.4 (>42); POTASSIUM SERUM 4.6 MMOL/L (3.5-5.1); TOTAL PROTEIN 6.2 G/DL
== END ==
LOC: SKLAB3 09:30
PROVIDERS: ATTEND Nurse Practitioner
DX: E11.9 Type 2 diabetes mellitus without complications (principal); I10 Essential (primary) hypertension

== ENCOUNTER → 2022-02-20 | Outpatient (REF) | payer MEDICARE, MEDICAID ==
[2022-02-20 07:16] LABS: CHOLESTEROL RISK RATIO 4.25 (<5); HDL CHOLESTEROL 30.3 MG/DL (>40); LDL CHOLESTEROL 69.3 MG/DL (<100)
== END ==
LOC: SKLAB3 10:14
PROVIDERS: ATTEND Nurse Practitioner
DX: E78.5 Hyperlipidemia, unspecified (principal)

== ENCOUNTER → 2022-02-27 | Outpatient (REF) | payer MEDICARE, MEDICAID ==
[2022-02-27 09:24] LABS: HEMOGLOBIN A1c 8.3 % (4.0-6.0)
== END ==
LOC: SKLAB3 13:54
PROVIDERS: ATTEND Nurse Practitioner
DX: E11.9 Type 2 diabetes mellitus without complications (principal); I10 Essential (primary) hypertension

== ENCOUNTER → 2022-03-18 | Outpatient (REF) | payer MEDICARE, MEDICAID ==
[~2022-03-18] MED LIST changes: +DULC10SU2 PR; +ROCA0.25 PO
== END ==
LOC: SKLAB3 07:00
PROVIDERS: ATTEND Internal Medicine
DX: Z01.818 Encounter for other preprocedural examination (principal); Z20.822 Contact with and (suspected) exposure to COVID-19

== ENCOUNTER 2022-03-22 07:22 | Day surgery (SDC) | payer MEDICARE, MEDICAID ==
[~2022-03-22] VITALS: Ht 172.7 cm; Wt 91.6 kg
[~2022-03-22 07:22] MED LIST changes: +NS 1,000 ML IV ONE
[2022-03-22] MEDS ORDERED: fentaNYL 100 MCG/2 ML INJECTION As Ordered ONE (09:23)
[2022-03-22] MEDS ORDERED: LIDOCAINE 2% 100MG/5ML SDV (FOR ANES.) As Ordered ONE (09:23)
[2022-03-22] MEDS ORDERED: propofoL 200 MG/20 ML VIAL As Ordered ONE (09:23)
[2022-03-22 09:54] VITALS: BP 137/90
== END 2022-03-22 10:18 | disposition home or self-care (01) ==
LOC: M OPP 07:22
PROVIDERS: ATTEND Surgery
DX: Z86.010 Personal history of colon polyps (principal); K57.30 Diverticulosis of large intestine without perforation or abscess without bleeding; K22.70 Barrett's esophagus without dysplasia; I10 Essential (primary) hypertension; E11.9 Type 2 diabetes mellitus without complications; I48.91 Unspecified atrial fibrillation; G47.33 Obstructive sleep apnea (adult) (pediatric); Z79.01 Long term (current) use of anticoagulants; Z87.891 Personal history of nicotine dependence
CPT/HCPCS: 43239; 71045; 88305; G0105; J3010

== ENCOUNTER → 2022-03-23 | Outpatient (REF) | payer MEDICARE, MEDICAID ==
[~2022-03-23] MED LIST changes: -NS 1,000 ML IV ONE
== END ==
LOC: SKLAB3 07:00
PROVIDERS: ATTEND Internal Medicine
DX: R11.10 Vomiting, unspecified (principal); R09.02 Hypoxemia

== ENCOUNTER → 2022-04-03 | Outpatient (REF) | payer MEDICARE, MEDICAID ==
[2022-04-03 08:32] LABS: HEMATOCRIT 38.8 % (42.0-52.0); HEMOGLOBIN 12.3 g/dl (13.5-17.5); MEAN CORPUSCULAR HEMOGLOBIN 29.4 pg (27.0-33.0); MEAN CORPUSCULAR HGB CONC 31.7 g/dl (32.0-36.5); MEAN CORPUSCULAR VOLUME 92.8 fl (80.0-96.0); PLATELET COUNT, AUTOMATED 240 10^3/uL (150-450); RED BLOOD COUNT 4.18 10^6/uL (4.30-6.10); WHITE BLOOD COUNT 6.8 10^3/uL (4.0-10.0)
[2022-04-03 09:26] LABS: BILIRUBIN,TOTAL 0.4 MG/DL (0.3-1.2); CALCIUM LEVEL 8.7 MG/DL (8.3-10.6); CREATININE FOR GFR 1.76 MG/DL (0.70-1.30); GLOMERULAR FILTRATION RATE 40.6 (>42); POTASSIUM SERUM 4.2 MMOL/L (3.5-5.1); TOTAL PROTEIN 5.7 G/DL (5.7-8.2)
== END ==
LOC: SKLAB3 10:02
PROVIDERS: ATTEND Internal Medicine
DX: E11.9 Type 2 diabetes mellitus without complications (principal); I10 Essential (primary) hypertension

== ENCOUNTER → 2022-06-26 | Outpatient (REF) | payer MEDICARE, MEDICAID ==
[~2022-06-26] MED LIST changes: +FLUT50SP17 NARES; -FLUTISP NARES
[2022-06-26 07:56] LABS: HEMATOCRIT 37.5 % (42.0-52.0); HEMOGLOBIN 12.4 g/dl (13.5-17.5); MEAN CORPUSCULAR HGB CONC 33.1 g/dl (32.0-36.5); MEAN CORPUSCULAR VOLUME 90.6 fl (80.0-96.0); PLATELET COUNT, AUTOMATED 243 10^3/uL (150-450); RED BLOOD COUNT 4.14 10^6/uL (4.30-6.10); WHITE BLOOD COUNT 7.3 10^3/uL (4.0-10.0)
[2022-06-26 08:16] LABS: HEMOGLOBIN A1c 8.7 % (4.0-6.0)
[2022-06-26 08:22] LABS: ALBUMIN 2.9 G/DL (3.2-5.2); BILIRUBIN,TOTAL 0.5 MG/DL (0.3-1.2); CALCIUM LEVEL 8.4 MG/DL (8.3-10.6); CHOLESTEROL RISK RATIO 4.43 (<5); CREATININE FOR GFR 1.79 MG/DL (0.70-1.30); GLOMERULAR FILTRATION RATE 39.7 (>42); HDL CHOLESTEROL 24.1 MG/DL (>40); LDL CHOLESTEROL 64.7 MG/DL (<100); MAGNESIUM LEVEL 1.6 MG/DL (1.8-2.4); NON-HDL-C 82.9 MG/DL; TOTAL PROTEIN 5.7 G/DL (5.7-8.2)
== END ==
LOC: SKLAB3 09:39
PROVIDERS: ATTEND Nurse Practitioner
DX: E11.9 Type 2 diabetes mellitus without complications (principal); I10 Essential (primary) hypertension

== ENCOUNTER → 2022-08-28 | Outpatient (CLI) | payer MEDICARE, MEDICAID ==
[~2022-08-28] MED LIST changes: -FLUO20SO PO; +FLUO20SO15 PO; +SENN-111 PO; -SENN18TA PO
== END ==
LOC: M RAD 15:49
PROVIDERS: ATTEND Nurse Practitioner Family
DX: I63.231 Cerebral infarction due to unspecified occlusion or stenosis of right carotid arteries (principal)

== ENCOUNTER → 2022-09-13 | Outpatient (REF) | payer MEDICARE, MEDICAID ==
[2022-09-13 10:54] LABS: HEMATOCRIT 42.5 % (42.0-52.0); HEMOGLOBIN 13.4 g/dl (13.5-17.5); MEAN CORPUSCULAR HEMOGLOBIN 29.1 pg (27.0-33.0); MEAN CORPUSCULAR HGB CONC 31.5 g/dl (32.0-36.5); MEAN CORPUSCULAR VOLUME 92.2 fl (80.0-96.0); PLATELET COUNT, AUTOMATED 286 10^3/uL (150-450); RED BLOOD COUNT 4.61 10^6/uL (4.30-6.10); WHITE BLOOD COUNT 7.3 10^3/uL (4.0-10.0)
[2022-09-13 11:22] LABS: ALBUMIN 3.6 G/DL (3.2-5.2); BILIRUBIN,TOTAL 0.8 MG/DL (0.3-1.2); CALCIUM LEVEL 8.9 MG/DL (8.3-10.6); CREATININE FOR GFR 1.89 MG/DL (0.70-1.30); GLOMERULAR FILTRATION RATE 37.3 (>42); MAGNESIUM LEVEL 1.5 MG/DL (1.8-2.4); POTASSIUM SERUM 3.7 MMOL/L (3.5-5.1); TOTAL PROTEIN 6.5 G/DL (5.7-8.2)
[2022-09-13 11:25] LABS: HEMOGLOBIN A1c 8.4 % (4.0-6.0)
[2022-09-13 11:26] LABS: CHOLESTEROL RISK RATIO 3.41 (<5); HDL CHOLESTEROL 32.2 MG/DL (>40); LDL CHOLESTEROL 50.8 MG/DL (<100); NON-HDL-C 77.8 MG/DL
== END ==
LOC: SKLAB2 09:52
PROVIDERS: ATTEND Internal Medicine
DX: E78.5 Hyperlipidemia, unspecified (principal); E11.9 Type 2 diabetes mellitus without complications; Z79.899 Other long term (current) drug therapy

== ENCOUNTER → 2022-10-29 | Outpatient (REF) | payer MEDICARE, MEDICAID | LOC: SKLAB2 22:17 | PROVIDERS: ATTEND Internal Medicine | DX: J02.9 Acute pharyngitis, unspecified (principal); R09.89 Other specified symptoms and signs involving the circulatory and respiratory systems ==

== ENCOUNTER → 2022-12-13 | Outpatient (REF) | payer MEDICARE, MEDICAID ==
[~2022-12-13] MED LIST changes: +GLIP5TAB17 PO; -GLIP5TAB8 PO
[2022-12-13 07:39] LABS: HEMATOCRIT 41.2 % (42.0-52.0); HEMOGLOBIN 13.3 g/dl (13.5-17.5); MEAN CORPUSCULAR HEMOGLOBIN 29.3 pg (27.0-33.0); MEAN CORPUSCULAR HGB CONC 32.3 g/dl (32.0-36.5); MEAN CORPUSCULAR VOLUME 90.7 fl (80.0-96.0); PLATELET COUNT, AUTOMATED 261 10^3/uL (150-450); RED BLOOD COUNT 4.54 10^6/uL (4.30-6.10)
[2022-12-13 08:01] LABS: HEMOGLOBIN A1c 7.5 % (4.0-6.0)
[2022-12-13 08:03] LABS: ALBUMIN 3.2 G/DL (3.2-5.2); BILIRUBIN,TOTAL 0.5 MG/DL (0.3-1.2); CALCIUM LEVEL 8.6 MG/DL (8.3-10.6); CREATININE FOR GFR 1.65 MG/DL (0.70-1.30); GLOMERULAR FILTRATION RATE 43.6 (>42); MAGNESIUM LEVEL 1.8 MG/DL (1.8-2.4); POTASSIUM SERUM 4.2 MMOL/L (3.5-5.1); TOTAL PROTEIN 6.2 G/DL (5.7-8.2)
== END ==
LOC: SKLAB2 07:00
PROVIDERS: ATTEND Internal Medicine
DX: E78.5 Hyperlipidemia, unspecified (principal); E11.9 Type 2 diabetes mellitus without complications; Z79.899 Other long term (current) drug therapy

== ENCOUNTER → 2023-04-02 | Outpatient (REF) | payer MEDICARE, MEDICAID ==
[~2023-04-02] MED LIST changes: -BISA10SU20 PR; +BISA10SU59 PR; -EFFE37.5 PO; +EFFE37.52 PO; -FLUT50SP17 NARES; +FLUTISP NARES
[2023-04-02 13:17] LABS: HEMOGLOBIN 12.6 g/dl (13.5-17.5); MEAN CORPUSCULAR HEMOGLOBIN 30.1 pg (27.0-33.0); MEAN CORPUSCULAR HGB CONC 32.3 g/dl (32.0-36.5); MEAN CORPUSCULAR VOLUME 93.1 fl (80.0-96.0); PLATELET COUNT, AUTOMATED 236 10^3/uL (150-450); RED BLOOD COUNT 4.19 10^6/uL (4.30-6.10); WHITE BLOOD COUNT 7.3 10^3/uL (4.0-10.0)
[2023-04-02 13:51] LABS: ALBUMIN 3.1 G/DL (3.2-5.2); BILIRUBIN,TOTAL 0.5 MG/DL (0.3-1.2); CALCIUM LEVEL 8.5 MG/DL (8.3-10.6); CREATININE FOR GFR 1.71 MG/DL (0.70-1.30); GLOMERULAR FILTRATION RATE 41.9 (>42); MAGNESIUM LEVEL 1.6 MG/DL (1.8-2.4); POTASSIUM SERUM 4.5 MMOL/L (3.5-5.1); TOTAL PROTEIN 5.8 G/DL (5.7-8.2)
[2023-04-02 15:40] LABS: HEMOGLOBIN A1c 8.1 % (4.0-6.0)
== END ==
LOC: SKLAB3 10:27
PROVIDERS: ATTEND Internal Medicine
DX: E11.9 Type 2 diabetes mellitus without complications (principal)

== ENCOUNTER → 2023-04-04 | Outpatient (REF) | payer MEDICARE, MEDICAID ==
[2023-04-04 09:59] LABS: BASO % 0.2 % (0.0-1.0); EOS % 0.1 % (0.0-3.0); HEMATOCRIT 41.6 % (42.0-52.0); HEMOGLOBIN 13.6 g/dl (13.5-17.5); LYMPH # 0.2 10^3/uL (1.5-5.0); LYMPH % 2.3 % (24.0-44.0); MEAN CORPUSCULAR HEMOGLOBIN 29.7 pg (27.0-33.0); MEAN CORPUSCULAR HGB CONC 32.7 g/dl (32.0-36.5); MEAN CORPUSCULAR VOLUME 90.8 fl (80.0-96.0); MONO # 0.3 10^3/uL (0.0-0.8); MONO % 3.2 % (2.0-8.0); NEUTROPHILS # 8.1 10^3/uL (1.5-8.5); PLATELET COUNT, AUTOMATED 230 10^3/uL (150-450); RED BLOOD COUNT 4.58 10^6/uL (4.30-6.10); WHITE BLOOD COUNT 8.7 10^3/uL (4.0-10.0)
[2023-04-04 10:40] LABS: ALBUMIN 3.3 G/DL (3.2-5.2); BILIRUBIN,TOTAL 0.8 MG/DL (0.3-1.2); CALCIUM LEVEL 8.6 MG/DL (8.3-10.6); CREATININE FOR GFR 1.82 MG/DL (0.70-1.30); POTASSIUM SERUM 4.1 MMOL/L (3.5-5.1); TOTAL PROTEIN 6.1 G/DL (5.7-8.2)
== END ==
LOC: SKLAB3 06:39
PROVIDERS: ATTEND Internal Medicine
DX: R11.10 Vomiting, unspecified (principal)

== ENCOUNTER → 2023-06-28 | Outpatient (REF) | payer MEDICARE, MEDICAID ==
[2023-06-28 11:20] LABS: HEMATOCRIT 41.3 % (42.0-52.0); HEMOGLOBIN 13.4 g/dl (13.5-17.5); MEAN CORPUSCULAR HEMOGLOBIN 29.9 pg (27.0-33.0); MEAN CORPUSCULAR HGB CONC 32.4 g/dl (32.0-36.5); MEAN CORPUSCULAR VOLUME 92.2 fl (80.0-96.0); PLATELET COUNT, AUTOMATED 264 10^3/uL (150-450); RED BLOOD COUNT 4.48 10^6/uL (4.30-6.10)
[2023-06-28 11:43] LABS: CALCIUM LEVEL 8.9 MG/DL (8.3-10.6); CREATININE FOR GFR 1.63 MG/DL (0.70-1.30); GLOMERULAR FILTRATION RATE 44.1 (>42); POTASSIUM SERUM 4.2 MMOL/L (3.5-5.1)
[2023-06-28 12:00] LABS: HEMOGLOBIN A1c 7.2 % (4.0-6.0)
== END ==
LOC: SKLAB3 10:20
PROVIDERS: ATTEND Internal Medicine
DX: E11.9 Type 2 diabetes mellitus without complications (principal)

== ENCOUNTER → 2023-10-29 | Outpatient (REF) | payer MEDICARE, MEDICAID ==
[~2023-10-29] MED LIST changes: +FLUO-365 PO; -FLUO20CA22 PO; +VENL25TA20 PO; -VENL25TA28 PO
[2023-10-29 16:21] LABS: PHOSPHORUS LEVEL 3.4 MG/DL (2.4-5.1)
[2023-10-29 16:24] LABS: TOTAL 25(OH) VITAMIN D 44.3 NG/ML (20.0-100.0)
[2023-10-29 16:35] LABS: PTH INTACT 164.8 PG/ML (18.5-88.0)
== END ==
LOC: SKLAB3 07:00
PROVIDERS: ATTEND Internal Medicine
DX: N18.9 Chronic kidney disease, unspecified (principal); Z79.899 Other long term (current) drug therapy

== ENCOUNTER → 2023-12-05 | Outpatient (REF) | payer MEDICARE, MEDICAID ==
[~2023-12-05] MED LIST changes: +GLIP10TA15 PO; -GLIP10TA6 PO; -SENN-111 PO; +SENN-165 PO
[2023-12-05 08:49] LABS: HEMATOCRIT 42.3 % (42.0-52.0); HEMOGLOBIN 13.7 g/dl (13.5-17.5); MEAN CORPUSCULAR HEMOGLOBIN 30.5 pg (27.0-33.0); MEAN CORPUSCULAR HGB CONC 32.4 g/dl (32.0-36.5); MEAN CORPUSCULAR VOLUME 94.2 fl (80.0-96.0); PLATELET COUNT, AUTOMATED 221 10^3/uL (150-450); RED BLOOD COUNT 4.49 10^6/uL (4.30-6.10); WHITE BLOOD COUNT 7.5 10^3/uL (4.0-10.0)
[2023-12-05 09:19] LABS: ALBUMIN 3.2 G/DL (3.2-5.2); BILIRUBIN,TOTAL 0.5 MG/DL (0.3-1.2); CALCIUM LEVEL 9.1 MG/DL (8.3-10.6); CHOLESTEROL RISK RATIO 4.31 (<5); CREATININE FOR GFR 1.67 MG/DL (0.70-1.30); GLOMERULAR FILTRATION RATE 42.9 (>42); HDL CHOLESTEROL 23.4 MG/DL (>40); LDL CHOLESTEROL 53.6 MG/DL (<100); MAGNESIUM LEVEL 1.9 MG/DL (1.8-2.4); NON-HDL-C 77.6 MG/DL; PTH INTACT 176.5 PG/ML (18.5-88.0); TOTAL PROTEIN 6.1 G/DL (5.7-8.2)
[2023-12-05 09:20] LABS: TOTAL 25(OH) VITAMIN D 49.1 NG/ML (20.0-100.0)
== END ==
LOC: SKLAB3 07:00
PROVIDERS: ATTEND Internal Medicine
DX: N18.9 Chronic kidney disease, unspecified (principal); E11.22 Type 2 diabetes mellitus with diabetic chronic kidney disease; Z79.899 Other long term (current) drug therapy

== ENCOUNTER → 2024-05-13 | Outpatient (REF) | payer MEDICARE, MEDICAID ==
[2024-05-13 11:42] LABS: BASO % 0.1 % (0.0-1.0); HEMATOCRIT 39.5 % (42.0-52.0); HEMOGLOBIN 13.3 g/dl (13.5-17.5); LYMPH # 0.6 10^3/uL (1.5-5.0); LYMPH % 7.6 % (24.0-44.0); MEAN CORPUSCULAR HEMOGLOBIN 31.2 pg (27.0-33.0); MEAN CORPUSCULAR HGB CONC 33.7 g/dl (32.0-36.5); MEAN CORPUSCULAR VOLUME 92.7 fl (80.0-96.0); MONO # 0.6 10^3/uL (0.0-0.8); MONO % 7.7 % (2.0-8.0); NEUTROPHILS # 6.1 10^3/uL (1.5-8.5); PLATELET COUNT, AUTOMATED 190 10^3/uL (150-450); RED BLOOD COUNT 4.26 10^6/uL (4.30-6.10); WHITE BLOOD COUNT 7.3 10^3/uL (4.0-10.0)
[2024-05-13 11:53] LABS: BILIRUBIN,TOTAL 1.3 MG/DL (0.3-1.2); CALCIUM LEVEL 8.1 MG/DL (8.3-10.6); CREATININE FOR GFR 2.81 MG/DL (0.70-1.30); GLOMERULAR FILTRATION RATE 23.5 (>42); MAGNESIUM LEVEL 1.8 MG/DL (1.8-2.4); POTASSIUM SERUM 4.3 MMOL/L (3.5-5.1); TOTAL PROTEIN 5.8 G/DL (5.7-8.2)
[2024-05-13 12:29] LABS: HEMOGLOBIN A1c 6.8 % (4.0-6.0)
== END ==
LOC: SKLAB4 10:12
PROVIDERS: ATTEND Internal Medicine
DX: N18.9 Chronic kidney disease, unspecified (principal); E11.22 Type 2 diabetes mellitus with diabetic chronic kidney disease; Z79.899 Other long term (current) drug therapy

== ENCOUNTER → 2024-05-13 | Outpatient (REF) | payer MEDICARE, MEDICAID | LOC: SKLAB3 10:18 | PROVIDERS: ATTEND Internal Medicine | DX: Z91.81 History of falling (principal); M85.88 Other specified disorders of bone density and structure, other site; M19.012 Primary osteoarthritis, left shoulder; M16.12 Unilateral primary osteoarthritis, left hip ==

== ENCOUNTER → 2024-05-15 | Outpatient (REF) | payer MEDICARE, MEDICAID ==
[2024-05-15 06:52] LABS: HEMATOCRIT 40.3 % (42.0-52.0); HEMOGLOBIN 13.2 g/dl (13.5-17.5); MEAN CORPUSCULAR HEMOGLOBIN 30.8 pg (27.0-33.0); MEAN CORPUSCULAR HGB CONC 32.8 g/dl (32.0-36.5); MEAN CORPUSCULAR VOLUME 94.2 fl (80.0-96.0); PLATELET COUNT, AUTOMATED 179 10^3/uL (150-450); RED BLOOD COUNT 4.28 10^6/uL (4.30-6.10); WHITE BLOOD COUNT 6.4 10^3/uL (4.0-10.0)
[2024-05-15 07:19] LABS: CALCIUM LEVEL 8.1 MG/DL (8.3-10.6); CREATININE FOR GFR 1.75 MG/DL (0.70-1.30); GLOMERULAR FILTRATION RATE 40.1 (>42)
== END ==
LOC: SKLAB3 07:00
PROVIDERS: ATTEND Internal Medicine
DX: N17.9 Acute kidney failure, unspecified (principal)

== ENCOUNTER → 2024-09-01 | Outpatient (REF) | payer MEDICARE, MEDICAID ==
[~2024-09-01] MED LIST changes: -FLOM0.4C39 PO; -GLUC1KIT IM; +GLUC1VIA14 IM; +MAG30ORA18 PO; +MAGN400O74 PO; -MILKSUS5 PO; -MYLASSUD PO; +SENN-225 PO; -SENO8.6T5 PO; +TAMS-18 PO
[2024-09-01 08:30] LABS: PLATELET COUNT, AUTOMATED 238 10^3/uL (150-450)
[2024-09-01 08:55] LABS: ALT/SGPT 18.0 U/L (7.0-40); AST/SGOT 19.0 U/L (<34); CALCIUM LEVEL 8.9 MG/DL (8.3-10.6); CARBON DIOXIDE LEVEL 28.0 MMOL/L (20-31); CHLORIDE LEVEL 106.0 MMOL/L (98-107); CREATININE FOR GFR 1.59 MG/DL (0.70-1.30); GLOMERULAR FILTRATION RATE 44.7 (>42); MAGNESIUM LEVEL 1.9 MG/DL (1.8-2.4); POTASSIUM SERUM 4.4 MMOL/L (3.5-5.1); SODIUM LEVEL 144.0 MMOL/L (136-145)
[2024-09-01 09:24] LABS: ESTIMATED AVERAGE GLUCOSE 120.0 MG/DL (60-110)
== END ==
LOC: SKLAB3 07:00
PROVIDERS: ATTEND Internal Medicine
DX: E11.9 Type 2 diabetes mellitus without complications (principal)

== ENCOUNTER → 2024-09-10 | Outpatient (REF) | payer MEDICARE, MEDICAID ==
[2024-09-10 08:42] LABS: BASO # 0.0 10^3/uL (0.0-0.2); BASO % 0.3 % (0.0-1.0); EOS # 0.2 10^3/uL (0.0-0.5); EOS % 2.3 % (0.0-3.0); LYMPH # 1.5 10^3/uL (1.5-5.0); LYMPH % 23.4 % (24.0-44.0); MONO # 0.4 10^3/uL (0.0-0.8); MONO % 6.2 % (2.0-8.0); NEUTROPHILS # 4.4 10^3/uL (1.5-8.5); NEUTROPHILS % 67.5 % (36.0-66.0); PLATELET COUNT, AUTOMATED 220 10^3/uL (150-450)
[2024-09-10 09:09] LABS: CALCIUM LEVEL 9.0 MG/DL (8.3-10.6); CARBON DIOXIDE LEVEL 30.0 MMOL/L (20-31); CHLORIDE LEVEL 103.0 MMOL/L (98-107); CREATININE FOR GFR 1.75 MG/DL (0.70-1.30); GLOMERULAR FILTRATION RATE 39.9 (>42); PHOSPHORUS LEVEL 4.1 MG/DL (2.4-5.1); POTASSIUM SERUM 4.4 MMOL/L (3.5-5.1); SODIUM LEVEL 143.0 MMOL/L (136-145)
[2024-09-10 09:14] LABS: PTH INTACT 121.6 PG/ML (18.5-88.0)
[2024-09-10 09:45] LABS: ESTIMATED AVERAGE GLUCOSE 117.0 MG/DL (60-110)
== END ==
LOC: SKLAB3 07:00
PROVIDERS: ATTEND Internal Medicine
DX: N18.9 Chronic kidney disease, unspecified (principal); Z79.899 Other long term (current) drug therapy

== ENCOUNTER → 2024-09-14 | Outpatient (REF) | payer MEDICARE, MEDICAID ==
[2024-09-14 16:52] LABS: APPEARANCE, URINE CLEAR (CLEAR); BACTERIA, URINE AUTO NEGATIVE (NEGATIVE); BILIRUBIN, URINE AUTO NEGATIVE (NEGATIVE); BLOOD, URINE BLOOD NEGATIVE (NEGATIVE); GLUCOSE, URINE (UA) AUTO NEGATIVE (NEGATIVE); KETONE, URINE AUTO NEGATIVE (NEGATIVE); LEUKOCYTE ESTERASE, URINE AUTO NEGATIVE (NEGATIVE); MUCUS, URINE SMALL (NEGATIVE); NITRITE, URINE AUTO NEGATIVE (NEGATIVE); PROTEIN, URINE AUTO NEGATIVE (NEGATIVE); RBC, URINE AUTO 0 /HPF (0-3); SPECIFIC GRAVITY URINE AUTO 1.023 (1.002-1.035); SQUAMOUS EPITHELIAL CELL UR AU 0 /HPF (0-6); UROBILINOGEN, URINE AUTO 2.0 mg/dL (0.0-2.0); WBC, URINE AUTO 2 /HPF (0-3)
== END ==
LOC: SKLAB3 12:36
PROVIDERS: ATTEND Internal Medicine
DX: N18.9 Chronic kidney disease, unspecified (principal)

== ENCOUNTER → 2024-09-25 | Outpatient (REF) | payer MEDICARE, MEDICAID ==
[2024-09-25 16:31] LABS: PLATELET COUNT, AUTOMATED 261 10^3/uL (150-450)
[2024-09-25 16:55] LABS: CALCIUM LEVEL 8.8 MG/DL (8.3-10.6); CARBON DIOXIDE LEVEL 27.0 MMOL/L (20-31); CHLORIDE LEVEL 100.0 MMOL/L (98-107); CREATININE FOR GFR 1.5 MG/DL (0.70-1.30); GLOMERULAR FILTRATION RATE 48.0 (>42); POTASSIUM SERUM 4.4 MMOL/L (3.5-5.1); SODIUM LEVEL 137.0 MMOL/L (136-145)
== END ==
LOC: SKLAB3 15:48
PROVIDERS: ATTEND Internal Medicine
DX: R11.2 Nausea with vomiting, unspecified (principal); R53.83 Other fatigue; Z79.899 Other long term (current) drug therapy

== ENCOUNTER → 2024-11-12 | Outpatient (REF) | payer MEDICARE, MEDICAID ==
[2024-11-12 11:43] LABS: APPEARANCE, URINE CLEAR (CLEAR); BACTERIA, URINE AUTO NEGATIVE (NEGATIVE); BILIRUBIN, URINE AUTO NEGATIVE (NEGATIVE); BLOOD, URINE BLOOD NEGATIVE (NEGATIVE); GLUCOSE, URINE (UA) AUTO NEGATIVE (NEGATIVE); KETONE, URINE AUTO NEGATIVE (NEGATIVE); LEUKOCYTE ESTERASE, URINE AUTO NEGATIVE (NEGATIVE); MUCUS, URINE SMALL (NEGATIVE); NITRITE, URINE AUTO NEGATIVE (NEGATIVE); PROTEIN, URINE AUTO NEGATIVE (NEGATIVE); RBC, URINE AUTO 1 /HPF (0-3); SPECIFIC GRAVITY URINE AUTO 1.020 (1.002-1.035); SQUAMOUS EPITHELIAL CELL UR AU 0 /HPF (0-6); UROBILINOGEN, URINE AUTO 2.0 mg/dL (0.0-2.0); WBC, URINE AUTO 1 /HPF (0-3)
[2024-11-12 12:32] LABS: BASO # 0.0 10^3/uL (0.0-0.2); BASO % 0.4 % (0.0-1.0); EOS # 0.1 10^3/uL (0.0-0.5); EOS % 1.4 % (0.0-3.0); LYMPH # 1.6 10^3/uL (1.5-5.0); LYMPH % 20.1 % (24.0-44.0); MONO # 0.5 10^3/uL (0.0-0.8); MONO % 6.3 % (2.0-8.0); NEUTROPHILS # 5.7 10^3/uL (1.5-8.5); NEUTROPHILS % 71.4 % (36.0-66.0); PLATELET COUNT, AUTOMATED 212 10^3/uL (150-450)
[2024-11-12 13:01] LABS: CALCIUM LEVEL 8.4 MG/DL (8.3-10.6); CARBON DIOXIDE LEVEL 26.0 MMOL/L (20-31); CHLORIDE LEVEL 105.0 MMOL/L (98-107); CREATININE FOR GFR 1.54 MG/DL (0.70-1.30); GLOMERULAR FILTRATION RATE 46.5 (>42); PHOSPHORUS LEVEL 3.0 MG/DL (2.4-5.1); POTASSIUM SERUM 4.2 MMOL/L (3.5-5.1); SODIUM LEVEL 138.0 MMOL/L (136-145)
[2024-11-12 13:02] LABS: PTH INTACT 156.8 PG/ML (18.5-88.0)
== END ==
LOC: SKLAB3 10:18
PROVIDERS: ATTEND Family Medicine
DX: N18.9 Chronic kidney disease, unspecified (principal)

== ENCOUNTER → 2024-12-08 | Outpatient (REF) | payer MEDICARE, MEDICAID ==
[2024-12-08 08:21] LABS: PLATELET COUNT, AUTOMATED 196 10^3/uL (150-450)
[2024-12-08 08:44] LABS: ESTIMATED AVERAGE GLUCOSE 131.0 MG/DL (60-110)
[2024-12-08 08:47] LABS: TOTAL 25(OH) VITAMIN D 52.2 NG/ML (20.0-100.0)
[2024-12-08 09:02] LABS: ALT/SGPT 19.0 U/L (7.0-40); AST/SGOT 21.0 U/L (<34); CALCIUM LEVEL 9.7 MG/DL (8.3-10.6); CARBON DIOXIDE LEVEL 29.0 MMOL/L (20-31); CHLORIDE LEVEL 107.0 MMOL/L (98-107); CHOLESTEROL LEVEL 98.0 MG/DL (<200); CHOLESTEROL RISK RATIO 3.5 (<5); CREATININE FOR GFR 1.76 MG/DL (0.70-1.30); GLOMERULAR FILTRATION RATE 39.6 (>42); LDL CHOLESTEROL 51.0 MG/DL (<100); MAGNESIUM LEVEL 1.7 MG/DL (1.8-2.4); NON-HDL-C 70.0 MG/DL; PHOSPHORUS LEVEL 3.9 MG/DL (2.4-5.1); POTASSIUM SERUM 4.2 MMOL/L (3.5-5.1); PTH INTACT 83.2 PG/ML (18.5-88.0); SODIUM LEVEL 143.0 MMOL/L (136-145); TRIGLYCERIDES LEVEL 95.0 MG/DL (<150)
== END ==
LOC: SKLAB3 07:00
PROVIDERS: ATTEND Family Medicine
DX: N18.9 Chronic kidney disease, unspecified (principal); E11.9 Type 2 diabetes mellitus without complications; Z79.899 Other long term (current) drug therapy